=== PATIENT | female | born 1950 | race Caucasian/White ===

== ENCOUNTER 2022-07-30 08:32 | Inpatient (IN) ==
[2022-07-30] MEDS ORDERED: ALBUT/IPRATROP 3MG/0.5MG NEB 3 ML VIAL INH STA (08:56)
--- NOTE | 2022-07-30 09:00 | Emergency Department Note ---
Impression & Plan Acute CHF, Shortness of breath, Elevated LFTs, Elevated brain natriuretic peptide (BNP) level, Cardiomegaly ED Provider Note NAME: VIDHI DENSON AGE: 72 SEX: F : 1950 ARRIVES VIA: Walk-In INFORMANT: Patient, ED PROVIDER(S): Georgi Lr MD CHIEF COMPLAINT: Shortness of breath MEDICAL DECISION MAKING: Patient presents due to concern for shortness of breath. IV was established blood work was obtained along with an EKG. Troponin x-ray also performed. Patient was ordered a DuoNeb treatment. Patient did have some mild improvement with her treatment. The patient's blood work shows a normal white count H&H and platelet count. Chest x-ray with pulmonary vascular congestion. The patient does have transaminitis and associated elevated BNP at 1214. The patient does have an elevated TSH and free T4. Urinalysis does show the possibility of infection but the patient is not complained of any symptoms. Patient's viral panel is negative. Given the patient's BNP lack of known prior history of shortness of breath ROBERT and PND I did speak the on-call hospitalist service for chelsey Calixto PA-C and the patient was admitted by Dr. Peñaloza Prior /Outside records reviewed: None Differential diagnosis: Reactive airway disease, pneumonia, pneumothorax, COPD, CHF, infections, cardiac ischemia, pulmonary embolism, musculoskeletal, gastrointestinal, as well as other pathologies. Diagnostics, as interpreted by me: ECG: Sinus, rate of 100, wide QRS, left bundle branch block pattern, left axis deviation, no obvious Sgarbossa criteria. Cardiac monitoring: An order was placed for continuous cardiac monitoring. The monitor shows a rate of 95 with sinus rhythm. Patient was placed on pulse oximetry Medical decision rules: None Imaging studies: See below HPI: Patient presents due to concern for worsening shortness of breath and associated cough that is nonproductive. Patient does have remote history of smoking approximately 40 years ago. Patient denies any chest pains but states that she can just be at rest and all of a sudden feels very short of breath winded and feels as though she sweats through her shirt. Patient does complain of orthopnea. Patient does have associated ROBERT. The patient has not noticed any significant leg swelling or calf pain. No prior history of DVT or PE. Patient states that she does have a prior history of a bundle branch block. Patient has had cough but it is nonproductive. The patient does not take anything for symptoms at home. Patient is accompanied by her mother at bedside. Patient denies any nausea vomiting or diarrhea. Patient's secondary issue sta gualberto that she is unable to sleep very well. Patient states that she does wake up in the middle the night feeling short of breath and does have occasional cough. Patient is 10 that she had a COVID illness at the beginning of June and is vaccinated for COVID-19 but is never quite felt the same since the COVID illness. PAST MEDICAL HISTORY: See Below PAST SURGICAL HISTORY: See Below SOCIAL HISTORY: See Below HOME MEDICATIONS: See Below ALLERGIES: See Below VITALS: See Below PHYSICAL EXAMINATION: GENERAL: Wearing a mask. Anxious in appearance, wearing glasses EYE EXAM: Normal conjunctiva. PERRL, no anisocoria and EOM's grossly intact w/o pain. NECK: Supple, no nuchal rigidity, no adenopathy, non-tender. No signs of meningismus. FROM of the neck with good chin to chest and neck extension. No stridor. LUNGS: Clear to auscultation. Normal chest wall mechanics. HEART: NSR, no MRG. ABDOMEN: Abdomen soft, non-tender, normo-active bowel sounds, no masses, no rebound or guarding. BACK: No CVA TTP. SKIN: No rashes and no bruising. UPPER EXTREMITIES: Upper extremities are grossly normal. LOWER EXTREMITIES: Grossly normal, no edema. Negative Homans' sign bilaterally. NEURO EXAM: A&O x3, cranial nerves II-XII grossly intact, normal speech, moves all 4 extremities. Past Med/Surg History Medical History Anxiety GERD (gastroesophageal reflux disease) HLD (hyperlipidemia) HTN (hypertension) with goal to be determined Hypothyroidism Surgical History H/O: hysterectomy S/P cervical spinal fusion Status post right knee replacement Social History Smoking Status: Former smoker Tobacco Type: Cigarettes Smoking End Date: >10 years ago; Hx Alcohol Use: Yes Alcohol type: wine Alcohol type Comment: 1 glass 4-5x/week with dinner Feels Safe at Home: Yes Allergies Allergies Allergy/AdvReac Type Severity Reaction Status Date / Time dexamethasone Allergy Hives Verified 07/30/22 13:30 [From Maxitrol (neomycin sulf)] neomycin Allergy Hives Verified 07/30/22 13:30 [From Maxitrol (neomycin sulf)] Opioids - Morphine Analogues Allergy Hives Verified 07/30/22 13:32 polymyxin B Allergy Hives Verified 07/30/22 13:30 [From Maxitrol (neomycin sulf)] Home Meds Home Medications Medication Instructions Recorded Confirmed amitriptyline 25 mg tablet 25 mg PO DIRECTED 07/30/22 07/30/22 cyclobenzaprine 10 mg tablet 10 mg PO DAILY PRN Muscle Spasm 07/30/22 07/30/22 duloxetine 60 mg capsule,delayed 60 mg PO DAILY 07/30/22 07/30/22 release levothyroxine 50 mcg tablet 50 mcg PO DAILY 07/30/22 07/30/22 oxybutynin chloride 10 mg 10 mg PO DAILY 07/30/22 07/30/22 tablet,extended release 24 hr pantoprazole 40 mg tablet,delayed 40 mg PO DAILY 07/30/22 07/30/22 release sertraline 100 mg tablet 100 mg PO DAILY 07/30/22 07/30/22 Results & Data (ED) Vital Signs Vital Signs - 24 hr 07/30/22 08:43 07/30/22 08:56 07/30/22 08:56 Temperature Source Oral Pulse Rate 102 H Respiratory Rate 24 Blood Pressure 116/67 Blood Pressure Mean 83 Pulse Oximetry 97 Oxygen Delivery Method Room Air Room Air Sepsis Recent Fever Within 48 Hours No Sepsis New/Unexplained Change in Mental Status N/A Sepsis Action Taken by Nursing No Action Required 07/30/22 09:03 07/30/22 10:03 Temperature Source Pulse Rate 101 H Respiratory Rate Blood Pressure Blood Pressure Mean Pulse Oximetry Oxygen Delivery Method Room Air Sepsis Recent Fever Within 48 Hours Sepsis New/Unexplained Change in Mental Status Sepsis Action Taken by [facility] Medications Current Medication List: was personally reviewed by me Laboratory Data Attestation: I reviewed the patient's lab results. 07/30/22 10:10 07/30/22 10:10 Lab Results 07/30/22 07/30/22 07/30/22 Range/Units 09:30 10:10 10:10 WBC 10.63 (4.8-10.8) K/ul RBC 4.26 (4.20-5.40) M/uL Hgb 13.2 (12.0-16.0) g/dl Hct 40.0 (37.0-47.0) % MCV 93.9 (80.0-100.0) fL MCH 31.0 (25.0-34.0) pg MCHC 33.0 (32.0-36.0) g/dL RDW Std Deviation 45.7 (36.4-46.3) fL RDW Coeff of Delfino 13.4 (11.5-14.5) % Plt Count 280 (130-400) K/uL MPV 10.5 (9.4-12.4) fL Immature Gran % (Auto) 0.4 % Neut % (Auto) 67.7 % Lymph % (Auto) 21.4 % [place] % (Auto) 8.2 % Eos % (Auto) 1.3 % Baso % (Auto) 1.0 % Neut # (Auto) 7.19 H (1.40-6.50) K/uL Lymph # (Auto) 2.28 (1.2-3.4) K/uL [place] # (Auto) 0.87 H (0.11-0.59) K/uL Eos # (Auto) 0.14 (0-0.50) K/uL Baso # (Auto) 0.11 (0-0.2) K/uL Immature Gran # (Auto) 0.04 (0.01-0.20) K/uL PT 11.4 (9.0-12.0) Seconds INR 1.1 (0.9-1.1) APTT 25.5 (21.0-31.0) Seconds PTT Ratio 0.9 D-Dimer (0-500) ug/L FEU Sodium (136-145) mmol/L Potassium (3.5-5.1) mmol/L Chloride (98-107) mmol/L Carbon Dioxide (21-32) mmol/L Anion Gap (3-11) BUN (6-23) mg/dl Creatinine (0.6-1.2) mg/dl Est Cr Clr Drug Dosing ml/min Est GFR ( Amer) ml/min Est GFR (Non-Af Amer) ml/min BUN/Creatinine Ratio (10-20) Glucose (70-99(Fasting)) mg/dl Calcium (8.6-10.3) mg/dl Magnesium (1.7-2.4) mg/dl Total Bilirubin (0.2-1.0) mg/dl AST (13-39) U/L ALT (7-52) U/L Alkaline Phosphatase (34-104) U/L Troponin I High Sens (0-14) pg/ml B-Natriuretic Peptide (0-100) pg/ml Total Protein (6.0-8.3) gm/dl Albumin (3.4-5.0) gm/dl Globulin (2.5-4.0) gm/dl Albumin/Globulin Ratio (0.9-2) TSH (0.300-4.500) uIu/ml Free T4 (0.61-1.60) ng/dl Urine Color Urine Appearance (Clear) Urine pH (4.5-7.5) Ur Specific [place] (1.000-1.030) Urine Protein (Negative) Urine Glucose (UA) (Negative) Urine Ketones (Negative) Urine Blood (Negative) Urine Nitrite (Negative) Urine Bilirubin (Negative) Urine Urobilinogen (Negative) Ur Leukocyte Esterase (Negative) Urine WBC (Auto) (0-5) /hpf Urine RBC (Auto) (0-4) /hpf U Hyaline Cast (Auto) (0-5) /lpf U Epithel Cells (Auto) (0-5) /lpf Urine Bacteria (Auto) (Negative) Ur Random Creatinine mg/dl U Random Total Protein (0-11.9) mg/dl Protein/Creatinin Ratio (0-0.2) Adenovirus (PCR) Not Detected (NotDetected) B. pertussis DNA (PCR) Not Detected (NotDetected) B.parapertussis DNA PCR Not Detected (NotDetected) C. pneumoniae DNA (PCR) Not Detected (NotDetected) Coronavirus OC43 (PCR) Not Detected (NotDetected) Coronavirus HKU1 (PCR) Not Detected (NotDetected) Coronavirus 229E (PCR) Not Detected (NotDetected) SARS-CoV-2 (PCR) Not Detected (NotDetected) Coronavirus NL63 (PCR) Not Detected (NotDetected) Human Metapneumovir PCR Not Detected (NotDetected) Influenza Type A (PCR) Not Detected (NotDetected) Influenza Type B (PCR) Not Detected (NotDetected) M. pneumoniae (PCR) Not Detected (NotDetected) Parainfluenza 1 (PCR) Not Detected (NotDetected) Parainfluenza 2 (PCR) Not Detected (NotDetected) Parainfluenza 3 (PCR) Not Detected (NotDetected) Parainfluenza 4 (PCR) Not Detected (NotDetected) RSV (PCR) Not Detected (NotDetected) Entero/Rhino (PCR) Not Detected (NotDetected) 07/30/22 07/30/22 07/30/22 Range/Units 10:10 10:10 10:10 WBC (4.8-10.8) K/ul RBC (4.20-5.40) M/uL Hgb (12.0-16.0) g/dl Hct (37.0-47.0) % MCV (80.0-100.0) fL MCH (25.0-34.0) pg MCHC (32.0-36.0) g/dL RDW Std Deviation (36.4-46.3) fL RDW Coeff of Delfino (11.5-14.5) % Plt Count (130-400) K/uL MPV (9.4-12.4) fL Immature Gran % (Auto) % Neut % (Auto) % Lymph % (Auto) % [place] % (Auto) % Eos % (Auto) % Baso % (Auto) % Neut # (Auto) (1.40-6.50) K/uL Lymph # (Auto) (1.2-3.4) K/uL [place] # (Auto) (0.11-0.59) K/uL Eos # (Auto) (0-0.50) K/uL Baso # (Auto) (0-0.2) K/uL Immature Gran # (Auto) (0.01-0.20) K/uL PT (9.0-12.0) Seconds INR (0.9-1.1) APTT (21.0-31.0) Seconds PTT Ratio D-Dimer 1070 H* (0-500) ug/L FEU Sodium 140 (136-145) mmol/L Potassium 3.8 (3.5-5.1) mmol/L Chloride 106 (98-107) mmol/L Carbon Dioxide 26 (21-32) mmol/L Anion Gap 8 (3-11) BUN 15 (6-23) mg/dl Creatinine 0.73 (0.6-1.2) mg/dl Est Cr Clr Drug Dosing 74.6 ml/min Est GFR ( Amer) 96.7 ml/min Est GFR (Non-Af Amer) 83.4 ml/min BUN/Creatinine Ratio 20.5 H (10-20) Glucose 117 H (70-99(Fasting)) mg/dl Calcium 8.7 (8.6-10.3) mg/dl Magnesium 2.0 (1.7-2.4) mg/dl Total Bilirubin 0.9 (0.2-1.0) mg/dl AST 69 H (13-39) U/L ALT 108 H (7-52) U/L Alkaline Phosphatase 142 H (34-104) U/L Troponin I High Sens 31.4 H (0-14) pg/ml B-Natriuretic Peptide 1214 H (0-100) pg/ml Total Protein 7.0 (6.0-8.3) gm/dl Albumin 4.1 (3.4-5.0) gm/dl Globulin 2.9 (2.5-4.0) gm/dl Albumin/Globulin Ratio 1.4 (0.9-2) TSH (0.300-4.500) uIu/ml Free T4 (0.61-1.60) ng/dl Urine Color Urine Appearance (Clear) Urine pH (4.5-7.5) Ur Specific [place] (1.000-1.030) Urine Protein (Negative) Urine Glucose (UA) (Negative) Urine Ketones (Negative) Urine Blood (Negative) Urine Nitrite (Negative) Urine Bilirubin (Negative) Urine Urobilinogen (Negative) Ur Leukocyte Esterase (Negative) Urine WBC (Auto) (0-5) /hpf Urine RBC (Auto) (0-4) /hpf U Hyaline Cast (Auto) (0-5) /lpf U Epithel Cells (Auto) (0-5) /lpf Urine Bacteria (Auto) (Negative) Ur Random Creatinine mg/dl U Random Total Protein (0-11.9) mg/dl Protein/Creatinin Ratio (0-0.2) Adenovirus (PCR) (NotDetected) B. pertussis DNA (PCR) (NotDetected) B.parapertussis DNA PCR (NotDetected) C. pneumoniae DNA (PCR) (NotDetected) Coronavirus OC43 (PCR) (NotDetected) Coronavirus HKU1 (PCR) (NotDetected) Coronavirus 229E (PCR) (NotDetected) SARS-CoV-2 (PCR) (NotDetected) Coronavirus NL63 (PCR) (NotDetected) Human Metapneumovir PCR (NotDetected) Influenza Type A (PCR) (NotDetected) Influenza Type B (PCR) (NotDetected) M. pneumoniae (PCR) (NotDetected) Parainfluenza 1 (PCR) (NotDetected) Parainfluenza 2 (PCR) (NotDetected) Parainfluenza 3 (PCR) (NotDetected) Parainfluenza 4 (PCR) (NotDetected) RSV (PCR) (NotDetected) Entero/Rhino (PCR) (NotDetected) 07/30/22 07/30/22 07/30/22 Range/Units 10:10 10:10 12:06 WBC (4.8-10.8) K/ul RBC (4.20-5.40) M/uL Hgb (12.0-16.0) g/dl Hct (37.0-47.0) % MCV (80.0-100.0) fL MCH (25.0-34.0) pg MCHC (32.0-36.0) g/dL RDW Std Deviation (36.4-46.3) fL RDW Coeff of Delfino (11.5-14.5) % Plt Count (130-400) K/uL MPV (9.4-12.4) fL Immature Gran % (Auto) % Neut % (Auto) % Lymph % (Auto) % [place] % (Auto) % Eos % (Auto) % Baso % (Auto) % Neut # (Auto) (1.40-6.50) K/uL Lymph # (Auto) (1.2-3.4) K/uL [place] # (Auto) (0.11-0.59) K/uL Eos # (Auto) (0-0.50) K/uL Baso # (Auto) (0-0.2) K/uL Immature Gran # (Auto) (0.01-0.20) K/uL PT (9.0-12.0) Seconds INR (0.9-1.1) APTT (21.0-31.0) Seconds PTT Ratio D-Dimer (0-500) ug/L FEU Sodium (136-145) mmol/L Potassium (3.5-5.1) mmol/L Chloride (98-107) mmol/L Carbon Dioxide (21-32) mmol/L Anion Gap (3-11) BUN (6-23) mg/dl Creatinine (0.6-1.2) mg/dl Est Cr Clr Drug Dosing ml/min Est GFR ( Amer) ml/min Est GFR (Non-Af Amer) ml/min BUN/Creatinine Ratio (10-20) Glucose (70-99(Fasting)) mg/dl Calcium (8.6-10.3) mg/dl Magnesium (1.7-2.4) mg/dl Total Bilirubin (0.2-1.0) mg/dl AST (13-39) U/L ALT (7-52) U/L Alkaline Phosphatase (34-104) U/L Troponin I High Sens Cancelled (0-14) pg/ml B-Natriuretic Peptide (0-100) pg/ml Total Protein (6.0-8.3) gm/dl Albumin (3.4-5.0) gm/dl Globulin (2.5-4.0) gm/dl Albumin/Globulin Ratio (0.9-2) TSH 5.272 H (0.300-4.500) uIu/ml Free T4 1.86 H (0.61-1.60) ng/dl Urine Color Urine Appearance (Clear) Urine pH (4.5-7.5) Ur Specific [place] (1.000-1.030) Urine Protein (Negative) Urine Glucose (UA) (Negative) Urine Ketones (Negative) Urine Blood (Negative) Urine Nitrite (Negative) Urine Bilirubin (Negative) Urine Urobilinogen (Negative) Ur Leukocyte Esterase (Negative) Urine WBC (Auto) (0-5) /hpf Urine RBC (Auto) (0-4) /hpf U Hyaline Cast (Auto) (0-5) /lpf U Epithel Cells (Auto) (0-5) /lpf Urine Bacteria (Auto) (Negative) Ur Random Creatinine 53.7 mg/dl U Random Total Protein 13.6 H (0-11.9) mg/dl Protein/Creatinin Ratio 0.3 H (0-0.2) Adenovirus (PCR) (NotDetected) B. pertussis DNA (PCR) (NotDetected) B.parapertussis DNA PCR (NotDetected) C. pneumoniae DNA (PCR) (NotDetected) Coronavirus OC43 (PCR) (NotDetected) Coronavirus HKU1 (PCR) (NotDetected) Coronavirus 229E (PCR) (NotDetected) SARS-CoV-2 (PCR) (NotDetected) Coronavirus NL63 (PCR) (NotDetected) Human Metapneumovir PCR (NotDetected) Influenza Type A (PCR) (NotDetected) Influenza Type B (PCR) (NotDetected) M. pneumoniae (PCR) (NotDetected) Parainfluenza 1 (PCR) (NotDetected) Parainfluenza 2 (PCR) (NotDetected) Parainfluenza 3 (PCR) (NotDetected) Parainfluenza 4 (PCR) (NotDetected) RSV (PCR) (NotDetected) Entero/Rhino (PCR) (NotDetected) 07/30/22 Range/Units 12:06 WBC (4.8-10.8) K/ul RBC (4.20-5.40) M/uL Hgb (12.0-16.0) g/dl Hct (37.0-47.0) % MCV (80.0-100.0) fL MCH (25.0-34.0) pg MCHC (32.0-36.0) g/dL RDW Std Deviation (36.4-46.3) fL RDW Coeff of Delfino (11.5-14.5) % Plt Count (130-400) K/uL MPV (9.4-12.4) fL Immature Gran % (Auto) % Neut % (Auto) % Lymph % (Auto) % [place] % (Auto) % Eos % (Auto) % Baso % (Auto) % Neut # (Auto) (1.40-6.50) K/uL Lymph # (Auto) (1.2-3.4) K/uL [place] # (Auto) (0.11-0.59) K/uL Eos # (Auto) (0-0.50) K/uL Baso # (Auto) (0-0.2) K/uL Immature Gran # (Auto) (0.01-0.20) K/uL PT (9.0-12.0) Seconds INR (0.9-1.1) APTT (21.0-31.0) Seconds PTT Ratio D-Dimer (0-500) ug/L FEU Sodium (136-145) mmol/L Potassium (3.5-5.1) mmol/L Chloride (98-107) mmol/L Carbon Dioxide (21-32) mmol/L Anion Gap (3-11) BUN (6-23) mg/dl Creatinine (0.6-1.2) mg/dl Est Cr Clr Drug Dosing ml/min Est GFR ( Amer) ml/min Est GFR (Non-Af Amer) ml/min BUN/Creatinine Ratio (10-20) Glucose (70-99(Fasting)) mg/dl Calcium (8.6-10.3) mg/dl Magnesium (1.7-2.4) mg/dl Total Bilirubin (0.2-1.0) mg/dl AST (13-39) U/L ALT (7-52) U/L Alkaline Phosphatase (34-104) U/L Troponin I High Sens (0-14) pg/ml B-Natriuretic Peptide (0-100) pg/ml Total Protein (6.0-8.3) gm/dl Albumin (3.4-5.0) gm/dl Globulin (2.5-4.0) gm/dl Albumin/Globulin Ratio (0.9-2) TSH (0.300-4.500) uIu/ml Free T4 (0.61-1.60) ng/dl Urine Color Yellow Urine Appearance Clear (Clear) Urine pH 5.5 (4.5-7.5) Ur Specific [place] 1.012 (1.000-1.030) Urine Protein Negative (Negative) Urine Glucose (UA) Negative (Negative) Urine Ketones Negative (Negative) Urine Blood Negative (Negative) Urine Nitrite Positive A (Negative) Urine Bilirubin Negative (Negative) Urine Urobilinogen Negative (Negative) Ur Leukocyte Esterase Trace H (Negative) Urine WBC (Auto) 1-5 (0-5) /hpf Urine RBC (Auto) 0-4 (0-4) /hpf U Hyaline Cast (Auto) 1-5 (0-5) /lpf U Epithel Cells (Auto) >30 H (0-5) /lpf Urine Bacteria (Auto) 3+ H (Negative) Ur Random Creatinine mg/dl U Random Total Protein (0-11.9) mg/dl Protein/Creatinin Ratio (0-0.2) Adenovirus (PCR) (NotDetected) B. pertussis DNA (PCR) (NotDetected) B.parapertussis DNA PCR (NotDetected) C. pneumoniae DNA (PCR) (NotDetected) Coronavirus OC43 (PCR) (NotDetected) Coronavirus HKU1 (PCR) (NotDetected) Coronavirus 229E (PCR) (NotDetected) SARS-CoV-2 (PCR) (NotDetected) Coronavirus NL63 (PCR) (NotDetected) Human Metapneumovir PCR (NotDetected) Influenza Type A (PCR) (NotDetected) Influenza Type B (PCR) (NotDetected) M. pneumoniae (PCR) (NotDetected) Parainfluenza 1 (PCR) (NotDetected) Parainfluenza 2 (PCR) (NotDetected) Parainfluenza 3 (PCR) (NotDetected) Parainfluenza 4 (PCR) (NotDetected) RSV (PCR) (NotDetected) Entero/Rhino (PCR) (NotDetected) Administered Medications Discontinued Medications Albuterol (Albut/Ipratrop 3mg/0.5mg Neb 3 Ml Vial) 3 ml INH NOW STA Stop: 07/30/22 08:57 Last Admin: 07/30/22 09:48 Dose: 3 ml Documented By: TAMIKA Furosemide (Furosemide 40 Mg/4 Ml Vial) 40 mg IV ONE ONE Stop: 07/30/22 11:34 Last Admin: 07/30/22 12:38 Dose: 40 mg Documented By: [email or web address] Ioversol (Optiray 320 500ml) 120 ml IV ONCE ONE Stop: 07/30/22 14:34 Last Admin: 07/30/22 14:33 Dose: 120 ml Documented By: ERICA Imaging Data Radiologist's Impression: Chest X-Ray 07/30/22 08:56 SINGLE VIEW CHEST CLINICAL HISTORY: Dyspnea FINDINGS: An AP, portable, upright chest radiograph is obtained. No prior studies are available for comparison at the time of dictation. The heart is enlarged noting atherosclerotic calcification of the thoracic aorta. There is pulmonary vascular congestion. Scarring/atelectasis is noted at the lung bases. The lungs and pleural spaces are otherwise clear. No pneumothorax is seen. The skeletal structures are osteopenic. The bony thorax is grossly intact. Fusion hardware is noted in the lower cervical spine. IMPRESSION: Cardiomegaly with pulmonary vascular congestion. ACT 112: Negative or not required by law. Electronically signed by: Gerry Hahn M.D. 07/30/2022 9:15 AM Discharge Plan Visit Data Chief Complaint: Shortness of Breath/Dyspnea Stated Complaint: SHORTNESS OF BREATH ED Provider: Georgi Lr Discharge Problem: Acute CHF, Shortness of breath, Elevated LFTs, Elevated brain natriuretic peptide (BNP) level, Cardiomegaly Patient Disposition: Admitted As Inpatient Discharge Instructions Interventions: ED Discharge Assessment Last Done: 07/30/22 12:54
--- NOTE | 2022-07-30 09:17 | XRay Report ---
SINGLE VIEW CHEST CLINICAL HISTORY: Dyspnea FINDINGS: An AP, portable, upright chest radiograph is obtained. No prior studies are available for c omparison at the time of dictation. The heart is enlarged noting atherosclerotic calcification of the thoracic aorta. There is pulmonary vascular congestion. Scarring/atelectasis is noted at the lung ba ses. The lungs and pleural spaces are otherwise clear. No pneumothorax is seen. The skeletal structur es are osteopenic. The bony thorax is grossly intact. Fusion hardware is noted in the lower cervical spine. IMPRESSION: Cardiomegaly with pulmonary vascular congestion. ACT 112: Negative or not required by law. Electronically signed by: Gerry Hahn M.D. 07/30/2022 9:15 AM
[2022-07-30 10:54] LABS: Basophils # (auto) 0.11 K/uL (0-0.2); Eosinophils # (auto) 0.14 K/uL (0-0.50); Eosinophils % (auto) 1.3 %; Hemoglobin 13.2 g/dl (12.0-16.0); Immature Granulocytes # (auto) 0.04 K/uL (0.01-0.20); Immature Granulocytes % (auto) 0.4 %; Lymphocytes # (auto) 2.28 K/uL (1.2-3.4); Lymphocytes % (auto) 21.4 %; Mean Corpuscular Volume 93.9 fL (80.0-100.0); Mean Platelet Volume 10.5 fL (9.4-12.4); Monocytes # (auto) 0.87 K/uL (0.11-0.59); Monocytes % (auto) 8.2 %; Neutrophils # (auto) 7.19 K/uL (1.40-6.50); Neutrophils % (auto) 67.7 %; Platelet Count 280 K/uL (130-400); RDW Coefficient of Variation 13.4 % (11.5-14.5); RDW Standard Deviation 45.7 fL (36.4-46.3); Red Blood Count 4.26 M/uL (4.20-5.40); White Blood Count 10.63 K/ul (4.8-10.8)
[2022-07-30 11:16] LABS: INR 1.1 (0.9-1.1); Partial Thromboplastin Ratio 0.9; Partial Thromboplastin Time 25.5 Seconds (21.0-31.0); Prothrombin Time 11.4 Seconds (9.0-12.0)
[2022-07-30 11:18] LABS: Albumin Globulin Ratio 1.4 (0.9-2); Albumin Level 4.1 gm/dl (3.4-5.0); BUN Creatinine Ratio 20.5 (10-20); Bilirubin,Total 0.9 mg/dl (0.2-1.0); Calcium 8.7 mg/dl (8.6-10.3); Creatinine Clr Calc Pharmacy 74.6 ml/min; Est GFR (African American) 96.7 ml/min; Est GFR (Non-African American) 83.4 ml/min; Globulin 2.9 gm/dl (2.5-4.0); Potassium 3.8 mmol/L (3.5-5.1)
[2022-07-30 11:25] LABS: Adenovirus PCR Not Detected (NotDetected); Bordetella parapertussis PCR Not Detected (NotDetected); Bordetella pertussis PCR Not Detected (NotDetected); Chlamydia pneumoniae PCR Not Detected (NotDetected); Coronavirus 229E PCR Not Detected (NotDetected); Coronavirus CoV-2 (COVID19)PCR Not Detected (NotDetected); Coronavirus HKU1 PCR Not Detected (NotDetected); Coronavirus NL63 PCR Not Detected (NotDetected); Coronavirus OC43PCR Not Detected (NotDetected); Human Metapneumovirus PCR Not Detected (NotDetected); Influenza A PCR Not Detected (NotDetected); Influenza B PCR Not Detected (NotDetected); Mycoplasma pneumoniae PCR Not Detected (NotDetected); Parainfluenza Virus 1 PCR Not Detected (NotDetected); Parainfluenza Virus 2 PCR Not Detected (NotDetected); Parainfluenza Virus 3 PCR Not Detected (NotDetected); Parainfluenza Virus 4 PCR Not Detected (NotDetected); Respiratory Syncytial VirusPCR Not Detected (NotDetected); Rhinovirus/Enterovirus PCR Not Detected (NotDetected)
[2022-07-30] MEDS ORDERED: FUROSEMIDE 40 MG/4 ML VIAL IV ONE ×2 (11:33→17:00)
--- NOTE | 2022-07-30 11:51 | History & Physical Report ---
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 Check TSH/t4 given hypothyroid/issues w/ constipation/weight gain Check trop, trend if elevated --> 31.4, ?volume overload --> trend ECHO to Eval for valvular dysfunction D-dimer given travel by car/prior leg cramping -- check CTA if needed but no hypotension/hypoxia at present, do not suspect such Monitor I&O, daily weight LOW SALT DIET -- patient states she is unable to tolerate NO SALT DIET< from [place] -- discussed low salt diet and will be ordered Monitor/consider repeat dose lasix tonight if needed Monitor LFTs -- no abdominal pain, on Flexeril, also reports wine 4-5x/week check Liver US for eval but suspect volume overload/hepatic congestion (may benefit better from torsemide/bumex given abd fullness) Will plan to start metoprolol 25mg QAM, cards consult pending echo Needs set up for PCP at d/c (2) Elevated brain natriuretic peptide (BNP) level: Plan: suspect 2nd to volume overload/CHF (3) Cardiomegaly: Plan: check echo, cards consult if needed check trop monitor on tele no CP reported but did state pain w/ inspiration ddimer as above, CTA if needed will check a1c/lipid for risk strat outpatient, needing new pcp (4) Hypothyroidism: Plan: on levothyroxine 50mcg check TSH/Ft4 continue home dose for now (5) GERD (gastroesophageal reflux disease): Plan: continue ppi (6) Anxiety: Plan: continue cymbalta/sertaline trazodone available to sleep tonight (7) Elevated LFTs: Plan: ?hepatic congestion from volume overload/diastolic CHF, ?etoh use, ?flexeril use. INR 1.1 Holding flexeril for now Check Liver US for completeness Monitor LFTs in AM (8) Acute HFrEF (heart failure with reduced ejection fraction): (9) Cardiomyopathy: History of Present Illness Chief Complaint: shortness of breath Primary Care Provider: NO PCP 72yo female presented with PMHx significant for anxiety/depression, GERD, previous HTN/HLD on BP meds/statin but reported weight loss and discontinued these --> presented with shortness of breath, orthopnea, nonproductive cough. Recently moving from [facility], traveled by car to [place] from [place]. Did not develop symptoms until around 2 days ago and reports she has not been sleeping very well and has a sensation of drowning with laying flat and hasn't slept well in the past two days, needing something for sleep as amytryptyline not helping h er. BNP elevated 1214, CXR w/ cardiomegaly and pulmonary congestion. No hypoxia Given Duoneb x 1, 40mg IV lasix in ER. She reports feeling a little better since she got here but still slightly SOB w/ nonproductive cough and ROBERT. She states she is unsure of prior name of BP medication but that she lost about 100lb since she was on them 10 years ago and has been off since. She does not weigh herself daily but does note that she feels like her abdomen is nava and pants have been tighter fitting. She notes if admitted please do not give NO SALT diet as she can't take the blandness in the area as [place] [facility] [place] No having abdominal pain but does endorse fullness. No LE edema/calf tenderness and on palpation she notes she usually doesn't like that sensation but is having zero pain. Hx hypothyroidism and takes at night when she wakes up on an empty stomach. Does have issues with constipation on occassion if she doesn't drink tea/coffee. Had been attmpeting to get new PCP in the area- discussed can assist at d/c. LFTs w/ elevation in AST 69, ALT 108, ALP 142 (on flexeril prn -- took dose yesterday, hx spinal stenosis/fusion). Does report drinks glass of wine w/ mom in evening with supper about 4-5x/week. WBC 10.6k w/ L shift. No fever. Hgb 13.2. Mag 2.0. EKG w/ SR w/ PVC, possible LAR, left axis deviation. LBBB (known LBBB). No recent fevers at home. Biofire negative. 97% on RA Discussed admission and ECHO (tech at bedside), lasix and monitoring labs. She is ok with full code and family understands if long-term she does not want to be a vegetable. 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 Allergies Allergy/AdvReac Type Severity Reaction Status Date / Time dexamethasone Allergy Hives Verified 07/30/22 13:30 [From Maxitrol (neomycin sulf)] neomycin Allergy Hives Verified 07/30/22 13:30 [From Maxitrol (neomycin sulf)] Opioids - Morphine Analogues Allergy Hives Verified 07/30/22 13:32 polymyxin B Allergy Hives Verified 07/30/22 13:30 [From Maxitrol (neomycin sulf)] Home Medications Medication Instructions Recorded Confirmed Type amitriptyline 25 mg tablet 25 mg PO DIRECTED 07/30/22 07/30/22 History cyclobenzaprine 10 mg tablet 10 mg PO DAILY PRN Muscle Spasm 07/30/22 07/30/22 History duloxetine 60 mg capsule,delayed 60 mg PO DAILY 07/30/22 07/30/22 History release levothyroxine 50 mcg tablet 50 mcg PO DAILY 07/30/22 07/30/22 History oxybutynin chloride 10 mg 10 mg PO DAILY 07/30/22 07/30/22 History tablet,extended release 24 hr pantoprazole 40 mg tablet,delayed 40 mg PO DAILY 07/30/22 07/30/22 History release sertraline 100 mg tablet 100 mg PO DAILY 07/30/22 07/30/22 History Past Med/Surg History Medical History Anxiety GERD (gastroesophageal reflux disease) HLD (hyperlipidemia) HTN (hypertension) with goal to be determined Hypothyroidism Surgical History H/O: hysterectomy S/P cervical spinal fusion Status post right knee replacement Social History Smoking Status: Former smoker Tobacco Type: Cigarettes Smoking End Date: >10 years ago; Hx Alcohol Use: Yes Alcohol type: wine Alcohol type Comment: 1 glass 4-5x/week with dinner Hx Substance Use: No Preferred Language: Pakistani Communication Ability: Effective Battery Charger Required: No Beliefs That Will Affect Care: None Current Living Situation: Family Feels Safe at Home: Yes Safety Concerns: Feels Safe At This Time Review of Systems Review of Systems: All systems reviewed & are unremarkable except as noted in HPI & below Physical Exam Physical Exam: General: WD/WN obese female, anxious appearing, NAD, mother at bedside HEENT: head normocephalic, atraumatic, mmm, trachea midline, +JVD Resp: diminished in bases, no wheezing/crackles, +cough, on room air 97% CV: RRR, S1/S2, +?4, no significant LE edema, no calf tenderness, cap refill wnl GI: +BS, obese, distended, nontender : no valera -- urine in bathroom yellow in color in hat MSK/Neuro: no focal deficits, no slurred speech/facial droop Psych: AOx3, anxious appearing about staying overnight but cooperative with exam Results & Data Results & Data Vital Signs (Past 12 Hours) Vital Signs Pulse Resp BP Pulse Ox O2 Del Method 07/30/22 10:03 101 H 07/30/22 09:03 Room Air 07/30/22 08:56 Room Air 07/30/22 08:43 102 H 24 116/67 97 Room Air Laboratory Results 07/30/22 07/30/22 07/30/22 Range/Units 10:10 10:10 10:10 WBC (4.8-10.8) K/ul RBC (4.20-5.40) M/uL Hgb (12.0-16.0) g/dl Hct (37.0-47.0) % MCV (80.0-100.0) fL MCH (25.0-34.0) pg MCHC (32.0-36.0) g/dL RDW Std Deviation (36.4-46.3) fL RDW Coeff of Delfino (11.5-14.5) % Plt Count (130-400) K/uL MPV (9.4-12.4) fL Immature Gran % (Auto) % Neut % (Auto) % Lymph % (Auto) % Dimmit % (Auto) % Eos % (Auto) % Baso % (Auto) % Neut # (Auto) (1.40-6.50) K/uL Lymph # (Auto) (1.2-3.4) K/uL Dimmit # (Auto) (0.11-0.59) K/uL Eos # (Auto) (0-0.50) K/uL Baso # (Auto) (0-0.2) K/uL Immature Gran # (Auto) (0.01-0.20) K/uL PT 11.4 (9.0-12.0) Seconds INR 1.1 (0.9-1.1) APTT 25.5 (21.0-31.0) Seconds PTT Ratio 0.9 Sodium 140 (136-145) mmol/L Potassium 3.8 (3.5-5.1) mmol/L Chloride 106 (98-107) mmol/L Carbon Dioxide 26 (21-32) mmol/L Anion Gap 8 (3-11) BUN 15 (6-23) mg/dl Creatinine 0.73 (0.6-1.2) mg/dl Est Cr Clr Drug Dosing 74.6 ml/min Est GFR ( Amer) 96.7 ml/min Est GFR (Non-Af Amer) 83.4 ml/min BUN/Creatinine Ratio 20.5 H (10-20) Glucose 117 H (70-99(Fasting)) mg/dl Calcium 8.7 (8.6-10.3) mg/dl Magnesium 2.0 (1.7-2.4) mg/dl Total Bilirubin 0.9 (0.2-1.0) mg/dl AST 69 H (13-39) U/L ALT 108 H (7-52) U/L Alkaline Phosphatase 142 H (34-104) U/L B-Natriuretic Peptide 1214 H (0-100) pg/ml Total Protein 7.0 (6.0-8.3) gm/dl Albumin 4.1 (3.4-5.0) gm/dl Globulin 2.9 (2.5-4.0) gm/dl Albumin/Globulin Ratio 1.4 (0.9-2) Adenovirus (PCR) (NotDetected) B. pertussis DNA (PCR) (NotDetected) B.parapertussis DNA PCR (NotDetected) C. pneumoniae DNA (PCR) (NotDetected) Coronavirus OC43 (PCR) (NotDetected) Coronavirus HKU1 (PCR) (NotDetected) Coronavirus 229E (PCR) (NotDetected) SARS-CoV-2 (PCR) (NotDetected) Coronavirus NL63 (PCR) (NotDetected) Human Metapneumovir PCR (NotDetected) Influenza Type A (PCR) (NotDetected) Influenza Type B (PCR) (NotDetected) M. pneumoniae (PCR) (NotDetected) Parainfluenza 1 (PCR) (NotDetected) Parainfluenza 2 (PCR) (NotDetected) Parainfluenza 3 (PCR) (NotDetected) Parainfluenza 4 (PCR) (NotDetected) RSV (PCR) (NotDetected) Entero/Rhino (PCR) (NotDetected) 07/30/22 07/30/22 Range/Units 10:10 09:30 WBC 10.63 (4.8-10.8) K/ul RBC 4.26 (4.20-5.40) M/uL Hgb 13.2 (12.0-16.0) g/dl Hct 40.0 (37.0-47.0) % MCV 93.9 (80.0-100.0) fL MCH 31.0 (25.0-34.0) pg MCHC 33.0 (32.0-36.0) g/dL RDW Std Deviation 45.7 (36.4-46.3) fL RDW Coeff of Delfino 13.4 (11.5-14.5) % Plt Count 280 (130-400) K/uL MPV 10.5 (9.4-12.4) fL Immature Gran % (Auto) 0.4 % Neut % (Auto) 67.7 % Lymph % (Auto) 21.4 % Dimmit % (Auto) 8.2 % Eos % (Auto) 1.3 % Baso % (Auto) 1.0 % Neut # (Auto) 7.19 H (1.40-6.50) K/uL Lymph # (Auto) 2.28 (1.2-3.4) K/uL Dimmit # (Auto) 0.87 H (0.11-0.59) K/uL Eos # (Auto) 0.14 (0-0.50) K/uL Baso # (Auto) 0.11 (0-0.2) K/uL Immature Gran # (Auto) 0.04 (0.01-0.20) K/uL PT (9.0-12.0) Seconds INR (0.9-1.1) APTT (21.0-31.0) Seconds PTT Ratio Sodium (136-145) mmol/L Potassium (3.5-5.1) mmol/L Chloride (98-107) mmol/L Carbon Dioxide (21-32) mmol/L Anion Gap (3-11) BUN (6-23) mg/dl Creatinine (0.6-1.2) mg/dl Est Cr Clr Drug Dosing ml/min Est GFR ( Amer) ml/min Est GFR (Non-Af Amer) ml/min BUN/Creatinine Ratio (10-20) Glucose (70-99(Fasting)) mg/dl Calcium (8.6-10.3) mg/dl Magnesium (1.7-2.4) mg/dl Total Bilirubin (0.2-1.0) mg/dl AST (13-39) U/L ALT (7-52) U/L Alkaline Phosphatase (34-104) U/L B-Natriuretic Peptide (0-100) pg/ml Total Protein (6.0-8.3) gm/dl Albumin (3.4-5.0) gm/dl Globulin (2.5-4.0) gm/dl Albumin/Globulin Ratio (0.9-2) Adenovirus (PCR) Not Detected (NotDetected) B. pertussis DNA (PCR) Not Detected (NotDetected) B.parapertussis DNA PCR Not Detected (NotDetected) C. pneumoniae DNA (PCR) Not Detected (NotDetected) Coronavirus OC43 (PCR) Not Detected (NotDetected) Coronavirus HKU1 (PCR) Not Detected (NotDetected) Coronavirus 229E (PCR) Not Detected (NotDetected) SARS-CoV-2 (PCR) Not Detected (NotDetected) Coronavirus NL63 (PCR) Not Detected (NotDetected) Human Metapneumovir PCR Not Detected (NotDetected) Influenza Type A (PCR) Not Detected (NotDetected) Influenza Type B (PCR) Not Detected (NotDetected) M. pneumoniae (PCR) Not Detected (NotDetected) Parainfluenza 1 (PCR) Not Detected (NotDetected) Parainfluenza 2 (PCR) Not Detected (NotDetected) Parainfluenza 3 (PCR) Not Detected (NotDetected) Parainfluenza 4 (PCR) Not Detected (NotDetected) RSV (PCR) Not Detected (NotDetected) Entero/Rhino (PCR) Not Detected (NotDetected) Diagnostic Findings Chest X-Ray 07/30/22 08:56 SINGLE VIEW CHEST CLINICAL HISTORY: Dyspnea FINDINGS: An AP, portable, upright chest radiograph is obtained. No prior studies are available for comparison at the time of dictation. The heart is enlarged noting atherosclerotic calcification of the thoracic aorta. There is pulmonary vascular congestion. Scarring/atelectasis is noted at the lung bases. The lungs and pleural spaces are otherwise clear. No pneumothorax is seen. The skeletal structures are osteopenic. The bony thorax is grossly intact. Fusion hardware is noted in the lower cervical spine. IMPRESSION: Cardiomegaly with pulmonary vascular congestion. ACT 112: Negative or not required by law. Electronically signed by: Gerry Hahn M.D. 07/30/2022 9:15 AM Supervising Physician Co-Signing Physician Notes I personally saw and examined the patient. I verified all katz points and agree with Abigail Owen PA-C with the following exceptions and/or additions: 72 year old female presents to the ER with shortness of breath and significant orthopnea getting progressively worse over months but much worse today. She reports a significant history of cardiomyopathy in her family but not due to he art attacks. O/E Very anxious appearing, Aler &Ox3, HS RRR, no murmurs, Chest rhonchi b/l, bibasal fine crackles, no wheezing, Abdo SNT, trace b/l LE pitting A/P Acute HFrEF - Significant diuresis with Lasix 40mg IV given in ER, will continue with 20mg IV BID. Low Na diet, strict I&Os, daily weights. Urine protein/Cr ratio normal therefore not concerned regarding renal involvement. Cardiomyopathy - cardiology to consider cardiac cath for cause. Start metoprolol succinate 25,g PO in AM. Consider Entresto as blood pressure allows. Elevated LFTs - suspect hepatic congestion, US liver unremarkable. Continue to trend. PG Care Time/CCT Total # of Minutes Spent Total Time Spent with Patient: Total time spent is greater than 50% in coordination of care (as documented) at patient's floor/unit and/or counseling patient: Coding Level of Care Code 03558 INT INP/OBS CARE 3/75MIN Diagnoses Shortness of breath R06.02 Elevated brain natriuretic peptide (BNP) level R79.89 Cardiomegaly I51.7 Hypothyroidism E03.9 GERD (gastroesophageal reflux disease) K21.9 Anxiety F41.9 Elevated LFTs R79.89 Acute HFrEF (heart failure with reduced ejection fraction) I50.21 Cardiomyopathy I42.9
[2022-07-30 12:23] LABS: Troponin I High Sensitivity 31.4 pg/ml (0-14)
[2022-07-30 12:30] LABS: Thyroid Stimulating Hormone 5.272 uIu/ml (0.300-4.500)
[2022-07-30 12:38] LABS: D Dimer 1070 ug/L FEU (0-500)
[2022-07-30] MEDS ORDERED: ONDANSETRON INJ 2 MG/ML 2 ML VIAL IV PRN (12:59)
[2022-07-30 13:00] LABS: Appearance Urine Clear (Clear); Bacteria Urine Automated 3+ (Negative); Bilirubin Urine Negative (Negative); Blood Urine Negative (Negative); Color Urine Yellow; Epithelial Cell Urine Auto >30 /lpf (0-5); Glucose Urine UA Negative (Negative); Ketones Urine Negative (Negative); Leukocyte Esterase Urine Trace (Negative); Nitrite Urine Positive (Negative); Protein Urine Negative (Negative); RBC Urine Automated 0-4 /hpf (0-4); Specific Gravity Urine 1.012 (1.000-1.030); Urobilinogen Urine Negative (Negative); pH Urine 5.5 (4.5-7.5)
--- NOTE | 2022-07-30 13:04 | XCELERA ---
[id number]
[2022-07-30 13:06] LABS: T4 Free Thyroxine 1.86 ng/dl (0.61-1.60)
[2022-07-30] MEDS ORDERED: Patient's ALLERGY Info needs ENTERED SCH (13:15)
[2022-07-30 13:19] LABS: Total Protein Urine Random 13.6 mg/dl (0-11.9)
[2022-07-30 13:25] LABS: Creatinine Urine Random 53.7 mg/dl; Protein Creatinine Ratio Urine 0.3 (0-0.2)
[2022-07-30] MEDS ORDERED: OPTIRAY 320 500ml IV ONE (14:33)
--- NOTE | 2022-07-30 14:53 | CT Scan Report ---
CT ANGIOGRAM OF THE CHEST CLINICAL HISTORY: Dyspnea on exertion. Cough. COMPARISON STUDY: Chest x-ray dated 07/30/2022. TECHNIQUE: Following the IV administration of 120 cc of Optiray 320, CT angiogram of the chest was pe rformed from the upper abdomen to the thoracic inlet utilizing the pulmonary embolus protocol. Images are reviewed in the axial, sagittal, and coronal planes. 3-D MIPS images are created and assessed. I V contrast was administered without complication. A dose lowering technique was utilized adhering to the principles of ALARA. CT DOSE: 566.96 mGycm FINDINGS: Thyroid: Imaged portions of the thyroid gland are normal in size and attenuation. Thoracic aorta: There is atherosclerotic calcification of the thoracic aorta, which is normal in pily reena and demonstrates standard 3-vessel arch anatomy. The thoracic aorta is not well opacified. Pulmonary vasculature: The pulmonary trunk is normal in caliber. There are no filling defects identif ied in main, lobar, or segmental pulmonary branches to suggest pulmonary embolus. Heart: The heart is enlarged noting a small pericardial effusion. There are coronary artery calcifica tions. Lungs and pleural spaces: Evaluation of the lung parenchyma is degraded by motion artifact. Intralobu lar septal thickening indicates congestive failure. There are trace pleural effusions with dependent atelectasis. Minimal secretions are noted in the trachea. A 4 mm left lower lobe pulmonary nodule is seen on image #116. Mediastinum: There is no mediastinal lymphadenopathy. Leah: Clear. Axillae: There is no axillary lymphadenopathy. Upper abdomen: There is a small hiatal hernia. Postsurgical change is noted in the stomach. Cholecyst ectomy clips are seen in the right upper quadrant. The liver appears steatotic. Skeletal structures: The skeletal structures are osteopenic. No lytic or blastic bony lesions are see n. Fusion hardware is noted in the lower cervical spine. IMPRESSION: 1. There is no evidence of pulmonary embolus in the main, lobar, or segmental pulmonary arteries. 2. Cardiomegaly with evidence of congestive failure. 3. Trace pleural effusions. 4. There is a 4 mm left lower lobe pulmonary nodule. This is pathologically indeterminate and can be followed as per the Fleischner criteria if clinically warranted. See below. 5. Additional findings as above. Please refer to below summary of Fleischner criteria recommendations for follow-up of incidental CT n odules Bj Rowan, Guidelines for management of small pulmonary nodules detected on CT scans: A ganesh juares from the Fleischner Society, Radiology 237: [phone].) SOLID NODULES Solitary nodule size: <6 mm * low risk patients: no follow-up needed * high risk patients: optional CT at 12 months Solitary nodule size: 6-8 mm * low risk patients: follow-up at 6-12 months, then consider further follow-up at 18-24 months * high risk patients: initial follow-up CT at 6-12 months and then at 18-24 months if no change Solitary nodule size: >8 mm * either low or high risk patients - consider follow-up CT at 3 months, and/or CT-PET, and/or biopsy Multiple nodules size: <6 mm * low risk patients: no routine follow-up * high risk patients: optional CT at 12 months Multiple nodules size: 6-8 mm * low risk patients: follow-up at 3-6 months, then consider further follow-up at 18-24 months * high risk patients: follow-up at 3-6 months, then at 18-24 months if no change Multiple nodules size: >8 mm * low risk patients: follow-up at 3-6 months, then consider further follow-up at 18-24 months * high risk patients: follow-up at 3-6 months, then at 18-24 months if no change Note: newly detected indeterminate nodule in persons 35 years of age or older. * low risk patients: minimal or absent history of smoking and/or other known risk factors * high risk patients: history of smoking or of other known risk factors (e.g. first degree relative with lung cancer, or exposure to asbestos, radon, uranium) * if a nodule up to 8 mm is partly solid or is ground glass further follow-up is required after 24 m onths to exclude possible slow growing adenocarcinoma (VIET) SUBSOLID NODULES Solitary pure ground-glass nodule * nodule size <6 mm - no CT follow-up required * nodule size >=6 mm - follow-up CT at 6-12 months, then every 2 years until 5 years Solitary part-solid nodule * nodule size <6 mm - no CT follow-up required * nodule size >=6 mm - follow-up CT at 3-6 months. If unchanged, and solid component remains <6 mm, then annual follow-up for 5 years Multiple subsolid nodules * nodule size <6 mm - follow-up CT at 3-6 months, consider further follow-up at 2 and 4 years if sta ble * nodule size >=6 mm - follow-up CT at 3-6 months, subsequent management based on the most suspiciou s nodule(s) ACT 112: Negative or not required by law. Electronically signed by: Gerry Hahn M.D. 07/30/2022 2:51 PM
--- NOTE | 2022-07-30 15:11 | Electrocardiogram Report ---
Test Reason : Blood Pressure : / mmHG Vent. Rate : 100 BPM Atrial Rate : 100 BPM P-R Int : 160 ms QRS Dur : 176 ms QT Int : 422 ms P-R-T Axes : 044 -40 138 degrees QTc Int : 544 ms Sinus rhythm with occasional Premature ventricular complexes Possible Left atrial enlargement Left axis deviation Left bundle branch block Abnormal ECG No previous ECGs available Confirmed by Spencer Mcpherson ([id number]) on 07/30/2022 3:11:10 PM Referred By: REFERRED SELF Confirmed By:Sepncer Mcpherson
--- NOTE | 2022-07-30 15:17 | Ultrasound Report ---
ABDOMINAL ULTRASOUND, RIGHT UPPER QUADRANT HISTORY: Acutely elevated LFTs elevated LFTs. COMPARISON: CTA chest of same day FINDINGS: Pancreas: The pancreas demonstrates a normal echotexture. Liver: The liver measures up to 18 cm in length and demonstrates increased echogenicity. No hepatic m ass or marginal nodularity. No ascites. Gallbladder: Cholecystectomy. CBD: 0.6 cm. Right kidney: No hydronephrosis. IMPRESSION: 1. Status post cholecystectomy without acute abnormality. 2. Mild hepatomegaly with hepatic steatosis. 3. No biliary ductal dilation. ACT 112: Negative or not required by law. Electronically signed by: Bryon Hutchins M.D. 07/30/2022 3:16 PM
--- NOTE | 2022-07-30 16:11 | Cardiology Consultation ---
Date of Consultation July 30, 2022 Assessment & Plan (1) Acute on chronic systolic (congestive) heart failure: -echocardiogram notes severe left ventricular dysfunction. -would use intravenous Lasix b.i.d.. -agree with metoprolol tartrate for titration. -will discharge on metoprolol succinate. -consider low-dose lisinopril tomorrow. -will likely need a cardiac catheterization. -we will enroll her in the CHF clinic. (2) LBBB (left bundle branch block): -will need an ischemic workup once compensated. -favor a cardiac catheterization. History of Present Illness Attending Physician: Richard Peñaloza MD History of Present Illness Mrs. Plaza is a 72 year old female admitted earlier today in decompensated congestive heart failure. This consultation was ordered to assist in her cardiac management. The patient was in her usual state of health until last when she began to note significant shortness of breath with minimal exertion. She also noticed an increase in her abdominal girth and experienced significant orthopnea and PND every evening. She presented to the emergency room for further care today. She was found to be in congestive heart failure, therefore, hospitalization was recommended. The patient has never known of a cardiac event. She did have a COVID infection back in early June. She has never known of a cardiac event. She has never had a cardiac catheterization. She has had several chemical stress tests in the distant past. She has never experienced exertional angina pectoris. She further denies syncope, presyncope, palpitations, lower extremity edema, and claudication. Currently, patient is resting comfortably in bed but does note some dyspnea when speaking. Past medical and surgical history 1. Hypertension 2. Hypercholesterolemia 3. Left bundle branch block 4. Hypothyroidism 5. GERD 6. Spinal stenosis 7. Hysterectomy 8. C-spine fusion 9. Gastric bypass-2013 10. Right TKR Social history , lives with her mother, son, and [id number]. 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 Relocated here last summer. Quit tobacco use in 1997 Four or 5 glasses of wine per week Family history Mother is 91 with a cardiomyopathy Father in 60s from sudden cardiac Review of systems A 10 review systems was undertaken and negative except that described above. Allergies Allergy/AdvReac Type Severity Reaction Status Date / Time dexamethasone Allergy Hives Verified 07/30/22 13:30 [From Maxitrol (neomycin sulf)] neomycin Allergy Hives Verified 07/30/22 13:30 [From Maxitrol (neomycin sulf)] Opioids - Morphine Analogues Allergy Hives Verified 07/30/22 13:32 polymyxin B Allergy Hives Verified 07/30/22 13:30 [From Maxitrol (neomycin sulf)] Home Medications Medication Instructions Recorded Confirmed Type amitriptyline 25 mg tablet 25 mg PO DIRECTED 07/30/22 07/30/22 History cyclobenzaprine 10 mg tablet 10 mg PO DAILY PRN Muscle Spasm 07/30/22 07/30/22 History duloxetine 60 mg capsule,delayed 60 mg PO DAILY 07/30/22 07/30/22 History release levothyroxine 50 mcg tablet 50 mcg PO DAILY 07/30/22 07/30/22 History oxybutynin chloride 10 mg 10 mg PO DAILY 07/30/22 07/30/22 History tablet,extended release 24 hr pantoprazole 40 mg tablet,delayed 40 mg PO DAILY 07/30/22 07/30/22 History release sertraline 100 mg tablet 100 mg PO DAILY 07/30/22 07/30/22 History Patient History Medical History (Updated 07/30/22 @ 16:17 by Spencer Mcpherson MD) Anxiety GERD (gastroesophageal reflux disease) HLD (hyperlipidemia) HTN (hypertension) with goal to be determined Hypothyroidism Surgical History H/O: hysterectomy S/P cervical spinal fusion Status post right knee replacement Social History (Updated 07/30/22 @ 12:22 by Abigail Owen PA-C) Smoking Status: Former smoker Tobacco Type: Cigarettes Smoking End Date: >10 years ago; Hx Alcohol Use: Yes Alcohol type: wine Alcohol type Comment: 1 glass 4-5x/week with dinner Feels Safe at Home: Yes Physical Exam Physical Exam: In general this is a mildly obese white female no acute distress. HEENT exam is negative. Neck is supple with full carotid upstrokes. No carotid bruits. Jugular venous pressure is difficult to assess. Cardiovascular exam reveals a regular rhythm with distant heart sounds. No obvious murmurs. Lungs note bibasilar rales. Abdomen is obese without bruits. Extremities reveal intact radial artery pulses bilaterally. There is no peripheral edema. Results & Data Vital Signs (Past 12 Hours) Vital Signs Pulse Resp BP Pulse Ox O2 Del Method 07/30/22 10:03 101 H 07/30/22 09:03 Room Air 07/30/22 08:56 Room Air 07/30/22 08:43 102 H 24 116/67 97 Room Air PG Care Time/CCT Total # of Minutes Spent Total Time Spent with Patient: Total time spent is greater than 50% in coordination of care (as documented) at patient's floor/unit and/or counseling patient: Coding Level of Care Code 23758 INT INP/OBS CARE 3/75MIN Diagnoses Acute on chronic systolic (congestive) heart failure I50.23 LBBB (left bundle branch block) I44.7
--- NOTE | 2022-07-30 16:26 | Communication Note ---
Date of Service: July 30, 2022 Discussed w/ Dr Mcpherson and will order additional 40mg IV lasix for this evening, continue 40mg IV BID Agrees w/ metoprolol and titrate as able -- plans to dc on metoprolol succinate Consideration for lisinopril to start tomorrow, eventually will need to cath but need to get her more stable/able to lay flat Ordered dose Lasix IV 40mg x 1 now, changing schedule to BID to start in AM Enrolling in CHF clinic as well Ischemic workup for LBBB once compensated
--- NOTE | 2022-07-30 18:06 | Communication Note ---
Date of Service: July 30, 2022 Patient seen in room 221, breathing better. She did discuss w/ Dr Mcpherson plan and eventual catheterization. Discussed any urinary symptoms, as UA no WBC but was + for nitrates/leuk est/bacteria -- she denied any frequency/urgency/burning, however does have hx of frequent bacteria and stated her urologist in [place] said not to treat unless she was dying. Urine cx pending -- monitor for any symptoms, no abx at this time.
[2022-07-30] MEDS ORDERED: IBUPROFEN 600 MG TAB PO PRN (22:12)
[2022-07-30] MEDS: ENOXAPARIN INJ 40 MG/0.4 ML SYR SQ SCH (22:17)
[2022-07-30] MEDS: traZODone HCL 50 MG TAB PO PRN (22:47)
[2022-07-30] MEDS: ACETAMINOPHEN 325 MG TAB PO PRN (22:47)
[2022-07-31] MEDS: DULoxetine HCL 60 MG CAP PO SCH (03:24)
[2022-07-31] MEDS ORDERED: LEVOTHYROXINE SODIUM 50 MCG TABLET PO SCH ×2 (06:30→15:13)
[2022-07-31 07:30] LABS: Hematocrit (blood only) 41.1 % (37.0-47.0); Mean Corpuscular Hemoglobin 31.4 pg (25.0-34.0); Mean Corpuscular Hgb Conc 34.1 g/dL (32.0-36.0); Mean Corpuscular Volume 92.2 fL (80.0-100.0); Mean Platelet Volume 10.5 fL (9.4-12.4); Platelet Count 290 K/uL (130-400); RDW Coefficient of Variation 13.2 % (11.5-14.5); RDW Standard Deviation 44.3 fL (36.4-46.3); Red Blood Count 4.46 M/uL (4.20-5.40); White Blood Count 7.96 K/ul (4.8-10.8)
[2022-07-31 07:36] LABS: Estimated Average Glucose 120 mg/dl; Hemoglobin A1C 5.8 % (4.5-5.6)
[2022-07-31 07:45] LABS: INR 1.1 (0.9-1.1); Prothrombin Time 11.8 Seconds (9.0-12.0)
[2022-07-31 07:58] LABS: Albumin Level 3.9 gm/dl (3.4-5.0); Bilirubin,Total 1.1 mg/dl (0.2-1.0); Creatinine Clr Calc Pharmacy 73.5 ml/min; Magnesium 1.9 mg/dl (1.7-2.4); Potassium 3.5 mmol/L (3.5-5.1); Total Protein 6.8 gm/dl (6.0-8.3)
[2022-07-31 08:08] LABS: BUN Creatinine Ratio 17.6 (10-20); Bilirubin Direct 0.3 mg/dl (0-0.2); Calcium 8.8 mg/dl (8.6-10.3); Chol HDL Ratio 2.5 (0-5); Est GFR (African American) 95.1 ml/min; Est GFR (Non-African American) 82.1 ml/min
[2022-07-31 08:13] LABS: Troponin I High Sensitivity 32.3 pg/ml (0-14)
[2022-07-31] MEDS ORDERED: FUROSEMIDE 40 MG/4 ML VIAL IV SCH ×2 (09:00)
[2022-07-31] MEDS ORDERED: METOPROLOL TARTRATE 25 MG TAB PO SCH (09:00)
[2022-07-31] MEDS: METOPROLOL SUCC 25MG EXT REL TAB PO SCH (09:41)
[2022-07-31] MEDS: OXYBUTYNIN CHLORIDE XL 5 MG TABCR PO SCH (09:41)
[2022-07-31] MEDS: SERTRALINE HCL 100 MG TABLET PO SCH (09:41)
[2022-07-31] MEDS: PANTOprazole 40 MG TAB PO SCH (09:41)
[2022-07-31] MEDS: FUROSEMIDE INJ 20 MG/2 ML VIAL IV SCH ×2 (09:41→16:44)
--- NOTE | 2022-07-31 11:33 | Cardiology Progress Note ---
Date of Service July 31, 2022 Assessment & Plan (1) Acute HFrEF (heart failure with reduced ejection fraction): (2) Cardiomyopathy: (3) LBBB (left bundle branch block): (4) Elevated LFTs: Plan HFrEF: New onset. Currently NYHA Class II-III symptoms. She appears near euvolemic on exam today. She is tolerating room air. She still notes some mild dyspnea with exertion this morning. No edema. Orthopnea resolved. Continue Lasix 20 mg IV today with a goal of negative 1-2L per day. Can likely transition to PO regimen tomorrow. Consider Lasix 20 mg daily on discharge. Will need close outpatient lab follow up. Initiated on Metoprolol succinate. Would consider Entresto prior to discharge. Can anticipate adding Spironolactone and SGLT2i as outpatient. Patient's mother has history of CHF so she is familiar with the disease process. Continue daily standing weights. I&Os. Low sodium diet. We discussed the nature of heart failure and the goals of the program. She is agreeable to enrollment. Cardiomyopathy: New onset. EF 15-20% Patient with new LBBB- ischemic workup has been recommended. She is agreeable to cardiac catheterization. She is aware that CT surgery is not available at this facility. If nonischemic would pursue secondary workup. Patient drinks 3-4 drinks per day so alcohol induced cardiomyopathy may be considered. Also recently had COVID in June so viral cardiomyopathy should be considered as well. She also has multiple family members with cardiomyopathy. Would continue to optimize her medical regimen. Continue Metoprolol succinate. Would recommend adding Entresto. Consider Spironolactone and SGLT2i as well- this can be done as outpatient. Continue to aggressively titrate over the next 1-2 months. Consider ICD if EF <35% after 90 days of optimal therapy. Disposition: Will continue to follow during hospitalization. Follow up with the heart failure program within 7 days. Admission and Anticipated Discharge Date Admission Date: July 30, 2022 Subjective Patient resting comfortably in bed this morning. She reports feeling significantly better today. She did not sleep well last night but she thinks this was due to not having her routine meds. She was laying flat without orthopnea most of the night. She had a good response to IV diuretics- negative 2.5 L since yesterday. Standing weight today 187 lb. Kidney function and electrolytes stable this am. LFTs downtrending. Telemetry reviewed: sinus in the 90s. She has no edema. She denies chest pain, cough, palpitations. Physical Exam Physical Exam: Constitutional: Alert, oriented, in no acute distress HEENT: Head is atraumatic and normocephalic. EOMs intact. Sclera anicteric. Face is symmetric. No perioral cyanosis. Mucous membranes moist. Neck: Supple, no JVD Pulmonary: Normal respiratory effort, clear to auscultation bilaterally Cardiac: Regular rate and rhythm. Normal S1 and S2, no gallops, no rubs, no murmurs Extremities: 2+ radial pulses bilaterally. 2+ posterior tibialis pulses bilaterally. No pitting edema. No cyanosis or clubbing. Abdomen: Normal bowel sounds, soft, non-tender, no abdominal mass palpated Skin: Normal skin color, turgor, and pigmentation, no rash, no skin lesions Neurological: Patient is awake, alert, and oriented. Pleasant and cooperative. Answers questions appropriately. Speech is clear. Normal movement in all 4 extremities. Gait pattern is unremarkable. Results & Data Vital Signs (Past 12 Hours) Vital Signs Temp Pulse Resp BP Pulse Ox O2 Del Method 07/31/22 08:28 98.2 F 95 H 18 120/77 97 Room Air 07/31/22 02:38 97.9 F 85 20 131/80 93 Room Air PG Care Time/CCT Total # of Minutes Spent Total Time Spent with Patient: Total time spent is greater than 50% in coordination of care (as documented) at patient's floor/unit and/or counseling patient: Coding Level of Care Code 95699 SUB INP/OBS CARE 3/50MIN Diagnoses Acute HFrEF (heart failure with reduced ejection fraction) I50.21 Cardiomyopathy I42.9 LBBB (left bundle branch block) I44.7 Elevated LFTs R79.89 Heart Failure Data/Metrics Heart Failure Type: HFrEf (EF < 40%) Ejection Fraction: 15-20% Evidenced Based Beta Sabi Therapy Beta Sabi Therapy: Yes Beta Sabi Name: Metoprolol Succinate Beta Sabi Target Therapy: Not at Target Therapy MADELYN/ARB/ARNI Therapy MADELYN/ARB/ARNI Therapy: Yes MADELYN/ARB/ARNI Name: Mekhi
--- NOTE | 2022-07-31 15:12 | Hospitalist Progress Note ---
Date of Service July 31, 2022 Assessment & Plan (1) Acute HFrEF (heart failure with reduced ejection fraction): Plan: Presented with abdominal fullness/pants fitting tighter, orthopnea w/ inability to lay flat/sleep x past 2 days BNP elevation, CXR w/ cardiomegaly w/ congestion ECHO here with EF 15-20%, global left hypokinesis Did have COVID 6 weeks ago-possibly post-viral CM? Has +FH in mother and daughter of nonischemic CM With risk factors for CAD of previous DMII (resolved with weight loss), prior smoker, family history TSH mildly low at 5.1 Improving clinically with diuresis -continue lasix 20mg IV bid -follow CMP, Mag, replace lytes as needed -plan for cath tomorrow, NPO after midnight -if cath negative, needs further workup for other causes of nonischemic CM -Monitor I&O, daily weight -low sodium diet, fluid restrict -increase LT4 as below -started Toprol XL 25mg po daily -consult CHF clinic -hopeful to add on Entresto prior to discharge-need to luna check -avoid NSAIDs given possibility of CAD--> dcd ibuprofen started overnight but covering resident (2) Cardiomyopathy: Plan: as above (3) Elevated LFTs: Plan: Likely from hepatic congestion from CHF LFTs improving today with diuresis No abd pain. Liver US with fatty liver which is also likely contributing is s/p cholecystectomy follow LFTs in AM (4) Hypothyroidism: Plan: on levothyroxine 50mcg TSH high at 5.1 -increase LT4 to 75 mcg and repeat TFTs in 6 weeks (5) GERD (gastroesophageal reflux disease): Plan: continue ppi (6) Anxiety: Plan: continue cymbalta/sertaline trazodone available to sleep prn Has akathisia on exam. Started 2 months ago and is likely related to anxiety Not likely RLS but will check iron levels, ferritin recommend f/u with PCP and/or Psych after discharge (7) Urge incontinence of urine: Plan: continue Oxybutynin UA here is contaminated with epis and Ur cx with GNR but is asymptomatic bacteriuria, no need to treat Plan DVT proph-Lovenox SQ Dispo-continued stay on PCU Discussed care with Cardiology Admission and Anticipated Discharge Date Admission Date: July 30, 2022 Subjective Feeling less orthopnea, less SOB. C/o episodes of sweating after eating with abdominal distension going on for 9 months-had an episode today. Does have a h/o gastric bypass. No changes in bowel habits, no vomiting. No chest pains. Has been feeling very retless and can't stop moving for the last 2 months since getting ready to move from [place] back to [place]. Does admit to anxiety and irritability, startles easily. Tele with NSR, ST, IVCD, rates 80-90s Physical Exam Constitutional: WD/WN, vitals as above Neck: trachea midline, no thyromegaly Respiratory: normal respiratory effort, lungs clear to auscultation Cardiovascular: RRR, no murmur, no edema Chest (Breasts): Chest: normal inspection of chest Gastrointestinal (Abdomen): normal bowel sounds, soft, nontender, no hepatosplenomegaly Musculoskeletal: Extremities: extremities normal to inspection; no cyanosis and no clubbing Skin: no rashes, warm and dry Neurologic: moves all extremities and awake; no focal motor deficits Motor /Sensory: no tremor Psychiatric: A+Ox3, euthymic affect Motor Behavior: + akathisia Lymphatic: no lymphedema Results & Data Results & Data Vital Signs (Past 12 Hours) Vital Signs Temp Pulse Pulse Resp BP Pulse Ox O2 Del Method 07/31/22 13:44 83 22 108/72 95 Room Air 07/31/22 11:54 36.8 C 92 H 18 114/72 96 Room Air 07/31/22 09:00 82 07/31/22 09:00 Room Air 07/31/22 08:28 36.8 C 95 H 18 120/77 97 Room Air Laboratory Results CBC,CMP, HgbA1C reviewed PG Care Time/CCT Total # of Minutes Spent Total Time Spent with Patient: Total time spent is greater than 50% in coordination of care (as documented) at patient's floor/unit and/or counseling patient: Coding Level of Care Code 95501 SUB INP/OBS CARE 3/50MIN Diagnoses Acute HFrEF (heart failure with reduced ejection fraction) I50.21 Cardiomyopathy I42.9 Elevated LFTs R79.89 Hypothyroidism E03.9 GERD (gastroesophageal reflux disease) K21.9 Anxiety F41.9 Urge incontinence of urine N39.41
[2022-07-31] MEDS: ENOXAPARIN INJ 40 MG/0.4 ML SYR SQ SCH (21:00)
[2022-07-31] MEDS: traZODone HCL 50 MG TAB PO PRN (21:00)
[2022-07-31] MEDS: ACETAMINOPHEN 325 MG TAB PO PRN (21:00)
[2022-08-01] MEDS ORDERED: MIDAZOLAM HCL 1 MG/ML 2ML VIAL ONE ×2 (07:37→08:33)
[2022-08-01] MEDS ORDERED: niCARdipine HCL INJ 2.5 MG/ML 10 ML AMP ONE (07:37)
[2022-08-01] MEDS ORDERED: fentaNYL citrate PF 100 MCG/2 ML VIAL ONE (07:37)
[2022-08-01] MEDS ORDERED: HEPARIN (PORCINE) 1000 UNIT/ML 10 ML (CATH LAB USE ONLY) ONE (07:37)
[2022-08-01] MEDS ORDERED: NITROGLYCERIN/D5W 100MCG/ML 20ML SYR ONE (07:38)
[2022-08-01 07:54] LABS: Est GFR (African American) 92.1 ml/min; Est GFR (Non-African American) 79.5 ml/min; Potassium 3.7 mmol/L (3.5-5.1)
[2022-08-01 08:14] LABS: Albumin Globulin Ratio 1.3 (0.9-2); Globulin 3.1 gm/dl (2.5-4.0); Total Protein 7.1 gm/dl (6.0-8.3)
--- NOTE | 2022-08-01 08:17 | Pre Anesthesia Assessment ---
Date of Service August 01, 2022 Pre Sedation Assessment Vital Signs Temp Pulse Pulse Resp BP Pulse Ox O2 Del Method 08/01/22 08:05 86 127/78 94 Room Air 08/01/22 07:12 98.4 F 85 19 101/60 90 Room Air 08/01/22 02:28 97.9 F 82 18 108/68 94 Room Air 07/31/22 23:00 82 07/31/22 22:39 98.2 F 83 20 115/73 91 Room Air 07/31/22 19:15 98.1 F 72 18 127/61 93 Room Air 07/31/22 15:30 98.1 F 82 18 106/77 96 Room Air 07/31/22 13:44 83 22 108/72 95 Room Air 07/31/22 11:54 98.2 F 92 H 18 114/72 96 Room Air 07/31/22 09:00 82 07/31/22 09:00 Room Air 07/31/22 08:28 98.2 F 95 H 18 120/77 97 Room Air Cardiovascular RRR, no murmur, no edema Respiratory normal respiratory effort, lungs clear to auscultation Pre-Sedation Airway Assessment Smoking Status: Former smoker Hx Sleep Apnea: No Hx Difficult Intubation: No Short, Thick Neck: No Thyromental Distance: > or= 3.5 Finger Breadths Oral Cavity: + WNL Mallampati Class: II ASA: ASA3 NPO Status Date of Last Intake of Fluids: 07/31/22 Time of Last Intake of Fluids: 22:00 Procedure Planning Contraindications for Sedation: none Current Medications Reviewed: Yes Notes The planned sedation has been discussed with the patient. Informed Consent was obtained. I have identified the patient, determined the appropriateness of sedation and have assessed the patient immediately prior to the procedure. All medicine(s) and interventions are by my order.
[2022-08-01] MEDS ORDERED: FUROSEMIDE 40 MG/4 ML VIAL IV ONE (08:43)
--- NOTE | 2022-08-01 09:05 | Post Anesthesia Assessment ---
Date of Service August 01, 2022 Post Sedation Assessment Vital Signs Temp Pulse Pulse Resp BP Pulse Ox O2 Del Method 08/01/22 09:02 84 124/78 Room Air 08/01/22 08:05 86 127/78 94 Room Air 08/01/22 07:12 98.4 F 85 19 101/60 90 Room Air 08/01/22 02:28 97.9 F 82 18 108/68 94 Room Air 07/31/22 23:00 82 07/31/22 22:39 98.2 F 83 20 115/73 91 Room Air 07/31/22 19:15 98.1 F 72 18 127/61 93 Room Air 07/31/22 15:30 98.1 F 82 18 106/77 96 Room Air 07/31/22 13:44 83 22 108/72 95 Room Air 07/31/22 11:54 98.2 F 92 H 18 114/72 96 Room Air O2 Flow Rate 08/01/22 09:02 3 08/01/22 08:05 08/01/22 07:12 08/01/22 02:28 07/31/22 23:00 07/31/22 22:39 07/31/22 19:15 07/31/22 15:30 07/31/22 13:44 07/31/22 11:54 Recovery Score Activity: Moves 4 extremities Respiration: Deep Breath/Cough Circulation: +/-20% PreAnes Value Consciousness: Fully Awake Oxygen Saturation: > 92% On Room Air Post Anesthesia Score: 10 Discharge Sedation Level of Care: Fast Track Phase II Post Sedation Plan On clinical assessment, the patient appears to have tolerated the sedation without complications. Patient is recovering as anticipated. Patient will continue to be monitored by nursing and may be discharged when sedation discharge criteria are met per below protocol. Upon Completions of procedure up to 15 minutes continue every 5 minute vital signs and the P.A.R. score; then discharge to a Phase I or Fast Track to Phase II per the following guidelines: * Discharge Patient to appropriate Phase II area if PAR is 8 or greater or return to pre- procedure baseline. The post - procedure orders will be as directed. * If PAR score is less than 8 or not return to pre-procedure baseline then patient will follow Phase I monitoring till PAR is reached for Phase II. The Phase I may be done in procedure room or may call to secure a Phase I area. * If naloxone or flumazenil are used for reversal, hold in Phase I for continued monitoring from when last reversal dose was given for a minimum of 60 minutes or longer pending the nurse and/or physician discretion of patient condition before discharge to Phase II. Please call the Sedation Physician to re-evaluate and complete post-note for discharge to Phase II area. Do NOT discharge from procedure sedation or Phase 1 until post- sedation evaluation note is complete by procedure /sedation MD Sedation Discharge Instructions to be given to the patient at discharge to home.
--- NOTE | 2022-08-01 09:16 | Cardiac Catheterization ---
[facility] Data: Terra[employer] Layer Helper Cardiac Status Clinical evaluation leading to the procedure CAD Presenation: Sx unlikely to be ischemic Heart Failure: NYHA Class: CCS IV Diagnostic Physicians Name: Nnamdi Hill MD Closure Device Recommendations: Medical Therapy and/or Counseling Cardiac Cath Procedure Full Procedure Date August 01, 2022 Pre-Procedure Diagnosis Pre-Procedure Diagnosis: Cardiomyopathy AUC Score AUC Score: 7 Post-Procedure Diagnosis Post-Procedure Diagnosis: Mild CAD Procedure(s) Performed Procedure(s) Performed: Coronary Angiography and Left Heart Cath Html Developer Nnamdi Hill MD Certified Nursing Attendant(s) Aruna Estimated Blood Loss Estimated Blood Loss: 5 Medication(s) Medication(s): Fentanyl, Heparin, Lidocaine 1%, Nicardipine, Nitroglycerin and Versed Medication(s): Furosemide Summary of Findings Indication: Cardiomyopathy, left bundle branch block, acute decompensated heart failure Access: 6 Fr right radial artery Catheters: Gardner Findings: LM -Short, normal caliber, no significant disease LAD -medium caliber vessel, proximal luminal regularities, 30 to 40% focal mid segment stenosis just after takeoff of D3. Remainder of vessel without significant disease and wraps around apex. Gives off 3 small to medium caliber diagonals without disease. Circumflex -large caliber, 20% mid segment disease. Large OM 2 without significant disease. RCA -dominant, medium caliber, 30% proximal, 30% mid segment disease. RPDA with 40% focal proximal stenosis LVEDP -34 Arterial Closure: TR band Summary: 1. Mild to moderate nonobstructive coronary artery disease -30-40% focal mid LAD stenosis 30% proximal, mid RCA. 40% focal proximal RPDA 2. Elevated intracardiac filling pressure (LVEDP 34) Recommendations: Continue diuresisgiven additional IV Lasix 40 mg in Terrazzo Layer Helper GDMT for nonischemic cardiomyopathy Continued ASCVD risk factor modification Hemodynamics Rest Ao:: 118/75/93 Final Ao: 126/78/100 LV: 126/34 Recommendations Recommendations: Medical Therapy and/or Counseling Specimens Specimens: None Radiation Exposure (mGy) 756 Contrast (mls) 50 Anesthesia Moderate [id number] Procedural Complication(s) None Disposition Terrazzo Layer Helper Holding/Recovery I attest to the content of the Intraoperative Record and any orders documented therein. Any exceptions are noted below. [employer] Card Cath Procedure Codes Cardiac Catheterization Procedure 1: Cardiovascular Cath Procedures: 53903 Coronaries and LHC (+/-LV) Moderate Sedation Procedure 1: Sedation/Anesthesia: 98037 Mod Sedation by the same physician;Init15 Min Child Age 5 & Up PG Care Time/CCT Total # of Minutes Spent Total Time Spent with Patient: Total time spent is greater than 50% in coordination of care (as documented) at patient's floor/unit and/or counseling patient:
[2022-08-01] MEDS: DULoxetine HCL 60 MG CAP PO SCH (09:43)
[2022-08-01] MEDS: OXYBUTYNIN CHLORIDE XL 5 MG TABCR PO SCH (09:44)
[2022-08-01] MEDS: METOPROLOL SUCC 25MG EXT REL TAB PO SCH (09:44)
[2022-08-01] MEDS: PANTOprazole 40 MG TAB PO SCH (09:44)
[2022-08-01] MEDS: SERTRALINE HCL 100 MG TABLET PO SCH (09:45)
[2022-08-01] MEDS: FUROSEMIDE INJ 20 MG/2 ML VIAL IV SCH (09:45)
[2022-08-01] MEDS ORDERED: VALSARTAN/SACUBITRIL 26/24MG TAB PO SCH (11:20)
--- NOTE | 2022-08-01 12:39 | Cardiology Progress Note ---
Date of Service August 01, 2022 Assessment & Plan (1) Acute HFrEF (heart failure with reduced ejection fraction): Plan: -has improved dramatically with diuresis. -continue metoprolol succinate. -agree with the addition of Entresto 26/24 mg b.i.d. -add spironolactone and SGLT2 inhibitor as an outpatient. -will need daily Lasix on discharge. -discussed importance of a low-salt diet. -discussed the use of daily weights and sliding-scale diuretics. -stable for hospital discharge with follow-up in CHF clinic within 1 week. (2) Cardiomyopathy: Plan: -nonischemic as cardiac catheterization today noted minimal disease. 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 -recheck LV function after medications optimized. (3) LBBB (left bundle branch block): Plan: -has been a chronic finding according to her report. (4) Elevated LFTs: Plan: -likely secondary to passive congestion from her acute systolic CHF. Admission and Anticipated Discharge Date Admission Date: July 30, 2022 Subjective The patient is resting comfortably in bed without complaints of chest pain or dyspnea. Results of her cardiac catheterization were discussed in detail. Her mother is at the bedside. Physical Exam Physical Exam: In general this is a mildly obese white female no acute distress. HEENT exam is negative. Neck is supple with full carotid upstrokes. No carotid bruits. Jugular venous pressure is difficult to assess. Cardiovascular exam reveals a regular rhythm with distant heart sounds. No obvious murmurs. Lungs are clear without rales, rhonchi, or wheezes. Abdomen is obese without bruits. Extremities reveal intact radial artery pulses bilaterally. There is no peripheral edema. Results & Data Vital Signs (Past 12 Hours) Vital Signs Temp Pulse Resp BP Pulse Ox O2 Del Method O2 Flow Rate 08/01/22 11:21 36.7 C 83 18 111/76 94 Room Air 08/01/22 11:13 Room Air 08/01/22 09:42 89 16 127/83 94 Room Air 08/01/22 09:15 83 20 138/86 97 Room Air 08/01/22 09:02 84 124/78 Room Air 3 08/01/22 08:05 86 127/78 94 Room Air 08/01/22 07:12 36.9 C 85 19 101/60 90 Room Air 03/29/23 02:28 36.6 C 82 18 108/68 94 Room Air Diagnostic Findings Cardiac catheterization noted a normal LM, 30-40% mLAD, 20% mLCx, sequential 30% stenoses in the proximal mid RCA, and 40% pRPDA. PG Care Time/CCT Total # of Minutes Spent Total Time Spent with Patient: Total time spent is greater than 50% in coordination of care (as documented) at patient's floor/unit and/or counseling patient: Coding Level of Care Code 40278 SUB INP/OBS CARE 3/50MIN Diagnoses Acute HFrEF (heart failure with reduced ejection fraction) I50.21 Cardiomyopathy I42.9 LBBB (left bundle branch block) I44.7 Elevated LFTs R79.89
--- NOTE | 2022-08-01 13:48 | Electrocardiogram Report ---
Test Reason : Blood Pressure : / mmHG Vent. Rate : 085 BPM Atrial Rate : 085 BPM P-R Int : 164 ms QRS Dur : 176 ms QT Int : 460 ms P-R-T Axes : 049 -38 130 degrees QTc Int : 547 ms Poor data quality, interpretation may be adversely affected Normal sinus rhythm Left axis deviation Left bundle branch block Abnormal ECG When compared with ECG of 30-JUL-2022 08:53, Premature ventricular complexes are no longer Present Confirmed by Spencer Mcpherson ([id number]) on 08/01/2022 1:48:00 PM Referred By: REFERRED SELF Confirmed By:Spencer Mcpherson
--- NOTE | 2022-08-01 13:51 | Discharge Summary ---
Date of Service August 01, 2022 Admission HPI Per Admitting Provider 72yo female presented with PMHx significant for anxiety/depression, GERD, previous HTN/HLD on BP meds/statin but reported weight loss and discontinued these --> presented with shortness of breath, orthopnea, nonproductive cough. Recently moving from [facility], traveled by car to [place] from [place]. Did not develop symptoms until around 2 days ago and reports she has not been sleeping very well and has a sensation of drowning with laying flat and hasn't slept well in the past two days, needing something for sleep as amytryptyline not helping her. BNP elevated 1214, CXR w/ cardiomegaly and pulmonary congestion. No hypoxia Given Duoneb x 1, 40mg IV lasix in ER. She reports feeling a little better since she got here but still slightly SOB w/ nonproductive cough and ROBERT. She states she is unsure of prior name of BP medication but that she lost about 100lb since she was on them 10 years ago and has been off since. She does not weigh herself daily but does note that she feels like her abdomen is nava and pants have been tighter fitting. She notes if admitted please do not give NO SALT diet as she can't take the blandness in the area as she "came from [facility] No having abdominal pain but does endorse fullness. No LE edema/calf tenderness and on palpation she notes she usually doesn't like that sensation but is having zero pain. Hx hypothyroidism and takes at night when she wakes up on an empty stomach. Does have issues with constipation on occassion if she doesn't drink tea/coffee. Had been attmpeting to get new PCP in the area- discussed can assist at d/c. LFTs w/ elevation in AST 69, ALT 108, ALP 142 (on flexeril prn -- took dose yesterday, hx spinal stenosis/fusion). Does report drinks glass of wine w/ mom in evening with supper about 4-5x/week. WBC 10.6k w/ L shift. No fever. Hgb 13.2. Mag 2.0. EKG w/ SR w/ PVC, possible LAR, left axis deviation. LBBB (known LBBB). No recent fevers at home. Biofire negative. 97% on RA Discussed admission and ECHO (tech at bedside), lasix and monitoring labs. 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 Principal Diagnosis Nonischemic cardiomyopathy Acute HFrEF Discharge Exam Constitutional WD/WN, vitals as above Neck trachea midline, no thyromegaly Respiratory normal respiratory effort; no cough Auscultation: + crackles (bibasilar); no rhonchi and no wheezes Cardiovascular RRR, no murmur, no edema Chest (Breasts) Chest: normal inspection of chest Gastrointestinal (Abdomen) normal bowel sounds, soft, nontender, no hepatosplenomegaly Musculoskeletal Extremities: extremities normal to inspection; no cyanosis and no clubbing Skin no rashes, warm and dry Neurologic moves all extremities and awake; no focal motor deficits Motor/Sensory: no tremor Psychiatric A+Ox3, euthymic affect Motor Behavior: + akathisia Lymphatic no lymphedema Discharge Data Allergies Allergy/AdvReac Type Severity Reaction Status Date / Time dexamethasone Allergy Hives Verified 07/30/22 13:30 [From Maxitrol (neomycin sulf)] neomycin Allergy Hives Verified 07/30/22 13:30 [From Maxitrol (neomycin sulf)] Opioids - Morphine Analogues Allergy Hives Verified 07/30/22 13:32 polymyxin B Allergy Hives Verified 07/30/22 13:30 [From Maxitrol (neomycin sulf)] Consultations 07/30/22 11:34 ED Decision to Admit Stat 07/30/22 12:59 Consult Cardiology Routine 07/31/22 15:28 [facility] CHF Program Referral Routine Procedures Performed Operation Date: 08/01/22 08:00 Actual Procedures p Cineradiography w/Routine Exam - Yobani Hill MD p Cath, Left with Cors and Vent - Yobani Hill MD Ordered Studies 07/30/22 12:59 CT angio chest PE protocol Stat 07/30/22 12:59 US liver Routine 08/01/22 06:56 CL Cath Imgs for PACS use only Routine ECHO Hospital Course (1) Acute HFrEF (heart failure with reduced ejection fraction): Presented with abdominal fullness/pants fitting tighter, orthopnea w/ inability to lay flat/sleep x past 2 days BNP elevation, CXR w/ cardiomegaly w/ congestion ECHO here with EF 15-20%, global left hypokinesis Did have COVID 6 weeks ago-possibly post-viral CM? Has +FH in mother and daughter of nonischemic CM With risk factors for CAD of previous DMII (resolved with weight loss), prior smoker, family history TSH mildly low at 5.1 Improving clinically with diuresis Cardiac cath with nonobstructive CAD and elevated LVEDP gave more IV lasix and dc to home on lasix 40mg po once daily -add spironolactone and SGLT2 inhibitor as an outpatient. -needs further workup for other causes of nonischemic CM which can be pursued as outpt with CHF clinic -Monitor I&O, daily weight at home -low sodium diet, fluid restrict -increase LT4 as below -started Toprol XL 25mg po daily -consult CHF clinic-has f/u in 1 week -added on low dose Entresto prior to discharge -reassess with ECHO in 3 months -as d/w Cardiology-no need for LifeVest at discharge. No arrhythmias here (2) Cardiomyopathy: as above (3) Elevated LFTs: Likely from hepatic congestion from CHF LFTs now much improved with diuresis No abd pain. Liver US with fatty liver which is also likely contributing is s/p cholecystectomy follow LFTs as na outpt needs weight loss for fatty liver (4) Hypothyroidism: on levothyroxine 50mcg TSH high at 5.1 -increase LT4 to 75 mcg and repeat TFTs in 6 weeks (5) GERD (gastroesophageal reflux disease): continue ppi (6) Anxiety: continue cymbalta/sertaline continue Elavil for sleep Has akathisia on exam. Started 2 months ago and is likely related to anxiety or RLS from iron deficiency start Fe supplementation recommend f/u with PCP and/or Psych after discharge (7) Urge incontinence of urine: continue Oxybutynin UA here is contaminated with epis and Ur cx with E. coli but is asymptomatic bacteriuria, no need to treat (8) Iron deficiency: trial of liquid Fe as tabs made her constipated but may need IV iron as outpt given h/o gastric bypass Plan DVT proph-Lovenox SQ Dispo-dc to home Discussed care with Cardiology Total Time Total Time Spent Total Time Spent (In Minutes): 45 min Total Time Includes: Examination of the Patient, Discharge Planning, Medication Reconciliation and Communication With Other Providers (Cardiology) Discharge Plan Discharge Items Patient Disposition: Home - Self-Care Reason For Visit: CHF Discharge Diagnosis: Nonischemic cardiomyopathy, CHF Condition on Discharge: Good Activity: As commented below Bathing: No limitations Exercise/Sports: Gradually increase as tolerated Driving/Machine Use: Resume 3 days after discharge Non-emergency contact: Primary Care Provider and Road Supervisor Of Engines Call non-emergency contact if: you have any medication questions and your symptoms worsen Follow-up/Referrals: Leilani Hay CRNP [Nurse Practitioner] - 08/06/22 1:00 pm (Hospital follow up appointment *Please arrive 15 minute prior to appointment time*) Kamila Flores PA-C [Physician Manager Export] - 08/07/22 2:00 pm (Congestive Heart Failure Program Appointment Information Early follow up is essential to managing your heart failure. An appointment has been scheduled for you with the [facility] Heart Failure Program within 7 days of discharge. Anticipate this visit to be 30-60 minutes long. Please expect a bicycle technician phone call from one of our nurses approximately 48 hours from discharge. They will also be placing an order for lab work to be completed 1-2 days prior to your heart failure follow up appointment. Please be sure to have this done so we can go over the results when you come in. Office Location The cardiology office building is located in front of the hospital at [address] [facility]. Bring the following with you to your follow-up doctor appointments: Please bring your daily weight log any discharge paperwork all of your medication bottles with you to this visit. ) Valeria Shaw MD [Physician] - 08/31/22 1:15 pm (Establish visit *Please arrive 15 minutes prior to appointment time*) PCP,NO [Primary Care Provider] - Diet: Heart Healthy and Low Sodium (2gm) Fluids: 1800ml (7 cups) Addtl Attending Provider Instructions: You were admitted with congestive heart failure and fluid overload. You will be started on a water pill and other medications to improve the function of your heart. You will need to follow up with your new PCP and with Cardiology as scheduled for you. Your thyroid medication dose was increased to 75 mcg daily as your thyroid function was too low. You were incidentally noted to have a small pulmonary nodule in your lung that will need a repeat CT scan of the chest in 12 months. You also were found to have fairly significant iron deficiency on your blood work. This may be contributing to your restless legs.You can try liquid iron drops over the counter but if this causes you too much constipation like iron tablets did before, please talk to your PCP about getting regular IV iron infusions. ACTIVITY RECOMMENDATIONS: Excess manipulation of the wrist should be avoided for the next 24-48 hours. * No lifting over 2 pounds (approximately a 1/2 gallon of milk) with the utilized arm for 24 hours. * No strenuous activity such as bowling or tennis for 3 days. * Keep the site of the procedure covered with a bandage for 24 hours. *You may shower the day after the procedure. Do not take a tub bath or submerge the puncture site in water for the next 3 days. *Do not operate any motorized equipment for 3 days. SPECIAL CARE INSTRUCTIONS: The site may be slightly bruised and sore following your procedure. Should any of the following occur, contact the Dr. who performed your procedure. 1. Redness/inflammation, swelling, chills, or fever, or colored drainage at procedure site within 3-7 days after your procedure. 2. Coldness, discoloration, ongoing numbness, severe pain, or swelling. Expect mild tingling of hand and tenderness at the puncture site for up to three days. If this persists beyond three days, or other symptoms develop, notify the Dr. who performed your procedure. BLEEDING: If the procedure site on your wrist begins to bleed, do not panic 1. Place 1 or 2 fingers firmly just slightly above the insertion site to stop the bleeding. You may be able to feel your pulse as you hold pressure. 2. Lift your finger after 5 minutes to see if the bleeding has stopped. 3. Once the bleeding has stopped, gently wipe the wrist area clean with a bandage. * If the bleeding from your wrist does not stop after 10 minutes, or if there is a large amount of bleeding or spurting, call 911 (do not drive yourself to the hospital). SKIN IRRITATION: * You may experience some redness and/or swelling in the area where radiation was administered. If any skin irritation occurs, please contact your family ph ysician. FOLLOW UP VISIT: Keep any scheduled doctor appointments. Addtl Development And Housing Director Provider Instructions: Call your Primary Care doctor if any of the following symptoms or problems start or get worse: * Shortness of breath or difficulty breathing * Wake up at night short of breath * Chest pain * Cough * Swelling of your hands, feet, or legs * More fatigued or tired with your normal activity * Palpitations - sudden fast heart beats WEIGHT * Weigh yourself every morning after using the bathroom. * Use the same scale. * Wear the same amount of clothing. * Write your weight down on a chart. * Call your Primary Care doctor if you gain more than 2-3 pounds in 1-2 days. MEDICATIONS * Use this discharge instruction sheet for medication instructions. * Take your medications at the time your doctor ordered. * Do not skip a dose of your medicines. * If you miss a dose of medicine, take it as soon as possible, but DO NOT DOUBLE A DOSE. * Read your medicine information when you get home. * Know all of the side effects of your medicine. If in doubt, ask your pharmacist * Call your Primary Care doctor's office if you have any side effects. * Be sure all of your doctors know what medicine and herbs you take (including cold, flu, and herbal medicine). Take the following with you to your follow-up doctor appointments: * Weight Chart * Medication List * List of questions Do not drink excessive alcohol, beer or wine. Pending Studies at Discharge: No Stand-Alone Forms: My [facility], Smoking Cessation Medications and DC Order Prescriptions: New metoprolol succinate 25 mg Tablet Extended Release 24 Hr 25 mg PO QAM Qty: 30 0RF Entresto 24-26 mg Tablet 1 tab PO BID Qty: 60 0RF levothyroxine 75 mcg capsule 75 mcg PO DAILY Qty: 30 0RF furosemide [Lasix] 40 mg tablet 40 mg PO QAM Qty: 30 0RF Continued cyclobenzaprine 10 mg tablet 10 mg PO DAILY PRN (Reason: Muscle Spasm) oxybutynin chloride 10 mg tablet extended release 24hr 10 mg PO DAILY sertraline 100 mg tablet 100 mg PO DAILY pantoprazole 40 mg tablet,delayed release (DR/EC) 40 mg PO DAILY duloxetine 60 mg capsule,delayed release(DR/EC) 60 mg PO DAILY Changed amitriptyline 25 mg tablet 100 mg PO DIRECTED Qty: 120 0RF Discontinued levothyroxine 50 mcg tablet 50 mcg PO DAILY Discharge Orders: Discharge Order- CHF (Routine); Ordered 03/29/23 Ordered By: Candelaria Lynn Admission Data Admit Date/Time: 07/30/22 12:20 Attending Provider: Candelaria Lynn Admit Provider: Richard Peñaloza Primary Care Provider: PCP,NO Other Providers: Ricahrd Peñaloza ; Spencer Mcpherson ; Kamila Flores Coding Level of Care Code 62163 INP/OBS DISCH >30 MIN Diagnoses Acute HFrEF (heart failure with reduced ejection fraction) I50.21 Cardiomyopathy I42.9 Elevated LFTs R79.89 Hypothyroidism E03.9 GERD (gastroesophageal reflux disease) K21.9 Anxiety F41.9 Urge incontinence of urine N39.41 Iron deficiency E61.1
== END 2022-08-01 15:47 | disposition home or self-care (01) | DRG 287 ==
LOC: ED 08:32 → SUATTDRO 12:20 → EDINP 12:20 → 2S 12:54

== ENCOUNTER 2022-09-14 07:09 | Inpatient (IN) ==
[2022-09-14] MEDS ORDERED: SODIUM CHLORIDE 0.9% 250 ML IV PRN ×2 (07:40→08:23)
[2022-09-14] MEDS ORDERED: SODIUM CHLORIDE 0.9% 1000ML 2,000 ML IV SCH (07:45)
[2022-09-14 07:48] LABS: Basophils # (auto) 0.08 K/uL (0-0.2); Basophils % (auto) 0.7 %; Eosinophils # (auto) 0.11 K/uL (0-0.50); Eosinophils % (auto) 0.9 %; Hematocrit (blood only) 21.7 % (37.0-47.0); Hemoglobin 7.3 g/dl (12.0-16.0); Immature Granulocytes # (auto) 0.06 K/uL (0.01-0.20); Immature Granulocytes % (auto) 0.5 %; Lymphocytes # (auto) 2.46 K/uL (1.2-3.4); Lymphocytes % (auto) 20.7 %; Mean Corpuscular Hemoglobin 30.7 pg (25.0-34.0); Mean Corpuscular Hgb Conc 33.6 g/dL (32.0-36.0); Mean Corpuscular Volume 91.2 fL (80.0-100.0); Mean Platelet Volume 10.3 fL (9.4-12.4); Monocytes # (auto) 0.49 K/uL (0.11-0.59); Monocytes % (auto) 4.1 %; Neutrophils # (auto) 8.71 K/uL (1.40-6.50); Neutrophils % (auto) 73.1 %; Platelet Count 335 K/uL (130-400); RDW Standard Deviation 42.5 fL (36.4-46.3); Red Blood Count 2.38 M/uL (4.20-5.40); White Blood Count 11.91 K/ul (4.8-10.8)
[2022-09-14] MEDS ORDERED: PANTOPRAZOLE BOLUS/DRIP 1 EACH IV STA (08:05)
[2022-09-14] MEDS ORDERED: PANTOprazole 80 MG in DEXTROSE 5% 100 ML IV ONE (08:05)
[2022-09-14 08:07] LABS: Albumin Globulin Ratio 1.5 (0.9-2); Albumin Level 2.8 gm/dl (3.4-5.0); BUN Creatinine Ratio 52.1 (10-20); Bilirubin,Total 0.3 mg/dl (0.2-1.0); Calcium 7.4 mg/dl (8.6-10.3); Est GFR (Non-African American) 86.3 ml/min; Globulin 1.9 gm/dl (2.5-4.0); Potassium 4.5 mmol/L (3.5-5.1); Total Protein 4.7 gm/dl (6.0-8.3)
--- NOTE | 2022-09-14 08:12 | Emergency Department Note ---
Impression & Plan Acute upper gastrointestinal bleeding ED Provider Note INFORMANT: Patient ED PROVIDER(S): Nehemiah Palomo DO CHIEF COMPLAINT: Lightheadedness, low blood pressure, black stools PLAN: Disposition: Admission Outpatient prescription management: none Discussion with: I spoke with the hospitalist, who will see the patient for admission/observation and further evaluation and consultation. I also spoke with Dr. Talamantes from GI about the patient. They will see the patient as well MEDICAL DECISION MAKING: This is a 72-year-old female who presents to the ED with a chief complaint of recent weakness as well as having some lightheadedness and syncopal episodes. The patient also reports a little nausea and vomiting that started on Saturday. She states that she has noticed black stools with some blood in it for the past couple of days. The patient does have a history of factor. Ulcer disease. She also has an ejection fraction of baseline of 15%. The patient looks pale on my exam. She has black and slightly red guaiac positive stools. No abdominal tenderness. No respiratory distress. Lungs are clear. Heart is regular rate and rhythm. Initial blood pressure was 72/47. She was treated with IV fluids. This did improve her blood pressure some. The patient's hemoglobin is 7.3, previously 14, 2 months ago. BUN is 37 consistent with an upper GI bleed. Glucose is 240. Chemistry panel otherwise unremarkable. Type and cross for 3 units, 3 unit ordered for transfusion for rapid transfusion. 1 unit was O high blood this was administered for hypotension IV Protonix bolus and drip given. Chest x-ray: No acute disease. The patient will be seen by the hospitalist for further evaluation and care. The patient was initially hemodynamically unstable but after blood administration, the patient's blood pressure seems of stabilized. Triage Nursing notes reviewed. Vital Signs: reviewed Prior /Outside records reviewed: none Differential diagnosis: Upper GI bleed, lower GI bleed, anemia, electrolyte abnormality, dehydration, other Diagnostics, as interpreted by me: 12 lead ECG: Normal sinus rhythm rate of 98 with chronic left bundle branch block. No ST elevation. No PVCs. Normal QTc. Cardiac Monitoring ordered: Sinus rhythm in the 90s Medical decision rules: [none] Imaging studies: Chest x-ray: No pneumonia Procedures: Blood administration Critical care: I have personally spent 30 minutes of critical care time in the direct management of this patient. This includes bedside care, interpretation of diagnostic studies, and testing, discussion with consultants, patient, and family members, and other required patient management activities. This 30 minutes is in excess of all separately billable procedures. HPI: See MDM above. PAST MEDICAL HISTORY: See Below PAST SURGICAL HISTORY: See Below SOCIAL HISTORY: See Below HOME MEDICATIONS:See Below ALLERGIES: See Below VITALS: See Below PHYSICAL EXAMINATION: See MDM for positive findings otherwise unremarkable. CONSTITUTIONAL/VITAL SIGNS: Reviewed GENERAL:done as appropriate INTEGUMENTARY: done as appropriate HEAD: done as appropriate EYES: done as appropriate RESPIRATORY: done as appropriate CARDIOVASCULAR:done as appropriate GI/ABDOMEN:done as appropriate EXTREMITIES: done as appropriate NEUROLOGICAL: done as appropriate PSYCHIATRIC:done as appropriate MUSCULOSKELETAL:done as appropriate TRIAGE NURSING DOCUMENTATION REVIEWED. Past Med/Surg History Medical History Acute HFrEF (heart failure with reduced ejection fraction) Anxiety Cardiomyopathy GERD (gastroesophageal reflux disease) History of peptic ulcer disease HLD (hyperlipidemia) HTN (hypertension) with goal to be determined Hypothyroidism LBBB (left bundle branch block) Pulmonary nodule Urge incontinence of urine Surgical History H/O: hysterectomy History of Dianna-en-Y gastric bypass S/P cervical spinal fusion Status post right knee replacement Family History Other Diabetes Denies family history of Ovarian cancer Breast cancer Colorectal cancer Social History Smoking Status: Never smoker Tobacco Type: Cigarettes Second Hand Exposure: Yes; Do You Dip or Chew Tobacco: No; Hx Alcohol Use: Yes Alcohol type: wine Alcohol type Comment: 1 glass 4-5x/week with dinner Hx Substance Use: No Preferred Language: French Communication Ability: Effective Hearing Ability: Normal Bit Welder Required: No Beliefs That Will Affect Care: None Current Living Situation: Family current occupational status: retired Feels Safe at Home: Yes caffeine: Yes Physical Activity Frequency: Daily Assistive Devices: None Allergies Allergies Allergy/AdvReac Type Severity Reaction Status Date / Time dexamethasone Allergy Hives Verified 09/11/22 09:56 [From Maxitrol (neomycin sulf)] neomycin Allergy Hives Verified 09/11/22 09:56 [From Maxitrol (neomycin sulf)] Opioids - Morphine Analogues Allergy Hives Verified 09/11/22 09:56 polymyxin B Allergy Hives Verified 09/11/22 09:56 [From Maxitrol (neomycin sulf)] Home Meds Home Medications Medication Instructions Recorded Confirmed cyclobenzaprine 10 mg tablet 10 mg PO DAILY PRN Muscle Spasm 07/30/22 09/14/22 melatonin 10 mg tablet 0 mg PO HS PRN Sleep 08/31/22 09/14/22 Previous Rx's Medication Instructions Recorded ferrous sulfate 325 mg (65 mg 325 mg PO .COMPLEX #30 tabs 08/27/22 iron) tablet amitriptyline 25 mg tablet 100 mg PO DAILY 90 days #360 tabs 08/31/22 duloxetine 60 mg capsule,delayed 60 mg PO DAILY 90 days #90 caps 08/31/22 release empagliflozin 10 mg tablet 10 mg PO DAILY 90 days #90 tabs 08/31/22 (Jardiance) furosemide 40 mg tablet (Lasix) 40 mg PO QAM 90 days #90 tabs 08/31/22 metoprolol succinate 25 mg 25 mg PO QAM 90 days #90 tabs 08/31/22 tablet,extended release 24 hr oxybutynin chloride 10 mg 10 mg PO DAILY 90 days #90 tabs 08/31/22 tablet,extended release 24 hr pantoprazole 40 mg tablet,delayed 40 mg PO DAILY 90 days #90 tabs 08/31/22 release sacubitril 24 mg-valsartan 26 mg 1 tab PO BID 90 days #180 tabs 08/31/22 tablet (Entresto) sertraline 100 mg tablet 100 mg PO DAILY 90 days #90 tabs 08/31/22 spironolactone 25 mg tablet 25 mg PO DAILY 90 days #90 tabs 08/31/22 doxycycline monohydrate 100 mg 100 mg PO BID #20 tabs 09/07/22 tablet levothyroxine 75 mcg capsule 75 mcg PO DAILY 90 days #90 caps 09/13/22 Results & Data (ED) Vital Signs Vital Signs - 24 hr 09/14/22 07:17 09/14/22 07:24 09/14/22 07:46 Temperature 37.0 C Temperature Source Oral Pulse Rate 92 H 100 H 90 Pulse Rate from SpO2 Sensor Pulse Rhythm Regular Respiratory Rate 20 20 Respiratory Effort / Characteristics Non-Labored Respiratory Depth Normal Blood Pressure 72/47 L Blood Pressure Mean 55 Pulse Oximetry 97 93 Oxygen Delivery Method Room Air Room Air Sepsis Recent Fever Within 48 Hours No Sepsis New/Unexplained Change in Mental Status Yes Sepsis Action Taken by Nursing No Action Required 09/14/22 08:58 09/14/22 09:05 09/14/22 09:15 Temperature 36.6 C 36.6 C 36.9 C Temperature Source Oral Oral Oral Pulse Rate 83 85 81 Pulse Rate from SpO2 Sensor Pulse Rhythm Respiratory Rate 20 18 20 Respiratory Effort / Characteristics Respiratory Depth Blood Pressure 94/60 L 93/54 L 91/56 L Blood Pressure Mean 71 67 67 Pulse Oximetry 94 94 94 Oxygen Delivery Method Sepsis Recent Fever Within 48 Hours Sepsis New/Unexplained Change in Mental Status Sepsis Action Taken by Nursing 09/14/22 07:13 09/14/22 07:13 09/14/22 07:15 Temperature Temperature Source Pulse Rate 101 H 99 H Pulse Rate from SpO2 Sensor 101 H Pulse Rhythm Respiratory Rate 17 22 Respiratory Effort / Characteristics Respiratory Depth Blood Pressure 72/47 L Blood Pressure Mean 55 Pulse Oximetry 100 Oxygen Delivery Method Sepsis Recent Fever Within 48 Hours Sepsis New/Unexplained Change in Mental Status Sepsis Action Taken by Nursing 09/14/22 07:30 09/14/22 07:32 09/14/22 07:32 Temperature Temperature Source Pulse Rate 88 88 Pulse Rate from SpO2 Sensor 88 88 Pulse Rhythm Respiratory Rate 17 15 Respiratory Effort / Characteristics Respiratory Depth Blood Pressure 93/51 L Blood Pressure Mean 65 Pulse Oximetry 97 95 Oxygen Delivery Method Sepsis Recent Fever Within 48 Hours Sepsis New/Unexplained Change in Mental Status Sepsis Action Taken by Nursing 09/14/22 07:39 09/14/22 07:39 09/14/22 07:45 Temperature Temperature Source Pulse Rate 91 H Pulse Rate from SpO2 Sensor 94 H Pulse Rhythm Respiratory Rate 15 Respiratory Effort / Characteristics Respiratory Depth Blood Pressure 82/40 L 96/62 L Blood Pressure Mean 54 73 Pulse Oximetry 98 Oxygen Delivery Method Sepsis Recent Fever Within 48 Hours Sepsis New/Unexplained Change in Mental Status Sepsis Action Taken by Nursing 09/14/22 07:45 09/14/22 08:00 09/14/22 08:00 Temperature Temperature Source Pulse Rate 84 81 Pulse Rate from SpO2 Sensor 84 82 Pulse Rhythm Respiratory Rate 15 13 Respiratory Effort / Characteristics Respiratory Depth Blood Pressure 104/46 L Blood Pressure Mean 65 Pulse Oximetry 98 95 Oxygen Delivery Method Sepsis Recent Fever Within 48 Hours Sepsis New/Unexplained Change in Mental Status Sepsis Action Taken by Nursing 09/14/22 08:15 09/14/22 08:18 09/14/22 08:18 Temperature Temperature Source Pulse Rate 83 88 Pulse Rate from SpO2 Sensor 91 H Pulse Rhythm Respiratory Rate 17 23 Respiratory Effort / Characteristics Respiratory Depth Blood Pressure 59/45 L Blood Pressure Mean 49 Pulse Oximetry 100 Oxygen Delivery Method Sepsis Recent Fever Within 48 Hours Sepsis New/Unexplained Change in Mental Status Sepsis Action Taken by Nursing 09/14/22 08:21 09/14/22 08:21 09/14/22 08:22 Temperature Temperature Source Pulse Rate 87 Pulse Rate from SpO2 Sensor Pulse Rhythm Respiratory Rate 23 Respiratory Effort / Characteristics Respiratory Depth Blood Pressure 89/35 L Blood Pressure Mean 33 53 Pulse Oximetry Oxygen Delivery Method Sepsis Recent Fever Within 48 Hours Sepsis New/Unexplained Change in Mental Status Sepsis Action Taken by Nursing 09/14/22 08:22 09/14/22 08:30 09/14/22 08:31 Temperature Temperature Source Pulse Rate 83 82 Pulse Rate from SpO2 Sensor Pulse Rhythm Respiratory Rate 14 19 Respiratory Effort / Characteristics Respiratory Depth Blood Pressure 79/61 L Blood Pressure Mean 67 Pulse Oximetry Oxygen Delivery Method Sepsis Recent Fever Within 48 Hours Sepsis New/Unexplained Change in Mental Status Sepsis Action Taken by Nursing 09/14/22 08:31 09/14/22 08:45 09/14/22 08:45 Temperature Temperature Source Pulse Rate 82 85 Pulse Rate from SpO2 Sensor Pulse Rhythm Respiratory Rate 15 16 Respiratory Effort / Characteristics Respiratory Depth Blood Pressure 94/60 L Blood Pressure Mean 71 Pulse Oximetry Oxygen Delivery Method Sepsis Recent Fever Within 48 Hours Sepsis New/Unexplained Change in Mental Status Sepsis Action Taken by Nursing 09/14/22 09:00 09/14/22 09:01 09/14/22 09:01 Temperature Temperature Source Pulse Rate 84 85 Pulse Rate from SpO2 Sensor Pulse Rhythm Respiratory Rate 22 17 Respiratory Effort / Characteristics Respiratory Depth Blood Pressure 93/54 L Blood Pressure Mean 67 Pulse Oximetry Oxygen Delivery Method Sepsis Recent Fever Within 48 Hours Sepsis New/Unexplained Change in Mental Status Sepsis Action Taken by Nursing 09/14/22 09:15 09/14/22 09:15 09/14/22 09:30 Temperature Temperature Source Pulse Rate 82 84 Pulse Rate from SpO2 Sensor 83 83 Pulse Rhythm Respiratory Rate 19 18 Respiratory Effort / Characteristics Respiratory Depth Blood Pressure 91/56 L Blood Pressure Mean 67 Pulse Oximetry 91 89 L Oxygen Delivery Method Sepsis Recent Fever Within 48 Hours Sepsis New/Unexplained Change in Mental Status Sepsis Action Taken by Nursing 09/14/22 09:32 09/14/22 09:32 09/14/22 10:00 Temperature 36.8 C Temperature Source Oral Pulse Rate 84 86 Pulse Rate from SpO2 Sensor 85 Pulse Rhythm Respiratory Rate 19 21 Respiratory Effort / Characteristics Respiratory Depth Blood Pressure 96/48 L 98/40 L Blood Pressure Mean 64 59 Pulse Oximetry 91 93 Oxygen Delivery Method Sepsis Recent Fever Within 48 Hours Sepsis New/Unexplained Change in Mental Status Sepsis Action Taken by Nursing 09/14/22 10:01 Temperature Temperature Source Pulse Rate Pulse Rate from SpO2 Sensor Pulse Rhythm Respiratory Rate Respiratory Effort / Characteristics Respiratory Depth Blood Pressure Blood Pressure Mean Pulse Oximetry Oxygen Delivery Method Room Air Sepsis Recent Fever Within 48 Hours Sepsis New/Unexplained Change in Mental Status Sepsis Action Taken by Nursing Laboratory Data 09/14/22 07:20 09/14/22 07:20 Lab Results 09/14/22 09/14/22 09/14/22 Range/Units 07:20 07:20 07:20 WBC 11.91 H (4.8-10.8) K/ul RBC 2.38 L (4.20-5.40) M/uL Hgb 7.3 L (12.0-16.0) g/dl Hct 21.7 L (37.0-47.0) % MCV 91.2 (80.0-100.0) fL MCH 30.7 (25.0-34.0) pg MCHC 33.6 (32.0-36.0) g/dL RDW Std Deviation 42.5 (36.4-46.3) fL RDW Coeff of Delfino 13.0 (11.5-14.5) % Plt Count 335 (130-400) K/uL MPV 10.3 (9.4-12.4) fL Immature Gran % (Auto) 0.5 % Neut % (Auto) 73.1 % Lymph % (Auto) 20.7 % [place] % (Auto) 4.1 % Eos % (Auto) 0.9 % Baso % (Auto) 0.7 % Neut # (Auto) 8.71 H (1.40-6.50) K/uL Lymph # (Auto) 2.46 (1.2-3.4) K/uL [place] # (Auto) 0.49 (0.11-0.59) K/uL Eos # (Auto) 0.11 (0-0.50) K/uL Baso # (Auto) 0.08 (0-0.2) K/uL Immature Gran # (Auto) 0.06 (0.01-0.20) K/uL PT 11.3 (9.0-12.0) Seconds INR 1.0 (0.9-1.1) APTT 20.5 L (21.0-31.0) Seconds PTT Ratio 0.7 Sodium 138 (136-145) mmol/L Potassium 4.5 (3.5-5.1) mmol/L Chloride 106 (98-107) mmol/L Carbon Dioxide 26 (21-32) mmol/L Anion Gap 6 (3-11) BUN 37 H (6-23) mg/dl Creatinine 0.71 (0.6-1.2) mg/dl Est Cr Clr Drug Dosing 75.0 ml/min Est GFR ( Amer) 100.0 ml/min Est GFR (Non-Af Amer) 86.3 ml/min BUN/Creatinine Ratio 52.1 H (10-20) Glucose 240 H (70-99(Fasting)) mg/dl Calcium 7.4 L (8.6-10.3) mg/dl Total Bilirubin 0.3 (0.2-1.0) mg/dl AST 12 L (13-39) U/L ALT 9 (7-52) U/L Alkaline Phosphatase 59 (34-104) U/L Troponin I High Sens 9.1 (0-14) pg/ml Total Protein 4.7 L (6.0-8.3) gm/dl Albumin 2.8 L (3.4-5.0) gm/dl Globulin 1.9 L (2.5-4.0) gm/dl Albumin/Globulin Ratio 1.5 (0.9-2) POC Stool Occult Blood (Negative) SARS-CoV-2, RNA, NAAT (NEGATIVE) Blood Type Blood Type Recheck Antibody Screen Crossmatch 09/14/22 09/14/22 09/14/22 Range/Units 07:38 07:46 07:46 WBC (4.8-10.8) K/ul RBC (4.20-5.40) M/uL Hgb (12.0-16.0) g/dl Hct (37.0-47.0) % MCV (80.0-100.0) fL MCH (25.0-34.0) pg MCHC (32.0-36.0) g/dL RDW Std Deviation (36.4-46.3) fL RDW Coeff of Delfino (11.5-14.5) % Plt Count (130-400) K/uL MPV (9.4-12.4) fL Immature Gran % (Auto) % Neut % (Auto) % Lymph % (Auto) % Cors[place] % (Auto) % Eos % (Auto) % Baso % (Auto) % Neut # (Auto) (1.40-6.50) K/uL Lymph # (Auto) (1.2-3.4) K/uL Corson # (Auto) (0.11-0.59) K/uL Eos # (Auto) (0-0.50) K/uL Baso # (Auto) (0-0.2) K/uL Immature Gran # (Auto) (0.01-0.20) K/uL PT (9.0-12.0) Seconds INR (0.9-1.1) APTT (21.0-31.0) Seconds PTT Ratio Sodium (136-145) mmol/L Potassium (3.5-5.1) mmol/L Chloride (98-107) mmol/L Carbon Dioxide (21-32) mmol/L Anion Gap (3-11) BUN (6-23) mg/dl Creatinine (0.6-1.2) mg/dl Est Cr Clr Drug Dosing ml/min Est GFR ( Amer) ml/min Est GFR (Non-Af Amer) ml/min BUN/Creatinine Ratio (10-20) Glucose (70-99(Fasting)) mg/dl Calcium (8.6-10.3) mg/dl Total Bilirubin (0.2-1.0) mg/dl AST (13-39) U/L ALT (7-52) U/L Alkaline Phosphatase (34-104) U/L Troponin I High Sens (0-14) pg/ml Total Protein (6.0-8.3) gm/dl Albumin (3.4-5.0) gm/dl Globulin (2.5-4.0) gm/dl Albumin/Globulin Ratio (0.9-2) POC Stool Occult Blood Positive A (Negative) SARS-CoV-2, RNA, NAAT NEGATIVE (NEGATIVE) Blood Type O Negative Blood Type Recheck Antibody Screen NEGATIVE Crossmatch See Detail 09/14/22 Range/Units 08:38 WBC (4.8-10.8) K/ul RBC (4.20-5.40) M/uL Hgb (12.0-16.0) g/dl Hct (37.0-47.0) % MCV (80.0-100.0) fL MCH (25.0-34.0) pg MCHC (32.0-36.0) g/dL RDW Std Deviation (36.4-46.3) fL RDW Coeff of Delfino (11.5-14.5) % Plt Count (130-400) K/uL MPV (9.4-12.4) fL Immature Gran % (Auto) % Neut % (Auto) % Lymph % (Auto) % [place] % (Auto) % Eos % (Auto) % Baso % (Auto) % Neut # (Auto) (1.40-6.50) K/uL Lymph # (Auto) (1.2-3.4) K/uL [place] # (Auto) (0.11-0.59) K/uL Eos # (Auto) (0-0.50) K/uL Baso # (Auto) (0-0.2) K/uL Immature Gran # (Auto) (0.01-0.20) K/uL PT (9.0-12.0) Seconds INR (0.9-1.1) APTT (21.0-31.0) Seconds PTT Ratio Sodium (136-145) mmol/L Potassium (3.5-5.1) mmol/L Chloride (98-107) mmol/L Carbon Dioxide (21-32) mmol/L Anion Gap (3-11) BUN (6-23) mg/dl Creatinine (0.6-1.2) mg/dl Est Cr Clr Drug Dosing ml/min Est GFR ( Amer) ml/min Est GFR (Non-Af Amer) ml/min BUN/Creatinine Ratio (10-20) Glucose (70-99(Fasting)) mg/dl Calcium (8.6-10.3) mg/dl Total Bilirubin (0.2-1.0) mg/dl AST (13-39) U/L ALT (7-52) U/L Alkaline Phosphatase (34-104) U/L Troponin I High Sens (0-14) pg/ml Total Protein (6.0-8.3) gm/dl Albumin (3.4-5.0) gm/dl Globulin (2.5-4.0) gm/dl Albumin/Globulin Ratio (0.9-2) POC Stool Occult Blood (Negative) SARS-CoV-2, RNA, NAAT (NEGATIVE) Blood Type Blood Type Recheck O Negative Antibody Screen Crossmatch Administered Medications Pantoprazole Sodium 40 mg/ (Dextrose) 100 mls @ 20 mls/hr IV Q5H ELISA Stop: 10/14/22 08:29 Last Admin: 09/14/22 09:20 Dose: 8 mg/hr, 20 mls/hr Documented By: YAKELIN Discontinued Medications Sodium Chloride (Nss 1000ml) 2,000 mls @ 999 mls/hr IV .Q2H1M ELISA Stop: 09/14/22 09:45 Last Infusion: 09/14/22 08:49 Dose: 0 mls/hr Documented By: Admin: 09/14/22 07:49 Dose: 999 mls/hr Documented By: YAKELIN Pantoprazole Sodium (Protonix Bolus/Drip) 0 mls @ 1 mls/hr IV ONE STA Stop: 09/14/22 08:06 Last Infusion: 09/14/22 09:01 Dose: 0 mls/hr Documented By: Admin: 09/14/22 08:49 Dose: 1 mls/hr Documented By: YAKELIN Pantoprazole Sodium 80 mg/ (Dextrose) 120 mls @ 400 mls/hr IV NOW ONE Stop: 09/14/22 08:22 Last Infusion: 09/14/22 08:49 Dose: 0 mls/hr Documented By: Admin: 09/14/22 08:35 Dose: 400 mls/hr Documented By: OL Imaging Data Radiologist's Impression: Chest X-Ray 09/14/22 07:32 XR chest 1V portable HISTORY: 72 years-old Female weak acute weakness COMPARISON: 07/30/2022 TECHNIQUE: AP view of the chest FINDINGS: Cardiac silhouette is enlarged. Atherosclerosis of the aorta. No pneumothorax, pleural effusion, airspace consolidation or pulmonary edema. Degenerative changes of the shoulders and spine. Cervical spinal fusion hardware with surgical clips of the neck. IMPRESSION: Cardiomegaly without acute process. ACT 112: Negative or not required by law. The above report was generated using voice recognition software. It may contain grammatical, syntax or spelling errors. Electronically signed by: Bryon Hutchins M.D. 09/14/2022 8:19 AM Discharge Plan Visit Data Chief Complaint: Hypotension ED Provider: Nehemiah Palomo Discharge Problem: Acute upper gastrointestinal bleeding Patient Disposition: Admitted As Inpatient Discharge Instructions Interventions: ED Discharge Assessment Last Done: 09/14/22 10:01 Forms Stand Alone Forms: [email or web address] [email or web address] Prescriptions Prescriptions: No Action ferrous sulfate 325 mg (65 mg iron) tablet 325 mg PO .COMPLEX Qty: 30 5RF Rx Instructions: 325 mg orally Every --; Verified with [facility] pharmacy levothyroxine 75 mcg capsule 75 mcg PO DAILY 90 Days Qty: 90 3RF Rx Instructions: Both [facility] and [facility] pharmacies verified Levothyroxine 75mcg melatonin 10 mg tablet 0 mg PO HS PRN (Reason: Sleep) Rx Instructions: Neither [facility] or [facility] pharmacies had melatonin 10mg amitriptyline 25 mg tablet 100 mg PO DAILY 90 Days Qty: 360 2RF Rx Instructions: Per [facility] pharmacist instructions are 3 to 4 tabs as needed at bedtime. duloxetine 60 mg capsule,delayed release(DR/EC) 60 mg PO DAILY 90 Days Qty: 90 3RF Rx Instructions: Verified with [facility] mail order pharmacy. Jardiance 10 mg tablet 10 mg PO DAILY 90 Days Qty: 90 2RF Rx Instructions: verified with [facility] mail order pharmacy furosemide [Lasix] 40 mg tablet 40 mg PO QAM 90 Days Qty: 90 3RF Hold Instructions: Hypotension Rx Instructions: [facility] and [facility] pharmacies both verified Lasix. metoprolol succinate 25 mg tablet extended release 24 hr 25 mg PO QAM 90 Days Qty: 90 3RF Hold Instructions: hypotension Rx Instructions: Both [facility] and [facility] pharmacies verified Metoprolol 25mg oxybutynin chloride 10 mg tablet extended release 24hr 10 mg PO DAILY 90 Days Qty: 90 3RF Rx Instructions: [facility] verified oxybutynin 10mg pantoprazole 40 mg tablet,delayed release (DR/EC) 40 mg PO DAILY 90 Days Qty: 90 3RF Rx Instructions: [facility] verified protonix Entresto 24-26 mg tablet 1 tab PO BID 90 Days Qty: 180 3RF Hold Instructions: Hypotension Rx Instructions: [facility] and [facility] both verified Entresto sertraline 100 mg tablet 100 mg PO DAILY 90 Days Qty: 90 3RF Rx Instructions: [facility] mail order verified Zoloft spironolactone 25 mg tablet 25 mg PO DAILY 90 Days Qty: 90 3RF Hold Instructions: hypotension Rx Instructions: [facility] and [facility] pharmacies both verified medication. doxycycline monohydrate 100 mg tablet 100 mg PO BID Qty: 20 0RF Rx Instructions: filled 09/07/22 at [facility] pharmacy. #20 for 10 day supply. cyclobenzaprine 10 mg tablet 10 mg PO DAILY PRN (Reason: Muscle Spasm) Rx Instructions: Verified medication with mail order pharmacy [facility]. Referrals Referrals: Valeria Shaw MD [Primary Care Provider] -
[2022-09-14 08:14] LABS: Troponin I High Sensitivity 9.1 pg/ml (0-14)
[2022-09-14 08:15] LABS: Partial Thromboplastin Ratio 0.7; Partial Thromboplastin Time 20.5 Seconds (21.0-31.0); Prothrombin Time 11.3 Seconds (9.0-12.0)
--- NOTE | 2022-09-14 08:20 | XRay Report ---
XR chest 1V portable HISTORY: 72 years-old Female weak acute weakness COMPARISON: 07/30/2022 TECHNIQUE: AP view of the chest FINDINGS: Cardiac silhouette is enlarged. Atherosclerosis of the aorta. No pneumothorax, pleural effusion, airs pace consolidation or pulmonary edema. Degenerative changes of the shoulders and spine. Cervical spin al fusion hardware with surgical clips of the neck. IMPRESSION: Cardiomegaly without acute process. ACT 112: Negative or not required by law. The above report was generated using voice recognition software. It may contain grammatical, syntax o r spelling errors. Electronically signed by: Bryon Hutchins M.D. 09/14/2022 8:19 AM
[2022-09-14] MEDS ORDERED: PANTOprazole 40 MG in DEXTROSE 5% 100 ML IV SCH (08:30)
--- NOTE | 2022-09-14 09:55 | Gastrointestinal Consultation ---
Date of Consultation September 14, 2022 Assessment & Plan (1) Acute blood loss anemia: -Continue transfusion of PRBCs -IV Protonix gtt -Keep NPO for EGD this afternoon -Trend H/H -Further recommendations and follow-up pending results of testing History of Present Illness Reason for Consultation: Anemia History of Present Illness Patient is a 72 yo female with PMH of cardiomyopathy, chronic systolic HF with EF of 15%, GERD, hypothyroidism, anxiety, & PUD. She notes that she presented to the ED as she was having progressive lightheadedness and syncopal episodes. The patient reports that she noted some blood-tinged emesis recently as well as melena that began on 09/13/22. She notes that she has a history of Peptic Ulcer Disease. Last EGD 2 years ago in [place]. She notes a gastric ulcer at that time. She denies abdominal pain. She takes Protonix 40 mg daily at home. She reports rare NSAID use. Stool heme + in ED. H/H 7.3/ 21.7. Hemoglobin 2 months ago was 14. She is currently receiving PRBCs at the time of my visit. She does not smoke. She notes no pertinent GI family history. She has an extensive cardiac history with an EF of 15-20%. She follows with cardiology and the heart failure clinic. BP currently 96/48. Allergies Allergy/AdvReac Type Severity Reaction Status Date / Time dexamethasone Allergy Hives Verified 09/11/22 09:56 [From Maxitrol (neomycin sulf)] neomycin Allergy Hives Verified 09/11/22 09:56 [From Maxitrol (neomycin sulf)] Opioids - Morphine Analogues Allergy Hives Verified 09/11/22 09:56 polymyxin B Allergy Hives Verified 09/11/22 09:56 [From Maxitrol (neomycin sulf)] Home Medications Medication Instructions Recorded Confirmed Type cyclobenzaprine 10 mg tablet 10 mg PO DAILY PRN Muscle Spasm 07/30/22 09/14/22 History ferrous sulfate 325 mg (65 mg 325 mg PO .COMPLEX #30 tabs 08/27/22 09/14/22 Rx iron) tablet amitriptyline 25 mg tablet 100 mg PO DAILY 90 days #360 tabs 08/31/22 09/14/22 Rx duloxetine 60 mg capsule,delayed 60 mg PO DAILY 90 days #90 caps 04/28/23 05/12/23 Rx release empagliflozin 10 mg tablet 10 mg PO DAILY 90 days #90 tabs 08/31/22 09/14/22 Rx (Jardiance) furosemide 40 mg tablet (Lasix) 40 mg PO QAM 90 days #90 tabs 08/31/22 09/14/22 Rx melatonin 10 mg tablet 0 mg PO HS PRN Sleep 08/31/22 09/14/22 History metoprolol succinate 25 mg 25 mg PO QAM 90 days #90 tabs 08/31/22 09/14/22 Rx tablet,extended release 24 hr oxybutynin chloride 10 mg 10 mg PO DAILY 90 days #90 tabs 08/31/22 09/14/22 Rx tablet,extended release 24 hr pantoprazole 40 mg tablet,delayed 40 mg PO DAILY 90 days #90 tabs 08/31/22 0 09/14/22 Rx release sacubitril 24 mg-valsartan 26 mg 1 tab PO BID 90 days #180 tabs 08/31/22 09/14/22 Rx tablet (Entresto) sertraline 100 mg tablet 100 mg PO DAILY 90 days #90 tabs 08/31/22 09/14/22 Rx spironolactone 25 mg tablet 25 mg PO DAILY 90 days #90 tabs 08/31/22 09/14/22 Rx doxycycline monohydrate 100 mg 100 mg PO BID #20 tabs 09/07/22 09/14/22 Rx tablet levothyroxine 75 mcg capsule 75 mcg PO DAILY 90 days #90 caps 09/13/22 09/14/22 Rx Patient History Medical History Acute HFrEF (heart failure with reduced ejection fraction) Anxiety Cardiomyopathy GERD (gastroesophageal reflux disease) History of peptic ulcer disease HLD (hyperlipidemia) HTN (hypertension) with goal to be determined Hypothyroidism LBBB (left bundle branch block) Pulmonary nodule Urge incontinence of urine Surgical History H/O: hysterectomy History of Dianna-en-Y gastric bypass S/P cervical spinal fusion Status post right knee replacement Family History Other Diabetes Denies family history of Ovarian cancer Breast cancer Colorectal cancer Social History Smoking Status: Never smoker Tobacco Type: Cigarettes Second Hand Exposure: Yes; Do You Dip or Chew Tobacco: No; Hx Alcohol Use: Yes Alcohol type: wine Alcohol type Comment: 1 glass 4-5x/week with dinner Hx Substance Use: No Preferred Language: Chinese Communication Ability: Effective Hearing Ability: Normal Core Cleaner Required: No Beliefs That Will Affect Care: None Current Living Situation: Family current occupational status: retired Feels Safe at Home: Yes caffeine: Yes Physical Activity Frequency: Daily Assistive Devices: None Review of Systems Constitutional: no fever and no chills Respiratory: + dyspnea on exertion; no cough Cardiovascular: no chest pain Gastrointestinal: + hematemesis and + melena; no abdominal pain Musculoskeletal: no problem reported Psychiatric: no problem reported Hematologic / Lymphatic: no unexplained weight loss Physical Exam Constitutional: well developed Respiratory: normal respiratory effort Cardiovascular: Rate/Rhythm: regular rate Gastrointestinal (Abdomen): normal bowel sounds, soft, nontender, no h epatosplenomegaly Musculoskeletal: Head/Neck/Chest: normocephalic Psychiatric: Orientation: alert and oriented x 3 Results & Data Vital Signs (Past 12 Hours) Vital Signs Temp Pulse Resp BP Pulse Ox O2 Del Method 09/14/22 09:32 84 19 91 09/14/22 09:32 96/48 L 09/14/22 09:30 84 18 89 L 09/14/22 09:15 82 19 91 09/14/22 09:15 91/56 L 09/14/22 09:01 85 17 09/14/22 09:01 93/54 L 09/14/22 09:00 84 22 09/14/22 08:45 85 16 09/14/22 08:45 94/60 L 09/14/22 08:31 82 15 09/14/22 08:31 79/61 L 09/14/22 08:30 82 19 09/14/22 08:22 83 14 09/14/22 08:22 89/35 L 09/14/22 08:21 87 23 09/14/22 08:18 59/45 L 09/14/22 08:18 88 23 09/14/22 08:15 83 17 100 09/14/22 08:00 81 13 95 09/14/22 08:00 104/46 L 09/14/22 07:45 84 15 98 09/14/22 07:45 96/62 L 09/14/22 07:39 91 H 15 98 09/14/22 07:39 82/40 L 09/14/22 07:32 93/51 L 09/14/22 07:32 88 15 95 09/14/22 07:30 88 17 97 09/14/22 07:15 99 H 22 100 09/14/22 07:13 101 H 17 09/14/22 07:13 72/47 L 09/14/22 09:15 36.9 C 81 20 91/56 L 94 09/14/22 09:05 36.6 C 85 18 93/54 L 94 09/14/22 08:58 36.6 C 83 20 94/60 L 94 09/14/22 07:46 90 20 93 Room Air 09/14/22 07:24 100 H 09/14/22 07:17 37.0 C 92 H 20 72/47 L 97 Room Air PG Care Time/CCT Total # of Minutes Spent Total Time Spent with Patient: Total time spent is greater than 50% in coordination of care (as documented) at patient's floor/unit and/or counseling patient: Coding Level of Care Code 10768 INT INP/OBS CARE 3/75MIN Diagnoses Acute blood loss anemia D62
--- NOTE | 2022-09-14 10:03 | History & Physical Report ---
Date of Service September 14, 2022 Assessment & Plan (1) Acute upper gastrointestinal bleeding: Plan: Acute/unstable - high risk to patient - Admit to ICU, case d/w Dr. Jeffers (internship) - NPO status - Consult GI stat, case d/w Dr. Talamantes - pt will require EGD for diagnostic/therapeutic purposes, appreciate assistance - IV Protonix 80mg x1 given, dc drip and change to 40mg IV BID - Serial H&Hs - Transfuse 2 units of PRBCs as ordered by ED - Close HD monitoring, trendelenburg - Place external catheter as pt will need to remain on BR for now (2) Acute blood loss anemia: Plan: Acute/unstable - high risk - As above, NPO, GI consult w/ plan for EGD - Transfuse - Serial H&Hs - Takes FeSO4 chronically MWF which has been resumed (3) History of peptic ulcer disease: Plan: Chronic but suspect acute as primary cause of UGIB and ABLA - IV PPI as outlined above - EGD (4) Cardiomyopathy: Plan: Chronic/nonischemic - stable - LVEF in July 2022 15-20% - Currently asymptomatic, appears hypovolemic as opposed to hypervolemic given significant blood loss - Compensated from a HF standpoint - Continue to hold diuretics, BB, and Entresto - Will resume Jardiance - Monitor closely for s/sx of volume overload (5) Hypothyroidism: Plan: Chronic/stable - Continue Synthroid 75 mcg daily - Last TSH checked in August 2022 and was WNL at 1.8 (6) Depression: Plan: Chronic/stable - Continue Sertraline and Cymbalta Plan SCDs will be utilized for DVT ppx, defer chemoprophylaxis in setting of acute GI bleed. AM labs have been ordered. Appreciate collaborative assistance in managing this patient. Plan has been d/w Dr. Jean who has also seen and evaluated this patient, further order will be implemented as warranted. History of Present Illness Chief Complaint: low blood pressure Primary Care Provider: Valeria Shaw MD Shyann Plaza is a 72 yo F with a pmhx of nonischemic cardiomyopathy, hypothyroidism, h/o gastric ulcer/GERD, HTN, anxiety/depression who presented to the ER today accompanied by her mother c/o low blood pressure, generalized feelings of unwellness x 2 days. Patient reports that she awoke in the middle of the night Saturday into with vomiting. She reports seeing some "red" in her emesis. On , she felt very fatigued, with some dizziness/lightheadedness and shortness of breath. She states this morning, she was so lightheaded/fatigued that she couldn't even ambulate the short distance to the bathroom. She subsequently presented to the ER for evaluation. Patient has just moved back to [place] from [place] in June. Since that time, she was hospitalized in July due to a/c HF and was found to have a significantly low EF of 15-20%. She underwent a cardiology evaluation and catheterization, was found to have nonischemic cardiomyopathy for which medical management was advised. She was medically optimized with medications with plans to have a f/u echo to reassess LV in a few months. She has been following with Kamila Flores PA-C since her hospitalization and noted that at her last visit on 09/11 she was hold to her Lasix, Metoprolol, Spironolactone, and Entresto. So she has not taken any of these medications. She is unsure if she has a h/o h. pylori from her gastric ulcer found 2 years ago via EGD. She also endorses black stools that just started yesterday also with some BRB streaking. She admits to lower abdominal pain (below her umbilicus) that seems to get better after eating instead of worse. She denies fever, chills, headache, cough, congestion, LE edema, orthopnea, chest pain, or ill contacts. Upon arrival to ER she had an initial BP of 90/60 which dropped to 72/47. Her cbc revealed an acute anemia with a hgb of 7.3 which is a drastic drop from her hgb in July 31. She was typed and crossmatched for 2 units of PRBCs and appears that the ER also ordered 2L of NSS wide open which has not yet been hung. She received an IV bolus of Protonix 80mg and ordered a drip and has been referred to the hospitalist service for admission. Allergies Allergy/AdvReac Type Severity Reaction Status Date / Time dexamethasone Allergy Hives Verified 09/11/22 09:56 [From Maxitrol (neomycin sulf)] neomycin Allergy Hives Verified 09/11/22 09:56 [From Maxitrol (neomycin sulf)] Opioids - Morphine Analogues Allergy Hives Verified 09/11/22 09:56 polymyxin B Allergy Hives Verified 09/11/22 09:56 [From Maxitrol (neomycin sulf)] Home Medications Medication Instructions Recorded Confirmed Type cyclobenzaprine 10 mg tablet 10 mg PO DAILY PRN Muscle Spasm 07/30/22 09/14/22 History ferrous sulfate 325 mg (65 mg 325 mg PO .COMPLEX #30 tabs 08/27/22 09/14/22 Rx iron) tablet amitriptyline 25 mg tablet 100 mg PO DAILY 90 days #360 tabs 08/31/22 09/14/22 Rx duloxetine 60 mg capsule,delayed 60 mg PO DAILY 90 days #90 caps 08/31/22 09/14/22 Rx release empagliflozin 10 mg tablet 10 mg PO DAILY 90 days #90 tabs 08/31/22 09/14/22 Rx (Jardiance) furosemide 40 mg tablet (Lasix) 40 mg PO QAM 90 days #90 tabs 08/31/22 09/14/22 Rx melatonin 10 mg tablet 0 mg PO HS PRN Sleep 08/31/22 09/14/22 History metoprolol succinate 25 mg 25 mg PO QAM 90 days #90 tabs 08/31/22 09/14/22 Rx tablet,extended release 24 hr oxybutynin chloride 10 mg 10 mg PO DAILY 90 days #90 tabs 08/31/22 09/14/22 Rx tablet,extended release 24 hr pantoprazole 40 mg tablet,delayed 40 mg PO DAILY 90 days #90 tabs 08/31/22 09/14/22 Rx release sacubitril 24 mg-valsartan 26 mg 1 tab PO BID 90 days #180 tabs 08/31/22 09/14/22 Rx tablet (Entresto) sertraline 100 mg tablet 100 mg PO DAILY 90 days #90 tabs 08/31/22 09/14/22 Rx spironolactone 25 mg tablet 25 mg PO DAILY 90 days #90 tabs 08/31/22 09/14/22 Rx doxycycline monohydrate 100 mg 100 mg PO BID #20 tabs 09/07/22 09/14/22 Rx tablet levothyroxine 75 mcg capsule 75 mcg PO DAILY 90 days #90 caps 09/13/22 09/14/22 Rx Past Med/Surg History Medical History Acute HFrEF (heart failure with reduced ejection fraction) Anxiety Cardiomyopathy GERD (gastroesophageal reflux disease) History of peptic ulcer disease HLD (hyperlipidemia) HTN (hypertension) with goal to be determined Hypothyroidism LBBB (left bundle branch block) Pulmonary nodule Urge incontinence of urine Surgical History H/O: hysterectomy History of Dianna-en-Y gastric bypass S/P cervical spinal fusion Status post right knee replacement Family History Other Diabetes Denies family history of Ovarian cancer Breast cancer Colorectal cancer Social History Smoking Status: Never smoker Tobacco Type: Cigarettes Second Hand Exposure: Yes; Do You Dip or Chew Tobacco: No; Hx Alcohol Use: Yes Alcohol type: wine Alcohol type Comment: 1 glass 4-5x/week with dinner Hx Substance Use: No Preferred Language: Togolese Communication Ability: Effective Hearing Ability: Normal Civil Engineer In Training Required: No Beliefs That Will Affect Care: None Current Living Situation: Family current occupational status: retired Other Information That Helps Us Care for You: No Feels Safe at Home: Yes Safety Concerns: Feels Safe At This Time caffeine: Yes Physical Activity Frequency: Daily Assistive Devices: Glasses Physical Exam Physical Exam: GENERAL: 72 yo well-developed, well-nourished F. AAOx4. NAD. LUNGS: Clear to auscultation bilaterally. No W/R/R. CARDIOVASCULAR: Regular rate and rhythm w/o appreciable m/g/r ABDOMEN: Soft, non-tender and non-distended. No palpable masses. BS normoactive x 4 quad. EXTREMITIES: No edema. Non-tender. Peripheral pulses +2/4. SKIN: Generalized pallor and pale palpebral conjunctiva. Results & Data Results & Data Vital Signs (Past 12 Hours) Vital Signs Temp Pulse Resp BP Pulse Ox O2 Del Method 09/14/22 09:15 36.9 C 81 20 91/56 L 94 09/14/22 09:05 36.6 C 85 18 93/54 L 94 09/14/22 08:58 36.6 C 83 20 94/60 L 94 09/14/22 07:46 90 20 93 Room Air 09/14/22 07:24 100 H 09/14/22 07:17 37.0 C 92 H 20 72/47 L 97 Room Air Laboratory Results 09/14/22 07:20 09/14/22 07:20 Diagnostic Findings Chest X-Ray 09/14/22 07:32 XR chest 1V portable HISTORY: 72 years-old Female weak acute weakness COMPARISON: 07/30/2022 TECHNIQUE: AP view of the chest FINDINGS: Cardiac silhouette is enlarged. Atherosclerosis of the aorta. No pneumothorax, pleural effusion, airspace consolidation or pulmonary edema. Degenerative changes of the shoulders and spine. Cervical spinal fusion hardware with surgical clips of the neck. IMPRESSION: Cardiomegaly without acute process. ACT 112: Negative or not required by law. The above report was generated using voice recognition software. It may contain grammatical, syntax or spelling errors. Electronically signed by: Bryon Hutchins M.D. 09/14/2022 8:19 AM Code Status & VTE Plan Code Status full upon d/w with patient Supervising Physician Co-Signing Physician Notes Patient was seen and examined independently I discussed the case with Margaret Hodgson PAC I reviewed pertinent past medical social family history and also the plan of care and agree with the plan of care. Patient presented with a few days of unsettled GI complaints having increased stressors as returning to the area to take care of her ill mother does not have excessive caffeine or nonsteroidal use Examination other than her being pale and mildly tachycardic is unremarkable even her abdominal exam without discomfort She states she has a history of an ulcer with what sounds like a gastric outlet obstruction in the distant past Patient will be admitted to intensive care unit due to the rapid decrease in her hemoglobin and also lower blood pressures Transfusion of packed red blood cells with following hemoglobin GI and intensive care consults Intravenous PPI Any exceptions will be noted below PG Care Time/CCT Total # of Minutes Spent Total Time Spent with Patient: Total time spent is greater than 50% in coordination of care (as documented) at patient's floor/unit and/or counseling patient: Coding Level of Care Code 60956 INT INP/OBS CARE 3/75MIN Diagnoses Acute upper gastrointestinal bleeding K92.2 Acute blood loss anemia D62 History of peptic ulcer disease Z87.11 Cardiomyopathy I42.9 Hypothyroidism E03.9 Depression F32.A
--- NOTE | 2022-09-14 11:00 | Critical Care Consultation ---
Date of Consultation September 14, 2022 Assessment & Plan (1) Acute blood loss anemia: (2) Acute upper gastrointestinal bleeding: (3) History of Dianna-en-Y gastric bypass: (4) History of peptic ulcer disease: (5) LBBB (left bundle branch block): (6) Cardiomyopathy: (7) Elevated LFTs: (8) Hypothyroidism: (9) GERD (gastroesophageal reflux disease): Plan Reason Critically Ill: 72-year-old female here with history significant for congestive heart failure with reduced ejection fraction, hypothyroidism, gastric ulcer status postrepair 2 years ago, and hypertension who presented with lightheadedness, low blood pressure, and black stool admitted for hypotension due to upper GI bleed and acute blood loss anemia. Neuro - [facility] ICU: Negative Depression Alert and oriented x3. No altered mental status. Depression stable, continue sertraline and Cymbalta. Cardiac - Congestive heart failure with reduced ejection fraction Echo done on July 2022 showed EF of 15-20%. Follows with heart failure clinic. Recently told to hold Lasix, metoprolol, spironolactone, and Entresto due to hypotension tension. We will continue to hold at this time. Does not appear hypervolemic on physical exam. We will continue with fluids due to patient not being in a acute exacerbation of her congestive heart failure. We will monitor closely for signs and symptoms of volume overload. Patient had a left bundle branch block on EKG, seen on previous admissions. Respiratory - Not requiring any oxygenation supplementation. Maintaining O2 sats above 92% on room air. GI - Acute blood loss anemia secondary to acute upper GI bleed Currently unstable, transfused 2 units of PRBCs. Hemoglobin of 7.3 on admission, 8.0 after 2 bags. We will start third bag at this time. On Protonix 40 mg IV twice daily. History of peptic ulcer disease and history of gastric ulcer that was surgically repaired 2 years ago. GI consulted in the emergency room, n.p.o. with plans for EGD this afternoon. Serial H&H's. RENAL/LYTES - No significant electrolyte derangement. Replace lytes as needed. - No concerns at this time. No Yousif in place at this time. May consider to monitor I's and O's. External catheter order placed, patient wants to avoid without external cath. ENDO - Hypothyroidism Continue Synthroid 75 mcg daily. Follow ICU hyperglycemic protocols. On Jardiance for heart failure. HEME - Unstable at this time due to upper GI bleed. Transfusing a total of 3 units of PRBCs, serial H&H. We will have EGD this afternoon. ID - No concerns for infection at this point. LINES/IV ACCESS - PIVs intact. DVT PROPHYLAXIS - No DVT prophylaxis due to upper GI bleed. SCDs placed Thank you for allowing us to be part of this patient's care. Please refer to Dr. Jeffers's documentation for any further recommendations. Supervising Physician Co-Signing Physician Notes Dr. Enrique Was the resident-physician during care of patient. I separately evaluated patient for katz portions of the history and the exam. I was present during the critical portion of medical decision making, and I discussed the case with the resident. I generally agree with the findings and plan except for any additions/exceptions noted. 72-year-old female with past medical history of systolic CHF, EF 15-20% presented to the hospital with generalized lethargy weakness and low blood pressure Patient also had history of gastric ulcer in the past Patient systolic blood pressure was on the lower side. Hemoglobin was found to be 7.3 with baseline of 13. She has been having dark-colored stools as of yesterday. Patient got 2 units of PRBC. Patient was getting secondary to when I saw her in the ICU. At the time of examinations patient's map was 65-69. She stated that she is feeling much better. She had received 2.5 L of fluid in the ED Denied any nausea vomiting No abdominal pain No chest pain, no shortness of breath, no dizziness No dysuria, no diarrhea Constitutional: No acute distress HEENT: EOMI, PERRLA Respiratory system: Good air entry bilaterally, no wheezes, no rhonchi, no crackles CVS: S1-S2 positive, no murmurs or gallops, distant heart sounds Abdomen: Soft, nontender, nondistended, positive bowel sounds x4, obese Extremities: +2 pulses bilaterally radialis/ dorsalis pedis, no cyanosis, no edema Neuro: Awake alert oriented x3 Psych: Normal mood and affect G/U: No Yousif --Prophylaxis VTE: IPC GI: Protonix Lines: Peripheral Diet: N.p.o. Plan: Give 2 units of PRBC, repeat H&H. If hemoglobin is still low then will give third unit Patient is planned to have EGD done later today. No indication for vasopressors right now. If need be we will give the patient more fluid as the chest x-ray is clean and on physical exam lungs are clear. Blood pressure medications I have personally spent 52 minutes of critical care time in the direct management of this patient. This is a life/limb threatening event. This includes time spent evaluating patient, direct bedside care, chart review, placing orders, interpretation of diagnostic studies, discussion with consultants, patient, and/or family members regarding treatment decisions, as well as other required patient management activities. This time is exclusive of all separately billable procedures, and teaching time and separate from and in addition to any other critical care service time. History of Present Illness Reason for Consultation: Hypotension, upper GI bleed with acute blood loss anemia Requesting Physician: Astrid Hodgson PA-C Attending Physician: Ajit Jean MD History of Present Illness Shyann Plaza is a 72 yo F with a pmhx of congestive heart failure with reduced ejection fraction, nonischemic cardiomyopathy, hypothyroidism, h/o gastric ulcer/GERD, HTN, anxiety/depression who presented to the ER today accompanied by her mother c/o low blood pressure, generalized feelings of unwellness x 2 days. Patient reports that she awoke in the middle of the night Saturday into with vomiting. She reports seeing some "red" in her emesis. On , she felt very fatigued, with some dizziness/lightheadedness and shortness of breath. She states this morning, she was so lightheaded/fatigued that she couldn't even ambulate the short distance to the bathroom. She subsequently presented to the ER for evaluation. New to the area, recent hospitalization in July due to acute exacerbation of patient's heart failure. Echo done on 07/2022 showing a EF of 15-20%. Cardiac catheterization done in 07/2022 without any stent placement. Last cardiac visit on 09/11/2022 and was told to hold her Lasix, metoprolol, spironolactone, and Entresto due to hypotension. She has not taken these meds since the visit. States that she has a history of gastric ulcer found 2 years ago. Endorses black stools that started yesterday with red blood. Hemoglobin upon admission was 7.3, received 1 unit of PRBCs and is currently on second bag at time of admission to ICU. Patient remains hypotensive upon arrival to the ICU. She denies any fevers, chills, headache, cough, chest pain, lower extremity edema, or orthopnea. Was given 2 L in the ED of [facility]. Received IV bolus of Protonix in the ED and drip started. GI consulted and plan for EGD this afternoon. Allergies Allergy/AdvReac Type Severity Reaction Status Date / Time dexamethasone Allergy Hives Verified 09/11/22 09:56 [From Maxitrol (neomycin sulf)] neomycin Allergy Hives Verified 09/11/22 09:56 [From Maxitrol (neomycin sulf)] Opioids - Morphine Analogues Allergy Hives Verified 09/11/22 09:56 polymyxin B Allergy Hives Verified 09/11/22 09:56 [From Maxitrol (neomycin sulf)] Home Medications Medication Instructions Recorded Confirmed Type cyclobenzaprine 10 mg tablet 10 mg PO DAILY PRN Muscle Spasm 07/30/22 09/14/22 History ferrous sulfate 325 mg (65 mg 325 mg PO .COMPLEX #30 tabs 08/27/22 09/14/22 Rx iron) tablet amitriptyline 25 mg tablet 100 mg PO DAILY 90 days #360 tabs 08/31/22 09/14/22 Rx duloxetine 60 mg capsule,delayed 60 mg PO DAILY 90 days #90 caps 08/31/22 09/14/22 Rx release empagliflozin 10 mg tablet 10 mg PO DAILY 90 days #90 tabs 08/31/22 09/14/22 Rx (Jardiance) furosemide 40 mg tablet (Lasix) 40 mg PO QAM 90 days #90 tabs 08/31/22 09/14/22 Rx melatonin 10 mg tablet 0 mg PO HS PRN Sleep 08/31/22 09/14/22 History metoprolol succinate 25 mg 25 mg PO QAM 90 days #90 tabs 08/31/22 09/14/22 Rx tablet,extended release 24 hr oxybutynin chloride 10 mg 10 mg PO DAILY 90 days #90 tabs 08/31/22 09/14/22 Rx tablet,extended release 24 hr pantoprazole 40 mg tablet,delayed 40 mg PO DAILY 90 days #90 tabs 08/31/22 09/14/22 Rx release sacubitril 24 mg-valsartan 26 mg 1 tab PO BID 90 days #180 tabs 08/31/22 09/14/22 Rx tablet (Entresto) sertraline 100 mg tablet 100 mg PO DAILY 90 days #90 tabs 08/31/22 09/14/22 Rx spironolactone 25 mg tablet 25 mg PO DAILY 90 days #90 tabs 08/31/22 09/14/22 Rx doxycycline monohydrate 100 mg 100 mg PO BID #20 tabs 09/07/22 09/14/22 Rx tablet levothyroxine 75 mcg capsule 75 mcg PO DAILY 90 days #90 caps 09/13/22 09/14/22 Rx Patient History Medical History Acute HFrEF (heart failure with reduced ejection fraction) Anxiety Cardiomyopathy GERD (gastroesophageal reflux disease) History of peptic ulcer disease HLD (hyperlipidemia) HTN (hypertension) with goal to be determined Hypothyroidism LBBB (left bundle branch block) Pulmonary nodule Urge incontinence of urine Surgical History H/O: hysterectomy History of Dianna-en-Y gastric bypass S/P cervical spinal fusion Status post right knee replacement Family History Other Diabetes Denies family history of Ovarian cancer Breast cancer Colorectal cancer Social History Smoking Status: Never smoker Tobacco Type: Cigarettes Second Hand Exposure: Yes; Do You Dip or Chew Tobacco: No; Hx Alcohol Use: Yes Alcohol type: wine Alcohol type Comment: 1 glass 4-5x/week with dinner Hx Substance Use: No Preferred Language: Cambodian Communication Ability: Effective Hearing Ability: Normal [employer] Specialist Required: No Beliefs That Will Affect Care: None Current Living Situation: Family current occupational status: retired Feels Safe at Home: Yes caffeine: Yes Physical Activity Frequency: Daily Assistive Devices: Glasses Review of Systems Review of Systems: All systems reviewed & are unremarkable except as noted in Subjective Physical Exam Physical Exam: GENERAL: 72 yo well-developed, well-nourished F. AAOx4. NAD. LUNGS: Clear to auscultation bilaterally. No W/R/R. CARDIOVASCULAR: Regular rate and rhythm w/o appreciable m/g/r ABDOMEN: Soft, non-tender and non-distended. No palpable masses. BS normoactive x 4 quad. EXTREMITIES: No edema. Non-tender. Peripheral pulses +2/4. SKIN: Generalized pallor and pale palpebral conjunctiva. Results & Data Results & Data Vital Signs (Past 12 Hours) Vital Signs Temp Pulse Resp BP Pulse Ox O2 Del Method 09/14/22 10:01 Room Air 09/14/22 10:00 36.8 C 86 21 98/40 L 93 09/14/22 09:32 84 19 91 09/14/22 09:32 96/48 L 09/14/22 09:30 84 18 89 L 09/14/22 09:15 82 19 91 09/14/22 09:15 91/56 L 09/14/22 09:01 85 17 09/14/22 09:01 93/54 L 09/14/22 09:00 84 22 09/14/22 08:45 85 16 09/14/22 08:45 94/60 L 09/14/22 08:31 82 15 09/14/22 08:31 79/61 L 09/14/22 08:30 82 19 09/14/22 08:22 83 14 09/14/22 08:22 89/35 L 09/14/22 08:21 87 23 09/14/22 08:18 59/45 L 09/14/22 08:18 88 23 09/14/22 08:15 83 17 100 09/14/22 08:00 81 13 95 09/14/22 08:00 104/46 L 09/14/22 07:45 84 15 98 09/14/22 07:45 96/62 L 09/14/22 07:39 91 H 15 98 09/14/22 07:39 82/40 L 09/14/22 07:32 93/51 L 09/14/22 07:32 88 15 95 09/14/22 07:30 88 17 97 09/14/22 07:15 99 H 22 100 09/14/22 07:13 101 H 17 09/14/22 07:13 72/47 L 09/14/22 09:15 36.9 C 81 20 91/56 L 94 05/12/23 09:05 36.6 C 85 18 93/54 L 94 09/14/22 08:58 36.6 C 83 20 94/60 L 94 09/14/22 07:46 90 20 93 Room Air 09/14/22 07:24 100 H 09/14/22 07:17 37.0 C 92 H 20 72/47 L 97 Room Air Laboratory Results 09/14/22 11:46 09/14/22 07:20 Resident Activity Tracking Resident Involvement: Resident Care Provided Care Provided: Adult Hospital Medicine
[2022-09-14] MEDS ORDERED: ACETAMINOPHEN 1,000 MG/100 ML VIAL IV PRN (11:06)
[2022-09-14] MEDS: FERROUS SULFATE 325 MG TAB PO SCH (11:38)
[2022-09-14 11:41] LABS: iSTAT Blood Urea Nitrogen 26 mg/dl (7-18); iSTAT Carbon Dioxide 19 mmol/L (24-31); iSTAT Chloride 108 mmol/L (101-112); iSTAT Creatinine 0.5 mg/dl (0.6-1.3); iSTAT Glucose 176 mg/dl (70-99); iSTAT Hematocrit < 15 % (37-47); iSTAT Ionized Calcium 0.98 mmol/l (1.12-1.32); iSTAT Potassium 3.5 mmol/L (3.3-5.0); iSTAT Sodium 143 mmol/L (135-144)
[2022-09-14 12:21] LABS: Hematocrit (blood only) 23.7 % (37.0-47.0)
--- NOTE | 2022-09-14 14:34 | Billing Data ---
Date of Service September 14, 2022 Coding Level of Care Code 86883 CRITICAL CARE 1ST 30-74M Time Spent (min) 52
--- NOTE | 2022-09-14 14:47 | Anesthesiology Consultation ---
Date of Service September 14, 2022 Assessment & Plan Chart Review Chart Review: Acceptable Risk for Surgery and Patient NOT seen in Pre Admission Testing Consults Requested none ASA ASA4 Proposed Anesthesia Anesthesia Type: MAC Risk / Benefits Reviewed With: PT / POA / Parent / Guardian, Accepts Plan and Informed Consent Obtained History Surgery Operation Date: 09/14/22 16:30 Proposed Procedures p Esophagogastroduodenoscopy Dr. Talamantes - Brigido Talamantes MD Height/Weight Height: 5 ft 2 in Weight: 85.1 kg Allergies Allergy/AdvReac Type Severity Reaction Status Date / Time dexamethasone Allergy Hives Verified 09/11/22 09:56 [From Maxitrol (neomycin sulf)] neomycin Allergy Hives Verified 09/11/22 09:56 [From Maxitrol (neomycin sulf)] Opioids - Morphine Analogues Allergy Hives Verified 09/11/22 09:56 polymyxin B Allergy Hives Verified 09/11/22 09:56 [From Maxitrol (neomycin sulf)] Medications Home Medications Medication Instructions Recorded Confirmed Last Taken cyclobenzaprine 10 mg tablet 10 mg PO DAILY PRN Muscle Spasm 07/30/22 09/14/22 Unknown ferrous sulfate 325 mg (65 mg 325 mg PO .COMPLEX #30 tabs 08/27/22 09/14/22 Unknown iron) tablet amitriptyline 25 mg tablet 100 mg PO DAILY 90 days #360 tabs 08/31/22 09/14/22 Unknown duloxetine 60 mg capsule,delayed 60 mg PO DAILY 90 days #90 caps 08/31/22 09/14/22 Unknown release empagliflozin 10 mg tablet 10 mg PO DAILY 90 days #90 tabs 08/31/22 09/14/22 Unknown (Jardiance) furosemide 40 mg tablet (Lasix) 40 mg PO QAM 90 days #90 tabs 08/31/22 09/14/22 Unknown melatonin 10 mg tablet 0 mg PO HS PRN Sleep 08/31/22 09/14/22 Unknown metoprolol succinate 25 mg 25 mg PO QAM 90 days #90 tabs 08/31/22 09/14/22 Unk nown tablet,extended release 24 hr oxybutynin chloride 10 mg 10 mg PO DAILY 90 days #90 tabs 08/31/22 09/14/22 Unknown tablet,extended release 24 hr pantoprazole 40 mg tablet,delayed 40 mg PO DAILY 90 days #90 tabs 08/31/22 09/14/22 Unknown release sacubitril 24 mg-valsartan 26 mg 1 tab PO BID 90 days #180 tabs 08/31/22 09/14/22 Unknown tablet (Entresto) sertraline 100 mg tablet 100 mg PO DAILY 90 days #90 tabs 08/31/22 09/14/22 Unknown spironolactone 25 mg tablet 25 mg PO DAILY 90 days #90 tabs 08/31/22 09/14/22 Unknown doxycycline monohydrate 100 mg 100 mg PO BID #20 tabs 09/07/22 09/14/22 Unknown tablet levothyroxine 75 mcg capsule 75 mcg PO DAILY 90 days #90 caps 09/13/22 09/14/22 Unknown Active Medications Generic Name Dose Route Start Last Admin Trade Name Freq PRN Reason Stop Dose Admin Ferrous Sulfate 325 mg 09/14/22 12:00 09/14/22 11:38 Ferrous Sulfate 325 Mg Tab PO 10/14/22 11:59 Not Given MoWeFr@[id number] [facility] Past Medical History Medical History Acute HFrEF (heart failure with reduced ejection fraction) Anxiety Cardiomyopathy GERD (gastroesophageal reflux disease) History of peptic ulcer disease HLD (hyperlipidemia) HTN (hypertension) with goal to be determined Hypothyroidism LBBB (left bundle branch block) Pulmonary nodule Urge incontinence of urine Exercise / Class Metabolic Activity II 4-5 Yardwork/Stairs/Walk up hill Past Family History Family History Other Diabetes Denies family history of Ovarian cancer Breast cancer Colorectal cancer Past Surgical History Surgical History H/O: hysterectomy History of Dianna-en-Y gastric bypass S/P cervical spinal fusion Status post right knee replacement Past Anesthesia History No Hx of Anesthesia Complications and No Family Hx of Anesthesia Complications History of PONV No Hx of PONV and No Hx of Motion Sickness Social History Smoking Status: Never smoker Do You Dip or Chew Tobacco: No Hx Alcohol Use: Yes Alcohol type: wine alcohol intake frequency: a few times a week Hx Substance Use: No Physical Exam Vital Signs Last Vital Signs Temp 36.5 C 09/14/22 14:06 Pulse 92 H 09/14/22 14:16 Resp 19 09/14/22 14:16 BP 102/50 L 09/14/22 14:16 Pulse Ox 93 09/14/22 14:16 O2 Del Method Room Air 09/14/22 11:18 Constitutional + obese ENMT Mouth: no dentition abnormality Thyromental Distance: > or= 3.5 Finger Breadths Mallampati Class: II Neck normal visual inspection Respiratory normal respiratory effort Auscultation: lungs clear to auscultation bilaterally Cardiovascular Rate/Rhythm: regular rate and regular rhythm Psychiatric Orientation: alert Testing Laboratory Results 09/14/22 11:46 09/14/22 07:20 PT 11.3 Seconds (9.0-12.0) 09/14/22 07:20 INR 1.0 (0.9-1.1) 09/14/22 07:20 APTT 20.5 Seconds (21.0-31.0) L 09/14/22 07:20 Blood Type O Negative 09/14/22 07:46 Antibody Screen NEGATIVE 09/14/22 07:46 09/14/22 07:46 POC Glucose (other) 176 H
[2022-09-14] MEDS ORDERED: ETOMIDATE 2 MG/ML 20 ML VIAL IV ONE (15:11)
[2022-09-14] MEDS ORDERED: PROPOFOL IV EMULSION 10 MG/ML 20 ML VIAL IV ONE (15:27)
[2022-09-14] MEDS ORDERED: PHENYLEPHRINE 100MCG/ML 5ML SYR ONE (15:27)
[2022-09-14] MEDS ORDERED: LIDOCAINE 2% 2 ML VIAL/AMP(20MG/ML) INFIL ONE (15:27)
--- NOTE | 2022-09-14 15:29 | GI REPORT ---
Patient Name: Shyann Plaza Procedure Date: 09/14/2022 3:07 PM Date of : 1950 Admit Type: Inpatient Age: 72 Gender: Female Attending MD: Brigido Talamantes MD, Procedure: Upper GI endoscopy Providers: Brigido Talamantes MD Referring MD: Referred Self Indications: Suspected upper gastrointestinal bleeding Medicines: Monitored Anesthesia Care Complications: No immediate complications. Estimated blood loss: None. Estimated Blood Loss: Estimated blood loss: none. Procedure: Pre-Anesthesia Assessment: - Prior Anticoagulants: The patient has taken no anticoagulant or antiplatelet agents. - ASA Grade Assessment: IV - A patient with severe systemic disease that is a constant threat to life. After obtaining informed consent, the endoscope was passed under direct vision. Throughout the procedure, the patient's blood pressure, pulse, and oxygen saturations were monitored continuously. The Endoscope was introduced through the mouth, and advanced to the afferent and efferent jejunal loops. The upper GI endoscopy was accomplished without difficulty. The patient tolerated the procedure well. Findings: The examined esophagus was normal. evidence of prior gastric bypass is noted. One cratered gastric ulcer with adherent clot was found at the anastomosis. Area was successfully injected with 4 mL of a 0.1 mg/mL solution of epinephrine for hemostasis. Coagulation for hemostasis using bipolar probe was successful. Biopsies were taken with a cold forceps for histology. Estimated blood loss: none. The examined jejunum was normal except for a small superficial nonbleeding ulcer. Impression: - Normal esophagus. - Gastric ulcer with adherent clot. Injected. Treated with bipolar cautery. Biopsied. - Normal examined jejunum. Recommendation: - [facility] care. - Clear liquid diet today. - Await pathology results. -complete 72 hours of protonix drip, then swithc to protonix 40 mg BID thereafter for a minimum of 3 months -trend H/H, transfuse prn Brigido Talamantes MD 09/14/2022 3:29:17 PM This report has been signed electronically. Note Initiated On: 09/14/2022 3:07 PM Number of Addenda: 0 I attest to the content of the Intraoperative Record and orders documented therein, exceptions below {[id number]}
--- NOTE | 2022-09-14 15:48 | Anesthesiology Progress Note ---
Date of Service September 14, 2022 Anesthesia Post Procedure Vital Signs Vital Signs: Temp Pulse Pulse Resp BP BP Pulse Ox 09/14/22 15:30 104 H 16 96/43 L 98 09/14/22 14:43 36.6 C 90 18 100/50 L 99 09/14/22 14:16 102/50 L 09/14/22 14:16 92 H 19 93 09/14/22 14:00 89 19 100 09/14/22 14:00 108/57 L 09/14/22 13:45 96/59 L 09/14/22 13:45 89 21 99 09/14/22 14:12 89 20 99 09/14/22 14:06 36.5 C 89 19 108/57 L 99 09/14/22 13:36 36.5 C 88 22 101/63 99 09/14/22 13:30 88 17 100 09/14/22 13:30 101/63 09/14/22 13:27 93/51 L 09/14/22 13:27 88 21 98 09/14/22 13:00 93 H 19 96 09/14/22 13:00 114/55 L 09/14/22 13:21 36.5 C 89 22 93/51 L 99 09/14/22 13:00 36.8 C 92 H 16 114/55 L 96 09/14/22 12:30 90 17 97 09/14/22 12:04 89 15 99 09/14/22 12:04 98/55 L 09/14/22 12:00 90 15 98 09/14/22 11:31 84/47 L 09/14/22 11:31 92 H 16 98 09/14/22 11:30 92 H 21 98 09/14/22 11:00 90 20 97 09/14/22 11:00 111/52 L 09/14/22 11:18 09/14/22 11:11 36.7 C 89 18 105/55 L 97 09/14/22 11:00 36.7 C 89 14 111/52 L 97 09/14/22 10:30 36.5 C 90 19 98/63 L 97 09/14/22 10:15 36.6 C 78 12 102/43 L 96 09/14/22 10:01 09/14/22 10:00 36.8 C 86 21 98/40 L 93 09/14/22 09:32 84 19 91 09/14/22 09:32 96/48 L 09/14/22 09:30 84 18 89 L 09/14/22 09:15 82 19 91 09/14/22 09:15 91/56 L 09/14/22 09:01 85 17 09/14/22 09:01 93/54 L 09/14/22 09:00 84 22 09/14/22 08:45 85 16 09/14/22 08:45 94/60 L 09/14/22 08:31 82 15 09/14/22 08:31 79/61 L 09/14/22 08:30 82 19 09/14/22 08:22 83 14 09/14/22 08:22 89/35 L 09/14/22 08:21 87 23 09/14/22 08:18 59/45 L 09/14/22 08:18 88 23 09/14/22 08:15 83 17 100 09/14/22 08:00 81 13 95 09/14/22 08:00 104/46 L 09/14/22 07:45 84 15 98 09/14/22 07:45 96/62 L 09/14/22 07:39 91 H 15 98 09/14/22 07:39 82/40 L 09/14/22 07:32 93/51 L 09/14/22 07:32 88 15 95 09/14/22 07:30 88 17 97 09/14/22 07:15 99 H 22 100 09/14/22 07:13 101 H 17 09/14/22 07:13 72/47 L 09/14/22 09:15 36.9 C 81 20 91/56 L 94 09/14/22 09:05 36.6 C 85 18 93/54 L 94 09/14/22 08:58 36.6 C 83 20 94/60 L 94 09/14/22 07:46 90 20 93 09/14/22 07:24 100 H 09/14/22 07:17 37.0 C 92 H 20 72/47 L 97 O2 Del Method 09/14/22 15:30 Room Air 09/14/22 14:43 Room Air 09/14/22 14:16 09/14/22 14:16 09/14/22 14:00 09/14/22 14:00 09/14/22 13:45 09/14/22 13:45 09/14/22 14:12 09/14/22 14:06 09/14/22 13:36 09/14/22 13:30 09/14/22 13:30 09/14/22 13:27 09/14/22 13:27 09/14/22 13:00 09/14/22 13:00 09/14/22 13:21 09/14/22 13:00 09/14/22 12:30 09/14/22 12:04 09/14/22 12:04 09/14/22 12:00 09/14/22 11:31 09/14/22 11:31 09/14/22 11:30 09/14/22 11:00 09/14/22 11:00 09/14/22 11:18 Room Air 09/14/22 11:11 09/14/22 11:00 09/14/22 10:30 09/14/22 10:15 09/14/22 10:01 Room Air 09/14/22 10:00 09/14/22 09:32 09/14/22 09:32 09/14/22 09:30 09/14/22 09:15 09/14/22 09:15 09/14/22 09:01 09/14/22 09:01 09/14/22 09:00 09/14/22 08:45 09/14/22 08:45 09/14/22 08:31 09/14/22 08:31 09/14/22 08:30 09/14/22 08:22 09/14/22 08:22 09/14/22 08:21 09/14/22 08:18 09/14/22 08:18 09/14/22 08:15 09/14/22 08:00 09/14/22 08:00 09/14/22 07:45 09/14/22 07:45 09/14/22 07:39 09/14/22 07:39 09/14/22 07:32 09/14/22 07:32 09/14/22 07:30 09/14/22 07:15 09/14/22 07:13 09/14/22 07:13 09/14/22 09:15 09/14/22 09:05 09/14/22 08:58 09/14/22 07:46 Room Air 09/14/22 07:24 09/14/22 07:17 Room Air Pain Intensity Abdomen: Pain Intensity: 4 Transfer of Care Handoff Completed per policy Notes Mental Status: alert / awake / arousable and participated in evaluation Patient Amnestic to Procedure: Yes Nausea / Vomiting: adequately controlled Pain: adequately controlled Airway Patency, RR, SpO2: stable & adequate BP & HR: stable & adequate Hydration State: stable & adequate Anesthetic Complications: no major complications apparent and Pt Satisfied with anesthetic care
[2022-09-14] MEDS ORDERED: NOREPINEPHRINE/D5W 4 MG/250 ML IV ONE (16:32)
--- NOTE | 2022-09-14 17:26 | XRay Report ---
XR chest 1V portable CLINICAL HISTORY: Pain. Widened mediastinum vs air COMPARISON STUDY: Chest CT July 30, 2022. Chest radiograph performed earlier today. FINDINGS: Postoperative findings within the spine are incidentally noted. There is no pneumothorax or pleural effusion. Patient is mildly rotated. Cardiomegaly is unchanged. There is no radiographic sheryl dence for pneumomediastinum. There is no evidence for pulmonary edema. There is no consolidation. IMPRESSION: Cardiomegaly. No acute cardiopulmonary findings. ACT 112: Negative or not required by law. Electronically signed by: Meliton Dubon M.D. 09/14/2022 5:24 PM
[2022-09-14 18:31] LABS: Hemoglobin 8.2 g/dl (12.0-16.0)
[2022-09-14 18:55] LABS: Albumin Globulin Ratio 1.5 (0.9-2); Albumin Level 2.5 gm/dl (3.4-5.0); BUN Creatinine Ratio 50.9 (10-20); Bilirubin,Total 0.4 mg/dl (0.2-1.0); Calcium 6.9 mg/dl (8.6-10.3); Creatinine Clr Calc Pharmacy 99.9 ml/min; Est GFR (African American) 111.5 ml/min; Est GFR (Non-African American) 96.2 ml/min; Globulin 1.7 gm/dl (2.5-4.0); Potassium 3.6 mmol/L (3.5-5.1); Total Protein 4.2 gm/dl (6.0-8.3)
[2022-09-14 18:57] LABS: Troponin I High Sensitivity 21.1 pg/ml (0-14)
[2022-09-14] MEDS: ICU ELECTROLYTE REPLACEMENT PROTOCOL SCH (20:02)
[2022-09-14] MEDS: AMITRIPTYLINE HCL 25 MG TAB PO SCH (20:33)
[2022-09-14] MEDS: HYDROmorphone INJ 0.5 MG/0.5 ML SYR IV PRN (20:39)
[2022-09-14] MEDS: PANTOprazole 40 MG in DEXTROSE 5% 100 ML IV SCH (20:39)
[2022-09-14] MEDS ORDERED: PANTOprazole 40 MG in SYRINGE 0 ML IV SCH (21:00)
[2022-09-14] MEDS ORDERED: STAT IV STA (21:35)
[2022-09-14] MEDS ORDERED: CALCIUM GLUCONATE 10% 2,000 MG in DEXTROSE 5% 50 ML IV ONE (21:35)
[2022-09-15] MEDS: PANTOprazole 40 MG in DEXTROSE 5% 100 ML IV SCH ×5 (01:43→22:34)
[2022-09-15 05:00] LABS: Basophils # (auto) 0.06 K/uL (0-0.2); Basophils % (auto) 0.9 %; Eosinophils # (auto) 0.26 K/uL (0-0.50); Eosinophils % (auto) 3.8 %; Hematocrit (blood only) 22.4 % (37.0-47.0); Hemoglobin 7.7 g/dl (12.0-16.0); Immature Granulocytes # (auto) 0.05 K/uL (0.01-0.20); Immature Granulocytes % (auto) 0.7 %; Lymphocytes # (auto) 2.01 K/uL (1.2-3.4); Lymphocytes % (auto) 29.7 %; Mean Corpuscular Hemoglobin 30.3 pg (25.0-34.0); Mean Corpuscular Hgb Conc 34.4 g/dL (32.0-36.0); Mean Corpuscular Volume 88.2 fL (80.0-100.0); Mean Platelet Volume 9.9 fL (9.4-12.4); Monocytes # (auto) 0.35 K/uL (0.11-0.59); Monocytes % (auto) 5.2 %; Neutrophils # (auto) 4.03 K/uL (1.40-6.50); Neutrophils % (auto) 59.7 %; Platelet Count 208 K/uL (130-400); RDW Coefficient of Variation 16.4 % (11.5-14.5); RDW Standard Deviation 52.5 fL (36.4-46.3); Red Blood Count 2.54 M/uL (4.20-5.40); White Blood Count 6.76 K/ul (4.8-10.8)
[2022-09-15 05:20] LABS: Albumin Globulin Ratio 1.4 (0.9-2); Albumin Level 2.5 gm/dl (3.4-5.0); BUN Creatinine Ratio 41.8 (10-20); Bilirubin,Total 0.4 mg/dl (0.2-1.0); Calcium 7.4 mg/dl (8.6-10.3); Creatinine Clr Calc Pharmacy 96.3 ml/min; Est GFR (African American) 110.1 ml/min; Globulin 1.8 gm/dl (2.5-4.0); Magnesium 1.7 mg/dl (1.7-2.4); Potassium 3.8 mmol/L (3.5-5.1); Total Protein 4.3 gm/dl (6.0-8.3)
[2022-09-15 05:23] LABS: RBC Morphology Unremarkable
[2022-09-15] MEDS: ICU ELECTROLYTE REPLACEMENT PROTOCOL SCH (05:41)
[2022-09-15] MEDS: MAGNESIUM SULFATE / D5W 1 GM/100 ML BAG IV SCH ×4 (06:12→10:58)
[2022-09-15] MEDS: POTASSIUM CHLORIDE CRTAB 20 MEQ TABCR PO SCH ×2 (06:12→09:11)
[2022-09-15] MEDS: LEVOTHYROXINE SODIUM 75 MCG TABLET PO SCH (06:13)
--- NOTE | 2022-09-15 06:36 | Electrocardiogram Report ---
Test Reason : Blood Pressure : / mmHG Vent. Rate : 098 BPM Atrial Rate : 098 BPM P-R Int : 130 ms QRS Dur : 190 ms QT Int : 462 ms P-R-T Axes : 020 -41 135 degrees QTc Int : 589 ms Normal sinus rhythm Left axis deviation Left bundle branch block Abnormal ECG When compared with ECG of 01-AUG-2022 07:24, No significant change was found Confirmed by Jagdish Prado ([id number]) on 09/15/2022 6:35:48 AM Referred By: REFERRED SELF Confirmed By:Jagdish Prado
--- NOTE | 2022-09-15 07:43 | Gastroenterology Progress Note ---
Date of Service September 15, 2022 Assessment & Plan (1) Anastomotic ulcer: Plan ulcer causing gi bleeding s/p egd with dual tx; on protonix drip recs: complete 72 hours of ppi drip then transition to protonix 40 mg BID thereafter advance diet as tolerated this afternoon supportive care, IVFs would benefit from repeat EGD in 3 months Admission and Anticipated Discharge Date Admission Date: September 14, 2022 Subjective no events overnight, hgb 7.7 from 8.2 last night. VSS mostly. She notes some general diffuse abdominal pains yesterday. s/p egd with dual tx of anastomotic ulcer. on ppi drip now. tolerated clears yesterday. Review of Systems Constitutional: no fever and no chills Respiratory: no cough, no dyspnea and no dyspnea on exertion Cardiovascular: no chest pain and no dyspnea Gastrointestinal: as per Subjective / HPI Psychiatric: no depression and no anxiety Physical Exam Constitutional: WD/WN, vitals as above Respiratory: normal respiratory effort, lungs clear to auscultation Cardiovascular: RRR, no murmur, no edema Gastrointestinal (Abdomen): normal bowel sounds, soft, nontender, no hepatosplenomegaly Musculoskeletal: no lower extremity edema Psychiatric: A+Ox3, euthymic affect Results & Data Results & Data Vital Signs (Past 12 Hours) Vital Signs Pulse Resp BP Pulse Ox O2 Del Method 09/15/22 01:30 88 27 H 91 09/15/22 01:15 88 14 94 09/15/22 01:15 104/65 09/15/22 01:00 88 21 90 09/15/22 00:30 86 12 96 09/15/22 00:00 90 12 96 09/14/22 23:30 90 14 93 09/14/22 23:00 89 16 94 09/14/22 22:30 90 13 95 09/14/22 22:00 93 H 24 94 09/14/22 21:35 85/47 L 09/14/22 21:35 93 H 15 94 09/14/22 21:33 55/33 L 09/14/22 21:33 94 H 21 95 09/14/22 21:31 94 H 21 86 L 09/14/22 21:31 48/39 L 09/14/22 21:30 95 H 30 H 96 09/14/22 21:01 98 H 29 H 96 09/14/22 21:01 83/47 L 09/14/22 21:00 99 H 17 95 09/14/22 20:31 123/60 09/14/22 20:31 96 H 17 96 09/14/22 20:30 97 H 23 96 09/14/22 20:00 95 H 17 09/14/22 20:00 105/65 09/14/22 20:00 Room Air PG Care Time/CCT Total # of Minutes Spent Total Time Spent with Patient: Total time spent is greater than 50% in coordination of care (as documented) at patient's floor/unit and/or counseling patient: Coding Level of Care Code 70065 SUB INP/OBS CARE 2/35MIN Diagnoses Anastomotic ulcer K28.9
--- NOTE | 2022-09-15 08:21 | Critical Care Progress Note ---
Date of Service September 15, 2022 Assessment & Plan (1) Acute blood loss anemia: (2) Acute upper gastrointestinal bleeding: (3) History of Dianna-en-Y gastric bypass: (4) History of peptic ulcer disease: (5) LBBB (left bundle branch block): (6) Cardiomyopathy: (7) Elevated LFTs: (8) Hypothyroidism: (9) GERD (gastroesophageal reflux disease): Plan Reason Critically Ill: 72-year-old female here with history significant for congestive heart failure with reduced ejection fraction, hypothyroidism, gastric ulcer status postrepair 2 years ago, and hypertension who presented with lightheadedness, low blood pressure, and black stool admitted for hypotension due to upper GI bleed and acute blood loss anemia. Neuro - [facility] ICU: Negative Depression Alert and oriented x3. No altered mental status. Depression stable, continue sertraline and Cymbalta. Cardiac - Congestive heart failure with reduced ejection fraction Echo done on July 2022 showed EF of 15-20%. Follows with heart failure clinic. Hold Lasix, metoprolol, spironolactone, and Entresto due to hypotension Patient had a left bundle branch block on EKG, seen on previous admissions. Respiratory - Not requiring any oxygenation supplementation. GI - Acute blood loss anemia secondary to acute upper GI bleed Continue with Protonix drip for total of 72 hours followed by Protonix 40 mg twice daily History of peptic ulcer disease and history of gastric ulcer that was surgically repaired 2 years ago. -S/p EGD 09/14/2022 gastric ulcer with evident clot was treated with epinephrine and bipolar probe. Serial H&H's. RENAL/LYTES - No significant electrolyte derangement. Replace lytes as needed. - No concerns at this time. No Yousif in place at this time. May consider to monitor I's and O's. External catheter order placed, patient wants to avoid without external cath. ENDO - Hypothyroidism Continue Synthroid 75 mcg daily. Follow ICU hyperglycemic protocols. On Jardiance for heart failure. HEME - --Acute blood loss anemia Status post 3 units of PRBCs, serial H&H. ID - No concerns for infection at this point. --Prophylaxis VTE: IPC GI: Protonix Lines: Peripheral Diet: Clear liquid, advance as tolerated Plan: In/out: +2.3 L, urine output 1103 Repeat H&H at 12 PM. If it is less than 7.5 then would recommend to transfuse 1 unit PRBC Patient is complaining of pain in the right knee. No swelling, no ecchymosis appreciated. We will order x-ray of the knee Magnesium and potassium replaced Patient hemodynamically stable to be downgrade to medical floor Resume blood pressure medications gradually as tolerated Case discussed with Dr. Jean Please note the above document was generated using voice recognition software. It may contain grammatical, syntax or spelling errors.Any formal questions or concerns about the content, text or information contained within the body of this dictation should be directly addressed to the provider for clarification. Admission and Anticipated Discharge Date Admission Date: September 14, 2022 Subjective Patient seen and examined at bedside. No acute distress, no adverse events overnight. Denies any chest pain, no shortness of breath Does complain of some supra pubic tenderness. Denies any dysuria No nausea or vomiting Has been afebrile Review of Systems Review of Systems: All systems reviewed & are unremarkable except as noted in Subjective Physical Exam Physical Exam: Constitutional: No acute distress HEENT: EOMI, PERRLA Respiratory system: Good air entry bilaterally, no wheezes, no rhonchi, no crackles CVS: S1-S2 positive, no murmurs or gallops, distant heart sounds Abdomen: Soft, mild epigastric tenderness, nondistended, positive bowel sounds x4, obese, minimal suprapubic tenderness, no rebound Extremities: +2 pulses bilaterally radialis/ dorsalis pedis, no cyanosis, no edema Neuro: Awake alert oriented x3 Psych: Normal mood and affect G/U: No Yousif Musculoskeletal: Right knee nontender to palpation, no swelling, no redness Skin: no rashes, warm and dry Lymphatic: no cervical or axillary lymphadenopathy Results & Data Results & Data Vital Signs (Past 12 Hours) Vital Signs Pulse Resp BP Pulse Ox 09/15/22 01:30 88 27 H 91 09/15/22 01:15 88 14 94 09/15/22 01:15 104/65 09/15/22 01:00 88 21 90 09/15/22 00:30 86 12 96 09/15/22 00:00 90 12 96 09/14/22 23:30 90 14 93 09/14/22 23:00 89 16 94 09/14/22 22:30 90 13 95 09/14/22 22:00 93 H 24 94 09/14/22 21:35 85/47 L 09/14/22 21:35 93 H 15 94 09/14/22 21:33 55/33 L 09/14/22 21:33 94 H 21 95 09/14/22 21:31 94 H 21 86 L 09/14/22 21:31 48/39 L 09/14/22 21:30 95 H 30 H 96 09/14/22 21:01 98 H 29 H 96 09/14/22 21:01 83/47 L 09/14/22 21:00 99 H 17 95 09/14/22 20:31 123/60 09/14/22 20:31 96 H 17 96 09/14/22 20:30 97 H 23 96 Laboratory Results 09/15/22 04:14 09/15/22 04:14 Coding Level of Care Code 40136 SUB INP/OBS CARE 3/50MIN Diagnoses Acute blood loss anemia D62 Acute upper gastrointestinal bleeding K92.2 History of Dianna-en-Y gastric bypass Z98.84 History of peptic ulcer disease Z87.11 LBBB (left bundle branch block) I44.7 Cardiomyopathy I42.9 Elevated LFTs R79.89 Hypothyroidism E03.9 GERD (gastroesophageal reflux disease) K21.9
[2022-09-15] MEDS: SERTRALINE HCL 100 MG TABLET PO SCH (09:00)
[2022-09-15] MEDS ORDERED: AMITRIPTYLINE HCL 100 MG TAB PO SCH (09:00)
[2022-09-15] MEDS: FERROUS SULFATE 325 MG TAB PO SCH (09:00)
[2022-09-15] MEDS: DULoxetine HCL 60 MG CAP PO SCH (09:00)
[2022-09-15] MEDS: EMPAGLIFLOZIN 10 MG TAB PO SCH (09:00)
--- NOTE | 2022-09-15 09:34 | XRay Report ---
XR knee RT 1 or 2V routine CLINICAL HISTORY: Knee pain s/p fall TECHNIQUE: 2 views of the right knee were obtained. Comparison: None available at the time of this dictation. FINDINGS: Patient is status post total knee arthroplasty with expected postsurgical changes including soft tiss ue swelling and subcutaneous emphysema. No periarticular lucency or hardware fracture is seen. IMPRESSION: Expected postoperative appearance status post placement of total knee arthroplasty. ACT 112: Negative or not required by law. Electronically signed by: Danny Lyons M.D. 09/15/2022 9:33 AM
[2022-09-15 09:40] LABS: Appearance Urine Clear (Clear); Bilirubin Urine Negative (Negative); Blood Urine Negative (Negative); Color Urine Yellow; Glucose Urine UA Negative (Negative); Ketones Urine Negative (Negative); Leukocyte Esterase Urine Negative (Negative); Nitrite Urine Negative (Negative); Protein Urine Negative (Negative); Specific Gravity Urine 1.014 (1.000-1.030); Urobilinogen Urine Negative (Negative); pH Urine 5.5 (4.5-7.5)
[2022-09-15 12:35] LABS: Hematocrit (blood only) 25.5 % (37.0-47.0); Hemoglobin 8.6 g/dl (12.0-16.0)
--- NOTE | 2022-09-15 13:32 | Hospitalist Progress Note ---
Date of Service September 15, 2022 Assessment & Plan (1) Acute upper gastrointestinal bleeding: Plan: Acutenow stable. Patient underwent endoscopy on 09/14 which showed an anastomotic ulcer which was treated, injected and bipolar probe used Recommendation for 72 hours of intravenous Protonix will transition to 40 twice daily after that for a minimum of 3 months (2) Acute blood loss anemia: Plan: Acute seemingly stable at this point time -Transfused 3 units packed red blood cells Continue iron supplementation as prehospital (3) History of peptic ulcer disease: Plan: Chronic but suspect acute as primary cause of UGIB and ABLA -Patient remains at risk due to her previous Dianna-en-Y gastric surgery but she sounds like she has had anastomotic ulcers in the past (4) Cardiomyopathy: Plan: Chronic/nonischemic - stable - LVEF in July 2022 15-20% -Despite blood product infusion patient remains asymptomatic blood pressures are slowly improving will need to continue to hold diuretics and Entresto will restart beta-honorio at low-dose and add medications back as able - Will resume Jardiance (5) Hypothyroidism: Plan: Chronic/stable - Continue Synthroid 75 mcg daily - Last TSH checked in August 2022 and was WNL at 1.8 (6) Depression: Plan: Chronic/stable - Continue Sertraline and Cymbalta Plan SCDs will be utilized for DVT Disposition planning patient will need to have 72 hours of intravenous Protonix and then if she is assured and stable blood counts and physical functioning she may be able to be discharged at that point time will likely be sometime on September 17 Admission and Anticipated Discharge Date Admission Date: September 14, 2022 Subjective pt feels much improved after transfusion no stool since admission, starting on clear liquids Physical Exam Physical Exam: Patient is awake and alert she is in no distress Cardiac exam is regular lungs are clear abdomen NABS soft nontender Results & Data Results & Data Vital Signs (Past 12 Hours) Vital Signs Temp Pulse Resp BP Pulse Ox O2 Del Method 09/15/22 11:39 98.8 F 09/15/22 11:00 87 18 129/49 L 98 Room Air 09/15/22 11:04 Room Air 09/15/22 10:00 85 19 95 09/15/22 09:19 82 24 98 09/15/22 09:19 105/46 L 09/15/22 09:06 89 17 100 09/15/22 09:04 94 H 23 97 09/15/22 08:01 82 15 96 Room Air 09/15/22 08:01 121/62 09/15/22 08:00 83 16 97 09/15/22 07:02 126/48 L 09/15/22 07:02 86 24 95 09/15/22 07:00 84 12 94 09/15/22 01:30 88 27 H 91 Laboratory Results Reviewed CBC Reviewed PRP Discussed case with intensive care unit staff and physician downgrade decision to med telemetry PG Care Time/CCT Total # of Minutes Spent Total Time Spent with Patient: Total time spent is greater than 50% in coordination of care (as documented) at patient's floor/unit and/or counseling patient: Coding Level of Care Code 87523 SUB INP/OBS CARE 3/50MIN Diagnoses Acute upper gastrointestinal bleeding K92.2 Acute blood loss anemia D62 History of peptic ulcer disease Z87.11 Cardiomyopathy I42.9 Hypothyroidism E03.9 Depression F32.A
[2022-09-15] MEDS: HYDROmorphone INJ 0.5 MG/0.5 ML SYR IV PRN ×3 (17:17→22:59)
[2022-09-15] MEDS: ONDANSETRON INJ 2 MG/ML 2 ML VIAL IV PRN (17:19)
[2022-09-15] MEDS ORDERED: HYDROmorphone INJ 0.5 MG/0.5 ML SYR IV STA (18:26)
[2022-09-15] MEDS ORDERED: LORazepam 2 MG/1 ML VIAL IV PRN (18:27)
--- NOTE | 2022-09-15 18:29 | Communication Note ---
Date of Service: September 15, 2022 Diet advance in ICU patient had emesis in the afternoon of bright red blood 200 mL and then dark red blood 300 miles. She has some abdominal pain associated with it. Hemoglobin checked at 7:00 500 cc of saline 88-hour given her cardiomyopathy we will check CT scan abdomen pelvis to look for free air since she recently had endoscopic procedures done and has a Dianna-en-Y
[2022-09-15] MEDS ORDERED: SODIUM CHLORIDE 0.9% 500 ML IV SCH (18:30)
[2022-09-15] MEDS: METOPROLOL TARTRATE 25 MG TAB PO SCH (20:27)
[2022-09-15] MEDS: AMITRIPTYLINE HCL 25 MG TAB PO SCH (20:27)
[2022-09-15] MEDS: PROMETHAZINE HCL 12.5 MG in SODIUM CHLORIDE 0.9% 50 ML IV PRN (21:00)
--- NOTE | 2022-09-15 21:15 | CT Scan Report ---
CT abd pelvis wo con CLINICAL HISTORY: look for free air TECHNIQUE: Helical axial images of the abdomen and pelvis were obtained. Automated dose lowering tech niques and/or adjustment according to patient size were utilized for this exam. This exam was perfor med without intravenous contrast. CT DOSE: 1008.13 mGy.cm COMPARISON: Comparison is made to CT chest 07/30/2022 FINDINGS: Lower chest: Incidental note is made of hypodense blood in the heart, compatible with anemia. Liver: Unremarkable. No focal lesions are seen. Gallbladder and biliary tree: Patient is status post cholecystectomy. No intra- or extrahepatic bilia ry ductal dilation. Pancreas: Fatty replacement of the pancreas is seen. Spleen: Unremarkable. Adrenals: Unremarkable. Kidneys and ureters: Unremarkable. Bladder: Unremarkable. Reproductive organs: Unremarkable. Bowel: Patient is status post Dianna-en-Y gastric bypass. There is a complex fluid collection about the gastric body with a focus of air, there is some irregularity with complex material entering the vivian eula lumen. The proximal duodenum also demonstrates hyperdense fluid collection surrounding the bowel. The distal bowel and excluded portion of the stomach is unremarkable. The appendix is normal. Lymph nodes Retroperitoneal: Unremarkable. Pelvic: Unremarkable. Mesenteric: Unremarkable. Peritoneum: Minimal fat stranding is seen about the proximal duodenum. No pneumoperitoneum is seen. Vessels: Atherosclerotic calcifications are seen. Abdominal wall: Unremarkable. Bones: Degenerative changes in the visualized spine. IMPRESSION: 1. Interval development of gastric wall thickening and pneumatosis as well as thickening of the duod enum. Given history of recent instrumentation followed by hematemesis, this is favored to represent i ntramural hematoma with rupture into the gastric lumen. Ischemic etiology is considered unlikely. No pneumoperitoneum is seen. 2. Incidental note is made of anemia in this patient with recent large volume hematemesis. A call was placed with the patient's provider Dr. Browne at the time of dictation. ACT 112: Negative or not required by law. Electronically signed by: Danny Loyns M.D. 09/15/2022 9:13 PM
[2022-09-15 21:51] LABS: Hematocrit (blood only) 24.1 % (37.0-47.0); Hemoglobin 8.1 g/dl (12.0-16.0)
[2022-09-15] MEDS: ACETAMINOPHEN 1,000 MG/100 ML VIAL IV SCH (22:35)
[2022-09-15] MEDS ORDERED: HYDROmorphone INJ 1 MG/ML SYRINGE IV STA (23:06)
[2022-09-15] MEDS ORDERED: ALUMINUM/MAGNESIUM SUSP 18 ML, LIDOCAINE VISCOUS 2% SOLN 6 ML, BARCODE IDENTIFIER 1 EACH PO ONE (23:19)
[2022-09-15] MEDS ORDERED: FAMOTIDINE 20 MG in SYRINGE 3 ML IV ONE (23:45)
[2022-09-16 01:38] LABS: Hematocrit (blood only) 22.1 % (37.0-47.0); Hemoglobin 7.4 g/dl (12.0-16.0); Mean Corpuscular Hemoglobin 30.1 pg (25.0-34.0); Mean Corpuscular Hgb Conc 33.5 g/dL (32.0-36.0); Mean Corpuscular Volume 89.8 fL (80.0-100.0); Mean Platelet Volume 10.1 fL (9.4-12.4); Platelet Count 311 K/uL (130-400); RDW Coefficient of Variation 16.4 % (11.5-14.5); RDW Standard Deviation 53.6 fL (36.4-46.3); Red Blood Count 2.46 M/uL (4.20-5.40); White Blood Count 12.95 K/ul (4.8-10.8)
[2022-09-16 01:39] LABS: Hematocrit (blood only) 22.2 % (37.0-47.0); Hemoglobin 7.3 g/dl (12.0-16.0)
[2022-09-16 01:55] LABS: BUN Creatinine Ratio 24.7 (10-20); Calcium 7.7 mg/dl (8.6-10.3); Creatinine Clr Calc Pharmacy 72.6 ml/min; Est GFR (African American) 96.7 ml/min; Est GFR (Non-African American) 83.4 ml/min; Phosphorus 4.3 mg/dl (2.5-4.9); Potassium 4.5 mmol/L (3.5-5.1)
[2022-09-16] MEDS: PANTOprazole 40 MG in DEXTROSE 5% 100 ML IV SCH ×4 (03:03→19:31)
[2022-09-16] MEDS ORDERED: SODIUM CHLORIDE 0.9% 250 ML IV PRN ×2 (04:33→07:22)
[2022-09-16] MEDS ORDERED: SODIUM CHLORIDE 0.9% 1000ML 500 ML IV ONE (04:34)
[2022-09-16] MEDS ORDERED: NALOXONE HCL 0.4 MG/1 ML VIAL/CARP IV STA (04:38)
--- NOTE | 2022-09-16 04:51 | Communication Note ---
Date of Service: September 16, 2022 4:22 received notification that patient had spO2 57% on RA pale having difficulty staying alert mumbling words. While in room patient was placed on an oxymask 15L trying to use a bedpan, required repeat instructions to not try and sit up, oriented to location but not time, was more excitable and gregarious compared to earlier this evening. Pulse ox was 70's around that time, BP systolic 100's HR 90's. Noted warm extremities good distal pulses. [employer] Purple called. Ordered stat CXR cbc cmp lactate trop abg, ordered 2U blood for concern continued bleed, ordered narcan given Dilaudid usage q2h 0.5mg-1mg. Upgraded patient to PCU status. Ordered NSS bolus 500cc. Repeat CXR noted new opacities of LLL. Patient pulse ox increased to 90's on nasal cannula around 6L prior to receiving narcan. Dr. Weiner aware.
[2022-09-16] MEDS ORDERED: VANCOMYCIN CONSULT ACTIVE PRN (04:59)
[2022-09-16 05:02] LABS: Hematocrit (blood only) 21.1 % (37.0-47.0); Mean Corpuscular Hgb Conc 33.2 g/dL (32.0-36.0); Mean Corpuscular Volume 90.6 fL (80.0-100.0); Mean Platelet Volume 10.1 fL (9.4-12.4); Platelet Count 316 K/uL (130-400); RDW Coefficient of Variation 16.5 % (11.5-14.5); RDW Standard Deviation 54.4 fL (36.4-46.3); Red Blood Count 2.33 M/uL (4.20-5.40); White Blood Count 6.13 K/ul (4.8-10.8)
[2022-09-16] MEDS ORDERED: PIPERACILLIN/TAZOBACTAM 4.5 GM (over 30 mins) IV ONE (05:15)
[2022-09-16 05:21] LABS: Albumin Globulin Ratio 1.5 (0.9-2); Albumin Level 2.6 gm/dl (3.4-5.0); BUN Creatinine Ratio 25.7 (10-20); Bilirubin,Total 0.3 mg/dl (0.2-1.0); Calcium 7.5 mg/dl (8.6-10.3); Creatinine Clr Calc Pharmacy 75.7 ml/min; Est GFR (African American) 101.7 ml/min; Est GFR (Non-African American) 87.8 ml/min; Globulin 1.7 gm/dl (2.5-4.0); Potassium 4.2 mmol/L (3.5-5.1); Total Protein 4.3 gm/dl (6.0-8.3)
[2022-09-16 05:29] LABS: iSTAT Allen Test Pass; iSTAT Art Bld Gas pCO2 Correct 32 mmHg (35-46); iSTAT Arterial Blood Gas HCO3 20 meg/L (19-24); iSTAT Arterial Blood Gas pCO2 32 mmHg (35-46); iSTAT Arterial Blood Gas pO2 60 mmHg (80-95); iSTAT Arterial Blood Gas pO2 C 60; iSTAT Carbon Dioxide 21 mmol/L (24-31); iSTAT Hematocrit 18 % (37-47); iSTAT Hemoglobin 6.1 g/dl (12.0-16.0); iSTAT Site R Radial; iSTAT Sodium 137 mmol/L (135-144)
[2022-09-16] MEDS ORDERED: VANCOMYCIN HCL 2,000 MG in SODIUM CHLORIDE 0.9% 500 ML IV ONE (05:30)
[2022-09-16 05:35] LABS: Troponin I High Sensitivity 81.4 pg/ml (0-14)
[2022-09-16] MEDS: LEVOTHYROXINE SODIUM 75 MCG TABLET PO SCH (06:36)
[2022-09-16] MEDS: ACETAMINOPHEN 1,000 MG/100 ML VIAL IV SCH ×3 (06:45→21:30)
--- NOTE | 2022-09-16 07:20 | Hospitalist Progress Note ---
Date of Service September 16, 2022 Assessment & Plan (1) Acute upper gastrointestinal bleeding: Plan: Acutenow unstable. Patient underwent endoscopy on 09/14 which showed an anastomotic ulcer which was treated, injected and bipolar probe ct abd pelvis Interval development of gastric wall thickening and pneumatosis as well as thickening of the duodenum. Given history of recent instrumentation followed by hematemesis, this is favored to represent intramural hematoma with rupture into the gastric lumen. Ischemic etiology is considered unlikely. No pneumoperitoneum is seen. will also have I U FFP and calcium gluconate on 09/16/22 Recommendation for 72 hours of intravenous Protonix will transition to 40 twice daily after that for a minimum of 3 months (2) Acute blood loss anemia: Plan: Acute seemingly stable at this point time -Transfused 5 units packed red blood cells Continue iron supplementation as prehospital (3) Gram-negative pneumonia: Plan: Patient with changes of pulmonary infiltrates in the left lung seen on chest x- ray started on Zosyn and vancomycin. MRSA nasal swab was negative subsequently vancomycin discontinued we will continue Zosyn planning on at least a 7-day course at this time certainly concerns for aspiration given her procedures and vomiting (4) History of peptic ulcer disease: Plan: Chronic but suspect acute as primary cause of UGIB and ABLA -Patient remains at risk due to her previous Dianna-en-Y gastric surgery but she sounds like she has had anastomotic ulcers in the past (5) Cardiomyopathy: Plan: Chronic/nonischemic - stable - LVEF in July 2022 15-20% -Despite blood product infusion patient remains asymptomatic blood pressures are slowly improving will need to continue to hold diuretics and Entresto will restart beta-honorio at low-dose and add medications back as able - Will resume Jardiance (6) Hypothyroidism: Plan: Chronic/stable - Continue Synthroid 75 mcg daily - Last TSH checked in August 2022 and was WNL at 1.8 (7) Depression: Plan: Chronic/stable - Continue Sertraline and Cymbalta Plan SCDs will be utilized for DVT Disposition planning patient will need to have 72 hours of intravenous Protonix and then if she is assured and stable blood counts and physical functioning she may be able to be discharged at that point time will likely be sometime on September 17 Admission and Anticipated Discharge Date Admission Date: September 14, 2022 Subjective Pt had hematemesis x2 on 09/15, did have CT to eval for free air given lower abdominal pain which was negative, did become hypotensive this am and was moved to PCU, hgb 7 gms, ordered additional 2 u prbc. continues npo on protonix gtt over last 24 hours vomiting and coughing CXR shows concerns for left sided pneumonia that certainly can be gram negative or aspiration pneumonia Physical Exam Physical Exam: Patient appears weak and still with minor abdominal pain Coarse rhonchorous breath sounds at the bases with cough that is nonproductive Cardiac exam is distant without murmurs Abdomen is not acute bowel sounds are present uncomfortable feelings in the lower quadrants Results & Data Results & Data Vital Signs (Past 12 Hours) Vital Signs Temp Pulse Pulse Pulse Resp BP BP 09/16/22 06:51 95 H 09/16/22 05:30 09/16/22 06:21 97.7 F 96 H 17 116/59 L 09/16/22 06:06 97.7 F 95 H 22 105/62 09/16/22 06:21 97.7 F 97 H 18 100/65 09/16/22 05:49 98.4 F 97 H 20 86/44 L 09/16/22 05:00 98.8 F 97 H 24 110/74 09/16/22 00:00 108 H 09/15/22 22:00 98.1 F 108 H 18 114/58 L Pulse Ox O2 Del Method O2 Flow Rate 09/16/22 06:51 09/16/22 05:30 High Flow Nasal Cannula 15 09/16/22 06:21 94 15 09/16/22 06:06 93 15 09/16/22 06:21 95 15 09/16/22 05:49 86 L 15 09/16/22 05:00 89 L High Flow Nasal Cannula 12 09/16/22 00:00 09/15/22 22:00 95 Room Air Laboratory Results reviewed cbc reviewed prp Discussed case with on-call endoscopist/program services assistant PG Care Time/CCT Total # of Minutes Spent Total Time Spent with Patient: Total time spent is greater than 50% in coordination of care (as documented) at patient's floor/unit and/or counseling patient: Coding Level of Care Code 16033 SUB INP/OBS CARE 3/50MIN Diagnoses Acute upper gastrointestinal bleeding K92.2 Acute blood loss anemia D62 Gram-negative pneumonia J15.6 History of peptic ulcer disease Z87.11 Cardiomyopathy I42.9 Hypothyroidism E03.9 Depression F32.A
[2022-09-16] MEDS ORDERED: STAT IV STA (07:22)
[2022-09-16] MEDS ORDERED: CALCIUM GLUCONATE 10% 1,000 MG in DEXTROSE 5% 50 ML IV ONE (07:45)
[2022-09-16] MEDS: SERTRALINE HCL 100 MG TABLET PO SCH (08:20)
[2022-09-16] MEDS: EMPAGLIFLOZIN 10 MG TAB PO SCH (08:20)
[2022-09-16] MEDS: METOPROLOL TARTRATE 25 MG TAB PO SCH ×2 (08:20→21:31)
[2022-09-16] MEDS: DULoxetine HCL 60 MG CAP PO SCH (08:20)
[2022-09-16] MEDS: ONDANSETRON INJ 2 MG/ML 2 ML VIAL IV PRN (08:59)
[2022-09-16] MEDS: HYDROmorphone INJ 0.5 MG/0.5 ML SYR IV PRN (08:59)
[2022-09-16] MEDS: PROMETHAZINE HCL 12.5 MG in SODIUM CHLORIDE 0.9% 50 ML IV PRN (11:08)
[2022-09-16] MEDS: PIPERACILLIN/TAZOBACTAM 4.5 GM in DEXTROSE 5% 100 ML IV SCH ×2 (11:33→21:30)
--- NOTE | 2022-09-16 13:22 | XRay Report ---
XR chest 1V portable CLINICAL HISTORY: sob TECHNIQUE: Single frontal radiograph of the chest was obtained. Comparison: Comparison is made to chest radiograph 09/14/2022 FINDINGS: ACDF is seen. Cardiomegaly is noted. Airspace opacities are seen in the left middle lower lung. A lef t effusion cannot be excluded. IMPRESSION: Airspace opacities in the left lung compatible with aspiration and/or pneumonia. ACT 112: Negative or not required by law. Electronically signed by: Danny Lyons M.D. 09/16/2022 1:20 PM
[2022-09-16] MEDS ORDERED: VANCOMYCIN HCL 1,000 MG in SODIUM CHLORIDE 0.9% 250 ML IV SCH (14:00)
--- NOTE | 2022-09-16 15:01 | Communication Note ---
Date of Service: September 16, 2022 patient with multiple episodes of vomiting since yesterday, initially bloody now today brown. hgb noted to be 7 today, BP 104/65. currently receiving 2 units PRBC. No hematochezia noted, she reports some black tarry stool this morning. Remains on protonix drip. CT with ruptured hematoma into intestinal lumen. also being treated now for pneumonia. recs: --continue PRBCs, supportive care, protonix drip --keep NPO --tentatively plan for EGD tomorrow morning 7 am if stable to re-evaluate --abx as per primary team Brigido Talamantes MD Gastroenterology
--- NOTE | 2022-09-16 19:57 | Electrocardiogram Report ---
Test Reason : Blood Pressure : / mmHG Vent. Rate : 094 BPM Atrial Rate : 094 BPM P-R Int : 164 ms QRS Dur : 192 ms QT Int : 470 ms P-R-T Axes : 045 -42 129 degrees QTc Int : 587 ms Normal sinus rhythm Left axis deviation Left bundle branch block Abnormal ECG When compared with ECG of 14-SEP-2022 07:15, (unconfirmed) No significant change was found Confirmed by Elevr Franco ([id number]) on 09/16/2022 7:56:59 PM Referred By: REFERRED SELF Confirmed By:Elver Franco
[2022-09-16] MEDS: AMITRIPTYLINE HCL 25 MG TAB PO SCH (21:31)
[2022-09-16] MEDS ORDERED: Nursing to Pharmacy Communication SCH (22:30)
[2022-09-16] MEDS ORDERED: guaiFENesin 600 MG TABCR PO ONE ×2 (22:45→23:15)
[2022-09-17] MEDS: PANTOprazole 40 MG in DEXTROSE 5% 100 ML IV SCH ×5 (00:29→18:33)
[2022-09-17] MEDS: HYDROmorphone INJ 0.5 MG/0.5 ML SYR IV PRN ×6 (03:26→23:39)
[2022-09-17] MEDS: PIPERACILLIN/TAZOBACTAM 4.5 GM in DEXTROSE 5% 100 ML IV SCH ×3 (04:27→19:41)
[2022-09-17] MEDS: ACETAMINOPHEN 1,000 MG/100 ML VIAL IV SCH ×3 (05:57→21:53)
[2022-09-17] MEDS: LEVOTHYROXINE SODIUM 75 MCG TABLET PO SCH (05:58)
--- NOTE | 2022-09-17 07:14 | Anesthesiology Consultation ---
Date of Service September 17, 2022 Assessment & Plan (1) Encounter for pre-operative examination: Chart Review Chart Review: Acceptable Risk for Surgery History Surgery Operation Date: 09/14/22 16:30 Proposed Procedures p Esophagogastroduodenoscopy Dr. Talamantes - Brigido Talamantes MD Operation Date: 09/17/22 12:20 Proposed Procedures p Esophagogastroduodenoscopy - Brigido Talamantes MD Height/Weight Height: 5 ft 2 in Weight: 87.6 kg Allergies Allergy/AdvReac Type Severity Reaction Status Date / Time dexamethasone Allergy Hives Verified 09/11/22 09:56 [From Maxitrol (neomycin sulf)] neomycin Allergy Hives Verified 09/11/22 09:56 [From Maxitrol (neomycin sulf)] Opioids - Morphine Analogues Allergy Hives Verified 09/11/22 09:56 polymyxin B Allergy Hives Verified 09/11/22 09:56 [From Maxitrol (neomycin sulf)] Medications Home Medications Medication Instructions Recorded Confirmed Last Taken cyclobenzaprine 10 mg tablet 10 mg PO DAILY PRN Muscle Spasm 07/30/22 09/14/22 Unknown ferrous sulfate 325 mg (65 mg 325 mg PO .COMPLEX #30 tabs 08/27/22 09/14/22 Unknown iron) tablet amitriptyline 25 mg tablet 100 mg PO DAILY 90 days #360 tabs 08/31/22 09/14/22 Unknown duloxetine 60 mg capsule,delayed 60 mg PO DAILY 90 days #90 caps 08/31/22 09/14/22 Unknown release empagliflozin 10 mg tablet 10 mg PO DAILY 90 days #90 tabs 08/31/22 09/14/22 Unknown (Jardiance) furosemide 40 mg tablet (Lasix) 40 mg PO QAM 90 days #90 tabs 08/31/22 09/14/22 Unknown melatonin 10 mg tablet 0 mg PO HS PRN Sleep 08/31/22 09/14/22 Unknown metoprolol succinate 25 mg 25 mg PO QAM 90 days #90 tabs 08/31/22 09/14/22 Unknown tablet,extended release 24 hr oxybutynin chloride 10 mg 10 mg PO DAILY 90 days #90 tabs 08/31/22 09/14/22 Unknown tablet,extended release 24 hr pantoprazole 40 mg tablet,delayed 40 mg PO DAILY 90 days #90 tabs 08/31/22 09/14/22 Unknown release sacubitril 24 mg-valsartan 26 mg 1 tab PO BID 90 days #180 tabs 08/31/22 09/14/22 Unknown tablet (Entresto) sertraline 100 mg tablet 100 mg PO DAILY 90 days #90 tabs 08/31/22 09/14/22 Unknown spironolactone 25 mg tablet 25 mg PO DAILY 90 days #90 tabs 08/31/22 09/14/22 Unknown doxycycline monohydrate 100 mg 100 mg PO BID #20 tabs 09/07/22 09/14/22 Unknown tablet levothyroxine 75 mcg capsule 75 mcg PO DAILY 90 days #90 caps 09/13/22 09/14/22 Unknown Active Medications Generic Name Dose Route Start Last Admin Trade Name Freq PRN Reason Stop Dose Admin Amitriptyline HCl 25 mg 09/14/22 21:00 09/16/22 21:31 Amitriptyline Hcl 25 Mg Tab PO 10/14/22 20:59 25 mg HS ELISA Administration Duloxetine HCl 60 mg 09/15/22 09:00 09/16/22 08:20 Duloxetine Hcl 60 Mg Cap PO 10/15/22 08:59 Not Given DAILY ELISA Empagliflozin 10 mg 09/15/22 09:00 09/16/22 08:20 Empagliflozin 10 Mg Tab PO 10/15/22 08:59 Not Given DAILY ELISA Ferrous Sulfate 325 mg 09/14/22 12:00 09/15/22 09:00 Ferrous Sulfate 325 Mg Tab PO 10/14/22 11:59 325 mg [id number] ELISA Administration Hydromorphone HCl 1 mg 09/15/22 23:20 09/17/22 06:01 Hydromorphone Inj 0.5 Mg/0.5 Ml Syr IV 09/28/22 16:59 1 mg Q2H PRN Administration Pain Pantoprazole Sodium 40 mg/ 100 mls @ 20 mls/hr 09/14/22 20:30 09/17/22 04:28 Dextrose IV 10/14/22 20:29 8 mg/hr Q5H ELISA 20 mls/hr Administration 8 MG/HR Promethazine HCl 12.5 mg/ 50.5 mls @ 202 mls/hr 09/15/22 18:26 09/16/22 11:43 Sodium Chloride IV 10/15/22 18:25 Infused Q6H PRN Infusion Nausea And Vomiting Acetaminophen 1,000 mg in 100 mls @ 400 mls/hr 09/15/22 22:00 09/17/22 06:15 Ofirmev IV 09/18/22 21:59 Infused Q8H ELISA Infusion Piperacillin Sod/Tazobactam 120 mls @ 30 mls/hr 09/16/22 12:00 09/17/22 04:27 Sod 4.5 gm/ Dextrose IV 09/18/22 11:59 30 mls/hr Q8H ELISA Administration Protocol Levothyroxine Sodium 75 mcg 09/15/22 06:30 09/17/22 05:58 Levothyroxine Sodium 75 Mcg Tablet PO 10/15/22 06:29 75 mcg DAILYBB ELISA Administration Lorazepam 0.5 mg 09/15/22 18:27 09/15/22 20:21 Lorazepam 2 Mg/1 Ml Vial IV 10/15/22 18:26 0.5 mg Q6H PRN Administration Anxiety/Agitation/nausea Metoprolol Tartrate 12.5 mg 09/15/22 21:00 09/16/22 21:31 Metoprolol Tartrate 25 Mg Tab PO 10/15/22 20:59 12.5 mg BID ELISA Administration Ondansetron HCl 4 mg 09/14/22 11:06 09/16/22 08:59 Ondansetron Inj 2 Mg/Ml 2 Ml Vial IV 10/14/22 11:05 4 mg Q6H PRN Administration nausea/vomiting Sertraline HCl 100 mg 09/15/22 09:00 09/16/22 08:20 Sertraline Hcl 100 Mg Tablet PO 10/15/22 08:59 Not Given DAILY ELISA NPO Date Last Intake of Fluids: 09/13/22 Time Last Intake of Fluids: 22:00 Date Last Intake of Solids: 09/13/22 Time Last Intake of Solids: 12:00 Past Medical History Medical History Acute HFrEF (heart failure with reduced ejection fraction) Anxiety Cardiomyopathy GERD (gastroesophageal reflux disease) History of peptic ulcer disease HLD (hyperlipidemia) HTN (hypertension) with goal to be determined Hypothyroidism LBBB (left bundle branch block) Pulmonary nodule Urge incontinence of urine Past Family History Family History Other Diabetes Denies family history of Ovarian cancer Breast cancer Colorectal cancer Past Surgical History Surgical History H/O: hysterectomy History of Dianna-en-Y gastric bypass S/P cervical spinal fusion Status post right knee replacement Social History Smoking Status: Never smoker Do You Dip or Chew Tobacco: No Hx Alcohol Use: Yes Alcohol type: wine alcohol intake frequency: a few times a week Hx Substance Use: No Physical Exam Vital Signs Last Vital Signs Temp 36.7 C 09/17/22 06:04 Pulse 90 09/17/22 06:04 Resp 18 09/17/22 06:04 BP 115/83 09/17/22 06:04 Pulse Ox 98 09/17/22 06:04 O2 Del Method Nasal Cannula 09/17/22 06:04 O2 Flow Rate 6 09/17/22 06:04 Testing Laboratory Results 09/16/22 16:24 09/16/22 04:43 PT 11.3 Seconds (9.0-12.0) 09/14/22 07:20 INR 1.0 (0.9-1.1) 09/14/22 07:20 APTT 20.5 Seconds (21.0-31.0) L 09/14/22 07:20 Urine Color Yellow 09/15/22 09:20 Urine Appearance Clear (Clear) 09/15/22 09:20 Urine pH 5.5 (4.5-7.5) 09/15/22 09:20 Ur Specific [place] 1.014 (1.000-1.030) 09/15/22 09:20 Urine Protein Negative (Negative) 09/15/22 09:20 Urine Glucose (UA) Negative (Negative) 09/15/22 09:20 Urine Ketones Negative (Negative) 09/15/22 09:20 Urine Nitrite Negative (Negative) 09/15/22 09:20 Ur Leukocyte Esterase Negative (Negative) 09/15/22 09:20 Blood Type O Negative 09/14/22 07:46 Antibody Screen NEGATIVE 09/14/22 07:46 Electrocardiogram Date: 09/14/22 Findings: + NSR @ (94) and + LBBB Echocardiogram Date: 07/30/22 EF: 15-20% Valvular Disease: + MR (moderate) moderate TR Cardiac Catheterization Date: 08/01/22 moderate nonobstructive multivessel CAD
--- NOTE | 2022-09-17 07:20 | Hospitalist Progress Note ---
Date of Service September 17, 2022 Assessment & Plan (1) Acute upper gastrointestinal bleeding: Plan: Acutenow unstable. Patient underwent endoscopy on 09/14 which showed an anastomotic ulcer which was treated, injected and bipolar probe ct abd pelvis Interval development of gastric wall thickening and pneumatosis as well as thickening of the duodenum. Given history of recent instrumentation followed by hematemesis, this is favored to represent intramural hematoma with rupture into the gastric lumen. Ischemic etiology is considered unlikely. No pneumoperitoneum is seen. s/p I U FFP and calcium gluconate on 09/16/22 Recommendation for 72 hours of intravenous Protonix will transition to 40 twice daily after that for a minimum of [address] Talamantes with re endoscope 09/17/22 nonbleeding gastric ulcer with adherent clot Hemospray applied normal jejunum, transition to po protonix after 72 hrs of gtt (2) Acute blood loss anemia: Plan: Acute seemingly stable at this point time -Transfused 5 units packed red blood cells Continue iron supplementation as prehospital (3) Gram-negative pneumonia: Plan: Patient with changes of pulmonary infiltrates in the left lung seen on chest x- ray started on Zosyn and vancomycin. MRSA nasal swab was negative subsequently vancomycin discontinued we will continue Zosyn planning on at least a 7-day course at this time certainly concerns for aspiration given her procedures and vomiting significant oxygen supplementation (4) History of peptic ulcer disease: Plan: Chronic but acute as primary cause of UGIB and ABLA -Patient remains at risk due to her previous Dianna-en-Y gastric surgery but she sounds like she has had anastomotic ulcers in the past (5) Cardiomyopathy: Plan: Chronic/nonischemic - stable - LVEF in July 2022 15-20% -Despite blood product infusion patient remains asymptomatic blood pressures are slowly improving will need to continue to hold diuretics and Entresto will restart beta-honorio at low-dose and add medications back as able - Will resume Jardiance (6) Hypothyroidism: Plan: Chronic/stable - Continue Synthroid 75 mcg daily - Last TSH checked in August 2022 and was WNL at 1.8 (7) Depression: Plan: Chronic/stable - Continue Sertraline and Cymbalta Plan SCDs will be utilized for DVT Disposition planning patient will need to have 72 hours of intravenous Protonix and then if she is assured and stable blood counts and physical functioning she may be able to be discharged at that point time will likely be sometime on September 17 Admission and Anticipated Discharge Date Admission Date: September 14, 2022 Subjective pt no longer vomiting, taken to endoscopy this am and no active bleeding seen, used hemospray on scar and ulcer site pt has upper abdominal pain, tolerating ice chips Physical Exam Physical Exam: Patient awake alert appropriate Cardiac exam is regular Abdomen shows NABS soft she is tender in the upper quadrants no rebound or guarding Extremities are without edema Results & Data Results & Data Vital Signs (Past 12 Hours) Vital Signs Temp Pulse Pulse Pulse Resp BP Pulse Ox 09/17/22 06:04 98.1 F 90 18 115/83 98 09/17/22 03:23 98.2 F 90 20 124/53 L 98 09/17/22 00:49 91 H 09/16/22 23:13 98.1 F 87 18 115/62 100 09/16/22 20:12 09/16/22 19:32 98.2 F 94 H 19 124/62 96 O2 Del Method O2 Flow Rate 09/17/22 06:04 Nasal Cannula 6 09/17/22 03:23 Nasal Cannula 6 09/17/22 00:49 09/16/22 23:13 Nasal Cannula 09/16/22 20:12 Nasal Cannula 6 09/16/22 19:32 Nasal Cannula 6 Laboratory Results Reviewed CBC Reviewed PRP PG Care Time/CCT Total # of Minutes Spent Total Time Spent with Patient: Total time spent is greater than 50% in coordination of care (as documented) at patient's floor/unit and/or counseling patient: Coding Level of Care Code 04071 SUB INP/OBS CARE 2/35MIN Diagnoses Acute upper gastrointestinal bleeding K92.2 Acute blood loss anemia D62 Gram-negative pneumonia J15.6 History of peptic ulcer disease Z87.11 Cardiomyopathy I42.9 Hypothyroidism E03.9 Depression F32.A
[2022-09-17] MEDS ORDERED: SODIUM CHLORIDE 0.9% 250 ML IV PRN (07:34)
--- NOTE | 2022-09-17 07:47 | History & Physical Bridge Note ---
Date of Service September 17, 2022 History & Physical Bridge Note I have examined the patient, reviewed the History & Physical and in the interval since the performance of the History & Physical I have noted the following changes of clinical significance: no changes noted Proceed with EGD. risks/benefits and procedure discussed with patient, who agrees to proceed
[2022-09-17] MEDS ORDERED: ONDANSETRON INJ 2 MG/ML 2 ML VIAL IV PRN (08:00)
[2022-09-17] MEDS ORDERED: ATROPINE SULFATE 0.1 MG/ML 10ML SYR IV PRN (08:00)
[2022-09-17] MEDS ORDERED: ePHEDrine sulfate 50 MG/ML AMP IV PRN (08:00)
[2022-09-17] MEDS ORDERED: PROPOFOL IV EMULSION 10 MG/ML 20 ML VIAL IV ONE (08:03)
[2022-09-17] MEDS ORDERED: LIDOCAINE 2% 2 ML VIAL/AMP(20MG/ML) INFIL ONE (08:03)
[2022-09-17] MEDS ORDERED: KETAMINE 50 MG/5 ML SYRINGE ONE (08:03)
[2022-09-17] MEDS ORDERED: fentaNYL citrate PF 100 MCG/2 ML VIAL ONE (08:03)
[2022-09-17 08:08] LABS: Hematocrit (blood only) 26.5 % (37.0-47.0); Hemoglobin 8.8 g/dl (12.0-16.0); Mean Corpuscular Hemoglobin 30.6 pg (25.0-34.0); Mean Corpuscular Hgb Conc 33.2 g/dL (32.0-36.0); Mean Platelet Volume 10.4 fL (9.4-12.4); Platelet Count 205 K/uL (130-400); RDW Coefficient of Variation 15.9 % (11.5-14.5); RDW Standard Deviation 51.7 fL (36.4-46.3); Red Blood Count 2.88 M/uL (4.20-5.40); White Blood Count 11.79 K/ul (4.8-10.8)
[2022-09-17 08:26] LABS: Calcium 8.2 mg/dl (8.6-10.3); Potassium 3.7 mmol/L (3.5-5.1)
--- NOTE | 2022-09-17 08:30 | GI REPORT ---
Patient Name: Shyann Plaza Procedure Date: 09/17/2022 7:51 AM Date of : 1950 Admit Type: Inpatient Age: 72 Gender: Female Attending MD: Brigido Talamantes MD, Procedure: Upper GI endoscopy Providers: Brigido Talamantes MD Referring MD: Referred Self Indications: Active gastrointestinal bleeding Medicines: Monitored Anesthesia Care Complications: No immediate complications. Estimated blood loss: None. Estimated Blood Loss: Estimated blood loss: none. Procedure: Pre-Anesthesia Assessment: - Prior Anticoagulants: The patient has taken no anticoagulant or antiplatelet agents. - ASA Grade Assessment: IV - A patient with severe systemic disease that is a constant threat to life. After obtaining informed consent, the endoscope was passed under direct vision. Throughout the procedure, the patient's blood pressure, pulse, and oxygen saturations were monitored continuously. The Endoscope was introduced through the mouth, and advanced to the jejunum. The upper GI endoscopy was accomplished without difficulty. The patient tolerated the procedure well. Findings: The examined esophagus was normal. One non-bleeding cratered gastric ulcer with adherent clot was found at the anastomosis. For hemostasis, hemostatic spray was deployed. A few sprays were applied. There was no bleeding at the end of the procedure. The examined jejunum was normal. Impression: - Normal esophagus. - Non-bleeding gastric ulcer with adherent clot. Hemostatic spray applied. - Normal examined jejunum. - No specimens collected. Recommendation: - [facility]. - NPO today. can advance to clear liquids tomorrow if stable -protonix 40 mg BID after 72 hours of drip is completed -supportive care -if re-bleeds consider tertiary care transfer for IR Brigido Talamantes MD 09/17/2022 8:29:35 AM This report has been signed electronically. Note Initiated On: 09/17/2022 7:51 AM Number of Addenda: 0 I attest to the content of the Intraoperative Record and orders documented therein, exceptions below {[id number]}
--- NOTE | 2022-09-17 08:31 | Procedure Note ---
Procedure Note Date of Service September 17, 2022 Note GI post op procedure note egd findings: large ulcer again seen at anastomosis with adherent clot no active bleeding. hemospray applied. recs: protonix 40 mg BID after drip is completed NPO today, can advance to clears tomorrow mornign if stable supportive care if rebleeds consider transfer for IR to tertiary center Brigido Talamantes MD Gastroenterology Coding
[2022-09-17 08:33] LABS: BUN Creatinine Ratio 23.1 (10-20); Creatinine Clr Calc Pharmacy 82.8 ml/min; Est GFR (African American) 104.3 ml/min; Phosphorus 2.6 mg/dl (2.5-4.9)
--- NOTE | 2022-09-17 09:01 | Anesthesiology Progress Note ---
Date of Service September 17, 2022 Anesthesia Post Procedure Vital Signs Vital Signs: Temp Pulse Pulse Pulse Resp BP BP 09/17/22 08:45 82 20 101/63 09/17/22 08:35 84 10 L 112/77 09/17/22 08:28 36.4 C L 82 18 116/59 L 09/17/22 07:37 36.4 C L 79 16 103/79 09/17/22 07:28 91 H 09/17/22 06:04 36.7 C 90 18 115/83 09/17/22 03:23 36.8 C 90 20 124/53 L 09/17/22 00:49 91 H 09/16/22 23:13 36.7 C 87 18 115/62 09/16/22 20:12 09/16/22 19:32 36.8 C 94 H 19 124/62 09/16/22 16:31 90 20 120/51 L 09/16/22 14:36 37 C 90 20 104/65 09/16/22 14:03 37.1 C 96 H 20 105/60 09/16/22 13:03 36.9 C 95 H 14 90/48 L 09/16/22 12:03 37 C 98 H 16 09/16/22 11:33 37 C 09/16/22 11:31 37 C 94 H 20 140/69 09/16/22 11:01 36.8 C 97 H 22 139/69 09/16/22 10:52 36.8 C 99 H 09/16/22 10:35 36.8 C 105 H 24 154/90 H 09/16/22 09:35 37.5 C 103 H 20 145/85 H 09/16/22 09:05 36.8 C 101 H 18 116/87 Pulse Ox O2 Del Method O2 Flow Rate 09/17/22 08:45 98 Oxymask 3 09/17/22 08:35 97 Oxymask 4 09/17/22 08:28 98 Oxymask 5 09/17/22 07:37 100 Room Air 09/17/22 07:28 09/17/22 06:04 98 Nasal Cannula 6 09/17/22 03:23 98 Nasal Cannula 6 09/17/22 00:49 09/16/22 23:13 100 Nasal Cannula 09/16/22 20:12 Nasal Cannula 6 09/16/22 19:32 96 Nasal Cannula 6 09/16/22 16:31 99 High Flow Nasal Cannula 6 09/16/22 14:36 96 6 09/16/22 14:03 98 6 09/16/22 13:03 96 6 09/16/22 12:03 96 6 09/16/22 11:33 09/16/22 11:31 100 8 09/16/22 11:01 96 8 09/16/22 10:52 98 09/16/22 10:35 98 8 09/16/22 09:35 100 11 09/16/22 09:05 98 11 Pain Intensity Abdomen: Pain Intensity: 4 Transfer of Care Handoff Completed per policy Notes Mental Status: alert / awake / arousable Patient Amnestic to Procedure: Yes Nausea / Vomiting: adequately controlled Pain: adequately controlled Airway Patency, RR, SpO2: stable & adequate BP & HR: stable & adequate Hydration State: stable & adequate Anesthetic Complications: no major complications apparent
[2022-09-17] MEDS: EMPAGLIFLOZIN 10 MG TAB PO SCH (10:57)
[2022-09-17] MEDS: FERROUS SULFATE 325 MG TAB PO SCH (10:57)
[2022-09-17] MEDS: DULoxetine HCL 60 MG CAP PO SCH (10:57)
[2022-09-17] MEDS: guaiFENesin 600 MG TABCR PO SCH ×2 (10:58→19:12)
[2022-09-17] MEDS: METOPROLOL TARTRATE 25 MG TAB PO SCH ×2 (10:58→19:12)
[2022-09-17] MEDS: SERTRALINE HCL 100 MG TABLET PO SCH (10:59)
[2022-09-17] MEDS ORDERED: BENZOCAINE 20% (ORAJEL) 11.9 GM TUBE MT PRN (13:08)
--- NOTE | 2022-09-17 17:10 | Electrocardiogram Report ---
Test Reason : Blood Pressure : / mmHG Vent. Rate : 081 BPM Atrial Rate : 081 BPM P-R Int : 176 ms QRS Dur : 192 ms QT Int : 490 ms P-R-T Axes : 047 -38 140 degrees QTc Int : 569 ms Normal sinus rhythm Left axis deviation Left bundle branch block Abnormal ECG When compared with ECG of 14-SEP-2022 17:42, No significant change was found Confirmed by Nnamdi Kennedy ([id number]) on 09/17/2022 5:10:29 PM Referred By: REFERRED SELF Confirmed By:Ramo Kennedy
[2022-09-17] MEDS: AMITRIPTYLINE HCL 25 MG TAB PO SCH (19:12)
[2022-09-17] MEDS: PANTOprazole 40 MG TAB PO SCH (19:13)
[2022-09-18] MEDS: HYDROmorphone INJ 0.5 MG/0.5 ML SYR IV PRN ×4 (02:18→23:53)
[2022-09-18] MEDS: PIPERACILLIN/TAZOBACTAM 4.5 GM in DEXTROSE 5% 100 ML IV SCH (04:15)
[2022-09-18] MEDS: ACETAMINOPHEN 1,000 MG/100 ML VIAL IV SCH ×2 (05:02→13:01)
[2022-09-18] MEDS: LEVOTHYROXINE SODIUM 75 MCG TABLET PO SCH (05:03)
[2022-09-18 07:48] LABS: Hematocrit (blood only) 23.5 % (37.0-47.0); Hemoglobin 7.8 g/dl (12.0-16.0); Mean Corpuscular Hemoglobin 30.7 pg (25.0-34.0); Mean Corpuscular Hgb Conc 33.2 g/dL (32.0-36.0); Mean Corpuscular Volume 92.5 fL (80.0-100.0); Mean Platelet Volume 9.9 fL (9.4-12.4); Nucleated RBC # (auto) 0.02 K/uL (0-0.12); Nucleated RBC % (auto) 0.1 %; Platelet Count 266 K/uL (130-400); RDW Coefficient of Variation 16.3 % (11.5-14.5); RDW Standard Deviation 52.3 fL (36.4-46.3); Red Blood Count 2.54 M/uL (4.20-5.40); White Blood Count 14.15 K/ul (4.8-10.8)
[2022-09-18 08:06] LABS: BUN Creatinine Ratio 19.2 (10-20); Creatinine Clr Calc Pharmacy 105.7 ml/min; Est GFR (African American) 112.2 ml/min; Est GFR (Non-African American) 96.8 ml/min; Phosphorus 2.6 mg/dl (2.5-4.9); Potassium 3.4 mmol/L (3.5-5.1)
[2022-09-18] MEDS: DULoxetine HCL 60 MG CAP PO SCH (09:26)
[2022-09-18] MEDS: PANTOprazole 40 MG TAB PO SCH ×2 (09:27→19:45)
[2022-09-18] MEDS: guaiFENesin 600 MG TABCR PO SCH ×2 (09:27→19:45)
[2022-09-18] MEDS: SERTRALINE HCL 100 MG TABLET PO SCH (09:27)
[2022-09-18] MEDS: EMPAGLIFLOZIN 10 MG TAB PO SCH (09:27)
[2022-09-18] MEDS: METOPROLOL TARTRATE 25 MG TAB PO SCH ×2 (09:28→19:45)
[2022-09-18] MEDS ORDERED: ACETAMINOPHEN 500 MG TAB PO PRN (13:03)
[2022-09-18] MEDS: AMITRIPTYLINE HCL 25 MG TAB PO SCH (19:46)
[2022-09-19] MEDS: DEXTROMETHORPHAN POLYMR COMPLX 30 MG/5 ML UDP PO PRN ×2 (03:47→15:34)
[2022-09-19] MEDS: HYDROmorphone INJ 0.5 MG/0.5 ML SYR IV PRN ×4 (03:51→20:15)
[2022-09-19] MEDS: LEVOTHYROXINE SODIUM 75 MCG TABLET PO SCH (05:59)
[2022-09-19 06:56] LABS: Hematocrit (blood only) 24.1 % (37.0-47.0); Hemoglobin 8.1 g/dl (12.0-16.0); Mean Corpuscular Hemoglobin 30.7 pg (25.0-34.0); Mean Corpuscular Hgb Conc 33.6 g/dL (32.0-36.0); Mean Corpuscular Volume 91.3 fL (80.0-100.0); Mean Platelet Volume 9.7 fL (9.4-12.4); Nucleated RBC # (auto) 0.03 K/uL (0-0.12); Nucleated RBC % (auto) 0.2 %; Platelet Count 280 K/uL (130-400); RDW Coefficient of Variation 16.8 % (11.5-14.5); RDW Standard Deviation 53.2 fL (36.4-46.3); Red Blood Count 2.64 M/uL (4.20-5.40); White Blood Count 12.13 K/ul (4.8-10.8)
[2022-09-19 07:12] LABS: BUN Creatinine Ratio 12.2 (10-20); Calcium 8.3 mg/dl (8.6-10.3); Creatinine Clr Calc Pharmacy 133.6 ml/min; Est GFR (African American) 121.3 ml/min; Est GFR (Non-African American) 104.7 ml/min; Phosphorus 2.2 mg/dl (2.5-4.9); Potassium 3.3 mmol/L (3.5-5.1)
[2022-09-19] MEDS: guaiFENesin 600 MG TABCR PO SCH ×2 (08:48→20:17)
[2022-09-19] MEDS: PANTOprazole 40 MG TAB PO SCH ×2 (08:49→20:17)
[2022-09-19] MEDS: FERROUS SULFATE 325 MG TAB PO SCH (08:49)
[2022-09-19] MEDS: EMPAGLIFLOZIN 10 MG TAB PO SCH (08:50)
[2022-09-19] MEDS: SERTRALINE HCL 100 MG TABLET PO SCH (08:50)
[2022-09-19] MEDS: METOPROLOL TARTRATE 25 MG TAB PO SCH ×2 (08:50→20:16)
[2022-09-19] MEDS: DULoxetine HCL 60 MG CAP PO SCH (08:50)
[2022-09-19] MEDS: POTASSIUM CHLORIDE / WTR 10 MEQ/100 ML PLCT IV SCH ×3 (09:36→13:11)
--- NOTE | 2022-09-19 09:42 | Discharge Summary ---
Date of Service September 18, 2022 Admission HPI Per Admitting Provider Shyann Plaza is a 72 yo F with a pmhx of nonischemic cardiomyopathy, hypothyroidism, h/o gastric ulcer/GERD, HTN, anxiety/depression who presented to the ER today accompanied by her mother c/o low blood pressure, generalized feelings of unwellness x 2 days. Patient reports that she awoke in the middle of the night Saturday into with vomiting. She reports seeing some "red" in her emesis. On , she felt very fatigued, with some dizziness/lightheadedness and shortness of breath. She states this morning, she was so lightheaded/fatigued that she couldn't even ambulate the short distance to the bathroom. She subsequently presented to the ER for evaluation. Patient has just moved back to [place] from [place] in June. Since that time, she was hospitalized in July due to a/c HF and was found to have a significantly low EF of 15-20%. She underwent a cardiology evaluation and catheterization, was found to have nonischemic cardiomyopathy for which medical management was advised. She was medically optimized with medications with plans to have a f/u echo to reassess LV in a few months. She has been following with Kamila Flores PA-C since her hospitalization and noted that at her last visit on 09/11 she was hold to her Lasix, Metoprolol, Spironolactone, and Entresto. So she has not taken any of these medications. She is unsure if she has a h/o h. pylori from her gastric ulcer found 2 years ago via EGD. She also endorses black stools that just started yesterday also with some BRB streaking. She admits to lower abdominal pain (below her umbilicus) that seems to get better after eating instead of worse. She denies fever, chills, headache, cough, congestion, LE edema, orthopnea, chest pain, or ill contacts. Upon arrival to ER she had an initial BP of 90/60 which dropped to 72/47. Her cbc revealed an acute anemia with a hgb of 7.3 which is a drastic drop from her hgb in July 31. She was typed and crossmatched for 2 units of PRBCs and appears that the ER also ordered 2L of NSS wide open which has not yet been hung. She received an IV bolus of Protonix 80mg and ordered a drip and has been referred to the hospitalist service for admission. Discharge Data Allergies Allergy/AdvReac Type Severity Reaction Status Date / Time dexamethasone Allergy Hives Verified 09/11/22 09:56 [From Maxitrol (neomycin sulf)] neomycin Allergy Hives Verified 09/11/22 09:56 [From Maxitrol (neomycin sulf)] Opioids - Morphine Analogues Allergy Hives Verified 09/11/22 09:56 polymyxin B Allergy Hives Verified 09/11/22 09:56 [From Maxitrol (neomycin sulf)] Consultations 09/14/22 08:58 Consult Gastroenterology Stat 09/14/22 09:24 Consult General Internal Medicine Doctor Stat 09/14/22 09:27 ED Decision to Admit Stat Procedures Performed Operation Date: 09/17/22 12:20 Actual Procedures p Esophagogastroduodenoscopy with hemostatsis - Brigido Talamantes MD Ordered Studies 09/15/22 18:29 CT Abd and Pelvis [CT abd pelvis wo con] Routine Discharge Plan Discharge Items Reason For Visit: ACUTE GI BLEED, HYPOTENSION, ABLA Follow-up/Referrals: Kamila Flores PA-C [Physician [employer]] - 09/25/22 11:00 am Valeria Shaw MD [Primary Care Provider] - Medications and DC Order Prescriptions: No Action ferrous sulfate 325 mg (65 mg iron) tablet 325 mg PO .COMPLEX Qty: 30 5RF Rx Instructions: 325 mg orally Every M-W-; Verified with [facility] pharmacy levothyroxine 75 mcg capsule 75 mcg PO DAILY 90 Days Qty: 90 3RF Rx Instructions: [facility] Levothyroxine 75mcg melatonin 10 mg tablet 0 mg PO HS PRN (Reason: Sleep) Rx Instructions: [facility] melatonin 10mg amitriptyline 25 mg tablet 100 mg PO DAILY 90 Days Qty: 360 2RF Rx Instructions: [facility] are 3 to 4 tabs as needed at bedtime. duloxetine 60 mg capsule,delayed release(DR/EC) 60 mg PO DAILY 90 Days Qty: 90 3RF Rx Instructions: Verified with [facility] mail order pharmacy. Jardiance 10 mg tablet 10 mg PO DAILY 90 Days Qty: 90 2RF Rx Instructions: verified with [facility] furosemide [Lasix] 40 mg tablet 40 mg PO QAM 90 Days Qty: 90 3RF Hold Instructions: Hypotension Rx Instructions: [facility] pharmacies both verified Lasix. metoprolol succinate 25 mg tablet extended release 24 hr 25 mg PO QAM 90 Days Qty: 90 3RF Hold Instructions: hypotension Rx Instructions: Both [facility] and [facility] pharmacies verified Metoprolol 25mg oxybutynin chloride 10 mg tablet extended release 24hr 10 mg PO DAILY 90 Days Qty: 90 3RF Rx Instructions: [facility] verified oxybutynin 10mg pantoprazole 40 mg tablet,delayed release (DR/EC) 40 mg PO DAILY 90 Days Qty: 90 3RF Rx Instructions: [facility] verified protonix Entresto 24-26 mg tablet 1 tab PO BID 90 Days Qty: 180 3RF Hold Instructions: Hypotension Rx Instructions: [facility] both verified Entresto sertraline 100 mg tablet 100 mg PO DAILY 90 Days Qty: 90 3RF Rx Instructions: [facility] mail order verified Zoloft spironolactone 25 mg tablet 25 mg PO DAILY 90 Days Qty: 90 3RF Hold Instructions: hypotension Rx Instructions: [facility] and [facility] pharmacies both verified medication. doxycycline monohydrate 100 mg tablet 100 mg PO BID Qty: 20 0RF Rx Instructions: filled 09/07/22 at [facility] pharmacy. #20 for 10 day supply. cyclobenzaprine 10 mg tablet 10 mg PO DAILY PRN (Reason: Muscle Spasm) Rx Instructions: Verified medication with mail order pharmacy [facility]. Admission Data Admit Date/Time: 09/14/22 09:31 Attending Provider: Ajit Jean Admit Provider: Ajit Jean Primary Care Provider: Valeria Shaw Other Providers: Brigido Talamantes ; Chen Jeffers ; Ajit Jean Other Interventions: Discharge Summary Assessment (RN) Last Done: 09/14/22 16:04 Coding Diagnoses
--- NOTE | 2022-09-19 09:43 | Hospitalist Progress Note ---
Date of Service September 18, 2022 Assessment & Plan (1) Acute upper gastrointestinal bleeding: Plan: Acutenow unstable. Patient underwent endoscopy on 09/14 which showed an anastomotic ulcer which was treated, injected and bipolar probe ct abd pelvis Interval development of gastric wall thickening and pneumatosis as well as thickening of the duodenum. Given history of recent instrumentation followed by hematemesis, this is favored to represent intramural hematoma with rupture into the gastric lumen. Ischemic etiology is considered unlikely. No pneumoperitoneum is seen. s/p I U FFP and calcium gluconate on 09/16/22 Recommendation for 72 hours of intravenous Protonix will transition to 40 twice daily after that for a minimum of [address] Talamantes with re endoscope 09/17/22 nonbleeding gastric ulcer with adherent clot Hemospray applied normal jejunum, transition to po protonix after 72 hrs of gtt (2) Acute blood loss anemia: Plan: Acute seemingly stable at this point time -Transfused 5 units packed red blood cells Continue iron supplementation as prehospital (3) Gram-negative pneumonia: Plan: Patient with changes of pulmonary infiltrates in the left lung seen on chest x- ray started on Zosyn and vancomycin. MRSA nasal swab was negative subsequently vancomycin discontinued we will continue Zosyn planning on at least a 7-day course at this time certainly concerns for aspiration given her procedures and vomiting significant oxygen supplementation (4) History of peptic ulcer disease: Plan: Chronic but acute as primary cause of UGIB and ABLA -Patient remains at risk due to her previous Dianna-en-Y gastric surgery but she sounds like she has had anastomotic ulcers in the past (5) Cardiomyopathy: Plan: Chronic/nonischemic - stable - LVEF in July 2022 15-20% -Despite blood product infusion patient remains asymptomatic blood pressures are slowly improving will need to continue to hold diuretics and Entresto will restart beta-honorio at low-dose and add medications back as able - Will resume Jardiance (6) Hypothyroidism: Plan: Chronic/stable - Continue Synthroid 75 mcg daily - Last TSH checked in August 2022 and was WNL at 1.8 (7) Depression: Plan: Chronic/stable - Continue Sertraline and Cymbalta Plan SCDs will be utilized for DVT Disposition planning patient will need to have 72 hours of intravenous Protonix and then if she is assured and stable blood counts and physical functioning she may be able to be discharged at that point time will likely be sometime on September 17 Admission and Anticipated Discharge Date Admission Date: September 14, 2022 Subjective pt no longer vomiting, taken to endoscopy this am and no active bleeding seen, used hemospray on scar and ulcer site pt has upper abdominal pain, tolerating ice chips Physical Exam Physical Exam: Patient awake alert appropriate Cardiac exam is regular Abdomen shows NABS soft she is tender in the upper quadrants no rebound or guarding Extremities are without edema Results & Data Results & Data Vital Signs (Past 12 Hours) Vital Signs Temp Pulse Pulse Resp BP BP Pulse Ox 09/19/22 07:19 98.2 F 99 H 21 100/62 92 09/19/22 03:19 98.1 F 97 H 20 138/60 95 09/18/22 23:00 92 H 09/18/22 23:40 98.8 F 91 H 18 99/45 L 95 O2 Del Method O2 Flow Rate 09/19/22 07:19 Nasal Cannula 2 09/19/22 03:19 Nasal Cannula 2.0 09/18/22 23:00 09/18/22 23:40 Nasal Cannula 2.0 PG Care Time/CCT Total # of Minutes Spent Total Time Spent with Patient: Total time spent is greater than 50% in coordination of care (as documented) at patient's floor/unit and/or counseling patient: Coding Level of Care Code 38581 SUB INP/OBS CARE 2/35MIN Diagnoses Acute upper gastrointestinal bleeding K92.2 Acute blood loss anemia D62 Gram-negative pneumonia J15.6 History of peptic ulcer disease Z87.11 Cardiomyopathy I42.9 Hypothyroidism E03.9 Depression F32.A
--- NOTE | 2022-09-19 10:13 | XRay Report ---
TWO VIEW CHEST CLINICAL HISTORY: Follow-up pneumonia. FINDINGS: PA and lateral chest radiographs are compared to study dated 09/16/2022. Correlation is made with chest CT dated 07/30/2022. The heart is enlarged noting atherosclerotic calcification of the tho racic aorta. The pulmonary vasculature is noncongested. Chronic interstitial thickening is similar to previous. Airspace consolidation in the left mid to lower lung is similar to the 09/16/2022 examinati on. The right lung appears clear. No large pleural effusion or pneumothorax is seen. The skeletal str uctures are osteopenic. The bony thorax appears intact. Fusion hardware is noted in the lower cervica l spine. Surgical clips and suture material are seen in the upper abdomen. No intraperitoneal free ai r is identified below the diaphragm. IMPRESSION: 1. Cardiomegaly without radiographic evidence of congestive failure. 2. Airspace consolidation in the left mid to lower lung is similar to previous and typical for pneumo fidel/aspiration pneumonitis. Radiographic follow-up to resolution is recommended ACT 112: Negative or not required by law. Electronically signed by: Gerry Hahn M.D. 09/19/2022 10:12 AM
--- NOTE | 2022-09-19 16:50 | Hospitalist Progress Note ---
Date of Service September 19, 2022 Assessment & Plan (1) Acute upper gastrointestinal bleeding: Plan: Acutenow stable. Patient underwent endoscopy on 09/14 which showed an anastomotic ulcer which was treated, injected and bipolar probe ct abd pelvis Interval development of gastric wall thickening and pneumatosis as well as thickening of the duodenum. Given history of recent instrumentation followed by hematemesis, this is favored to represent intramural hematoma with rupture into the gastric lumen. Ischemic etiology is considered unlikely. No pneumoperitoneum is seen. s/p I U FFP and calcium gluconate on 09/16/22 Dr Talamantes with re endoscope 09/17/22 nonbleeding gastric ulcer with adherent clot Hemospray applied normal jejunum, transition to po protonix after 72 hrs of gtt (2) Acute blood loss anemia: Plan: Acute seemingly stable at this point time -Transfused 5 units packed red blood cells Continue iron supplementation as prehospital (3) Gram-negative pneumonia: Plan: Patient with changes of pulmonary infiltrates in the left lung seen on chest x- ray started on Zosyn and vancomycin. MRSA nasal swab was negative subsequently vancomycin discontinued we will continue Zosyn planning on at least a 7-day course at this time certainly concerns for aspiration given her procedures and vomiting significant oxygen supplementation (4) History of peptic ulcer disease: Plan: Chronic but acute as primary cause of UGIB and ABLA -Patient remains at risk due to her previous Dianna-en-Y gastric surgery but she sounds like she has had anastomotic ulcers in the past (5) Cardiomyopathy: Plan: Chronic/nonischemic - stable - LVEF in July 2022 15-20% -Despite blood product infusion patient remains asymptomatic blood pressures are slowly improving will need to continue to hold diuretics and Entresto will restart beta-honorio at low-dose and add medications back as able - Will resume Jardiance (6) Hypothyroidism: Plan: Chronic/stable - Continue Synthroid 75 mcg daily - Last TSH checked in August 2022 and was WNL at 1.8 (7) Depression: Plan: Chronic/stable - Continue Sertraline and Cymbalta Plan SCDs will be utilized for DVT Admission and Anticipated Discharge Date Admission Date: September 14, 2022 Subjective Patient feels somewhat better still having coughing paroxysms still requiring some oxygen supplementation Abdomen is tender hemoglobins been stable Physical Exam Physical Exam: Awake alert and appropriate cough with conversation nonproductive Card exam is regular Actually sound fairly clear today there are some rhonchi at the base which clear with coughing Abdomen is NABS tenderness upper quadrants no rebound no guarding Results & Data Results & Data Vital Signs (Past 12 Hours) Vital Signs Temp Pulse Pulse Pulse Resp BP BP 09/19/22 15:28 97.7 F 96 H 23 123/73 09/19/22 15:12 90 09/19/22 11:08 98.2 F 85 17 118/68 09/19/22 09:00 09/19/22 08:00 100 H 09/19/22 07:19 98.2 F 99 H 21 100/62 Pulse Ox O2 Del Method O2 Flow Rate 09/19/22 15:28 95 Nasal Cannula 3 09/19/22 15:12 09/19/22 11:08 95 Nasal Cannula 3 09/19/22 09:00 Nasal Cannula 3 09/19/22 08:00 09/19/22 07:19 92 Nasal Cannula 2 Laboratory Results Reviewed CBC and PRP as well as phosphorus PG Care Time/CCT Total # of Minutes Spent Total Time Spent with Patient: Total time spent is greater than 50% in coordination of care (as documented) at patient's floor/unit and/or counseling patient: Coding Level of Care Code 03587 SUB INP/OBS CARE 3/50MIN Diagnoses Acute upper gastrointestinal bleeding K92.2 Acute blood loss anemia D62 Gram-negative pneumonia J15.6 History of peptic ulcer disease Z87.11 Cardiomyopathy I42.9 Hypothyroidism E03.9 Depression F32.A
[2022-09-19] MEDS ORDERED: PIPERACILLIN/TAZOBACTAM 4.5 GM (over 30 mins) IV ONE (17:15)
[2022-09-19] MEDS: AMITRIPTYLINE HCL 25 MG TAB PO SCH (20:16)
[2022-09-20] MEDS: PIPERACILLIN/TAZOBACTAM 4.5 GM in DEXTROSE 5% 100 ML IV SCH ×2 (02:42→09:50)
[2022-09-20] MEDS: HYDROmorphone INJ 0.5 MG/0.5 ML SYR IV PRN ×4 (04:54→20:17)
[2022-09-20] MEDS: LEVOTHYROXINE SODIUM 75 MCG TABLET PO SCH (05:40)
[2022-09-20 06:53] LABS: BUN Creatinine Ratio 8.2 (10-20); Calcium 8.4 mg/dl (8.6-10.3); Creatinine Clr Calc Pharmacy 113.7 ml/min; Est GFR (African American) 114.4 ml/min; Est GFR (Non-African American) 98.7 ml/min; Phosphorus 2.5 mg/dl (2.5-4.9); Potassium 3.5 mmol/L (3.5-5.1)
--- NOTE | 2022-09-20 07:42 | Hospitalist Progress Note ---
Date of Service September 20, 2022 Assessment & Plan (1) Acute upper gastrointestinal bleeding: Plan: Acutenow stable. Patient underwent endoscopy on 09/14 which showed an anastomotic ulcer which was treated, injected and bipolar probe Pt had re bleed the day after initial endoscopy, total of 5 units of PRBc given, [address] Talamantes with re endoscope 09/17/22 nonbleeding gastric ulcer with adherent clot Hemospray applied normal jejunum, completed 72 hours of protonix gtt now on po along the course with vomiting and procedures developed aspiration pneumonia/gram negative pneumonia on the left transition to Augmentin therapy (2) Acute blood loss anemia: Plan: Acute seemingly stable at this point time -Transfused 5 units packed red blood cells Continue po iron supplementation as prehospital (3) Gram-negative pneumonia: Plan: Patient with changes of pulmonary infiltrates in the left lung seen on chest x- ray started on Zosyn and vancomycin. MRSA nasal swab was negative subsequently vancomycin discontinued Transition Zosyn to Augmentin planning on at least a 7-day course at this time certainly concerns for aspiration given her procedures and vomiting last dose is going to be 09/22/2022 pneumonia did cause hypoxia (4) History of peptic ulcer disease: Plan: Chronic but acute as primary cause of UGIB and ABLA -Patient remains at risk due to her previous Dianna-en-Y gastric surgery but she sounds like she has had anastomotic ulcers in the past (5) Cardiomyopathy: Plan: Chronic/nonischemic - stable - LVEF in July 2022 15-20% -Despite blood product infusion patient remains asymptomatic blood pressures are slowly improving Since cough may be a touch of her heart failure we will resume diuretics and Entresto on 09/20/2022 not yet returning to spironolactone at this moment - Will resume Jardiance (6) Hypothyroidism: Plan: Chronic/stable - Continue Synthroid 75 mcg daily - Last TSH checked in August 2022 and was WNL at 1.8 (7) Depression: Plan: Chronic/stable - Continue Sertraline and Cymbalta Plan SCDs will be utilized for DVT Admission and Anticipated Discharge Date Admission Date: September 14, 2022 Subjective Patient's biggest complaints continue to revolve around her coughing symptoms to the point of almost vomiting or retching. She however has been able to be titrated off oxygen and oxygen intermittently. She has not had any recurrence of her bleeding her hemoglobin has been stable She however has been in the hospital for 1 week now which will likely create some deconditioning and may impact her disposition Physical Exam Physical Exam: Patient awake alert appropriate Left lung still has some rhonchi that clear she does have some coughing paroxysms while in the room her abdomen is naphthalene still operator at a proportion to his exam otherwise is soft with no guarding but upper quadrants are still significantly tender Results & Data Results & Data Vital Signs (Past 12 Hours) Vital Signs Temp Pulse Pulse Pulse Resp BP Pulse Ox 09/20/22 07:32 97.9 F 89 19 112/59 L 96 09/20/22 03:00 98.4 F 96 H 21 130/63 90 09/20/22 00:00 90 09/19/22 23:00 99.0 F 85 21 113/70 96 09/19/22 20:00 O2 Del Method O2 Flow Rate 09/20/22 07:32 Nasal Cannula 2 09/20/22 03:00 Room Air 09/20/22 00:00 09/19/22 23:00 Nasal Cannula 3 09/19/22 20:00 Nasal Cannula 3 Laboratory Results Reviewed PRP Reviewed phosphorus PG Care Time/CCT Total # of Minutes Spent Total Time Spent with Patient: Total time spent is greater than 50% in coordination of care (as documented) at patient's floor/unit and/or counseling patient: Coding Level of Care Code 34890 SUB INP/OBS CARE 2/35MIN Diagnoses Acute upper gastrointestinal bleeding K92.2 Acute blood loss anemia D62 Gram-negative pneumonia J15.6 History of peptic ulcer disease Z87.11 Cardiomyopathy I42.9 Hypothyroidism E03.9 Depression F32.A
[2022-09-20] MEDS: DULoxetine HCL 60 MG CAP PO SCH (09:24)
[2022-09-20] MEDS: SERTRALINE HCL 100 MG TABLET PO SCH (09:24)
[2022-09-20] MEDS: METOPROLOL TARTRATE 25 MG TAB PO SCH ×2 (09:25→20:17)
[2022-09-20] MEDS: guaiFENesin 600 MG TABCR PO SCH ×2 (09:25→20:15)
[2022-09-20] MEDS: PANTOprazole 40 MG TAB PO SCH ×2 (09:26→20:17)
[2022-09-20] MEDS: EMPAGLIFLOZIN 10 MG TAB PO SCH (09:26)
[2022-09-20] MEDS: AMOXICILLIN/CLAVULANATE 875 MG TAB PO SCH (17:16)
[2022-09-20] MEDS ORDERED: SODIUM CHLORIDE 0.9% 1000ML 1,000 ML IV SCH (17:45)
[2022-09-20] MEDS: AMITRIPTYLINE HCL 25 MG TAB PO SCH (20:15)
[2022-09-20] MEDS ORDERED: VALSARTAN/SACUBITRIL 26/24MG TAB PO SCH (21:00)
[2022-09-20 22:09] LABS: Hematocrit (blood only) 19.1 % (37.0-47.0); Hemoglobin 6.2 g/dl (12.0-16.0); Mean Corpuscular Hemoglobin 30.2 pg (25.0-34.0); Mean Corpuscular Hgb Conc 32.5 g/dL (32.0-36.0); Mean Corpuscular Volume 93.2 fL (80.0-100.0); Nucleated RBC # (auto) 0.05 K/uL (0-0.12); Nucleated RBC % (auto) 0.5 %; Platelet Count 384 K/uL (130-400); RDW Coefficient of Variation 16.5 % (11.5-14.5); RDW Standard Deviation 53.2 fL (36.4-46.3); Red Blood Count 2.05 M/uL (4.20-5.40); White Blood Count 10.42 K/ul (4.8-10.8)
[2022-09-20] MEDS ORDERED: SODIUM CHLORIDE 0.9% 250 ML IV PRN (22:38)
[2022-09-21] MEDS: HYDROmorphone INJ 0.5 MG/0.5 ML SYR IV PRN ×3 (00:35→20:54)
--- NOTE | 2022-09-21 04:13 | Communication Note ---
Date of Service: September 21, 2022 Noted patient's hbg 6.2 Ordered 2U blood to be transfused. Recheck H&H pending.
[2022-09-21] MEDS: LEVOTHYROXINE SODIUM 75 MCG TABLET PO SCH (06:21)
[2022-09-21] MEDS: AMOXICILLIN/CLAVULANATE 875 MG TAB PO SCH ×2 (07:59→17:07)
[2022-09-21] MEDS: DULoxetine HCL 60 MG CAP PO SCH (07:59)
[2022-09-21] MEDS: METOPROLOL TARTRATE 25 MG TAB PO SCH ×2 (08:00→20:52)
[2022-09-21] MEDS: SERTRALINE HCL 100 MG TABLET PO SCH (08:00)
[2022-09-21] MEDS: EMPAGLIFLOZIN 10 MG TAB PO SCH (08:00)
[2022-09-21] MEDS: FERROUS SULFATE 325 MG TAB PO SCH (08:01)
[2022-09-21] MEDS: PANTOprazole 40 MG TAB PO SCH ×2 (08:01→20:53)
[2022-09-21] MEDS: guaiFENesin 600 MG TABCR PO SCH ×2 (08:02→20:51)
[2022-09-21] MEDS ORDERED: FUROSEMIDE 40 MG TAB PO SCH (09:00)
[2022-09-21 09:31] LABS: Hemoglobin 8.3 g/dl (12.0-16.0); Mean Corpuscular Hemoglobin 30.3 pg (25.0-34.0); Mean Corpuscular Hgb Conc 33.2 g/dL (32.0-36.0); Mean Corpuscular Volume 91.2 fL (80.0-100.0); Mean Platelet Volume 9.7 fL (9.4-12.4); Nucleated RBC # (auto) 0.04 K/uL (0-0.12); Nucleated RBC % (auto) 0.4 %; Platelet Count 364 K/uL (130-400); RDW Coefficient of Variation 15.9 % (11.5-14.5); RDW Standard Deviation 50.7 fL (36.4-46.3); Red Blood Count 2.74 M/uL (4.20-5.40); White Blood Count 10.39 K/ul (4.8-10.8)
[2022-09-21 17:31] LABS: Hematocrit (blood only) 27.7 % (37.0-47.0); Hemoglobin 9.1 g/dl (12.0-16.0)
[2022-09-21 19:03] LABS: Hematocrit (blood only) 24.9 % (37.0-47.0); Hemoglobin 8.3 g/dl (12.0-16.0)
[2022-09-21] MEDS: AMITRIPTYLINE HCL 25 MG TAB PO SCH (20:51)
--- NOTE | 2022-09-21 22:47 | Hospitalist Progress Note ---
Date of Service September 21, 2022 Assessment & Plan (1) Acute upper gastrointestinal bleeding: Plan: Acutenow stable. Patient underwent endoscopy on 09/14 which showed an anastomotic ulcer which was treated, injected and bipolar probe Pt had re bleed the day after initial endoscopy, total of 5 units of PRBc given, [address] Talamantes with re endoscope 09/17/22 nonbleeding gastric ulcer with adherent clot Hemospray applied normal jejunum, completed 72 hours of protonix gtt now on po along the course with vomiting and procedures developed aspiration pneumonia/gram negative pneumonia on the left transition to Augmentin therapy Patient required transfusion again on 09/21 in AM. Hemoglobin was stable at in the afternoon and in the evening. Patient is hesitant to be transferred. Will closely monitor hemoglobin overnight. If patient continues to bleed will need to transfer to [facility]. (2) Acute blood loss anemia: Plan: Acute seemingly stable at this point time -Transfused 7 units packed red blood cells Continue po iron supplementation as prehospital (3) Gram-negative pneumonia: Plan: Patient with changes of pulmonary infiltrates in the left lung seen on chest x- ray started on Zosyn and vancomycin. MRSA nasal swab was negative subsequently vancomycin discontinued Transition Zosyn to Augmentin planning on at least a 7-day course at this time certainly concerns for aspiration given her procedures and vomiting last dose is going to be 09/22/2022 pneumonia did cause hypoxia (4) History of peptic ulcer disease: Plan: Chronic but acute as primary cause of UGIB and ABLA -Patient remains at risk due to her previous Dianna-en-Y gastric surgery but she sounds like she has had anastomotic ulcers in the past (5) Cardiomyopathy: Plan: Chronic/nonischemic - stable - LVEF in July 2022 15-20% -Despite blood product infusion patient remains asymptomatic blood pressures are slowly improving Since cough may be a touch of her heart failure we will resume diuretics and Entresto on 09/20/2022 not yet returning to spironolactone at this moment - Will resume Jardiance (6) Hypothyroidism: Plan: Chronic/stable - Continue Synthroid 75 mcg daily - Last TSH checked in August 2022 and was WNL at 1.8 (7) Depression: Plan: Chronic/stable - Continue Sertraline and Cymbalta Plan SCDs will be utilized for DVT Admission and Anticipated Discharge Date Admission Date: September 14, 2022 Subjective 72 yo female reports having dark stools. Explained to patient that she will likely need to be transferred to tertiary center. Patient though is not agreeable to transfer at this time. Review of Systems 2 Review of Systems: All systems reviewed & are unremarkable except as noted in HPI & below Physical Exam Physical Exam: Patient awake alert appropriate Left lung with mild rhonchi, Patient coughing, no guarding. Abdomen is soft/ Results & Data Results & Data Vital Signs (Past 12 Hours) Vital Signs Temp Pulse Pulse Pulse Resp BP BP 09/21/22 22:33 36.7 C 82 18 101/64 09/21/22 19:44 36.8 C 94 H 22 100/52 L 09/21/22 15:54 37.0 C 88 19 102/65 09/21/22 15:24 91 H 09/21/22 12:00 37.0 C 89 19 95/53 L Pulse Ox O2 Del Method O2 Flow Rate 09/21/22 22:33 97 Nasal Cannula 2 09/21/22 19:44 98 Nasal Cannula 2 09/21/22 15:54 100 Nasal Cannula 1 09/21/22 15:24 09/21/22 12:00 99 Room Air PG Care Time/CCT Total # of Minutes Spent Total Time Spent with Patient: Total time spent is greater than 50% in coordination of care (as documented) at patient's floor/unit and/or counseling patient: Coding Level of Care Code 83946 SUB INP/OBS CARE 3/50MIN Diagnoses Acute upper gastrointestinal bleeding K92.2 Acute blood loss anemia D62 Gram-negative pneumonia J15.6 History of peptic ulcer disease Z87.11 Cardiomyopathy I42.9 Hypothyroidism E03.9 Depression F32.A
[2022-09-22] MEDS: HYDROmorphone INJ 0.5 MG/0.5 ML SYR IV PRN (01:38)
[2022-09-22 02:24] LABS: Hematocrit (blood only) 19.8 % (37.0-47.0); Hemoglobin 6.4 g/dl (12.0-16.0)
[2022-09-22] MEDS ORDERED: SODIUM CHLORIDE 0.9% 250 ML IV PRN ×2 (02:42→18:14)
[2022-09-22] MEDS: LEVOTHYROXINE SODIUM 75 MCG TABLET PO SCH (06:16)
[2022-09-22] MEDS: PANTOprazole 40 MG TAB PO SCH (08:21)
[2022-09-22] MEDS: AMOXICILLIN/CLAVULANATE 875 MG TAB PO SCH (08:21)
[2022-09-22] MEDS: guaiFENesin 600 MG TABCR PO SCH (08:21)
[2022-09-22] MEDS: DULoxetine HCL 60 MG CAP PO SCH (08:22)
[2022-09-22] MEDS: METOPROLOL TARTRATE 25 MG TAB PO SCH (08:22)
[2022-09-22] MEDS: SERTRALINE HCL 100 MG TABLET PO SCH (08:22)
[2022-09-22] MEDS: EMPAGLIFLOZIN 10 MG TAB PO SCH (08:22)
[2022-09-22] MEDS ORDERED: ERYTHROMYCIN 250 MG in SODIUM CHLORIDE 0.9% 250 ML IV STA (12:06)
[2022-09-22 13:56] LABS: Hematocrit (blood only) 29.1 % (37.0-47.0); Hemoglobin 9.3 g/dl (12.0-16.0); Mean Corpuscular Hemoglobin 28.6 pg (25.0-34.0); Mean Corpuscular Volume 89.5 fL (80.0-100.0); Mean Platelet Volume 10.6 fL (9.4-12.4); Nucleated RBC # (auto) 0.03 K/uL (0-0.12); Nucleated RBC % (auto) 0.4 %; Platelet Count 247 K/uL (130-400); RDW Coefficient of Variation 17.2 % (11.5-14.5); Red Blood Count 3.25 M/uL (4.20-5.40); White Blood Count 8.43 K/ul (4.8-10.8)
[2022-09-22 14:04] LABS: Calcium 7.6 mg/dl (8.6-10.3); Potassium 4.4 mmol/L (3.5-5.1)
[2022-09-22 14:08] LABS: BUN Creatinine Ratio 19.1 (10-20); Creatinine Clr Calc Pharmacy 120.4 ml/min; Est GFR (Non-African American) 100.1 ml/min
--- NOTE | 2022-09-22 15:19 | History & Physical Report ---
Date of Service September 22, 2022 Assessment & Plan Admission and Anticipated Discharge Date Admission Date: September 14, 2022 History of Present Illness Primary Care Provider: Valeria Shaw MD Pt with h/o RYGB presented last week with UGIB, EGD on 09/14 which showed large anastamotic ulcer with adherent clot that removed, bipolar cautery applied to ulcer base. Pt again had bleeding on 09/17, with repeat EGD showing large anastamotic ulcer with adherent clot without visible oozing, hemospray was applied. Pt again had bleeding on 09/20, Dr. Talamantes recommended transfer, but this was not initiated. Pt again had bleeding this with two episodes of moderate volume hematochezia, intermittent drop of systolic to the 100's, fallin hgb to 6.4 that corrected to 9 with 2 u PRBC. I spoke to transfer center at [facility] and Dr. Sifuentes earlier this afternoon -- patient was accepted for transfer, but no beds were immediately available; also, it was thought that weather may interfere with flight transportation. Pt had an additional episode of hematochezia around 3 pm, maintaining BP in the mid 100's when I examined her at 330. CV: RRR Resp: CTA Abd: Soft A/P I spoke to her at great length about risks and benefits of repeating her EGD to temporize her bleeding while she is awaiting transfer to center with IR capability. She wishes to proceed with EGD. Allergies Allergy/AdvReac Type Severity Reaction Status Date / Time dexamethasone Allergy Hives Verified 09/11/22 09:56 [From Maxitrol (neomycin sulf)] neomycin Allergy Hives Verified 09/11/22 09:56 [From Maxitrol (neomycin sulf)] Opioids - Morphine Analogues Allergy Hives Verified 09/11/22 09:56 polymyxin B Allergy Hives Verified 09/11/22 09:56 [From Maxitrol (neomycin sulf)] Home Medications Medication Instructions Recorded Confirmed Type cyclobenzaprine 10 mg tablet 10 mg PO DAILY PRN Muscle Spasm 07/30/22 09/14/22 History ferrous sulfate 325 mg (65 mg 325 mg PO .COMPLEX #30 tabs 08/27/22 09/14/22 Rx iron) tablet amitriptyline 25 mg tablet 100 mg PO DAILY 90 days #360 tabs 08/31/22 09/14/22 Rx duloxetine 60 mg capsule,delayed 60 mg PO DAILY 90 days #90 caps 08/31/22 09/14/22 Rx release empagliflozin 10 mg tablet 10 mg PO DAILY 90 days #90 tabs 08/31/22 09/14/22 Rx (Jardiance) furosemide 40 mg tablet (Lasix) 40 mg PO QAM 90 days #90 tabs 08/31/22 09/14/22 Rx melatonin 10 mg tablet 0 mg PO HS PRN Sleep 08/31/22 09/14/22 History metoprolol succinate 25 mg 25 mg PO QAM 90 days #90 tabs 08/31/22 09/14/22 Rx tablet,extended release 24 hr oxybutynin chloride 10 mg 10 mg PO DAILY 90 days #90 tabs 08/31/22 09/14/22 Rx tablet,extended release 24 hr pantoprazole 40 mg tablet,delayed 40 mg PO DAILY 90 days #90 tabs 08/31/22 09/14/22 Rx release sacubitril 24 mg-valsartan 26 mg 1 tab PO BID 90 days #180 tabs 08/31/22 09/14/22 Rx tablet (Entresto) sertraline 100 mg tablet 100 mg PO DAILY 90 days #90 tabs 08/31/22 09/14/22 Rx spironolactone 25 mg tablet 25 mg PO DAILY 90 days #90 tabs 08/31/22 09/14/22 Rx doxycycline monohydrate 100 mg 100 mg PO BID #20 tabs 09/07/22 09/14/22 Rx tablet levothyroxine 75 mcg capsule 75 mcg PO DAILY 90 days #90 caps 09/13/22 09/14/22 Rx Past Med/Surg History Medical History Acute HFrEF (heart failure with reduced ejection fraction) Anxiety Cardiomyopathy GERD (gastroesophageal reflux disease) History of peptic ulcer disease HLD (hyperlipidemia) HTN (hypertension) with goal to be determined Hypothyroidism LBBB (left bundle branch block) Pulmonary nodule Urge incontinence of urine Surgical History H/O: hysterectomy History of Dianna-en-Y gastric bypass S/P cervical spinal fusion Status post right knee replacement Family History Other Diabetes Denies family history of Ovarian cancer Breast cancer Colorectal cancer Social History Smoking Status: Never smoker Tobacco Type: Cigarettes Second Hand Exposure: Yes; Do You Dip or Chew Tobacco: No; Hx Alcohol Use: Yes Alcohol type: wine Alcohol type Comment: 1 glass 4-5x/week with dinner Hx Substance Use: No Preferred Language: Japanese Communication Ability: Effective Hearing Ability: Normal Manager Quality Systems Required: No Beliefs That Will Affect Care: None Current Living Situation: Family current occupational status: retired Other Information That Helps Us Care for You: No Feels Safe at Home: Yes Safety Concerns: Feels Safe At This Time caffeine: Yes Physical Activity Frequency: Daily Assistive Devices: None Results & Data Results & Data Vital Signs (Past 12 Hours) Vital Signs Temp Pulse Pulse Resp BP BP Pulse Ox 09/22/22 08:00 09/22/22 08:00 86 09/22/22 12:17 87 20 104/59 L 94 09/22/22 11:12 36.8 C 75 19 126/55 L 99 09/22/22 11:04 36.8 C 85 19 123/80 99 09/22/22 10:35 36.9 C 75 14 126/55 L 100 09/22/22 09:35 36.8 C 79 20 116/63 100 09/22/22 09:05 36.9 C 76 21 104/70 100 09/22/22 08:50 36.9 C 74 18 108/75 100 09/22/22 08:33 36.9 C 91 H 18 104/65 95 09/22/22 07:45 37.3 C 93 H 16 102/55 L 95 09/22/22 06:02 36.5 C 84 18 101/45 L 99 09/22/22 05:08 36.5 C 90 16 97/58 L 97 09/22/22 04:08 36.7 C 83 18 100/59 L 95 09/22/22 03:38 36.6 C 83 18 101/48 L 94 09/22/22 03:23 36.4 C L 83 18 102/58 L 97 O2 Del Method O2 Flow Rate 09/22/22 08:00 Nasal Cannula 1 09/22/22 08:00 09/22/22 12:17 Room Air 09/22/22 11:12 1 09/22/22 11:04 Room Air 09/22/22 10:35 1 09/22/22 09:35 1 09/22/22 09:05 1 09/22/22 08:50 1 09/22/22 08:33 2 09/22/22 07:45 Nasal Cannula 1 09/22/22 06:02 2 09/22/22 05:08 2 09/22/22 04:08 2 09/22/22 03:38 2 09/22/22 03:23 2
[2022-09-22] MEDS ORDERED: SUCCINYLCHOLINE CHLORIDE 20 MG/ML 10 ML VIAL IV ONE (16:00)
[2022-09-22] MEDS ORDERED: LIDOCAINE 2% 2 ML VIAL/AMP(20MG/ML) INFIL ONE (16:00)
[2022-09-22] MEDS ORDERED: PROPOFOL IV EMULSION 10 MG/ML 20 ML VIAL IV ONE (16:00)
[2022-09-22] MEDS ORDERED: fentaNYL citrate PF 100 MCG/2 ML VIAL ONE (16:01)
[2022-09-22] MEDS ORDERED: ePHEDrine sulfate 50 MG/ML SYR ONE (16:05)
[2022-09-22] MEDS: PANTOprazole 40 MG in DEXTROSE 5% 100 ML IV SCH ×2 (16:39→21:40)
[2022-09-22 17:09] LABS: Hematocrit (blood only) 25.4 % (37.0-47.0); Hemoglobin 8.2 g/dl (12.0-16.0)
[2022-09-22] MEDS ORDERED: ePHEDrine sulfate 50 MG/ML AMP IV PRN (17:35)
[2022-09-22] MEDS ORDERED: fentaNYL citrate PF 100 MCG/2 ML VIAL IV PRN ×3 (17:35→20:13)
[2022-09-22] MEDS ORDERED: ONDANSETRON INJ 2 MG/ML 2 ML VIAL IV PRN (17:35)
[2022-09-22] MEDS ORDERED: ATROPINE SULFATE 0.1 MG/ML 10ML SYR IV PRN (17:35)
--- NOTE | 2022-09-22 17:35 | Anesthesiology Consultation ---
Date of Service September 22, 2022 Assessment & Plan Consults Requested none ASA [id number] Proposed Anesthesia Anesthesia Type: General Risk / Benefits Reviewed With: PT / POA / Parent / Guardian, Accepts Plan and Informed Consent Obtained History Surgery Operation Date: 09/14/22 16:30 Proposed Procedures p Esophagogastroduodenoscopy Dr. Talamantes - Brigido Talamantes MD Operation Date: 09/17/22 12:20 Proposed Procedures p Esophagogastroduodenoscopy - Brigido Talamantes MD Operation Date: 09/22/22 16:30 Proposed Procedures p EGD with Botox Dr Philippe - Rios Philippe MD Height/Weight Height: 5 ft 2 in Weight: 96 kg Allergies Allergy/AdvReac Type Severity Reaction Status Date / Time dexamethasone Allergy Hives Verified 09/11/22 09:56 [From Maxitrol (neomycin sulf)] neomycin Allergy Hives Verified 09/11/22 09:56 [From Maxitrol (neomycin sulf)] Opioids - Morphine Analogues Allergy Hives Verified 09/11/22 09:56 polymyxin B Allergy Hives Verified 09/11/22 09:56 [From Maxitrol (neomycin sulf)] Medications Home Medications Medication Instructions Recorded Confirmed Last Taken cyclobenzaprine 10 mg tablet 10 mg PO DAILY PRN Muscle Spasm 07/30/22 09/14/22 Unknown ferrous sulfate 325 mg (65 mg 325 mg PO .COMPLEX #30 tabs 08/27/22 09/14/22 Unknown iron) tablet amitriptyline 25 mg tablet 100 mg PO DAILY 90 days #360 tabs 08/31/22 09/14/22 Unknown duloxetine 60 mg capsule,delayed 60 mg PO DAILY 90 days #90 caps 08/31/22 09/14/22 Unknown release empagliflozin 10 mg tablet 10 mg PO DAILY 90 days #90 tabs 08/31/22 09/14/22 Unknown (Jardiance) furosemide 40 mg tablet (Lasix) 40 mg PO QAM 90 days #90 tabs 08/31/22 09/14/22 Unknown melatonin 10 mg tablet 0 mg PO HS PRN Sleep 08/31/22 09/14/22 Unknown metoprolol succinate 25 mg 25 mg PO QAM 90 days #90 tabs 08/31/22 09/14/22 Unknown tablet,extended release 24 hr oxybutynin chloride 10 mg 10 mg PO DAILY 90 days #90 tabs 08/31/22 09/14/22 Unknown tablet,extended release 24 hr pantoprazole 40 mg tablet,delayed 40 mg PO DAILY 90 days #90 tabs 08/31/22 09/14/22 Unknown release sacubitril 24 mg-valsartan 26 mg 1 tab PO BID 90 days #180 tabs 08/31/22 09/14/22 Unknown tablet (Entresto) sertraline 100 mg tablet 100 mg PO DAILY 90 days #90 tabs 08/31/22 09/14/22 Unknown spironolactone 25 mg tablet 25 mg PO DAILY 90 days #90 tabs 08/31/22 09/14/22 Unknown doxycycline monohydrate 100 mg 100 mg PO BID #20 tabs 09/07/22 09/14/22 Unknown tablet levothyroxine 75 mcg capsule 75 mcg PO DAILY 90 days #90 caps 09/13/22 09/14/22 Unknown Active Medications Generic Name Dose Route Start Last Admin Trade Name Freq PRN Reason Stop Dose Admin Amitriptyline HCl 25 mg 09/14/22 21:00 09/21/22 20:51 Amitriptyline Hcl 25 Mg Tab PO 10/14/22 20:59 25 mg HS ELISA Administration Duloxetine HCl 60 mg 09/15/22 09:00 09/22/22 08:22 Duloxetine Hcl 60 Mg Cap PO 10/15/22 08:59 60 mg DAILY ELISA Administration Empagliflozin 10 mg 09/15/22 09:00 09/22/22 08:22 Empagliflozin 10 Mg Tab PO 10/15/22 08:59 10 mg DAILY ELISA Administration Ferrous Sulfate 325 mg 09/14/22 12:00 09/21/22 08:01 Ferrous Sulfate 325 Mg Tab PO 10/14/22 11:59 325 mg [id number] ELISA Administration Guaifenesin 1,200 mg 09/17/22 09:00 09/22/22 08:21 Guaifenesin 600 Mg Tabcr PO 10/17/22 08:59 1,200 mg Q12 ELISA Administration Guaifenesin/Codeine Phosphate 10 ml 09/20/22 14:23 09/22/22 08:28 Guaifenesin/Codeine 200mg/20mg 10ml Udc PO 10/20/22 14:22 10 ml Q6H PRN Administration Cough Hydromorphone HCl 1 mg 09/15/22 23:20 09/22/22 01:38 Hydromorphone Inj 0.5 Mg/0.5 Ml Syr IV 09/28/22 16:59 1 mg Q2H PRN Administration Pain Promethazine HCl 12.5 mg/ 50.5 mls @ 202 mls/hr 09/15/22 18:26 09/16/22 11:43 Sodium Chloride IV 10/15/22 18:25 Infused Q6H PRN Infusion Nausea And Vomiting Pantoprazole Sodium 40 mg/ 100 mls @ 20 mls/hr 09/22/22 15:30 09/22/22 16:39 Dextrose IV 10/22/22 15:29 8 mg/hr Q5H ELISA 20 mls/hr Administration 8 MG/HR Levothyroxine Sodium 75 mcg 09/15/22 06:30 09/22/22 06:16 Levothyroxine Sodium 75 Mcg Tablet PO 10/15/22 06:29 75 mcg DAILYBB ELISA Administration Lorazepam 0.5 mg 09/15/22 18:27 09/15/22 20:21 Lorazepam 2 Mg/1 Ml Vial IV 10/15/22 18:26 0.5 mg Q6H PRN Administration Anxiety/Agitation/nausea Metoprolol Tartrate 12.5 mg 09/15/22 21:00 09/22/22 08:22 Metoprolol Tartrate 25 Mg Tab PO 10/15/22 20:59 12.5 mg BID ELISA Administration Ondansetron HCl 4 mg 09/14/22 11:06 09/16/22 08:59 Ondansetron Inj 2 Mg/Ml 2 Ml Vial IV 10/14/22 11:05 4 mg Q6H PRN Administration nausea/vomiting Pantoprazole Sodium 40 mg 09/17/22 21:00 09/22/22 08:21 Pantoprazole 40 Mg Tab PO 10/17/22 20:59 40 mg BID ELISA Administration Sertraline HCl 100 mg 09/15/22 09:00 09/22/22 08:22 Sertraline Hcl 100 Mg Tablet PO 10/15/22 08:59 100 mg DAILY ELISA Administration NPO Date Last Intake of Fluids: 09/22/22 Time Last Intake of Fluids: 11:00 Date Last Intake of Solids: 09/22/22 Time Last Intake of Solids: 11:00 Last Intake of Solids Comment: dr valdivia. erythromycin IV given Past Medical History Medical History Acute HFrEF (heart failure with reduced ejection fraction) Anxiety Cardiomyopathy GERD (gastroesophageal reflux disease) History of peptic ulcer disease HLD (hyperlipidemia) HTN (hypertension) with goal to be determined Hypothyroidism LBBB (left bundle branch block) Pulmonary nodule Urge incontinence of urine Exercise / Class Metabolic Activity III < 4 Walking/Shop/Light housework Past Family History Family History Other Diabetes Denies family history of Ovarian cancer Breast cancer Colorectal cancer Past Surgical History Surgical History H/O: hysterectomy History of Dianna-en-Y gastric bypass S/P cervical spinal fusion Status post right knee replacement Past Anesthesia History No Hx of Anesthesia Complications History of PONV No Hx of PONV Social History Smoking Status: Never smoker Do You Dip or Chew Tobacco: No Hx Alcohol Use: Yes Alcohol type: wine alcohol intake frequency: a few times a week Hx Substance Use: No Review of Systems ROS Unobtainable: All systems reviewed & are unremarkable except as noted in HPI & below Physical Exam Vital Signs Last Vital Signs Temp 36.8 C 09/22/22 15:20 Pulse 97 H 09/22/22 16:00 Resp 20 09/22/22 15:20 BP 125/52 L 09/22/22 15:20 Pulse Ox 92 09/22/22 15:20 O2 Del Method Room Air 09/22/22 15:20 O2 Flow Rate 1 09/22/22 11:12 ENMT Thyromental Distance: > or= 3.5 Finger Breadths Mallampati Class: II Respiratory Auscultation: lungs clear to auscultation bilaterally and + diminished lung sounds Cardiovascular Rate/Rhythm: regular rate Testing Laboratory Results 09/22/22 16:47 09/22/22 13:22 PT 11.3 Seconds (9.0-12.0) 09/14/22 07:20 INR 1.0 (0.9-1.1) 09/14/22 07:20 APTT 20.5 Seconds (21.0-31.0) L 09/14/22 07:20 Urine Color Yellow 09/15/22 09:20 Urine Appearance Clear (Clear) 09/15/22 09:20 Urine pH 5.5 (4.5-7.5) 09/15/22 09:20 Ur Specific [place] 1.014 (1.000-1.030) 09/15/22 09:20 Urine Protein Negative (Negative) 09/15/22 09:20 Urine Glucose (UA) Negative (Negative) 09/15/22 09:20 Urine Ketones Negative (Negative) 09/15/22 09:20 Urine Nitrite Negative (Negative) 09/15/22 09:20 Ur Leukocyte Esterase Negative (Negative) 09/15/22 09:20 Blood Type O Negative 09/20/22 21:19 Antibody Screen NEGATIVE 09/20/22 21:19 Electrocardiogram Date: 09/14/22 Findings: + NSR @ (94) and + LBBB Echocardiogram Date: 07/30/22 EF: 15-20% Valvular Disease: + MR (moderate) moderate TR Cardiac Catheterization Date: 08/01/22 moderate nonobstructive multivessel CAD
[2022-09-22] MEDS ORDERED: PIPERACILLIN/TAZOBACTAM 3.375 GM in DEXTROSE 5% 100 ML IV ONE (18:45)
[2022-09-22] MEDS ORDERED: PROPOFOL IV EMULSION 10 MG/ML 100 ML VIAL IV ONE (19:05)
--- NOTE | 2022-09-22 19:30 | Discharge Summary ---
Date of Service September 22, 2022 Admission HPI Per Admitting Provider Pt with h/o RYGB presented last week with UGIB, EGD on 09/14 which showed large anastamotic ulcer with adherent clot that removed, bipolar cautery applied to ulcer base. Pt again had bleeding on 09/17, with repeat EGD showing large anastamotic ulcer with adherent clot without visible oozing, hemospray was applied. Pt again had bleeding on 09/20, Dr. Talamantes recommended transfer, but this was not initiated. Pt again had bleeding this with two episodes of moderate volume hematochezia, intermittent drop of systolic to the 100's, fallin hgb to 6.4 that corrected to 9 with 2 u PRBC. I spoke to transfer center at [facility] and Dr. Sifuentes earlier this afternoon -- patient was accepted for transfer, but no beds were immediately available; also, it was thought that weather may interfere with flight transportation. Pt had an additional episode of hematochezia around 3 pm, maintaining BP in the mid 100's when I examined her at 330. CV: RRR Resp: CTA Abd: Soft A/P I spoke to her at great length about risks and benefits of repeating her EGD to temporize her bleeding while she is awaiting transfer to center with IR capability. She wishes to proceed with EGD. Discharge Data Allergies Allergy/AdvReac Type Severity Reaction Status Date / Time dexamethasone Allergy Hives Verified 09/11/22 09:56 [From Maxitrol (neomycin sulf)] neomycin Allergy Hives Verified 09/11/22 09:56 [From Maxitrol (neomycin sulf)] Opioids - Morphine Analogues Allergy Hives Verified 09/11/22 09:56 polymyxin B Allergy Hives Verified 09/11/22 09:56 [From Maxitrol (neomycin sulf)] Consultations 09/14/22 08:58 Consult Gastroenterology Stat 09/14/22 09:24 Consult Fiberglass Quality Technician Stat 09/14/22 09:27 ED Decision to Admit Stat 09/22/22 17:29 Burn CD for patient Stat Procedures Performed Operation Date: 09/22/22 16:30 Actual Procedures p Upper Gastrointestinal Endoscopy with hemostasis(Not Applicable) - Rios Philippe MD Ordered Studies 09/15/22 18:29 CT Abd and Pelvis [CT abd pelvis wo con] Routine Hospital Course (1) Acute upper gastrointestinal bleeding: Acutenow stable. Patient underwent endoscopy on 09/14 which showed an anastomotic ulcer which was treated, injected and bipolar probe Pt had re bleed the day after initial endoscopy, total of 5 units of PRBc given, [address] Talamantes with re endoscope 09/17/22 nonbleeding gastric ulcer with adherent clot Hemospray applied normal jejunum, completed 72 hours of protonix gtt now on po along the course with vomiting and procedures developed aspiration pneumonia/gram negative pneumonia on the left transition to Augmentin therapy Patient required transfusion again on 09/21 in AM. Hemoglobin was stable at in the afternoon and in the evening. Patient is hesitant to be transferred. Will closely monitor hemoglobin overnight. If patient continues to bleed will need to transfer to [facility]. (2) Acute blood loss anemia: Acute seemingly stable at this point time -Transfused 7 units packed red blood cells Continue po iron supplementation as prehospital (3) Gram-negative pneumonia: Patient with changes of pulmonary infiltrates in the left lung seen on chest x-r ay started on Zosyn and vancomycin. MRSA nasal swab was negative subsequently vancomycin discontinued Transition Zosyn to Augmentin planning on at least a 7-day course at this time certainly concerns for aspiration given her procedures and vomiting last dose is going to be 09/22/2022 pneumonia did cause hypoxia (4) History of peptic ulcer disease: Chronic but acute as primary cause of UGIB and ABLA -Patient remains at risk due to her previous Dianna-en-Y gastric surgery but she sounds like she has had anastomotic ulcers in the past (5) Cardiomyopathy: Chronic/nonischemic - stable - LVEF in July 2022 15-20% -Despite blood product infusion patient remains asymptomatic blood pressures are slowly improving Since cough may be a touch of her heart failure we will resume diuretics and Entresto on 09/20/2022 not yet returning to spironolactone at this moment - Will resume Jardiance (6) Hypothyroidism: Chronic/stable - Continue Synthroid 75 mcg daily - Last TSH checked in August 2022 and was WNL at 1.8 (7) Depression: Chronic/stable - Continue Sertraline and Cymbalta Plan SCDs will be utilized for DVT Discharge Plan Discharge Items Reason For Visit: ACUTE GI BLEED, HYPOTENSION, ABLA Discharge Diagnosis: acute gi bleed Activity: As commented below Activity Comment: transferred Non-emergency contact: Primary Care Provider Call non-emergency contact if: you have any medication questions Follow-up/Referrals: Kamila Flores PA-C [Physician Traveling Accountant] - 09/25/22 11:00 am Valeria Shaw MD [Primary Care Provider] - Diet: Nothing by Mouth Addtl Attending Provider Instructions: on zosyn started today as concern for risk of GI perforation after scope Pending Studies at Discharge: No Stand-Alone Forms: My [facility] Skilled Items Patient informed of condition?: Yes DNR: No Discharge Level of Care: Other Communicable Disease: No Discharge Prognosis: Stable Lines: None Urinary Catheter: No Medications and DC Order Prescriptions: Continued ferrous sulfate 325 mg (65 mg iron) tablet 325 mg PO .COMPLEX Qty: 30 5RF Rx Instructions: 325 mg orally Every M-W-; Verified with [facility] pharmacy levothyroxine 75 mcg capsule 75 mcg PO DAILY 90 Days Qty: 90 3RF Rx Instructions: Both [facility] and [facility] pharmacies verified Levothyroxine 75mcg melatonin 10 mg tablet 0 mg PO HS PRN (Reason: Sleep) Rx Instructions: Neither [facility] or [facility] pharmacies had melatonin 10mg amitriptyline 25 mg tablet 100 mg PO DAILY 90 Days Qty: 360 2RF Rx Instructions: Per [facility] pharmacist instructions are 3 to 4 tabs as needed at bedtime. duloxetine 60 mg capsule,delayed release(DR/EC) 60 mg PO DAILY 90 Days Qty: 90 3RF Rx Instructions: Verified with [facility] mail order pharmacy. Jardiance 10 mg tablet 10 mg PO DAILY 90 Days Qty: 90 2RF Rx Instructions: verified with [facility] mail order pharmacy furosemide [Lasix] 40 mg tablet 40 mg PO QAM 90 Days Qty: 90 3RF Hold Instructions: Hypotension Rx Instructions: [facility] and [facility] pharmacies both verified Lasix. metoprolol succinate 25 mg tablet extended release 24 hr 25 mg PO QAM 90 Days Qty: 90 3RF Hold Instructions: hypotension Rx Instructions: Both [facility] and [facility] pharmacies verified Metoprolol 25mg oxybutynin chloride 10 mg tablet extended release 24hr 10 mg PO DAILY 90 Days Qty: 90 3RF Rx Instructions: [facility] pharmacy verified oxybutynin 10mg pantoprazole 40 mg tablet,delayed release (DR/EC) 40 mg PO DAILY 90 Days Qty: 90 3RF Rx Instructions: [facility] verified protonix Entresto 24-26 mg tablet 1 tab PO BID 90 Days Qty: 180 3RF Hold Instructions: Hypotension Rx Instructions: [facility] both verified Entresto sertraline 100 mg tablet 100 mg PO DAILY 90 Days Qty: 90 3RF Rx Instructions: [facility] mail order verified Zoloft spironolactone 25 mg tablet 25 mg PO DAILY 90 Days Qty: 90 3RF Hold Instructions: hypotension Rx Instructions: [facility] and [facility] pharmacies both verified medication. cyclobenzaprine 10 mg tablet 10 mg PO DAILY PRN (Reason: Muscle Spasm) Rx Instructions: Verified medication with mail order pharmacy [facility] Discontinued doxycycline monohydrate 100 mg tablet 100 mg PO BID Qty: 20 0RF Rx Instructions: filled 09/07/22 at [facility] pharmacy. #20 for 10 day supply. Admission Data Admit Date/Time: 09/14/22 09:31 Attending Provider: Jet Ahumada Admit Provider: Ajit Jean Primary Care Provider: Valeria Shaw Other Providers: Brigido Talamantes ; Chen Jeffers ; Ajit Jean ; [facility],Home Healthcare ; [facility],Referral Center Other Interventions: Discharge Summary Assessment (RN) Last Done: 09/14/22 16:04 Coding Diagnoses Acute upper gastrointestinal bleeding K92.2 Acute blood loss anemia D62 Gram-negative pneumonia J15.6 History of peptic ulcer disease Z87.11 Cardiomyopathy I42.9 Hypothyroidism E03.9 Depression F32.A
--- NOTE | 2022-09-22 19:31 | Anesthesiology Progress Note ---
Date of Service September 22, 2022 Anesthesia Post Procedure Vital Signs Vital Signs: Temp Pulse Pulse Pulse Resp BP BP 09/22/22 19:10 113 H 21 09/22/22 16:00 97 H 09/22/22 15:20 36.8 C 88 20 09/22/22 08:00 09/22/22 08:00 86 09/22/22 12:17 87 20 104/59 L 09/22/22 11:12 36.8 C 75 19 126/55 L 09/22/22 11:04 36.8 C 85 19 123/80 09/22/22 10:35 36.9 C 75 14 126/55 L 09/22/22 09:35 36.8 C 79 20 116/63 09/22/22 09:05 36.9 C 76 21 104/70 09/22/22 08:50 36.9 C 74 18 108/75 09/22/22 08:33 36.9 C 91 H 18 104/65 09/22/22 07:45 37.3 C 93 H 16 102/55 L 09/22/22 06:02 36.5 C 84 18 101/45 L 09/22/22 05:08 36.5 C 90 16 97/58 L 09/21/22 22:00 85 09/22/22 04:08 36.7 C 83 18 100/59 L 09/22/22 03:38 36.6 C 83 18 101/48 L 09/22/22 03:23 36.4 C L 83 18 102/58 L 09/22/22 03:05 36.4 C L 84 18 108/49 L 09/21/22 20:45 09/21/22 22:33 36.7 C 82 18 09/21/22 19:44 36.8 C 94 H 22 BP Pulse Ox O2 Del Method O2 Flow Rate FiO2 09/22/22 19:10 99 40 09/22/22 16:00 09/22/22 15:20 125/52 L 92 Room Air 09/22/22 08:00 Nasal Cannula 1 09/22/22 08:00 09/22/22 12:17 94 Room Air 09/22/22 11:12 99 1 09/22/22 11:04 99 Room Air 09/22/22 10:35 100 1 09/22/22 09:35 100 1 09/22/22 09:05 100 1 09/22/22 08:50 100 1 09/22/22 08:33 95 2 09/22/22 07:45 95 Nasal Cannula 1 09/22/22 06:02 99 2 09/22/22 05:08 97 2 09/21/22 22:00 09/22/22 04:08 95 2 09/22/22 03:38 94 2 09/22/22 03:23 97 2 09/22/22 03:05 95 2 09/21/22 20:45 Nasal Cannula 2 09/21/22 22:33 101/64 97 Nasal Cannula 2 09/21/22 19:44 100/52 L 98 Nasal Cannula 2 Pain Intensity Abdomen: Pain Intensity: 5 Transfer of Care Handoff Completed per policy Notes Mental Status: see notes below Patient Amnestic to Procedure: Yes Nausea / Vomiting: adequately controlled Pain: adequately controlled Airway Patency, RR, SpO2: see Notes below BP & HR: stable & adequate Hydration State: stable & adequate Anesthetic Complications: see Notes below Notes: Pt remains intubated at surgeons request, for transfer to OSH. Remained hemodynamically stable throughout the procedure, received one unit prbc and a second one was started. transferred to ICU stable, sedated
--- NOTE | 2022-09-22 19:33 | XRay Report ---
XR chest 1V portable HISTORY: s/p intubation COMPARISON: Chest 09/19/2022. FINDINGS: The endotracheal tube terminates 5.5 cm from the gianluca. Slightly rotated study. The cardia c silhouette remains mildly enlarged. Progressive consolidation within the left mid to lower lung zon e airspace opacity. Suspect a small left pleural effusion. There are small patchy densities seen with in the right lung base. Perihilar interstitial thickening may represent superimposed congestive christopher e. Cervical spinal fusion hardware is noted. IMPRESSION: 1. The endotracheal tube terminates 5.5 cm from the gianluca. 2. Interval progression of the bilateral airspace opacities most pronounced on the left. 3. Perihilar interstitial thickening may represent superimposed congestive change. ACT 112: Negative or not required by law. Electronically signed by: Wayne Van M.D. 09/22/2022 7:32 PM
[2022-09-22] MEDS ORDERED: PIPERACILLIN/TAZOBACTAM 4.5 GM in DEXTROSE 5% 100 ML IV ONE (19:45)
--- NOTE | 2022-09-22 19:46 | Procedure Note ---
Procedure Note Date of Service September 22, 2022 Note FEMORAL CENTRAL LINE PROCEDURE NOTE: Procedure: Femoral Central Line Placement Attending: Dr. Ho Provider: SARAVANAN Spears Indication: Poor Venous Access, Multiple Lab Draws Necessary, etc. Anesthesia: None Line was placed emergently as patient was requiring multiple blood transfusions, sedation as she was intubated, and was awaiting transfer to tertiary center following the EGD for GI bleed. As there was emergent need for obtaining additional access to the patient's single small bore peripheral IV, with inability to obtain additional access, decision was made to obtain central access and consent was implied as patient is currently intubated. A time-out was completed verifying correct patient, procedure, site, positioning, and implants(s) or special equipment if applicable. Patients right groin was cleansed and draped in the typical sterile fashion using Chloraprep. The Femoral Vein and Femoral Artery were identified using ultrasound. The right femoral Vein was cannulated under direct ultrasound guidance using an introducer needle on a syringe. Good venous blood return was maintained prior to removal of syringe from introducer needle. Using Seldinger Technique, a guide wire was advanced through the introducer needle without resistance. The introducer needle was removed and ultrasound images were obtained of the guide wire within the Femoral Vein and saved to the patients medical record. A small incision was made in penetrating fashion at the guide wire insertion site utilizing an 11 blade scalpel. The dilator was advanced to the vessel without resistance. The dilator was exchanged for the triple lumen catheter which was advanced into the vessel without resistance. The guide wire was removed intact from the catheter without issue. Claves were placed on each catheter tip with confirmation of good blood flow from each lumen. Each port was easily flushed with sterile saline. The catheter was placed at the hub and sutured in place. BioPatch was applied to the catheter and a sterile Tegaderm dressing was applied over the catheter with careful attention to sterility. Patient tolerated procedure well. No immediate complications were met. Coding CPT Codes Tubes, Drains, and Vasc Access - Tubes, Drains, and Vasc Access: [id number] Place catheter in vein superior or inferior vena cava ([id number]) [facility] [place] Codes (Charges) Tubes, Drains, and Vasc Access Procedure 1: Tubes, Drains, and Vasc Access: [id number] Place catheter in vein superior or inferior vena cava
[2022-09-22] MEDS ORDERED: STAT IV Infusion **Titration per Protocol STA ×2 (19:49→20:57)
[2022-09-22] MEDS ORDERED: fentaNYL BOLUS from BAG IV PRN ×2 (19:59→20:57)
[2022-09-22] MEDS: propofoL 1,000 MG/100 ML VIAL IV SCH ×2 (20:09→22:11)
[2022-09-22] MEDS: PROPOFOL BOLUS FROM BAG IV PRN ×3 (20:30→21:00)
--- NOTE | 2022-09-22 20:37 | GI REPORT ---
Patient Name: Shyann Plaza Procedure Date: 09/22/2022 5:28 PM Date of : 1950 Admit Type: Inpatient Age: 72 Gender: Female Attending MD: Rios Philippe MD, Procedure: Upper GI endoscopy Providers: Rios Philippe MD Referring MD: Jet Ahumada M.d. Indications: Hematochezia Medicines: See the Anesthesia note for documentation of the administered medications Complications: No immediate complications. Estimated Blood Loss: Estimated blood loss: none. Procedure: Pre-Anesthesia Assessment: - ASA Grade Assessment: III - A patient with severe systemic disease. After obtaining informed consent, the endoscope was passed under direct vision. Throughout the procedure, the patient's blood pressure, pulse, and oxygen saturations were monitored continuously. The Endoscope was introduced through the mouth, and advanced to the proximal jejunum. The upper GI endoscopy was performed with difficulty. The patient tolerated the procedure well. Findings: The examined esophagus was normal. There was a moderate amount of fresh red blood in the stomach. There was a large cratered rajat-circumferential ulcer at the jejunal side of the gastro-enteric anastamosis. There was a large visible vessel at the ulcer base, estimated to be 5 mm. The vessel began spurting blood without any manipulation. Approximately 200 cc's of blood was suctioned from the stomach over 5 minutes. Hemospray was considered, but was not thought to be feasible due to the large amount of blood in the lumen. I injected 6 cc's of 1:100,000 epinephrine over three injections into the ulcer base with cessation of spurting; however, the vessel was persistently oozing after epi injection. There were also multiple areas of oozing at the ulcer base at the injection sites. I cauterized the bleeding vessel using the closed Coag Graspers at soft coag settings, initially in a triangle around the vessel and then applying the Coag Graspers to the vessel. There was persistent oozing that require moderate pressure and application of soft coag for 5-6 seconds for achievement of hemostasis. I then applied soft coag cautery using the closed Coag Graspers to the oozing sites, with hemostasis. There was mild oozing at the edge of the ulcer that resolved with hemospray; the catheter clogged after 2 pulses. I waited 7 minutes and there was no resumption of bleeding. Upon examination of the ulcer base, there appeared to be a target sign at one of the injection sites. I attempted an endoloop and clip closure to close the ulcer base, but I could not get adequate purchase on the gastric side of the ulcer, and was concerned that the clips would cause additional trauma to the ulcer base. A clip was placed on the gastric side of the ulcer in case IR intervention was needed. Recommendation: - Discharge patient to ICU. Given concern for micro perforation, an NGT was placed to LIS and Zosyn was begun. Pt will remain on PPI gtt. D/w [facility] / Dr. Aguilar of GI service. Pt will be emergently transferred for care. Family is updated. Rios Philippe M.D. Rios Philippe MD 09/22/2022 8:36:55 PM This report has been signed electronically. Note Initiated On: 09/22/2022 5:28 PM Number of Addenda: 0 I attest to the content of the Intraoperative Record and orders documented therein, exceptions below {[id number]}
[2022-09-22] MEDS ORDERED: PANTOprazole 40 MG in SYRINGE 0 ML IV SCH (21:00)
[2022-09-22] MEDS ORDERED: fentaNYL citrate 2,500 MCG/250 ML BAG IV SCH (21:00)
--- NOTE | 2022-09-22 21:06 | Critical Care Progress Note ---
Date of Service September 22, 2022 Assessment & Plan (1) Acute upper gastrointestinal bleeding: Plan: Reason Critically Ill: 72-year-old female Presents to the ICU with anastomotic ulcer and upper GI bleed with acute blood loss anemia, now mechanically ventilated post EGD and plan to transfer to tertiary center for which she has been accepted to a bed at [facility] but is awaiting transfer. Neuro - Depressionholding home meds for now as patient is sedated. Continue propofol and fentanyl drips for goal RASS is -1 Cardiac - Congestive heart failure with reduced EFTTE July 2022 with a EF of 15 to 20%. Patient does follow in the heart failure clinic - Antihypertensives, Lasix on hold due to hypotension - EKG with known left bundle branch block. Continue to monitor on telemetry - Currently hemodynamically stable with no need for vasopressors at this time. Respiratory - Acute hypoxic respiratory failurecurrently mechanically ventilated post EGD. Patient has received multiple units of blood today and likely volume overloaded given EF 15%. We will give additional Lasix x1 dose. ABG without acid-base disorder and she is currently maintaining oxygen saturation on 40% FiO2. Continuous end-tidal CO2 and pulse ox monitoring and wean vent as tolerated. GI - Acute GI bleedpatient underwent third EGD on this admission with previous interventions as described and HPI. There is concern for microperforation and she Is awaiting transfer to tertiary center at [facility], pending transfer team which has been delayed. We will continue with Protonix drip and transfuse as indicated. GI following and appreciate recommendations. NG tube was placed and to low intermittent suction. Patient remains n.p.o. RENAL/LYTES - Creatinine within normal limits, no significant electrolyte abnormalities. Monitor routine BMPs and replete electrolytes as indicated. Hold on fluid resuscitation due to hypoxia/heart failure - Foleystrict I's and O's ENDO - HypothyroidismWill convert Synthroid to IV ICU hyperglycemic protocol HEME - Acute blood loss anemiapatient has received 2 units RBCs this afternoon for hemoglobin of 6.4 earlier today. Continue to trend H&H and will repeat coags. Will transfuse as indicated ID - Empiric Zosyn LINES/IV ACCESS - Peripheral IV x1, CVL right femoral DVT PROPHYLAXIS - SCDs, hold anticoagulation for GI bleed I have personally spent 55 minutes of critical care time in the direct management of this patient. This is a life/limb threatening event. This includes time spent evaluating patient, direct bedside care, chart review, placing orders, interpretation of diagnostic studies, discussion with consultants, pat ient, and family members, as well as other required patient management activities. This time is exclusive of all separately billable procedures, and teaching time and separate from and in addition to any other critical care service time. Thank you for allowing us to participate in the care of this patient. Please refer to my attending physician's documentation for any further recommendations. (2) Acute blood loss anemia: (3) Cardiomyopathy: (4) Anastomotic ulcer: (5) Hypothyroidism: (6) Respiratory failure with hypoxia: (7) Depression: Admission and Anticipated Discharge Date Admission Date: September 14, 2022 Subjective Patient was initially seen by the critical care team on 09/14. Patient is a 72-year-old female with past medical history significant for congestive heart failure with reduced EF, hypothyroidism, gastric ulcer (s/p repair 2 years ago), HTN who initially presented with lightheadedness and low blood pressure with melena due to upper GI bleed. Since then patient has underwent EGD on 09/14 which showed large anastomotic ulcer with adherent clot that was removed, and bipolar cautery applied to the ulcer base. Patient had bleeding again on 09/17 in which she had Hemospray applied. Unfortunately, patient has continued to have bleeding on 09/20 and underwent additional EGD today. Following EGD there was concern for microperforation and NG tube was placed and patient was started on Zosyn. She was left intubated and admitted to the ICU, and has been accepted to [facility] by Dr. Sifuentes of GI service. Patient now undergoing treatment in the ICU here at [facility] due to delay and transfer and ICU team was reconsulted to manage the patient. At this time the patient is intubated, sedated, but hemodynamically stable without need for vasopressors. She did only have a 22- gauge ultrasound-guided peripheral IV on arrival to the ICU and a right femoral central line was emergently inserted. Patient is receiving additional unit of RBCs and repeat labs are currently pending. Plan to continue with management in ICU pending transfer to tertiary center. Review of Systems Review of Systems: Unobtainable due to cognitive status and Unobtainable due to endotracheal tube Physical Exam Constitutional: + obese and + mechanically ventilated Eyes: PERRL, conjunctivae normal, anicteric sclerae ENMT: external ear and nose normal, oropharynx normal Neck: trachea midline, no thyromegaly Respiratory: Lungs with crackles auscultated bilaterally in all lung coyle. Diminished lung sounds in the left lower base. Symmetrical chest wall movement. Mechanically ventilated with ET tube at 22 cm at the teeth. Cardiovascular: Heart Sounds: + murmur Vessels: no JVD Extremities: normal capillary refill; no edema Gastrointestinal (Abdomen): normal bowel sounds, soft, nontender, no hepatosplenomegaly Skin: no rashes, warm and dry Neurologic: Sedated, PERRLA Psychiatric: Unable to assess Genitourinary: Indwelling Yousif catheter, yellow clear urine in line Results & Data Results & Data Vital Signs (Past 12 Hours) Vital Signs Temp Pulse Pulse Pulse Resp BP BP 09/22/22 19:10 113 H 21 09/22/22 16:00 97 H 09/22/22 15:20 36.8 C 88 20 09/22/22 12:17 87 20 104/59 L 09/22/22 11:12 36.8 C 75 19 126/55 L 09/22/22 11:04 36.8 C 85 19 123/80 09/22/22 10:35 36.9 C 75 14 126/55 L 09/22/22 09:35 36.8 C 79 20 116/63 09/22/22 09:05 36.9 C 76 21 104/70 09/22/22 08:50 36.9 C 74 18 108/75 09/22/22 08:33 36.9 C 91 H 18 104/65 BP Pulse Ox O2 Del Method O2 Flow Rate FiO2 09/22/22 19:10 99 40 09/22/22 16:00 09/22/22 15:20 125/52 L 92 Room Air 09/22/22 12:17 94 Room Air 09/22/22 11:12 99 1 09/22/22 11:04 99 Room Air 09/22/22 10:35 100 1 09/22/22 09:35 100 1 09/22/22 09:05 100 1 09/22/22 08:50 100 1 09/22/22 08:33 95 2 Coding Diagnoses Acute upper gastrointestinal bleeding K92.2 Acute blood loss anemia D62 Cardiomyopathy I42.9 Anastomotic ulcer K28.9 Hypothyroidism E03.9 Respiratory failure with hypoxia J96.91 Depression F32.A
[2022-09-22 21:24] LABS: iSTAT Allen Test Pass; iSTAT Art Bld Gas pCO2 Correct 41 mmHg (35-46); iSTAT Art Bld Gas pH Corrected 7.416 (7.35-7.45); iSTAT Arterial Blood Gas HCO3 26 meg/L (19-24); iSTAT Arterial Blood Gas pCO2 41 mmHg (35-46); iSTAT Arterial Blood Gas pH 7.42 (7.35-7.45); iSTAT Arterial Blood Gas pO2 96 mmHg (80-95); iSTAT Arterial Blood Gas pO2 C 97; iSTAT Carbon Dioxide 27 mmol/L (24-31); iSTAT FiO2 40 %; iSTAT Hematocrit 29 % (37-47); iSTAT Hemoglobin 9.9 g/dl (12.0-16.0); iSTAT Potassium 3.8 mmol/L (3.3-5.0); iSTAT Site L Radial; iSTAT Sodium 138 mmol/L (135-144)
[2022-09-22] MEDS ORDERED: STAT IV STA (21:32)
[2022-09-22] MEDS ORDERED: OCTREOTIDE ACETATE 50 MCG in SYRINGE 9.5 ML IV ONE (21:44)
[2022-09-22] MEDS ORDERED: OCTREOTIDE ACETATE 500 MCG in DEXTROSE 5% 100 ML IV SCH (21:45)
[2022-09-23] MEDS ORDERED: PIPERACILLIN/TAZOBACTAM 4.5 GM in DEXTROSE 5% 100 ML IV SCH
--- NOTE | 2022-09-23 07:45 | XRay Report ---
XR chest 1V portable CLINICAL HISTORY: check NGT placement TECHNIQUE: Single frontal radiograph of the chest was obtained. Comparison: Comparison is made to chest radiograph 09/22/2022 FINDINGS: Anterior cervical fixation hardware is seen. Endotracheal tube is in satisfactory position, enteric t ube tip in side-port lie below the diaphragm. Cardiomegaly is noted. Administration of left greater t hearn right lower lung airspace opacities. No evidence of pleural effusion or pneumothorax. IMPRESSION: Satisfactory position of enteric tube. Stable bilateral airspace opacities. ACT 112: Negative or not required by law. Electronically signed by: Danny Lyons M.D. 09/23/2022 7:44 AM
== END 2022-09-22 23:20 | disposition short-term general hospital (02) | DRG 377 ==
LOC: ED 07:09 → SUATTDRO 09:31 → 1E 09:31 → 2N 09-15 16:12 → 2E 09-16 04:50 → 1E 09-22 19:04

== ENCOUNTER 2024-06-03 10:05 | Observation (INO) ==
[2024-06-03 10:45] LABS: Basophils # (auto) 0.09 K/uL (0.00-0.20); Basophils % (auto) 1.5 %; Eosinophils # (auto) 0.17 K/uL (0.00-0.50); Eosinophils % (auto) 2.9 %; Hematocrit (blood only) 42.4 % (37.0-47.0); Hemoglobin 14.6 g/dl (12.0-16.0); Immature Granulocytes # (auto) 0.02 K/uL (0.01-0.20); Immature Granulocytes % (auto) 0.3 %; Lymphocytes # (auto) 2.22 K/uL (1.20-3.40); Lymphocytes % (auto) 37.4 %; Mean Corpuscular Hemoglobin 31.7 pg (25.0-34.0); Mean Corpuscular Hgb Conc 34.4 g/dL (32.0-36.0); Mean Platelet Volume 9.7 fL (9.4-12.4); Monocytes # (auto) 0.42 K/uL (0.11-0.59); Monocytes % (auto) 7.1 %; Neutrophils # (auto) 3.01 K/uL (1.40-6.50); Neutrophils % (auto) 50.8 %; Platelet Count 250 K/uL (130-400); RDW Coefficient of Variation 11.9 % (11.5-14.5); RDW Standard Deviation 40.6 fL (36.4-46.3); Red Blood Count 4.61 M/uL (4.20-5.40); White Blood Count 5.93 K/ul (4.8-10.8)
--- NOTE | 2024-06-03 10:46 | Emergency Department Note ---
Impression & Plan Chest pain, Acute dyspnea ED Provider Note HISTORY OF PRESENT ILLNESS: Patient is a 73-year-old female presenting with chest pain and shortness of breath. Patient reports that she was awoken from a sleep last night at 11:30 PM with left-sided chest pain. States the pain felt like "someone had a cinderblock crushing my chest." States that the pain was so bad she could not move. [place] short of breath. She states that the pain radiated up into her left neck and into her left shoulder. She states that she laid in bed unable to move secondary to the 12 out of 10 chest pain and she thinks "I must of gone away because I think I fell asleep." The next thing she knew, she woke up this morning and was having persistent left-sided chest pain, but she states is not as intense as before. She denies any history of DVT or PE. She denies any history of cardiac stents. She has a pacemaker in place and states that "I had a cardiac arrest secondary to QT prolongation from Zosyn." She reports she took 20 mg of Lasix earlier this morning for her shortness of breath. She called her director hematology office and was referred to the emergency department for further evaluation. She states she has had a 7 pound weight gain in the last week. Denies any fevers or chills. Denies any recent sick contact exposures. ROS: as above PHYSICAL EXAM: Constitutional: Patient appears in no acute distress. HENT: Head: Normocephalic and atraumatic. Eyes: EOMI, PERRL Mouth/Throat: Mucous membranes moist. Neck: Trachea midline. Neck supple. Cardiovascular: RRR, No murmurs, rubs or gallops. Intact distal pulses. Pulmonary/Chest: No respiratory distress. Breath sounds clear and equal bilaterally. No wheezes or rales. Abdominal: Abdomen soft, no tenderness, rebound or guarding. Musculoskeletal: No edema, tenderness or deformity noted. Skin: Warm and dry. No rash, erythema, pallor or cyanosis Psychiatric: Appropriate mood and affect for situation. Neurological: Alert and keenly responsive. CN II-XII grossly intact, moving all extremities equally and fully. MDM: - Vitals signs stable. - History obtained via patient. History as above. - Chronic conditions affecting care: ICD; LBBB; cardiomyopathy; CAD; hypothyroidism; HTN; HLD - Differential diagnoses include, but are not limited to: Acute coronary syndrome; pulmonary embolism; dissection; tension pneumothorax; esophageal rupture; pneumonia - Order placed for continuous cardiac monitoring. At this time, monitor showed rate of 63 bpm with paced rhythm, per my interpretation. - External medical records reviewed. Heart failure clinic note dated 05/11/2024 was reviewed. Patient follows in their clinic for her new onset heart failure in July 2022. - EKG interpreted by myself showed paced rhythm. Rate 62 bpm. QT 484. No acute ischemic changes. - Laboratory workup interpreted by myself showed normal WBC; normal PT/INR; stable electrolytes other than slight hypocalcemia (Ca 8.5); elevated troponin (14.4); elevated BNP (161); normal lipase - CXR negative for pneumonia, per my interpretation - Viral respiratory panel negative - Patient initially given 50 mcg IV fentanyl for pain control. On reassessment, patient reports pain is less intense, but is still present. - Patient's pacemaker was interpreted. I did receive a call from [employer] at 10:58 AM. She reported that the patient has no documented arrhythmias on the pacer. However, the patient has "heavy looking CHF symptoms." Noted to have increased fluid levels over the last few weeks. She also notes that incidentally the patient's LV lead does not seem to be capturing well and they need need to come in to adjust this. - Discussed results with [facility] director hematology on-call, Dr. Mcpherson, at 12:45. He reports that patient has minimal coronary artery disease on a cath in July 2022. He states that it would be up to my discretion in the patient's symptoms on if she needs admitted. - Discussed results with the patient. She is still actively having chest pain, though not as intense as it was earlier. Discussed discharge versus admission. Given that she still having chest pain, will escalate care to admission for further testing and monitoring. - Discussion was had with manager case management about patient's case and need for admission - Hospitalist consulted for admission - Patient admitted to [facility] hospitalist service for further evaluation and management. ASSESSMENT AND PLAN: Diagnosis: Chest pain; acute dyspnea Plan: admit Past Med/Surg History Problem List (Updated 06/03/24 @ 14:11 by Tiffanie Villanueva MD) Acute dyspnea (Acute) Chest pain (Acute) Dysuria Heart failure with improved ejection fraction (HFimpEF) Medical marijuana use Sacral neurostimulator in situ Fracture of left distal radius (Acute ~03/10/24) Acute nondisplaced transverse fracture within the distal metaphysis of the left radius. S/P trigger finger release Trigger finger of all digits of right hand Trigger thumb, right thumb Prolonged QT interval Nonischemic cardiomyopathy Chronic systolic (congestive) heart failure Osteopenia after menopause CAD (coronary artery disease) 1. Mild to moderate nonobstructive coronary artery disease -30-40% focal mid LAD stenosis 30% proximal, mid RCA. 40% focal proximal RPDA History of sudden cardiac arrest September 2022 -> was inpatient at [facility] for a GI Bleed and then was transferred via life flight to [facility]. Torsades morphology prior to vfib. EP following. Avoid QT prolonging medications. Has ICD per [facility] ICD (implantable cardioverter-defibrillator) in place (Acute) placed 10/16/22 in [facility] d/t cardiac arrest in September 2022. (medtronic device) Following with [facility] and [facility] Pacemaker placed at [facility] on 10/16/22 d/t cardiac arrest (medtronic device) Anastomotic ulcer Hepatic steatosis Depression Overactive bladder History of Dianna-en-Y gastric bypass (~08/04/13) History of peptic ulcer disease Pulmonary nodule Urge incontinence of urine Cardiomyopathy LBBB (left bundle branch block) HLD (hyperlipidemia) HTN (hypertension) with goal to be determined Anxiety GERD (gastroesophageal reflux disease) Hypothyroidism Medical History Presence of combination internal cardiac defibrillator (ICD) and pacemaker (10/16/22) Anxiety History of shingles (12/2022) Trigger finger of all digits of right hand Pulmonary nodule Osteopenia after menopause LBBB (left bundle branch block) HLD (hyperlipidemia) HTN (hypertension) Hx-sudden cardiac arrest (09/2022) Hx of peptic ulcer Hepatic steatosis GERD (gastroesophageal reflux disease) Depression Chronic systolic (congestive) heart failure CAD (coronary artery disease) History of pneumonia Wound of right leg (01/19/24) History of seizure Nonischemic cardiomyopathy History of COVID-19 (08/2022) Pulmonary hypertension History of blood transfusion History of coma History of GI bleed Gram-negative pneumonia Surgical History S/P cardiac pacemaker procedure (10/16/22) History of Dianna-en-Y gastric bypass (2013) Hx of bilateral cataract extraction (09/2023) History of bladder surgery History of surgery (01/2023) History of cardiac cath (07/2022) History of esophagogastroduodenoscopy (EGD) History of colonoscopy History of cholecystectomy S/P bladder repair S/P cervical spinal fusion H/O: hysterectomy Status post right knee replacement Family History Father Lung cancer Hypertension Other Diabetes No family history of adverse response to anesthesia Denies family history of Ovarian cancer Breast cancer Colorectal cancer Social History Smoking Status: Never smoker Tobacco Type: Cigarettes Age Quit Using Tobacco: 37; packs per day: 0.5; Second Hand Exposure: No; Do You Dip or Chew Tobacco: No; Hx Alcohol Use: Yes Alcohol type: wine Alcohol type Comment: 1 glass 4-5x/week with dinner Hx Substance Use: No Preferred Language: Samoan Communication Ability: Effective Hearing Ability: Normal Lithography Contact Worker Required: No Beliefs That Will Affect Care: None marital status: / Current Living Situation: Family current occupational status: retired current occupation: retired Feels Safe at Home: Yes Childhood Exposure to Second-Hand Smoke: No Diet: regular caffeine: Yes Physical Activity Frequency: Daily Seatbelt Use: always Assistive Devices: Denture - Upper and Glasses Allergies Allergies Allergy/AdvReac Type Severity Reaction Status Date / Time morphine Allergy Severe Hives Verified 05/11/24 08:51 dexamethasone Allergy Intermediate Hives Verified 05/11/24 08:51 [From Maxitrol (neomycin sulf)] neomycin Allergy Intermediate Hives Verified 05/11/24 08:51 [From Maxitrol (neomycin sulf)] polymyxin B Allergy Intermediate Hives Verified 05/11/24 08:51 [From Maxitrol (neomycin sulf)] piperacillin [From Zosyn] AdvReac Severe prolonged Verified 05/11/24 08:51 QT interval tazobactam [From Zosyn] AdvReac Severe prolonged Verified 05/11/24 08:51 QT interval Home Meds Home Medications Medication Instructions Recorded Confirmed multivitamin 1 tab PO QAM 01/01/23 05/11/24 calcium 600 mg (as carbonate)-vit 1 tab PO HS 04/30/23 05/11/24 D3 20 mcg (800 unit) chewable tablet (Caltrate plus D) spironolactone 25 mg tablet 25 mg PO HS 09/04/23 05/11/24 (Aldactone) biotin 5 mg capsule 5 mg PO .COMPLEX 03/30/24 05/11/24 mecobalamin (vitamin B12) 5,000 5,000 mcg PO .COMPLEX 03/30/24 05/11/24 mcg chewable tablet Medical Marijuana See Rx Instructions .Route .COMPLEX 05/11/24 05/11/24 pantoprazole 20 mg tablet,delayed 40 mg PO QPM 05/11/24 05/11/24 release (Protonix) Previous Rx's Medication Instructions Recorded empagliflozin 10 mg tablet 10 mg PO HS #90 tabs 08/30/23 (Jardiance) sacubitril 97 mg-valsartan 103 mg 1 tab PO BID #180 tabs 02/05/24 tablet (Entresto) levothyroxine 25 mcg tablet 25 mcg PO DAILY #90 tabs 03/30/24 furosemide 40 mg tablet (Lasix) 40 mg PO DAILY PRN weight gain, 05/29/24 edema, SOB. #30 tabs Results & Data (ED) Vital Signs Vital Signs - 24 hr 06/03/24 10:09 06/03/24 10:21 06/03/24 10:24 Temperature 36.9 C Temperature Source Temporal Artery Scan Pulse Rate 72 65 64 Pulse Rate from SpO2 Sensor Pulse Rhythm Regular Respiratory Rate 18 19 Respiratory Effort / Characteristics Non-Labored Spontaneous Respiratory Depth Normal Blood Pressure 102/62 Blood Pressure Mean 75 Blood Pressure Position Sitting Pulse Oximetry 95 94 Oxygen Delivery Method Room Air Room Air Sepsis Recent Fever Within 48 Hours No Sepsis New/Unexplained Change in Mental Status No Sepsis Action Taken by Nursing No Action Required 06/03/24 12:30 Temperature Temperature Source Pulse Rate 57 L Pulse Rate from SpO2 Sensor 56 L Pulse Rhythm Respiratory Rate 16 Respiratory Effort / Characteristics Respiratory Depth Blood Pressure 97/53 L Blood Pressure Mean 67 Blood Pressure Position Pulse Oximetry 98 Oxygen Delivery Method Sepsis Recent Fever Within 48 Hours Sepsis New/Unexplained Change in Mental Status Sepsis Action Taken by Nursing Laboratory Data 06/03/24 10:19 06/03/24 10:19 Lab Results 06/03/24 06/03/24 Range/Units 10:19 10:25 WBC 5.93 (4.8-10.8) K/ul RBC 4.61 (4.20-5.40) M/uL Hgb 14.6 (12.0-16.0) g/dl Hct 42.4 (37.0-47.0) % MCV 92.0 (80.0-100.0) fL MCH 31.7 (25.0-34.0) pg MCHC 34.4 (32.0-36.0) g/dL RDW Std Deviation 40.6 (36.4-46.3) fL RDW Coeff of Delfino 11.9 (11.5-14.5) % Plt Count 250 (130-400) K/uL MPV 9.7 (9.4-12.4) fL Immature Gran % (Auto) 0.3 % Neut % (Auto) 50.8 % Lymph % (Auto) 37.4 % [place] % (Auto) 7.1 % Eos % (Auto) 2.9 % Baso % (Auto) 1.5 % Neut # (Auto) 3.01 (1.40-6.50) K/uL Lymph # (Auto) 2.22 (1.20-3.40) K/uL [place] # (Auto) 0.42 (0.11-0.59) K/uL Eos # (Auto) 0.17 (0.00-0.50) K/uL Baso # (Auto) 0.09 (0.00-0.20) K/uL Immature Gran # (Auto) 0.02 (0.01-0.20) K/uL PT 10.6 (9.0-12.0) Seconds INR 1.0 (0.9-1.1) Sodium 138 (136-145) mmol/L Potassium 3.7 (3.5-5.1) mmol/L Chloride 103 (98-107) mmol/L Carbon Dioxide 28 (21-32) mmol/L Anion Gap 7 (3-11) BUN 14 (6-23) mg/dl Creatinine 0.83 (0.6-1.2) mg/dl Est Cr Clr Drug Dosing 53.7 ml/min eGFR 75.32 BUN/Creatinine Ratio 16.9 (10-20) Glucose 112 H (70-99(Fasting)) mg/dl Calcium 8.5 L (8.6-10.3) mg/dl Total Bilirubin 0.8 (0.2-1.0) mg/dl AST 18 (13-39) U/L ALT 11 (7-52) U/L Alkaline Phosphatase 83 (34-104) U/L Troponin I High Sens 14.4 H (0-14) pg/ml B-Natriuretic Peptide 161 H (0-100) pg/ml Total Protein 6.8 (6.0-8.3) gm/dl Albumin 4.2 (3.4-5.0) gm/dl Globulin 2.6 (2.5-4.0) gm/dl Albumin/Globulin Ratio 1.6 (0.9-2) Lipase 11 (11-82) U/L Adenovirus (PCR) Not Detected (NotDetected) B. pertussis DNA (PCR) Not Detected (NotDetected) B.parapertussis DNA PCR Not Detected (NotDetected) C. pneumoniae DNA (PCR) Not Detected (NotDetected) Coronavirus OC43 (PCR) Not Detected (NotDetected) Coronavirus HKU1 (PCR) Not Detected (NotDetected) Coronavirus 229E (PCR) Not Detected (NotDetected) SARS-CoV-2 (PCR) Not Detected (NotDetected) Coronavirus NL63 (PCR) Not Detected (NotDetected) Human Metapneumovir PCR Not Detected (NotDetected) Influenza Type A (PCR) Not Detected (NotDetected) Influenza Type B (PCR) Not Detected (NotDetected) M. pneumoniae (PCR) Not Detected (NotDetected) Parainfluenza 1 (PCR) Not Detected (NotDetected) Parainfluenza 2 (PCR) Not Detected (NotDetected) Parainfluenza 3 (PCR) Not Detected (NotDetected) Parainfluenza 4 (PCR) Not Detected (NotDetected) RSV (PCR) Not Detected (NotDetected) Entero/Rhino (PCR) Not Detected (NotDetected) Administered Medications Discontinued Medications Fentanyl Citrate (Fentanyl Citrate Pf 100 Mcg/2 Ml Vial) 50 mcg IV NOW STA Stop: 06/03/24 10:42 Last Admin: 06/03/24 11:14 Dose: 50 mcg Documented By: [facility] Imaging Data Radiologist's Impression: Chest X-Ray 06/03/24 10:20 XR chest 1V portable CLINICAL HISTORY: Chest pain, nonspecific COMPARISON STUDY: Chest radiograph January 04, 2023. Chest CT August 21, 2023. FINDINGS: There are postoperative findings within the spine. There are surgical clips within the neck. Left pacer/AICD is in place. Cardiomediastinal silhouette is stable. There is no evidence for pulmonary edema. No consolidation is present. There is no pneumothorax or pleural effusion. IMPRESSION: No acute cardiopulmonary findings. No change in appearance of the chest. ACT 112: Negative or not required by law. Electronically signed by: Meliton Dubon M.D. 06/03/2024 10:44 AM Discharge Plan Visit Data Chief Complaint: Chest Pain Stated Complaint: CHEST PAIN ED Provider: Tiffanie Villanueva Discharge Problem: Chest pain, Acute dyspnea Forms Stand Alone Forms: [facility] GoingOn Prescriptions Prescriptions: No Action Jardiance 10 mg tablet 10 mg PO HS Qty: 90 3RF Entresto 97-103 mg tablet 1 tab PO BID Qty: 180 3RF furosemide [Lasix] 40 mg tablet 40 mg PO DAILY PRN (Reason: weight gain, edema, SOB.) Qty: 30 2RF Caltrate 600 plus D 600 mg-20 mcg (800 unit) tablet,chewable 1 tab PO HS mecobalamin (vitamin B12) 5,000 mcg tablet,chewable 5,000 mcg PO .COMPLEX Rx Instructions: 5,000 mcg orally 2x weekly; levothyroxine 25 mcg tablet 25 mcg PO DAILY Qty: 90 3RF Medical Marijuana See Rx Instructions .ROUTE .COMPLEX Rx Instructions: use as directed; multivitamin Tablet 1 tab PO QAM biotin 5 mg capsule 5 mg PO .COMPLEX Rx Instructions: 5 mg orally 2x weekly; spironolactone [Aldactone] 25 mg tablet 25 mg PO HS pantoprazole [Protonix] 20 mg tablet,delayed release (DR/EC) 40 mg PO QPM Referrals Referrals: Valeria Shaw MD [Primary Care Provider] -
--- NOTE | 2024-06-03 10:46 | XRay Report ---
XR chest 1V portable CLINICAL HISTORY: Chest pain, nonspecific COMPARISON STUDY: Chest radiograph January 04, 2023. Chest CT August 21, 2023. FINDINGS: There are postoperative findings within the spine. There are surgical clips within the neck . Left pacer/AICD is in place. Cardiomediastinal silhouette is stable. There is no evidence for pulmo nary edema. No consolidation is present. There is no pneumothorax or pleural effusion. IMPRESSION: No acute cardiopulmonary findings. No change in appearance of the chest. ACT 112: Negative or not required by law. Electronically signed by: Meliton Dubon M.D. 06/03/2024 10:44 AM
[2024-06-03 10:59] LABS: Albumin Globulin Ratio 1.6 (0.9-2); Albumin Level 4.2 gm/dl (3.4-5.0); BUN Creatinine Ratio 16.9 (10-20); Bilirubin,Total 0.8 mg/dl (0.2-1.0); Calcium 8.5 mg/dl (8.6-10.3); Creatinine Clr Calc Pharmacy 53.7 ml/min; Globulin 2.6 gm/dl (2.5-4.0); Potassium 3.7 mmol/L (3.5-5.1); Total Protein 6.8 gm/dl (6.0-8.3)
[2024-06-03 11:06] LABS: Troponin I High Sensitivity 14.4 pg/ml (0-14)
[2024-06-03] MEDS: fentaNYL citrate PF 100 MCG/2 ML VIAL IV STA (11:14)
[2024-06-03 11:17] LABS: Prothrombin Time 10.6 Seconds (9.0-12.0)
[2024-06-03 11:32] LABS: Adenovirus PCR Not Detected (NotDetected); Bordetella parapertussis PCR Not Detected (NotDetected); Bordetella pertussis PCR Not Detected (NotDetected); Chlamydia pneumoniae PCR Not Detected (NotDetected); Coronavirus 229E PCR Not Detected (NotDetected); Coronavirus CoV-2 (COVID19)PCR Not Detected (NotDetected); Coronavirus HKU1 PCR Not Detected (NotDetected); Coronavirus NL63 PCR Not Detected (NotDetected); Coronavirus OC43PCR Not Detected (NotDetected); Human Metapneumovirus PCR Not Detected (NotDetected); Influenza A PCR Not Detected (NotDetected); Influenza B PCR Not Detected (NotDetected); Mycoplasma pneumoniae PCR Not Detected (NotDetected); Parainfluenza Virus 1 PCR Not Detected (NotDetected); Parainfluenza Virus 2 PCR Not Detected (NotDetected); Parainfluenza Virus 3 PCR Not Detected (NotDetected); Parainfluenza Virus 4 PCR Not Detected (NotDetected); Respiratory Syncytial VirusPCR Not Detected (NotDetected); Rhinovirus/Enterovirus PCR Not Detected (NotDetected)
--- NOTE | 2024-06-03 11:57 | Electrocardiogram Report ---
Test Reason : Blood Pressure : */* mmHG Vent. Rate : 62 BPM Atrial Rate : 62 BPM P-R Int : 142 ms QRS Dur : 178 ms QT Int : 484 ms P-R-T Axes : 48 -26 151 degrees QTcB Int : 491 ms Atrial-sensed ventricular-paced rhythm Abnormal ECG When compared with ECG of 04-Jan-2023 13:26, Vent. rate has decreased by 27 bpm Confirmed by Spencer Mcpherson ([id number]) on 06/03/2024 11:57:19 AM Referred By: Confirmed By: Spencer Mcpherson
--- NOTE | 2024-06-03 14:15 | History & Physical Report ---
Date of Service June 03, 2024 Assessment & Plan (1) Chest pain: Plan: Maru is a 73-year-old female with past medical history of torsades s/p ICD placement, HFrEF with subsequent normalization on repeat echo with a nonischemic catheterization 2022, history of Ida-en-Y bypass with GERD and past history of GI bleeding who presents with severe pressure-like chest pain and is recommended for cardiac evaluation. Chest pain 11:30 PM, 12/10 which faded to a 7/10 and allowed her to sleep but persistent 57/10 through the morning. No shortness of breath or diaphoresis. Despite relatively constant pain she has a minimally elevated troponin at 14.4. She reports she does not have shortness of breath at time of assessment. She reports she was recently swimming with dolphins on vacation and walking around vigorously without any limiting shortness of breath or dyspnea, but did have some weight gain after returning which resolved with Lasix Repeat ordered at time of hospitalist consultation EKG paced Discussed with cardiology. Agree low overall suspicion for cardiac given many hours of pain and minimally elevated troponin. Suspect? GI Was reported to have CHF however she is not hypoxic, has a minimally elevated BNP, no lower extremity edema on exam and lungs are clear to auscultation. She did have some weight gain which improved resuming her home Lasix and which she feels has resolved and she is within 2 pounds of her dry weight currently Will continue oral Lasix x 1 tomorrow and reassess Does have a history of GERD and Ida-en-Y bypass. DDx includes esophageal spasm/GERD. Treated as otherwise noted History of Ida-en-Y bypass, anastomotic ulcer PPI twice daily, GI cocktail as noted No hematochezia, no melena No BUN elevation to suggest upper GI bleed History of torsades, cardiac arrest S/p ICD placement Patient has been recommended to avoid beta-blockers by [facility] cardiology. Avoid all QT prolonging medications ICD interrogation suggestive of some CHF changes otherwise no arrhythmia. Of note did discuss with cardiology, 1-lead was reported as not functioning properly however she recently had a polarity adjustment with cardiology and on review feel that this is functioning properly and both not abnormal and unlikely to be related to her symptoms. History of nonischemic cardiomyopathy with subsequent EF normalization Entresto, spironolactone, Jardiance continued. Patient has been counseled not to take or have beta-honorio ordered, see cardiology notes Has a minimally elevated BNP and has had some shortness of breath but overall is not clinically volume overloaded on assessment. She does not have JVD, lower extremity edema, or crackles/rales. DVT prophylaxis: SCDs Disposition: M/T CODE STATUS: Full code Diet: Low-salt. (2) Heart failure with improved ejection fraction (HFimpEF): (3) ICD (implantable cardioverter-defibrillator) in place: (4) Anastomotic ulcer: (5) Pacemaker: History of Present Illness Primary Care Provider: Valeria Shaw MD 73-year-old female with a history of left bundle branch block, HFrEF, CAD, ICD who had midsternal chest pain extending her left jaw and left neck last night very severe which improved after approximately an hour. Called her snuff container inspector this morning who referred her to the ER. She does have a history of NYHA class II3 heart failure with a EF 15-20% which is subsequently improved to 60-65% on reassessment. Patient is not on a beta- honorio at the recommendation of [facility]. She does have a history of torsades cardiac arrest 10/2022 at [facility]. Was recommended to avoid all QT prolonging medications and was not recommended to be on a beta-honorio as a result of this. Dry weight around 135 pounds. EKG: Atrial sensed ventricular paced. Endorses dysnpea, restarted home lasix this morning. Pacemaker interrogation: CHF changes/increased fluid level and poor lead capture. Discussed w/ DR. Mcpherson by ER. Pt has ongoing chest pain, clean caths july 2022. "Woke me up at 1130 las tnight, was short of breath and in pain, an dlike someone put a cinderblock on my chest". After about an hour pain gradually improved and she fell asleep. Was 12/10, and then faded to an 7/10. Upon awakening was still ~6-7/10 and currently is ~5/10 and tolerable. "Its there it just feels weird" NO diaphoresis 2 weeks ago was 'swimming with dolphins and walking all over [place]' with no chest pain or limiting dyspnea. Had had a little more salt on vacation, but hadnt needed lasix in over a year Is 7lbs up from her normal weight, took lasix x for a week, and went down 7. Took 20mg this morning as was again 2lbs up. Does hav ea hx of ida-en-y bypass on PPI chronically. Total of 5 GI bleeds in the past. No recent bloody or black BMs. DId have a stomachache after eating a little too much this past Saturday, normally does OK with a regular diet. "I don't do any of this low fat low choelstrol stuff." O2 99% on room air, no inspiratory pain, HR 70s at bedside. Meds: - Ambien at night if she cannot use MM gummies. - Took meds this morning including entresto, sythroid, jardiance, spironolocation. NO BETA BLOCKERS. Medical History: Reviewed Medications: Reviewed Surgical History: Reviewed Family history: Reviewed Allergies: Reviewed Social History: Reviewed Code Status: Full Allergies Allergy/AdvReac Type Severity Reaction Status Date / Time morphine Allergy Severe Hives Verified 05/11/24 08:51 dexamethasone Allergy Intermediate Hives Verified 05/11/24 08:51 [From Maxitrol (neomycin sulf)] neomycin Allergy Intermediate Hives Verified 05/11/24 08:51 [From Maxitrol (neomycin sulf)] polymyxin B Allergy Intermediate Hives Verified 05/11/24 08:51 [From Maxitrol (neomycin sulf)] piperacillin [From Zosyn] AdvReac Severe prolonged Verified 05/11/24 08:51 QT interval tazobactam [From Zosyn] AdvReac Severe prolonged Verified 05/11/24 08:51 QT interval Home Medications Medication Instructions Recorded Confirmed Type multivitamin 1 tab PO QAM 01/01/23 06/03/24 History calcium 600 mg (as carbonate)-vit 1 tab PO HS 04/30/23 06/03/24 History D3 20 mcg (800 unit) chewable tablet (Caltrate plus D) empagliflozin 10 mg tablet 10 mg PO HS #90 tabs 08/30/23 06/03/24 Rx (Jardiance) spironolactone 25 mg tablet 25 mg PO HS 09/04/23 06/03/24 History (Aldactone) sacubitril 97 mg-valsartan 103 mg 1 tab PO BID #180 tabs 02/05/24 06/03/24 Rx tablet (Entresto) biotin 5 mg capsule 5 mg PO .COMPLEX 03/30/24 06/03/24 History levothyroxine 25 mcg tablet 25 mcg PO DAILY #90 tabs 03/30/24 06/03/24 Rx mecobalamin (vitamin B12) 5,000 5,000 mcg PO .COMPLEX 03/30/24 06/03/24 History mcg chewable tablet Medical Marijuana See Rx Instructions .Route .COMPLEX 05/11/24 06/03/24 History pantoprazole 20 mg tablet,delayed 40 mg PO QPM 05/11/24 06/03/24 History release (Protonix) furosemide 40 mg tablet (Lasix) 40 mg PO DAILY PRN weight gain, 05/29/24 06/03/24 Rx edema, SOB. #30 tabs Past Med/Surg History Problem List (Updated 06/03/24 @ 14:11 by Tiffanie Villanueva MD) Acute dyspnea (Acute) Chest pain (Acute) Dysuria Heart failure with improved ejection fraction (HFimpEF) Medical marijuana use Sacral neurostimulator in situ Fracture of left distal radius (Acute ~03/10/24) Acute nondisplaced transverse fracture within the distal metaphysis of the left radius. S/P trigger finger release Trigger finger of all digits of right hand Trigger thumb, right thumb Prolonged QT interval Nonischemic cardiomyopathy Chronic systolic (congestive) heart failure Osteopenia after menopause CAD (coronary artery disease) 1. Mild to moderate nonobstructive coronary artery disease -30-40% focal mid LAD stenosis 30% proximal, mid RCA. 40% focal proximal RPDA History of sudden cardiac arrest September 2022 -> was inpatient at [facility] for a GI Bleed and then was transferred via life flight to [facility]. Torsades morphology prior to vfib. EP following. Avoid QT prolonging medications. Has ICD per [facility] ICD (implantable cardioverter-defibrillator) in place (Acute) placed 10/16/22 in [facility] d/t cardiac arrest in September 2022. (medtronic device) Following with [facility] and [facility] cardiology Pacemaker placed at [facility] on 10/16/22 d/t cardiac arrest (medtronic device) Anastomotic ulcer Hepatic steatosis Depression Overactive bladder History of Ida-en-Y gastric bypass (~08/04/13) History of peptic ulcer disease Pulmonary nodule Urge incontinence of urine Cardiomyopathy LBBB (left bundle branch block) HLD (hyperlipidemia) HTN (hypertension) with goal to be determined Anxiety GERD (gastroesophageal reflux disease) Hypothyroidism Medical History Presence of combination internal cardiac defibrillator (ICD) and pacemaker (10/16/22) Anxiety History of shingles (12/2022) Trigger finger of all digits of right hand Pulmonary nodule Osteopenia after menopause LBBB (left bundle branch block) HLD (hyperlipidemia) HTN (hypertension) Hx-sudden cardiac arrest (09/2022) Hx of peptic ulcer Hepatic steatosis GERD (gastroesophageal reflux disease) Depression Chronic systolic (congestive) heart failure CAD (coronary artery disease) History of pneumonia Wound of right leg (01/19/24) History of seizure Nonischemic cardiomyopathy History of COVID-19 (08/2022) Pulmonary hypertension History of blood transfusion History of coma History of GI bleed Gram-negative pneumonia Surgical History S/P cardiac pacemaker procedure (10/16/22) History of Ida-en-Y gastric bypass (2013) Hx of bilateral cataract extraction (09/2023) History of bladder surgery History of surgery (01/2023) History of cardiac cath (07/2022) History of esophagogastroduodenoscopy (EGD) History of colonoscopy History of cholecystectomy S/P bladder repair S/P cervical spinal fusion H/O: hysterectomy Status post right knee replacement Family History Father Lung cancer Hypertension Other Diabetes No family history of adverse response to anesthesia Denies family history of Ovarian cancer Breast cancer Colorectal cancer Social History Smoking Status: Never smoker Tobacco Type: Cigarettes Age Quit Using Tobacco: 37; packs per day: 0.5; Second Hand Exposure: No; Do You Dip or Chew Tobacco: No; Hx Alcohol Use: Yes Alcohol type: wine Alcohol type Comment: 1 glass 4-5x/week with dinner Hx Substance Use: No Preferred Language: Guatemalan Communication Ability: Effective Hearing Ability: Normal Hardboard Grinder Required: No Beliefs That Will Affect Care: None marital status: / Current Living Situation: Family current occupational status: retired current occupation: retired Feels Safe at Home: Yes Childhood Exposure to Second-Hand Smoke: No Diet: regular caffeine: Yes Physical Activity Frequency: Daily Seatbelt Use: always Assistive Devices: Denture - Upper and Glasses Physical Exam Physical Exam: General: A&Ox3. NAD. Cooperative. HEENT: Atraumatic, normocephalic. Vision/hearing inta Pulm: CTAB A&P. -wheezes, -rales, -rhonchi. Symmetrical chest rise. No increased work of breathing. No respiratory distress. Cardiac: RRR, +sm. Radial pulses intact and symmetrical. No JVD Abdominal: Nontender, nondistended, soft. BS present. No LE edema Results & Data Results & Data Vital Signs (Past 12 Hours) Vital Signs Temp Pulse Resp BP Pulse Ox O2 Del Method 06/03/24 12:30 57 L 16 97/53 L 98 06/03/24 10:24 64 06/03/24 10:21 65 19 94 Room Air 06/03/24 10:09 36.9 C 72 18 102/62 95 Room Air PG Care Time/CCT Total # of Minutes Spent Total Time Spent with Patient: Total time spent is greater than 50% in coordination of care (as documented) at patient's floor/unit and/or counseling patient: Coding Level of Care Code 85937 INT INP/OBS CARE 3/75MIN Diagnoses Chest pain R07.9 Heart failure with improved ejection fraction (HFimpEF) I50.32 ICD (implantable cardioverter-defibrillator) in place Z95.810 Anastomotic ulcer K28.9 Pacemaker Z95.0
[2024-06-03] MEDS: PANTOprazole 40 MG/10 ML SYR IV ONE (14:34)
[2024-06-03] MEDS: ALUMINUM/MAGNESIUM SUSP 30 ML UDC PO STA (14:34)
[2024-06-03] MEDS: FAMOTIDINE 20MG IV PUSH 20 MG/5 ML SYR IV STA (14:50)
[2024-06-03] MEDS ORDERED: ALUMINUM/MAGNESIUM SUSP 30 ML UDC PO PRN (15:52)
[2024-06-03 17:45] LABS: Appearance Urine Clear (Clear); Bacteria Urine Automated 4+ (None Seen); Bilirubin Urine Negative (Negative); Blood Urine Negative (Negative); Cast Urine Automated 0-2 /lpf (0-2); Color Urine Yellow; Glucose Urine UA Negative (Negative); Ketones Urine Trace (Negative); Leukocyte Esterase Urine 1+ (Negative); Nitrite Urine Positive (Negative); Protein Urine Negative (Negative); RBC Urine Automated 0-2 /hpf (0-2); Urobilinogen Urine Positive (Negative)
[2024-06-03] MEDS: PANTOprazole 40 MG TAB PO SCH (20:15)
[2024-06-03] MEDS: VALSARTAN/SACUBITRIL 103/97MG TAB PO SCH (20:15)
[2024-06-03] MEDS: SPIRONOLACTONE 25 MG TAB PO SCH (20:16)
[2024-06-03] MEDS: EMPAGLIFLOZIN 10 MG TAB PO SCH (20:16)
[2024-06-03] MEDS: ZOLPIDEM TARTRATE 5 MG TAB PO STA (21:39)
[2024-06-04] MEDS: LEVOTHYROXINE SODIUM 25 MCG TABLET PO SCH (01:17)
[2024-06-04] MEDS: ACETAMINOPHEN 325 MG TAB PO PRN (06:05)
[2024-06-04] MEDS ORDERED: LEVOTHYROXINE SODIUM 25 MCG TABLET PO SCH (06:30)
[2024-06-04 07:31] VITALS: RESP 18; TEMP 98.2
[2024-06-04 07:50] VITALS: O2SAT 93
[2024-06-04] MEDS: FUROSEMIDE 20 MG TAB PO SCH (07:58)
[2024-06-04 07:59] VITALS: BP 106/56
--- NOTE | 2024-06-04 09:49 | Electrocardiogram Report ---
Test Reason : Blood Pressure : */* mmHG Vent. Rate : 60 BPM Atrial Rate : 60 BPM P-R Int : 146 ms QRS Dur : 172 ms QT Int : 514 ms P-R-T Axes : 61 -22 124 degrees QTcB Int : 514 ms Atrial-sensed ventricular-paced rhythm Abnormal ECG When compared with ECG of 03-Jun-2024 10:16, Vent. rate has decreased by 2 bpm Confirmed by Spencer Mcpherson ([id number]) on 06/04/2024 9:48:54 AM Referred By: REFERRED SELF Confirmed By: Spencer Mcpherson
[2024-06-04] MEDS: OPTIRAY 320 125ml IV ONE (10:34)
--- NOTE | 2024-06-04 11:29 | CT Scan Report ---
CT angio chest PE protocol CT DOSE: 360.35 mGy.cm HISTORY: recent travel, chest pain; r/o PE. TECHNIQUE: Multiple CTA images of the chest were obtained after the intravenous administration of 112 ml Optiray. Coronal and sagittal MIPS were obtained from the axial data set and were submitted for review. All measurements were obtained according to NASCET criteria. A dose lowering technique was u tilized adhering to the principles of ALARA. COMPARISON STUDY: 08/21/2023 FINDINGS: Stable cardiac pacemaker. There is no pulmonary consolidation or pleural effusion. No pneum othorax. Stable 5 mm nodule lateral left lower lobe series 3 image 63. No interval significant pulmon nafisa nodule seen. There is interval mild thickening of the upper to mid esophagus. Nonenlarged adenopa thy. No pericardial effusion. There are diffuse coronary artery calcifications. No pulmonary embolism seen. No thoracic aortic aneurysm. No acute osseous findings. IMPRESSION: No pulmonary embolism seen. ACT 112: Negative or not required by law. The above report was generated using voice recognition software. It may contain grammatical, syntax o r spelling errors. Electronically signed by: Jorje Lion M.D. 06/04/2024 11:27 AM
[2024-06-04] MEDS: SUCRALFATE 1 GM/10 ML UDC PO SCH (12:49)
[2024-06-04 13:15] LABS: Hematocrit (blood only) 40.4 % (37.0-47.0); Hemoglobin 13.8 g/dl (12.0-16.0)
--- NOTE | 2024-06-04 14:33 | Discharge Summary ---
Discharge Summary Date of Service date of admission - June 03, 2024 date of discharge - June 04, 2024 Principal Dx & Hospital Course #1 = Principal Diagnosis (1) Chest pain: 73yo female with history of torsades s/p ICD placement, HFrEF with subsequent normalization, mild-moderate nonobstructive CAD on cardiac catheterization 2022, history of Ida-en-Y gastric bypass, GERD, and previous GI bleeding due to anastomotic ulcer who presented with severe pressure-like chest pain that lasted for many hours. No associated shortness of breath or diaphoresis. Work-up while here - * peak troponin 15.3 (normal <14) * normal echo * normal EKG * normal telemetry * negative CTA chest for PE, pneumonia, or other pulmonary pathology that would explain her symptoms * pacemaker/ICD interrogation without recent arrhythmia to explain her symptoms CTA Chest showed "interval mild thickening of the upper to mid esophagus." In light of the negative cardiac & pulmonary work-up - and given the esophageal findings on CT - it was felt that her symptoms were due to probable esophagitis or some other esophageal pathology. See #2 below. (2) Esophagitis: CT chest findings highly suggestive of such. Esophagitis would explain her chest symptoms. Alternatively there could be some other esophageal pathology at play as well. Recommended at discharge to INCREASE her protonix to 40mg BID and to take ca rafate 1gm TID before meals x 1 week along with bland diet. [facility] referral made for consideration of outpatient EGD. (3) Heart failure with improved ejection fraction (HFimpEF): Echo this admission with normal EF. She has prior h/o nonischemic cardiomyopathy with subsequent EF normalization. She is treated with Entresto, spironolactone, and Jardiance along with PRN l asix. Patient has been previously counseled not to take or have beta-honorio. BNP was mildly elevated but she was compensated on examination during her brief stay. (4) ICD (implantable cardioverter-defibrillator) in place: Device interrogation completed during the stay & showed normal device function with no recent arrhythmia events nor any recent shocks. (5) Anastomotic ulcer: previous history of such see above discussion re: abnormal esophagus on chest CT (6) E-coli UTI: treated for e.coli UTI earlier in May with 7 day course of macrobid despite Rx she remains symptomatic for UTI broadened her antibiotic to cefdinir 300mg BID x 7 days in light of recurrent UTI consideration towards stopping Jardiance should be discussed - defer to outpatient providers Notes For Next Care Provider [facility] referral made for consideration of EGD Please discuss consideration of stopping Jardiance in light of recurrent UTI Medication Changes From Visit INCREASE protonix to 40mg BID ADDED carafate 1gm TID before meals x 1 week [place] diet advised Admission HPI Per Admitting Provider 73-year-old female with a history of left bundle branch block, HFrEF, CAD, ICD who had midsternal chest pain extending her left jaw and left neck last night very severe which improved after approximately an hour. Called her machine accountant this morning who referred her to the ER. She does have a history of NYHA class II3 heart failure with a EF 15-20% which is subsequently improved to 60-65% on reassessment. Patient is not on a beta- honoiro at the recommendation of [facility] [place]. She does have a history of torsades cardiac arrest 10/2022 at [facility] [place]. Was recommended to avoid all QT prolonging medications and was not recommended to be on a beta-honorio as a result of this. Dry weight around 135 pounds. EKG: Atrial sensed ventricular paced. Endorses dyspnea, restarted home lasix this morning. Pacemaker interrogation: CHF changes/increased fluid level and poor lead capture. Discussed w/ DR. Mcpherson by ER. Pt has ongoing chest pain, clean caths july 2022. "Woke me up at 1130 last night, was short of breath and in pain, and like some one put a cinderblock on my chest". After about an hour pain gradually improved and she fell asleep. Was 12/10, and then faded to an 7/10. Upon awakening was still ~6-7/10 and currently is ~5/10 and tolerable. "Its there it just feels weird" NO diaphoresis 2 weeks ago was 'swimming with dolphins and walking all over [place]' with no chest pain or limiting dyspnea. Had had a little more salt on vacation, but hadnt needed lasix in over a year Is 7lbs up from her normal weight, took lasix for a week, and went down 7. Took 20mg this morning as was again 2lbs up. Does have a hx of ida-en-y bypass on PPI chronically. Total of 5 GI bleeds in the past. No recent bloody or black BMs. Did have a stomach ache after eating a little too much this past Saturday, normally does OK with a regular diet. Discharge Exam gen - NAD, looks well neck - no JVD heart - RRR, s1 s2, no murmur lungs - CTA b/l, no rales, no wheezing abd - soft NT ND BS+ chest - no reproducible chest wall pain/tenderness to palpation ext - no edema, pulses 2+ b/l Discharge Plan Discharge Items Patient Disposition: Home - Self-Care Reason For Visit: CHEST PAIN Discharge Diagnosis: 1. chest pain - no evidence of heart attack, blood clots of the lungs, pneumonia. Chest pain likely due to esophagitis. 2. likely esophagitis - as seen on CT scan of the lungs. 3. history of gastric bypass. 4. history of gastrointestinal bleeding due to ulcer. 5. e.coli urinary tract infection (UTI). Activity: Resume your previous activity Non-emergency contact: Primary Care Provider and [employer] Supervisor Call non-emergency contact if: you have any medication questions and your symptoms worsen Follow-up/Referrals: Zachary Concepcion DO [Physician] - (first available appointment. Diagnosis - esophagitis as seen on CT scan. The office will call you within the next few days. If you do not hear from them, please call their office.) Valeria Shaw MD [Primary Care Provider] - (Please call your primary care provider to schedule a hospital discharge follow-up appointment within 7-10 days ) Diet: Regular Addtl Attending Provider Instructions: Ms Plaza, You were hospitalized after having had severe chest pain. Testing for the heart returned negative. We did not find any heart attack. Your pacemaker/defibrillator was checked and we did not see any abnormal heart rhythms. Echocardiogram was normal. Telemetry heart monitoring was normal. Your CT scan of the lungs did NOT show blood clots, pneumonia, or large tumor (there is a tiny nodule in the lungs that is chronic/old and unchanged). The CT scan did show inflammation of your esophagus. This suggests you probably have esophagitis. See handout. I suspect that the esophagitis is the cause of your presenting chest pain. In addition, urine culture is growing e.coli. Thus, it appears you still have a urinary tract infection. Recommendations - 1. INCREASE pantoprazole to 40mg twice daily. 2. TAKE carafate (sucralfate) 1000mg three times daily for 7 days. Take 30 minutes before each meal. 3. BLAND diet (see handout). Avoid excessively hot or excessively cold beverages. Avoid excessive caffeine intake. Avoid spicy foods/fried foods. Do not lay down to sleep or take a nap immediately following meals (wait at least 60 minutes). 4. See [facility] - referral to be made. They likely will recommend an upper endoscopy ("EGD"). 5. Avoid alcohol. 6. Avoid all anti-inflammatory medicine (motrin, aspirin, ibuprofen, naprosyn, etc). 7. For urinary infection - start this today - cefdinir 300mg twice daily x 7 days. If your urine culture shows we need to change your antibiotic we will contact you. Follow-up - see separate section Return to [facility] if - * you have worsening chest pain * you have worsening abdominal pain * you have difficulty swallowing that is severe * you vomit black material or blood * you see dark/black/tarry material in your stool * any other concerns It was our pleasure to care for you! -Dr Walton Pending Studies at Discharge: No Stand-Alone Forms: My [facility], Smoking Cessation Medications and DC Order Prescriptions: New sucralfate [Carafate] 1 gram tablet 1 g PO AC 7 Days Qty: 21 0RF Rx Instructions: take 30 minutes before meals pantoprazole 40 mg Tablet,Delayed Release (Dr/Ec) 40 mg PO BID Qty: 60 2RF cefdinir 300 mg capsule 300 mg PO BID 7 Days Qty: 14 0RF Continued Jardiance 10 mg tablet 10 mg PO HS Qty: 90 3RF Entresto 97-103 mg tablet 1 tab PO BID Qty: 180 3RF furosemide [Lasix] 40 mg tablet 40 mg PO DAILY PRN (Reason: weight gain, edema, SOB.) Qty: 30 2RF Caltrate 600 plus D 600 mg-20 mcg (800 unit) tablet,chewable 1 tab PO HS mecobalamin (vitamin B12) 5,000 mcg tablet,chewable 5,000 mcg PO .COMPLEX Rx Instructions: 5,000 mcg orally 2x weekly; levothyroxine 25 mcg tablet 25 mcg PO DAILY Qty: 90 3RF Medical Marijuana See Rx Instructions .ROUTE .COMPLEX Rx Instructions: use as directed; multivitamin Tablet 1 tab PO QAM biotin 5 mg capsule 5 mg PO .COMPLEX Rx Instructions: 5 mg orally 2x weekly; spironolactone [Aldactone] 25 mg tablet 25 mg PO HS Discontinued pantoprazole [Protonix] 20 mg tablet,delayed release (DR/EC) 40 mg PO QPM Discharge Orders: Discharge Order (Routine); Ordered 06/04/24 Ordered By: Richard Cota/Other Patient Handouts: Esophagitis, Soft [place] Diet Dc Admission Data Admit Date/Time: 06/03/24 14:47 Attending Provider: Richard Walton Admit Provider: Good Rubio Primary Care Provider: Valeria Shaw Other Interventions: Discharge Summary Assessment (RN) Last Done: 06/04/24 15:24 Hospital Stay Data Procedures Performed Echocardiogram - EF 60-65%, normal LV wall motion, mild LVH, mild mitral regurgitation; no change from prior echo. Pacemaker/ICD interrogation - no recent arrhythmia, no shocks Diagnostic Imagining Performed Chest X-Ray 06/03/24 10:20 XR chest 1V portable CLINICAL HISTORY: Chest pain, nonspecific COMPARISON STUDY: Chest radiograph January 04, 2023. Chest CT August 21, 2023. FINDINGS: There are postoperative findings within the spine. There are surgical clips within the neck. Left pacer/AICD is in place. Cardiomediastinal silhouette is stable. There is no evidence for pulmonary edema. No consolidation is present. There is no pneumothorax or pleural effusion. IMPRESSION: No acute cardiopulmonary findings. No change in appearance of the chest. ACT 112: Negative or not required by law. Electronically signed by: Meliton Dubon M.D. 06/03/2024 10:44 AM Chest CTA 06/04/24 09:00 CT angio chest PE protocol CT DOSE: 360.35 mGy.cm HISTORY: recent travel, chest pain; r/o PE. TECHNIQUE: Multiple CTA images of the chest were obtained after the intravenous administration of 112 ml Optiray. Coronal and sagittal MIPS were obtained from the axial data set and were submitted for review. All measurements were obtained according to NASCET criteria. A dose lowering technique was utilized adhering to the principles of ALARA. COMPARISON STUDY: 08/21/2023 FINDINGS: Stable cardiac pacemaker. There is no pulmonary consolidation or pleural effusion. No pneumothorax. Stable 5 mm nodule lateral left lower lobe series 3 image 63. No interval significant pulmonary nodule seen. There is interval mild thickening of the upper to mid esophagus. Nonenlarged adenopathy. No pericardial effusion. There are diffuse coronary artery calcifications. No pulmonary embolism seen. No thoracic aortic aneurysm. No acute osseous findings. IMPRESSION: No pulmonary embolism seen. ACT 112: Negative or not required by law. The above report was generated using voice recognition software. It may contain grammatical, syntax or spelling errors. Electronically signed by: Jorje Lion M.D. 06/04/2024 11:27 AM Pending Results Patient Have Any Pending Studies at Discharge: No Discharge Instructions Given to Patient (Per Discharging Provider) Ms Plaza, You were hospitalized after having had severe chest pain. Testing for the heart returned negative. We did not find any heart attack. Your pacemaker/defibrillator was checked and we did not see any abnormal heart rhythms. Echocardiogram was normal. Telemetry heart monitoring was normal. Your CT scan of the lungs did NOT show blood clots, pneumonia, or large tumor (there is a tiny nodule in the lungs that is chronic/old and unchanged). The CT scan did show inflammation of your esophagus. This suggests you probably have esophagitis. See handout. I suspect that the esophagitis is the cause of your presenting chest pain. In addition, urine culture is growing e.coli. Thus, it appears you still have a urinary tract infection. Recommendations - 1. INCREASE pantoprazole to 40mg twice daily. 2. TAKE carafate (sucralfate) 1000mg three times daily for 7 days. Take 30 minutes before each meal. 3. BLAND diet (see handout). Avoid excessively hot or excessively cold [place] es. Avoid excessive caffeine intake. Avoid spicy foods/fried foods. Do not lay down to sleep or take a nap immediately following meals (wait at least 60 minutes). 4. See [facility] - referral to be made. They likely will recommend an upper endoscopy ("EGD"). 5. Avoid alcohol. 6. Avoid all anti-inflammatory medicine (motrin, aspirin, ibuprofen, naprosyn, etc). 7. For urinary infection - start this today - cefdinir 300mg twice daily x 7 days. If your urine culture shows we need to change your antibiotic we will contact you. Follow-up - see separate section Return to [facility] if - * you have worsening chest pain * you have worsening abdominal pain * you have difficulty swallowing that is severe * you vomit black material or blood * you see dark/black/tarry material in your stool * any other concerns It was our pleasure to care for you! -Dr Walton Total Time Total Time Spent Total Time Spent (In Minutes): 45 Coding Level of Care Code 64737 INP/OBS DISCH >30 MIN Diagnoses Chest pain R07.9 Esophagitis K20.90 Heart failure with improved ejection fraction (HFimpEF) I50.32 ICD (implantable cardioverter-defibrillator) in place Z95.810 Anastomotic ulcer K28.9 E-coli UTI N39.0; B96.20
--- NOTE | 2024-06-04 14:36 | XCELERA ---
[id number]
[2024-06-04 16:21] VITALS: PULSE 73
== END 2024-06-04 16:26 | disposition home or self-care (01) | DRG 392 ==
LOC: ED 10:05 → INTOOBSV 14:47 → 2N 14:47 → SUATTDRO 14:47 → 2N 15:29

== ENCOUNTER 2024-12-31 17:56 | Inpatient (IN) ==
[2024-12-31] MEDS: ONDANSETRON INJ 2 MG/ML 2 ML VIAL IV STA (18:19)
[2024-12-31 18:26] LABS: Hematocrit (blood only) 42.3 % (37.0-47.0); Hemoglobin 14.3 g/dl (12.0-16.0); Immature Granulocytes # (auto) 0.01 K/uL (0.01-0.20); Immature Granulocytes % (auto) 0.1 %; Mean Corpuscular Hemoglobin 31.1 pg (25.0-34.0); Mean Corpuscular Volume 92.0 fL (80.0-100.0); Platelet Count 283 K/uL (130-400); RDW Standard Deviation 40.0 fL (36.4-46.3); Red Blood Count 4.60 M/uL (4.20-5.40); White Blood Count 8.39 K/ul (4.8-10.8)
--- NOTE | 2024-12-31 18:42 | Emergency Department Note ---
Impression & Plan Abdominal pain Admission ED Provider Note HPI: History obtained from patient. The patient is a 74-year-old female with history of hypertension, anxiety, GERD, CAD, previous Dianna-en-Y gastric bypass in 2012 in [place], who presents the emergency department with a chief complaint of upper abdominal pain. Patient states that her pain developed about 3 hours prior to arrival to the ER. Patient stated that she had 1 episode of nonbloody emesis. Patient denies any diarrhea. On arrival here to the ED the patient is hemodynamically stable, she otherwise appears to be in no acute distress. ROS: - Per HPI Differential Diagnosis: Acute pancreatitis, acute gastritis, peptic ulcer disease, acute cholecystitis, small bowel obstruction, diverticulitis, acute appendicitis, amongst other potential pathologies. *Outpatient medications and allergy history reviewed. PE: General: Alert HEENT: Normocephalic, trachea midline Eyes: Extraocular eye movement is intact, no scleral erythema Pulmonary: Clear to auscultation bilaterally, no wheezing Cardio: Regular rate and rhythm GI: Abdomen is soft to palpation, moderate epigastric tenderness to palpation without guarding or rigidity : No suprapubic tenderness MSK: No evidence of trauma or malformation of the extremities, no edema Skin: No evidence of rash Neuro: Alert, no focal deficits Psychiatric: Cooperative INDEPENDENT INTERPRETATIONS: bi report developer: (As interpreted by myself): - An order was placed for continuous cardiac monitoring - Patient was noted to be in sinus rhythm with a rate of 62 EKG: (As interpreted by myself): Rate: 83 Rhythm: Sinus rhythm Intervals: QRS 154 ms, QTc 509 ms, otherwise within normal limits ST changes: No ST elevation Time: 1819 Interventions provided in ED: - IV Dilaudid, IV Zofran, IV fluid bolus, IV Protonix bolus and drip Medical Decision Making: IV was established and lab work obtained, patient was placed on cement rubber. Lab work shows no leukocytosis, hemoglobin is normal, platelet count is normal, CMP does not show any evidence of any critical findings. There is no transaminitis, bilirubin is normal, lipase is normal, urinalysis shows no obvious infection. There is no pyuria and leukocyte Estrace is negative, nitrate is positive, will send for culture, patient denies any dysuria. CT imaging of the abdomen and pelvis is suggestive of intussusception in the left lower quadrant without any surrounding edema or extraluminal gas. Otherwise no critical findings are noted. On my reassessment following the above medications the patient states that her pain is improved. General surgery was consulted, patient was assessed at the bedside by the general surgery midlevel provider for the attending general surgeon, Dr. Franc Godwin. The surgery service is in agreement for consultation and the patient will be admitted to the medicine service for further management. Patient does not have an acute abdomen on my exam, therefore I do think this would be a reasonable plan. Patient was in agreement to this plan, she was offered transfer to tertiary care where bariatric surgery is present however the patient declined and preferred admission at this facility for the time being. Patient was in agreement to this plan she was placed for admission in stable condition. Consultants/Discussions held with other healthcare providers: - General Surgery, Dr. Godwin - Hospitalist, Dr. Weiner Disposition discussion held by myself with: - Patient Diagnosis: 1. Abdominal pain, acute 2. Possible intussusception on CT imaging, acute 3. History of gastric bypass/Dianna-en-Y Disposition: Admission Valente Mora DO Emergency Medicine Past Med/Surg History Problem List (Updated 12/31/24 @ 23:41 by Valente Mora DO) Abdominal pain (Acute) Intussusception of small bowel Soft tissue mass Lipoma Palpitation Gastric erythema AICD (automatic cardioverter/defibrillator) present PUD (peptic ulcer disease) Esophagitis E-coli UTI Dysuria Medical marijuana use Sacral neurostimulator in situ Fracture of left distal radius (Acute ~03/10/24) Acute nondisplaced transverse fracture within the distal metaphysis of the left radius. S/P trigger finger release Trigger finger of all digits of right hand Trigger thumb, right thumb Prolonged QT interval Nonischemic cardiomyopathy Chronic systolic (congestive) heart failure Osteopenia after menopause CAD (coronary artery disease) 1. Mild to moderate nonobstructive coronary artery disease -30-40% focal mid LAD stenosis 30% proximal, mid RCA. 40% focal proximal RPDA History of sudden cardiac arrest September 2022 -> was inpatient at [facility] for a GI Bleed and then was transferred via life flight to [facility]. Torsades morphology prior to vfib. EP following. Avoid QT prolonging medications. Has ICD per [facility] clinic Hepatic steatosis Depression Overactive bladder History of Dianna-en-Y gastric bypass (~08/04/13) History of peptic ulcer disease Pulmonary nodule Urge incontinence of urine Cardiomyopathy LBBB (left bundle branch block) HLD (hyperlipidemia) HTN (hypertension) with goal to be determined Anxiety GERD (gastroesophageal reflux disease) Hypothyroidism Medical History Esophagitis Reason for procedure 09/03/24 Hx: UTI (urinary tract infection) EMR 06/09/24 - pt denies any issues at this time History of trigger finger Right Thumb and Right Index Finger - 02/05/24 Chest pain hx - pt denies at this time "They said it was esophagitis" Heart failure with improved ejection fraction (HFimpEF) ICD (implantable cardioverter-defibrillator) in place placed 10/16/22 in [facility] d/t cardiac arrest in September 2022. (medtronic device) Following with [facility] and [facility] Pacemaker placed at [facility] on 10/16/22 d/t cardiac arrest (medtronic device); ICD/pacemaker in place "but pacemaker is turned off currently" Anastomotic ulcer Presence of combination internal cardiac defibrillator (ICD) and pacemaker (10/16/22) placed at [facility] on 10/16/22 d/t cardiac arrest (medtronic device) Anxiety History of shingles (12/2022) left thigh erythematous rash with shingles suspicion per [facility] discharge summary-completed valacyclovir Trigger finger of all digits of right hand Pulmonary nodule Osteopenia after menopause LBBB (left bundle branch block) HLD (hyperlipidemia) hx HTN (hypertension) hx Hx-sudden cardiac arrest (09/2022) September 2022 -> was inpatient at [facility] for a GI Bleed and then was transferred via life flight to [facility]. Torsades morphology prior to vfib. EP following. Avoid QT prolonging medications. Has ICD Hx of peptic ulcer Hepatic steatosis GERD (gastroesophageal reflux disease) Depression Chronic systolic (congestive) heart failure echo 12/2023, per pt. "i'm up to 60%"-- follows with Dr. Mcpherson CAD (coronary artery disease) 1. Mild to moderate nonobstructive coronary artery disease -30-40% focal mid LAD stenosis 30% proximal, mid RCA. 40% focal proximal RPDA History of pneumonia aspiration: 09/25 sputum cx positive for Klebsiella s/p 7 days Zosyn/Augmentin and meropenem Wound of right leg (01/19/24) inside of right thigh, red, has pustules, seen in emergency clinic at [facility] on 01/19/24, started on doxycycline x 10 days, states it is feeling better History of seizure 09/25 while in a coma at [facility] after having the cardiac arrest. no problems since. no medications. believed it was related to the blood loss with her GI Bleed or the cardiac arrest. "only one ever" Nonischemic cardiomyopathy History of COVID-19 (08/2022) 08/2022--mild symptoms, no symptoms now Pulmonary hypertension History of blood transfusion multiple 09/2022 History of coma while inpatient at [facility] in September 2022. History of GI bleed bleeding ulcer in September 2022, treated inpatient [facility], egd with biopsy. Gram-negative pneumonia hx Surgical History S/P cardiac pacemaker procedure (10/16/22) placed at [facility] on 10/16/22 d/t cardiac arrest (medtronic device) History of Dianna-en-Y gastric bypass (2013) Hx of bilateral cataract extraction (09/2023) History of bladder surgery Sacral Neuromodulator Placement 02/2023 (Advised to bring remote) History of surgery (01/2023) percutaneous nerve evaluation History of cardiac cath (07/2022) [facility] 07/2022 with no stents, no CT.- follows with Dr. Mcpherson History of esophagogastroduodenoscopy (EGD) History of colonoscopy History of cholecystectomy S/P bladder repair bladder sling S/P cervical spinal fusion 2 seperate surgeries first done C3/C4 and the last fusion was C5/C6. ROM is "pretty good". slight difficulty looking upward. H/O: hysterectomy HERMINIO with BSO Status post right knee replacement TKA Family History Father Lung cancer Hypertension Other Diabetes No family history of adverse response to anesthesia Denies family history of Ovarian cancer Breast cancer Colorectal cancer Social History Smoking Status: Never smoker Tobacco Type: Cigarettes Age Started Using Tobacco: 2; Age Quit Using Tobacco: 37; packs per day: 0.5; Cigarettes Per Day: 1/2 PPD; Second Hand Exposure: No; Do You Dip or Chew Tobacco: No; Hx Alcohol Use: Yes Alcohol type: wine Alcohol type Comment: 1 glass 4-5x/week with dinner Hx Substance Use: Yes Last Used Substance: Unknown Last Used Substance Other:: every night for sleep Substance Use Type Other:: Medical Marijuana - Edibles HS PRN Preferred Language: Amharic Communication Ability: Effective Hearing Ability: Normal Composing Machine Operator/Tender Required: No Beliefs That Will Affect Care: None marital status: / Current Living Situation: Family current occupational status: retired current occupation: retired Feels Safe at Home: Yes Childhood Exposure to Second-Hand Smoke: No Diet: regular caffeine: Yes Physical Activity Frequency: Daily Seatbelt Use: always Assistive Devices: Denture - Upper and Glasses Allergies Allergies Allergy/AdvReac Type Severity Reaction Status Date / Time morphine Allergy Severe Hives Verified 12/31/24 19:42 dexamethasone Allergy Intermediate Hives Verified 12/31/24 19:42 [From Maxitrol (neomycin sulf)] neomycin Allergy Intermediate Hives Verified 12/31/24 19:42 [From Maxitrol (neomycin sulf)] polymyxin B Allergy Intermediate Hives Verified 12/31/24 19:42 [From Maxitrol (neomycin sulf)] piperacillin [From Zosyn] AdvReac Severe prolonged Verified 12/31/24 19:42 QT interval tazobactam [From Zosyn] AdvReac Severe prolonged Verified 12/31/24 19:42 QT interval ekg pads AdvReac Mild contact Uncoded 12/31/24 19:42 dermatitis Home Meds Home Medications Medication Instructions Recorded Confirmed multivitamin 1 tab PO QAM 01/01/23 12/31/24 calcium 600 mg (as carbonate)-vit 1 tab PO HS 04/30/23 12/31/24 D3 20 mcg (800 unit) chewable tablet (Caltrate plus D) biotin 5 mg capsule 5 mg PO UD 03/30/24 12/31/24 Medical Marijuana 1 gummy PO HS sleep 05/11/24 12/31/24 mecobalamin (vitamin B12) 5,000 5,000 mcg PO Q7D 08/07/24 12/31/24 mcg chewable tablet levothyroxine 25 mcg tablet 25 mcg PO DAILYBB 12/25/24 12/31/24 Previous Rx's Medication Instructions Recorded empagliflozin 10 mg tablet 10 mg PO HS #90 tabs 08/20/24 (Jardiance) spironolactone 25 mg tablet 25 mg PO HS #90 tabs 08/20/24 (Aldactone) phenazopyridine 100 mg tablet 100 mg PO TID PRN pain 6 doses #6 10/29/24 (Pyridium) tabs furosemide 20 mg tablet 20 mg PO DAILY PRN weight gain, 11/05/24 edema, SOB. #120 tabs oxycodone-acetaminophen 5 mg-325 1 tab PO Q4H PRN pain #7 tabs 12/15/24 mg tablet (Endocet) sacubitril 97 mg-valsartan 103 mg 0.5 tab PO BID #180 tabs 12/16/24 tablet (Entresto) pantoprazole 40 mg tablet,delayed 40 mg PO BID 90 days #180 tabs 12/24/24 release Results & Data (ED) Vital Signs Vital Signs - 24 hr 12/31/24 17:59 12/31/24 18:35 12/31/24 18:57 Temperature 36.9 C Temperature Source Temporal Artery Scan Pulse Rate 80 73 80 Pulse Rate [Apical] Pulse Rate from SpO2 Sensor Pulse Rhythm Regular Pulse Rhythm [Apical] Pulse Strength [Apical] Respiratory Rate 16 18 Respiratory Effort / Characteristics Non-Labored Spontaneous Respiratory Depth Normal Respiratory Pattern Regular Blood Pressure 117/68 Blood Pressure [Right Arm] Blood Pressure Mean 84 Blood Pressure Mean [Right Arm] Blood Pressure Position [Right Arm] Pulse Oximetry 94 94 Oxygen Delivery Method Room Air Room Air Sepsis Recent Fever Within 48 Hours No Sepsis New/Unexplained Change in Mental Status No Sepsis Action Taken by Nursing No Action Required 12/31/24 19:00 12/31/24 21:00 12/31/24 21:30 Temperature Temperature Source Pulse Rate 69 Pulse Rate [Apical] 67 78 Pulse Rate from SpO2 Sensor 68 Pulse Rhythm Pulse Rhythm [Apical] Regular Regular Pulse Strength [Apical] Normal Normal Respiratory Rate 18 18 22 Respiratory Effort / Characteristics Non-Labored Spontaneous Non-Labored Spontaneous Respiratory Depth Normal Normal Respiratory Pattern Regular Regular Blood Pressure 120/53 L Blood Pressure [Right Arm] 122/71 132/47 L Blood Pressure Mean 63 Blood Pressure Mean [Right Arm] 88 75 Blood Pressure Position [Right Arm] Semi-fowlers Semi-fowlers Pulse Oximetry 97 97 95 Oxygen Delivery Method Room Air Room Air Sepsis Recent Fever Within 48 Hours Sepsis New/Unexplained Change in Mental Status Sepsis Action Taken by Nursing 12/31/24 22:45 12/31/24 23:00 Temperature Temperature Source Pulse Rate 62 Pulse Rate [Apical] 60 Pulse Rate from SpO2 Sensor 63 Pulse Rhythm Pulse Rhythm [Apical] Regular Pulse Strength [Apical] Normal Respiratory Rate 17 18 Respiratory Effort / Characteristics Non-Labored Respiratory Depth Normal Respiratory Pattern Regular Blood Pressure 87/47 L Blood Pressure [Right Arm] 105/76 Blood Pressure Mean 60 Blood Pressure Mean [Right Arm] 85 Blood Pressure Position [Right Arm] Lying Pulse Oximetry 93 97 Oxygen Delivery Method Room Air Sepsis Recent Fever Within 48 Hours Sepsis New/Unexplained Change in Mental Status Sepsis Action Taken by Nursing Laboratory Data 12/31/24 18:10 12/31/24 18:10 Lab Results 12/31/24 12/31/24 Range/Units 18:10 Unknown WBC 8.39 (4.8-10.8) K/ul RBC 4.60 (4.20-5.40) M/uL Hgb 14.3 (12.0-16.0) g/dl Hct 42.3 (37.0-47.0) % MCV 92.0 (80.0-100.0) fL MCH 31.1 (25.0-34.0) pg MCHC 33.8 (32.0-36.0) g/dL RDW Std Deviation 40.0 (36.4-46.3) fL RDW Coeff of Delfino 11.9 (11.5-14.5) % Plt Count 283 (130-400) K/uL MPV 9.6 (9.4-12.4) fL Immature Gran % (Auto) 0.1 % Neut % (Auto) 67.0 % Lymph % (Auto) 24.8 % Grundy % (Auto) 5.1 % Eos % (Auto) 1.9 % Baso % (Auto) 1.1 % Neut # (Auto) 5.62 (1.40-6.50) K/uL Lymph # (Auto) 2.08 (1.20-3.40) K/uL Grundy # (Auto) 0.43 (0.11-0.59) K/uL Eos # (Auto) 0.16 (0.00-0.50) K/uL Baso # (Auto) 0.09 (0.00-0.20) K/uL Immature Gran # (Auto) 0.01 (0.01-0.20) K/uL Sodium 141 (136-145) mmol/L Potassium 4.1 (3.5-5.1) mmol/L Chloride 105 (98-107) mmol/L Carbon Dioxide 26 (21-32) mmol/L Anion Gap 10 (3-11) BUN 15 (6-23) mg/dl Creatinine 0.83 (0.6-1.2) mg/dl Est Cr Clr Drug Dosing Not Reportable eGFR 74.85 BUN/Creatinine Ratio 18.1 (10-20) Glucose 109 H (70-99(Fasting)) mg/dl Calcium 9.3 (8.6-10.3) mg/dl Total Bilirubin 0.7 (0.2-1.0) mg/dl AST 15 (13-39) U/L ALT 12 (7-52) U/L Alkaline Phosphatase 78 (34-104) U/L Total Protein 7.2 (6.0-8.3) gm/dl Albumin 4.2 (3.4-5.0) gm/dl Globulin 3.0 (2.5-4.0) gm/dl Albumin/Globulin Ratio 1.4 (0.9-2) Lipase 30 (11-82) U/L Urine Color Yellow Urine Appearance Clear (Clear) Urine pH 7.0 (4.5-7.5) Ur Specific Equality > 1.045 H (1.000-1.030) Urine Protein Negative (Negative) Urine Glucose (UA) 3+ H (Negative) Urine Ketones Trace H (Negative) Urine Blood Negative (Negative) Urine Nitrite Positive A (Negative) Urine Bilirubin Negative (Negative) Urine Urobilinogen Negative (Negative) Ur Leukocyte Esterase Negative (Negative) Urine WBC (Auto) 0-5 (0-5) /hpf Urine RBC (Auto) 0-2 (0-2) /hpf U Hyaline Cast (Auto) 0-2 (0-2) /lpf U Epithel Cells (Auto) 0-2 (0-2) /hpf Urine Bacteria (Auto) 4+ H (None Seen) Urine Comment Administered Medications Pantoprazole Sodium 40 mg/ (Dextrose) 100 mls @ 20 mls/hr IV Q5H ELISA Stop: 01/30/25 18:59 Last Admin: 12/31/24 19:24 Dose: 8 mg/hr, 20 mls/hr Documented By: STEVE Lactated Ringer's (Lr) 1,000 mls @ 80 mls/hr IV .[id number] ELISA Stop: 01/01/25 11:29 Last Admin: 12/31/24 23:29 Dose: 80 mls/hr Documented By: LAURA Discontinued Medications Diphenhydramine HCl (Diphenhydramine 50 Mg/Ml Vial) 50 mg IV NOW STA Stop: 12/31/24 22:27 Last Admin: 12/31/24 23:29 Dose: 50 mg Documented By: LAURA Hydromorphone HCl (Hydromorphone Inj 0.5 Mg/0.5 Ml Syr) 0.5 mg IV NOW STA Stop: 12/31/24 18:45 Last Admin: 12/31/24 19:01 Dose: 0.5 mg Documented By: STEVE Sodium Chloride (Nss) 1,000 mls @ 999 mls/hr IV .[id number] ONE Stop: 12/31/24 19:39 Last Infusion: 12/31/24 20:35 Dose: Infused Documented By: Admin: 12/31/24 19:03 Dose: 999 mls/hr Documented By: STEVE Pantoprazole Sodium 80 mg/ (Dextrose) 120 mls @ 480 mls/hr IV NOW ONE Stop: 12/31/24 18:55 Last Infusion: 12/31/24 19:24 Dose: Infused Documented By: Admin: 12/31/24 19:03 Dose: 480 mls/hr Documented By: STEVE Ioversol (Optiray 320 100ml) 90 ml IV ONCE ONE Stop: 12/31/24 18:51 Last Admin: 12/31/24 18:51 Dose: 90 ml Documented By: DEVAN Ondansetron HCl (Ondansetron Inj 2 Mg/Ml 2 Ml Vial) 4 mg IV NOW STA Stop: 12/31/24 18:16 Last Admin: 12/31/24 18:19 Dose: 4 mg Documented By: GUNNER Pantoprazole Sodium (Pantoprazole Bolus/Drip) 1 each IV NOW STA Stop: 12/31/24 18:42 Last Admin: 12/31/24 19:25 Dose: Not Given Documented By: IDD Imaging Data Radiologist's Impression: Abdomen/Pelvis CT 12/31/24 18:39 EXAMINATION: Abdomen and pelvis CT with CLINICAL HISTORY: Upper abdominal pain. No clinical or surgical history supplied PRIORS: 09/15/2022 TECHNIQUE: Contiguous axial images were obtained through the abdomen and pelvis with the use of intravenous contrast. Sagittal and coronal reformations are supplied. FINDINGS: Lung bases unremarkable. Postsurgical change of the stomach present, with pouch and remnant. Pouch is distended with large amount of fluid in semisolid material. A diverticulum is present, image 36, series 300 measuring 1.4 cm, image 36, series 300. The remnant is under distended with prominent rugal folds, not further characterized. Liquid present in the distal esophagus at the edge of the [id number]. Small bowel anastomosis noted in the left lower quadrant, appearing in the interval with circumferential bowel wall thickening surrounding the anastomotic suture, image 197, series 3. A small bowel to small bowel intussusception, image 183, series 4 is present. No surrounding extraluminal gas,inflammatory change or fluid. A moderate amount of formed stool present in the colon. No bowel obstruction. No free fluid or extraluminal gas urinary bladder distends normally. Kidneys are symmetric. Moderate atherosclerotic disease of the aorta is noted. Pain pump device in the supragluteal soft tissues. IMPRESSION: 1. Small bowel anastomosis in the left lower quadrant with short segment of telescoping bowel/intussusception with no surrounding edema or extraluminal gas. Surgical consultation is suggested in the setting of abdominal pain. No priors are available to compare at this anastomosis. 2. No bowel obstruction, pneumatosis or free fluid in the abdomen. ACT 112: Positive. There are findings on this examination that require communication between the performing entity and the patient following Patient Test Result Information Act ([place] ACT 112) guidelines. Electronically signed by Beatris Peralta 12-31-2024 7:30 PM Discharge Plan Visit Data Chief Complaint: Abdominal Pain Stated Complaint: ACUTE ABD PAIN ED Provider: Valente Mora Discharge Problem: Abdominal pain Patient Disposition: Admitted As Inpatient Condition: Fair Forms Stand Alone Forms: Pocits Prescriptions Prescriptions: No Action spironolactone [Aldactone] 25 mg tablet 25 mg PO HS Qty: 90 3RF Jardiance 10 mg tablet 10 mg PO HS Qty: 90 3RF Hold Instructions: UTI symptoms Entresto 97-103 mg tablet 0.5 tab PO BID Qty: 180 3RF pantoprazole 40 mg tablet,delayed release (DR/EC) 40 mg PO BID 90 Days Qty: 180 3RF Caltrate 600 plus D 600 mg-20 mcg (800 unit) tablet,chewable 1 tab PO HS Rx Instructions: ON HOLD FOR PROCEDURE ON 01/05/25 mecobalamin (vitamin B12) 5,000 mcg tablet,chewable 5,000 mcg PO Q7D Rx Instructions: 5,000 mcg orally weekly; ON HOLD FOR PROCEDURE ON 01/05/25 Medical Marijuana 1 gummy PO HS Rx Instructions: use as directed; furosemide 20 mg tablet 20 mg PO DAILY PRN (Reason: weight gain, edema, SOB.) Qty: 120 3RF Rx Instructions: May increase to 40 mg PRN phenazopyridine [Pyridium] 100 mg tablet 100 mg PO TID PRN (Reason: pain) Qty: 6 0RF oxycodone-acetaminophen [Endocet] 5-325 mg tablet 1 tab PO Q4H PRN (Reason: pain) Qty: 7 0RF Rx Instructions: initial therapy Dr. Tam [id number] multivitamin Tablet 1 tab PO QAM Rx Instructions: ON HOLD FOR PROCEDURE ON 01/05/25 biotin 5 mg capsule 5 mg PO UD Rx Instructions: 5 mg orally 2x weekly; ON HOLD FOR PROCEDURE ON 01/05/25 levothyroxine 25 mcg tablet 25 mcg PO DAILYBB Referrals Referrals: Valeria Shaw MD [Primary Care Provider] - Discharge Problem: Abdominal pain Qualifiers: Abdominal location: unspecified location Qualified Code(s): R10.9 - Unspecified abdominal pain
[2024-12-31 18:44] LABS: Alanine Aminotransferase 12 U/L (7-52); Albumin Globulin Ratio 1.4 (0.9-2); Alkaline Phosphatase 78 U/L (34-104); Anion Gap 10 (3-11); Bilirubin,Total 0.7 mg/dl (0.2-1.0); Blood Urea Nitrogen 15 mg/dl (6-23); Calcium 9.3 mg/dl (8.6-10.3); Carbon Dioxide 26 mmol/L (21-32); Chloride 105 mmol/L (98-107); Globulin 3.0 gm/dl (2.5-4.0); Glucose 109 mg/dl (70-99(Fasting)); Lipase 30 U/L (11-82); Potassium 4.1 mmol/L (3.5-5.1); Sodium 141 mmol/L (136-145); Total Protein 7.2 gm/dl (6.0-8.3)
[2024-12-31] MEDS: OPTIRAY 320 100ml IV ONE (18:51)
[2024-12-31] MEDS: HYDROmorphone INJ 0.5 MG/0.5 ML SYR IV STA (19:01)
[2024-12-31] MEDS: SODIUM CHLORIDE 0.9% 1,000 ML IV ONE (19:03)
[2024-12-31] MEDS: PANTOprazole 40 MG in DEXTROSE 5% MINI-B 100 ML IV SCH (19:24)
[2024-12-31] MEDS: PANTOPRAZOLE BOLUS/DRIP IV STA (19:25)
--- NOTE | 2024-12-31 19:30 | CT Scan Report ---
EXAMINATION: Abdomen and pelvis CT with CLINICAL HISTORY: Upper abdominal pain. No clinical or surgical history supplied PRIORS: 09/15/2022 TECHNIQUE: Contiguous axial images were obtained through the abdomen and pelvis with the use of intravenous contrast. Sagittal and coronal reformations are supplied. FINDINGS: Lung bases unremarkable. Postsurgical change of the stomach present, with pouch and remnant. Pouch is distended with large amount of fluid in semisolid material. A diverticulum is present, image 36, series 300 measuring 1.4 cm, image 36, series 300. The remnant is under distended with prominent rugal folds, not further characterized. Liquid present in the distal esophagus at the edge of the [id number]. Small bowel anastomosis noted in the left lower quadrant, appearing in the interval with circumferential bowel wall thickening surrounding the anastomotic suture, image 197, series 3. A small bowel to small bowel intussusception, image 183, series 4 is present. No surrounding extraluminal gas,inflammatory change or fluid. A moderate amount of formed stool present in the colon. No bowel obstruction. No free fluid or extraluminal gas urinary bladder distends normally. Kidneys are symmetric. Moderate atherosclerotic disease of the aorta is noted. Pain pump device in the supragluteal soft tissues. IMPRESSION: 1. Small bowel anastomosis in the left lower quadrant with short segment of telescoping bowel/intussusception with no surrounding edema or extraluminal gas. Surgical consultation is suggested in the setting of abdominal pain. No priors are available to compare at this anastomosis. 2. No bowel obstruction, pneumatosis or free fluid in the abdomen. ACT 112: Positive. There are findings on this examination that require communication between the performing entity and the patient following Patient Test Result Information Act ([place] ACT 112) guidelines. Electronically signed by Beatris Peralta 12-31-2024 7:30 PM
[2024-12-31 21:13] LABS: Appearance Urine Clear (Clear); Bacteria Urine Automated 4+ (None Seen); Cast Urine Automated 0-2 /lpf (0-2); Epithelial Cell Urine Auto 0-2 /hpf (0-2); Glucose Urine UA 3+ (Negative); RBC Urine Automated 0-2 /hpf (0-2); WBC Urine Automated 0-5 /hpf (0-5)
--- NOTE | 2024-12-31 21:28 | Surgery Consultation ---
Date of Consultation December 31, 2024 Assessment & Plan (1) Intussusception of small bowel: The patient is a 74-year-old female who presented to the emergency department with complaints of sudden abdominal pain a few hours just prior to arrival. The patient does have a past abdominal surgical history of Dianna-en-Y gastric bypass in 2013 done in [place], a total hysterectomy, and a cholecystectomy. She states that the pain started in her epigastric region and describes it as severe and constant in nature. She also had associated nausea and multiple episodes of emesis. The patient was worked up and CT imaging was concerning for small bowel anastomosis in the LLQ with short segment of telescoping bowel/intussusception and the surgical team was consulted for further evaluation at that time. Upon my evaluation the patient continued to be nauseous/belching and after IV pain medication wore off she was still experiencing epigastric abdominal pain however no signs of peritonitis. The patient's imaging and labs were reviewed with attending surgeon, Dr. Godwin. I discussed with the patient that due to her history of previous gastric bypass, that if she would require surgical intervention she would need to be transferred to a tertiary center. I recommended that because she was continuing to be nauseo us and having pain that she be transferred from the emergency room this evening however the patient was adamant that she would rather stay here and try conservative measures first. She states she would be agreeable to transfer if necessary. For now recommend the following: -Keep NPO, IV hydration, pain control and antiemetics as needed -Serial abdominal exams and repeat AM labs -Could consider repeating CT A/P with oral contrast however given current nausea will hold off for now -Medical management per primary team, surgery will closely follow Supervising Physician Co-Signing Physician Notes She feels better this morning with less abdominal pain Start clear liquids and see how she tolerates this If she does not tolerate this or has an increase in pain, would again recommend transfer to a tertiary care center with bariatric coverage as the area in question is likely her JJ anastomosis History of Present Illness History of Present Illness Patient is a 74-year-old female with a PMH significant for PUD, s/p AICD placement (pacemaker portion turned off), CHF, prolonged QT interval, osteopenia, CAD, hx of cardiac arrest in 2022, LBBB, HTN, HLD, hepatic steatosis, depression, anxiety, GERD, hypothyroidism who presented to the emergency department with complaints of sudden abdominal pain a few hours just prior to arrival. The patient does have a past abdominal surgical history of Dianna-en-Y gastric bypass in 2013 done in [place], a total hysterectomy, and a cholecystectomy. She states that the pain started in her epigastric region and describes it as severe and constant in nature. She also had associated nausea and multiple episodes of emesis. The patient was worked up and CT imaging was concerning for small bowel anastomosis in the LLQ with short segment of telescoping bowel/intussusception and the surgical team was consulted for further evaluation at that time. The patient was seen and evaluated at bedside in the emergency room this evening. During my exam the patient had stable vitals and no signs of acute abdomen, however she was actively still nauseous and belching along with continuing with epigastric pain after IV pain medication was wearing off. She otherwise denies any associate CP, SOB, fevers, or chills with the onset of her symptoms. Allergies Allergy/AdvReac Type Severity Reaction Status Date / Time morphine Allergy Severe Hives Verified 12/31/24 19:42 dexamethasone Allergy Intermediate Hives Verified 12/31/24 19:42 [From Maxitrol (neomycin sulf)] neomycin Allergy Intermediate Hives Verified 12/31/24 19:42 [From Maxitrol (neomycin sulf)] polymyxin B Allergy Intermediate Hives Verified 12/31/24 19:42 [From Maxitrol (neomycin sulf)] piperacillin [From Zosyn] AdvReac Severe prolonged Verified 12/31/24 19:42 QT interval tazobactam [From Zosyn] AdvReac Severe prolonged Verified 12/31/24 19:42 QT interval ekg pads AdvReac Mild contact Uncoded 12/31/24 19:42 dermatitis Home Medications Medication Instructions Recorded Confirmed Type multivitamin 1 tab PO QAM 01/01/23 12/31/24 History calcium 600 mg (as carbonate)-vit 1 tab PO HS 04/30/23 12/31/24 History D3 20 mcg (800 unit) chewable tablet (Caltrate plus D) biotin 5 mg capsule 5 mg PO UD 03/30/24 12/31/24 History Medical Marijuana 1 gummy PO HS sleep 05/11/24 12/31/24 History mecobalamin (vitamin B12) 5,000 5,000 mcg PO Q7D 08/07/24 12/31/24 History mcg chewable tablet empagliflozin 10 mg tablet 10 mg PO HS #90 tabs 08/20/24 12/31/24 Rx (Jardiance) spironolactone 25 mg tablet 25 mg PO HS #90 tabs 08/20/24 12/31/24 Rx (Aldactone) phenazopyridine 100 mg tablet 100 mg PO TID PRN pain 6 doses #6 10/29/24 12/31/24 Rx (Pyridium) tabs furosemide 20 mg tablet 20 mg PO DAILY PRN weight gain, 11/05/24 12/31/24 Rx edema, SOB. #120 tabs oxycodone-acetaminophen 5 mg-325 1 tab PO Q4H PRN pain #7 tabs 12/15/24 12/31/24 Rx mg tablet (Endocet) sacubitril 97 mg-valsartan 103 mg 0.5 tab PO BID #180 tabs 12/16/24 12/31/24 Rx tablet (Entresto) pantoprazole 40 mg tablet,delayed 40 mg PO BID 90 days #180 tabs 12/24/24 12/31/24 Rx release levothyroxine 25 mcg tablet 25 mcg PO DAILYBB 12/25/24 12/31/24 History Patient History Medical History Esophagitis Reason for procedure 09/03/24 Hx: UTI (urinary tract infection) EMR 06/09/24 - pt denies any issues at this time History of trigger finger Right Thumb and Right Index Finger - 02/05/24 Chest pain hx - pt denies at this time "They said it was esophagitis" Heart failure with improved ejection fraction (HFimpEF) ICD (implantable cardioverter-defibrillator) in place placed 10/16/22 in [facility] d/t cardiac arrest in September 2022. (medtronic device) Following with [facility] and [place] [facility] Pacemaker placed at [facility] on 10/16/22 d/t cardiac arrest (medtronic device); ICD/pacemaker in place "but pacemaker is turned off currently" Anastomotic ulcer Presence of combination internal cardiac defibrillator (ICD) and pacemaker (10/16/22) placed at [facility] on 10/16/22 d/t cardiac arrest (medtronic device) Anxiety History of shingles (12/2022) left thigh erythematous rash with shingles suspicion per [facility] discharge summ nafisa-completed valacyclovir Trigger finger of all digits of right hand Pulmonary nodule Osteopenia after menopause LBBB (left bundle branch block) HLD (hyperlipidemia) hx HTN (hypertension) hx Hx-sudden cardiac arrest (09/2022) September 2022 -> was inpatient at [facility] for a GI Bleed and then was transferred via life flight to [facility]. Torsades morphology prior to vfib. EP following. Avoid QT prolonging medications. Has ICD Hx of peptic ulcer Hepatic steatosis GERD (gastroesophageal reflux disease) Depression Chronic systolic (congestive) heart failure echo 12/2023, per pt. "i'm up to 60%"-- follows with Dr. Mcpherson CAD (coronary artery disease) 1. Mild to moderate nonobstructive coronary artery disease -30-40% focal mid LAD stenosis 30% proximal, mid RCA. 40% focal proximal RPDA History of pneumonia aspiration: 09/25 sputum cx positive for Klebsiella s/p 7 days Zosyn/Augmentin and meropenem Wound of right leg (01/19/24) inside of right thigh, red, has pustules, seen in emergency clinic at [facility] on 01/19/24, started on doxycycline x 10 days, states it is feeling better History of seizure 09/25 while in a coma at [facility] after having the cardiac arrest. no problems since. no medications. believed it was related to the blood loss with her GI Bleed or the cardiac arrest. "only one ever" Nonischemic cardiomyopathy History of COVID-19 (08/2022) 08/2022--mild symptoms, no symptoms now Pulmonary hypertension History of blood transfusion multiple 09/2022 History of coma while inpatient at [facility] in September 2022. History of GI bleed bleeding ulcer in September 2022, treated inpatient [facility] with biopsy. Gram-negative pneumonia hx Surgical History S/P cardiac pacemaker procedure (10/16/22) placed at [facility] on 10/16/22 d/t cardiac arrest (medtronic device) History of Dianna-en-Y gastric bypass (2013) Hx of bilateral cataract extraction (09/2023) History of bladder surgery Sacral Neuromodulator Placement 02/2023 (Advised to bring remote) History of surgery (01/2023) percutaneous nerve evaluation History of cardiac cath (07/2022) [facility] 07/2022 with no stents, no MD.- follows with Dr. Mcpherson History of esophagogastroduodenoscopy (EGD) History of colonoscopy History of cholecystectomy S/P bladder repair bladder sling S/P cervical spinal fusion 2 seperate surgeries first done C3/C4 and the last fusion was C5/C6. ROM is "pretty good". slight difficulty looking upward. H/O: hysterectomy HERMINIO with BSO Status post right knee replacement TKA Family History Father Lung cancer Hypertension Other Diabetes No family history of adverse response to anesthesia Denies family history of Ovarian cancer Breast cancer Colorectal cancer Social History Smoking Status: Former smoker Tobacco Type: Cigarettes Age Started Using Tobacco: 2; Age Quit Using Tobacco: 37; packs per day: 0.5; Cigarettes Per Day: 1/2 Pack Per Day.; Second Hand Exposure: No; Do You Dip or Chew Tobacco: No; Hx Alcohol Use: Yes Alcohol type: wine Alcohol type Comment: 1 glass 4-5x/week with dinner Hx Substance Use: Yes Last Used Substance: Unknown Last Used Substance Other:: every night for sleep Substance Use Type Other:: Medical Marijuana. Preferred Language: Scottish Communication Ability: Effective Hearing Ability: Normal Optometrist/Practice Owner Required: No Beliefs That Will Affect Care: None marital status: / Current Living Situation: Family current occupational status: retired current occupation: retired Feels Safe at Home: Yes Childhood Exposure to Second-Hand Smoke: No Diet: regular caffeine: Yes Physical Activity Frequency: Daily Seatbelt Use: always Assistive Devices: Glasses and Hospital Bed Review of Systems Constitutional: no fever, no chills and no body aches Respiratory: no cough and no chest congestion Cardiovascular: no chest pain, no palpitations and no syncope Gastrointestinal: as per Subjective / HPI, + abdominal pain, + nausea and + vomiting Genitourinary: no difficulty urinating and no hematuria Physical Exam Constitutional: WD/WN, vitals as above Respiratory: normal respiratory effort, lungs clear to auscultation Cardiovascular: Rate/Rhythm: regular rate Gastrointestinal (Abdomen): Abdomen soft, nondistended, +TTP in the epigastric/LUQ region No signs of peritonitis Skin: no rashes, warm and dry Results & Data Vital Signs (Past 12 Hours) Vital Signs Temp Pulse Pulse Resp BP BP Pulse Ox 12/31/24 21:00 78 18 132/47 L 97 12/31/24 19:00 67 18 122/71 97 12/31/24 18:57 80 18 94 12/31/24 18:35 73 12/31/24 17:59 36.9 C 80 16 117/68 94 O2 Del Method 12/31/24 21:00 Room Air 12/31/24 19:00 Room Air 12/31/24 18:57 Room Air 12/31/24 18:35 12/31/24 17:59 Room Air Diagnostic Findings EXAMINATION: Abdomen and pelvis CT with CLINICAL HISTORY: Upper abdominal pain. No clinical or surgical history supplied PRIORS: 09/15/2022 TECHNIQUE: Contiguous axial images were obtained through the abdomen and pelvis with the use of intravenous contrast. Sagittal and coronal reformations are supplied. FINDINGS: Lung bases unremarkable. Postsurgical change of the stomach present, with pouch and remnant. Pouch is distended with large amount of fluid in semisolid material. A diverticulum is present, image 36, series 300 measuring 1.4 cm, image 36, series 300. The remnant is under distended with prominent rugal folds, not further characterized. Liquid present in the distal esophagus at the edge of the [id number]. Small bowel anastomosis noted in the left lower quadrant, appearing in the interval with circumferential bowel wall thickening surrounding the anastomotic suture, image 197, series 3. A small bowel to small bowel intussusception, image 183, series 4 is present. No surrounding extraluminal gas,inflammatory change or fluid. A moderate amount of formed stool present in the colon. No bowel obstruction. No free fluid or extraluminal gas urinary bladder distends normally. Kidneys are symmetric. Moderate atherosclerotic disease of the aorta is noted. Pain pump device in the supragluteal soft tissues. IMPRESSION: 1. Small bowel anastomosis in the left lower quadrant with short segment of telescoping bowel/intussusception with no surrounding edema or extraluminal gas. Surgical consultation is suggested in the setting of abdominal pain. No priors are available to compare at this anastomosis. 2. No bowel obstruction, pneumatosis or free fluid in the abdomen. PG Care Time/CCT Total # of Minutes Spent Total Time Spent with Patient: Total time spent is greater than 50% in coordination of care (as documented) at patient's floor/unit and/or counseling patient: [place] [address] INT INP/OBS CARE 1/40MIN Patient Type New Medical Decision Making Straight Forward Diagnoses Intussusception of small bowel K56.1
--- NOTE | 2024-12-31 21:48 | History & Physical Report ---
Date of Service December 31, 2024 Assessment & Plan (1) PUD (peptic ulcer disease): (2) Prolonged QT interval: (3) History of sudden cardiac arrest: (4) Intussusception of small bowel: Plan #Severe epigastric pain/small bowel intussusception (CT) #Hx of Dianna-en-Y gastric bypass/Hx of peptic ulcers - Patient w/ 3-4 hr Hx of epigastric pain - CT-AP: Small bowel anastomosis in the left lower quadrant with short segment of telescoping bowel/intussusception with no surrounding edema or extraluminal gas. Surgical consultation is suggested in the setting of abdominal pain. No priors are available to compare at this anastomosis. - CBC, CMP grossly WNL - AM CBC, BMP ordered - Gen Surg consulted, conservative mgmt for now, may order more imaging later - NPO for now, Dilaudid, 0.5 mg, IV, q4h, PRN for pain - pantoprazole, 40 mg, IV, BID - nothing ordered, IV, for nausea d/t QTc of and Hx of sudden cardiac arrest (2022) after Zofran administration, prolonged QT, and Torsades morphology prior to VFib; could consider Maalox or Carafate once patient not longer NPO if necessary Chronic conditions #Insomnia - typically uses Marijuana gummies - will give diphenhydramine, 50 mg, IV, now #HTN - hold the Entresto, hold the spironolactone - hydralazine, 10 mg, q6hr, PRN (if SBP > 180 or DBP > 110) #Hx of CHF - no pedal edema, lung crackles on exam - hold furosemide #hypothyroidism - hold the levothyroxine for now #knee pain - Voltaren gel, 2 g, TID, EXT Code status: Full code Disposition: Med-Surg VTE Prophylaxis: SCD's (knee-high) FENGI: NPO for now (pt wants reg diet when diet resumes); LR, 80 mL/hr, 1000 mL total History of Present Illness Chief Complaint: epigastric AP of 3-4 hrs Primary Care Provider: Valeria Shaw MD Patient is a 74 yo F w/ a PMHx of prior Dianna-en-Y gastric bypass (2013), peptic ulcers, esophagitis, s/p AICD placement (pacemaker portion turned off), CHF, prolonged QT interval, osteopenia, CAD, Hx of cardiac arrest (2022), hepatic steatosis, lipoma (l. upper arm, scheduled for surgery on Jan 05), depression, LBBB, HTN, HLD, anxiety, GERD, hypothyroidism, presenting today for severe epigastric pain (8/10) of about 3-4 hours. Patient also endorses N/V, w/ 4 episodes of vomiting, the last one being pink- tinged. Patient feels like her BM's have been more dense the last 4 days, but notes no other changes of BM's. Patient also endorses a sensation of early fullness when eating. Patient denies any CP or palpitations, denies any dyspnea/cough/wheezing, denies any urinary frequency/urgency, denies any fevers, but does endorse increased fatigue over the last week. Patient notes she typically eats marijuana gummies to help her sleep at night, so was wanting a substitute if possible Allergies Allergy/AdvReac Type Severity Reaction Status Date / Time morphine Allergy Severe Hives Verified 12/31/24 19:42 dexamethasone Allergy Intermediate Hives Verified 12/31/24 19:42 [From Maxitrol (neomycin sulf)] neomycin Allergy Intermediate Hives Verified 12/31/24 19:42 [From Maxitrol (neomycin sulf)] polymyxin B Allergy Intermediate Hives Verified 12/31/24 19:42 [From Maxitrol (neomycin sulf)] piperacillin [From Zosyn] AdvReac Severe prolonged Verified 12/31/24 19:42 QT interval tazobactam [From Zosyn] AdvReac Severe prolonged Verified 12/31/24 19:42 QT interval ekg pads AdvReac Mild contact Uncoded 12/31/24 19:42 dermatitis Home Medications Medication Instructions Recorded Confirmed Type multivitamin 1 tab PO QAM 01/01/23 12/31/24 History calcium 600 mg (as carbonate)-vit 1 tab PO HS 04/30/23 12/31/24 History D3 20 mcg (800 unit) chewable tablet (Caltrate plus D) biotin 5 mg capsule 5 mg PO UD 03/30/24 12/31/24 History Medical Marijuana 1 gummy PO HS sleep 05/11/24 12/31/24 History mecobalamin (vitamin B12) 5,000 5,000 mcg PO Q7D 08/07/24 12/31/24 History mcg chewable tablet empagliflozin 10 mg tablet 10 mg PO HS #90 tabs 08/20/24 12/31/24 Rx (Jardiance) spironolactone 25 mg tablet 25 mg PO HS #90 tabs 08/20/24 12/31/24 Rx (Aldactone) phenazopyridine 100 mg tablet 100 mg PO TID PRN pain 6 doses #6 10/29/24 12/31/24 Rx (Pyridium) tabs furosemide 20 mg tablet 20 mg PO DAILY PRN weight gain, 11/05/24 12/31/24 Rx edema, SOB. #120 tabs oxycodone-acetaminophen 5 mg-325 1 tab PO Q4H PRN pain #7 tabs 12/15/24 12/31/24 Rx mg tablet (Endocet) sacubitril 97 mg-valsartan 103 mg 0.5 tab PO BID #180 tabs 12/16/24 12/31/24 Rx tablet (Entresto) pantoprazole 40 mg tablet,delayed 40 mg PO BID 90 days #180 tabs 12/24/24 12/31/24 Rx release levothyroxine 25 mcg tablet 25 mcg PO DAILYBB 12/25/24 12/31/24 History Past Med/Surg History Problem List (Updated 12/31/24 @ 23:41 by Valente Mora, ) Abdominal pain (Acute) Intussusception of small bowel Soft tissue mass Lipoma Palpitation Gastric erythema AICD (automatic cardioverter/defibrillator) present PUD (peptic ulcer disease) Esophagitis E-coli UTI Dysuria Medical marijuana use Sacral neurostimulator in situ Fracture of left distal radius (Acute ~03/10/24) Acute nondisplaced transverse fracture within the distal metaphysis of the left radius. S/P trigger finger release Trigger finger of all digits of right hand Trigger thumb, right thumb Prolonged QT interval Nonischemic cardiomyopathy Chronic systolic (congestive) heart failure Osteopenia after menopause CAD (coronary artery disease) 1. Mild to moderate nonobstructive coronary artery disease -30-40% focal mid LAD stenosis 30% proximal, mid RCA. 40% focal proximal RPDA History of sudden cardiac arrest September 2022 -> was inpatient at [facility] for a GI Bleed and then was transferred via life flight to [facility]. Torsades morphology prior to vfib. EP following. Avoid QT prolonging medications. Has ICD per [facility] clinic Hepatic steatosis Depression Overactive bladder History of Dianna-en-Y gastric bypass (~08/04/13) History of peptic ulcer disease Pulmonary nodule Urge incontinence of urine Cardiomyopathy LBBB (left bundle branch block) HLD (hyperlipidemia) HTN (hypertension) with goal to be determined Anxiety GERD (gastroesophageal reflux disease) Hypothyroidism Medical History Esophagitis Reason for procedure 09/03/24 Hx: UTI (urinary tract infection) EMR 06/09/24 - pt denies any issues at this time History of trigger finger Right Thumb and Right Index Finger - 02/05/24 Chest pain hx - pt denies at this time "They said it was esophagitis" Heart failure with improved ejection fraction (HFimpEF) ICD (implantable cardioverter-defibrillator) in place placed 10/16/22 in [facility] d/t cardiac arrest in September 2022. (medtronic device) Following with [facility] Pacemaker placed at [facility] on 10/16/22 d/t cardiac arrest (medtronic device); ICD/pacemaker in place "but pacemaker is turned off currently" Anastomotic ulcer Presence of combination internal cardiac defibrillator (ICD) and pacemaker (10/16/22) placed at [facility] on 10/16/22 d/t cardiac arrest (medtronic device) Anxiety History of shingles (12/2022) left thigh erythematous rash with shingles suspicion per [facility] discharge summary-completed valacyclovir Trigger finger of all digits of right hand Pulmonary nodule Osteopenia after menopause LBBB (left bundle branch block) HLD (hyperlipidemia) hx HTN (hypertension) hx Hx-sudden cardiac arrest (09/2022) September 2022 -> was inpatient at [facility] for a GI Bleed and then was transferred via life flight to [facility]. Torsades morphology prior to vfib. EP following. Avoid QT prolonging medications. Has ICD Hx of peptic ulcer Hepatic steatosis GERD (gastroesophageal reflux disease) Depression Chronic systolic (congestive) heart failure echo 12/2023, per pt. "i'm up to 60%"-- follows with Dr. Mcpherson CAD (coronary artery disease) 1. Mild to moderate nonobstructive coronary artery disease -30-40% focal mid LAD stenosis 30% proximal, mid RCA. 40% focal proximal RPDA History of pneumonia aspiration: 09/25 sputum cx positive for Klebsiella s/p 7 days Zosyn/Augmentin and meropenem Wound of right leg (01/19/24) inside of right thigh, red, has pustules, seen in emergency clinic at [facility] on 01/19/24, started on doxycycline x 10 days, states it is feeling better History of seizure 09/25 while in a coma at [facility] after having the cardiac arrest. no problems since. no medications. believed it was related to the blood loss with her GI Bleed or the cardiac arrest. "only one ever" Nonischemic cardiomyopathy History of COVID-19 (08/2022) 08/2022--mild symptoms, no symptoms now Pulmonary hypertension History of blood transfusion multiple 09/2022 History of coma while inpatient at [facility] in September 2022. History of GI bleed bleeding ulcer in September 2022, treated inpatient [facility], egd with biopsy. Gram-negative pneumonia hx Surgical History S/P cardiac pacemaker procedure (10/16/22) placed at [facility] on 10/16/22 d/t cardiac arrest (medtronic device) History of Dianna-en-Y gastric bypass (2013) Hx of bilateral cataract extraction (09/2023) History of bladder surgery Sacral Neuromodulator Placement 02/2023 (Advised to bring remote) History of surgery (01/2023) percutaneous nerve evaluation History of cardiac cath (07/2022) [facility] 07/2022 with no stents, no [place].- follows with Dr. Mcpherson History of esophagogastroduodenoscopy (EGD) History of colonoscopy History of cholecystectomy S/P bladder repair bladder sling S/P cervical spinal fusion 2 seperate surgeries first done C3/C4 and the last fusion was C5/C6. ROM is "pretty good". slight difficulty looking upward. H/O: hysterectomy HERMINIO with BSO Status post right knee replacement TKA Family History Father Lung cancer Hypertension Other Diabetes No family history of adverse response to anesthesia Denies family history of Ovarian cancer Breast cancer Colorectal cancer Social History (Reviewed 10/29/24 @ 11:04 by LINDY Pérez Smoking Status: Never smoker Tobacco Type: Cigarettes Age Started Using Tobacco: 2; Age Quit Using Tobacco: 37; packs per day: 0.5; Cigarettes Per Day: 1/2 PPD; Second Hand Exposure: No; Do You Dip or Chew Tobacco: No; Hx Alcohol Use: Yes Alcohol type: wine Alcohol type Comment: 1 glass 4-5x/week with dinner Hx Substance Use: Yes Last Used Substance: Unknown Last Used Substance Other:: every night for sleep Substance Use Type Other:: Medical Marijuana - Edibles HS PRN Preferred Language: Czech Communication Ability: Effective Hearing Ability: Normal 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 Beliefs That Will Affect Care: None marital status: / Current Living Situation: Family current occupational status: retired current occupation: retired Feels Safe at Home: Yes Childhood Exposure to Second-Hand Smoke: No Diet: regular caffeine: Yes Physical Activity Frequency: Daily Seatbelt Use: always Assistive Devices: Denture - Upper and Glasses Review of Systems Review of Systems: All systems reviewed & are unremarkable except as noted in HPI & below Physical Exam Constitutional: WD/WN, vitals as above Respiratory: normal respiratory effort, lungs clear to auscultation Cardiovascular: Rate/Rhythm: regular rate and regular rhythm Heart Sounds: + murmur (heard at [place] border) Extremities: no calf tenderness and no pedal edema Gastrointestinal (Abdomen): Percussion/Palpation: + abdomen tender (epigastric tenderness, 8/10) and abdomen soft Psychiatric: A+Ox3, euthymic affect Results & Data Results & Data Vital Signs (Past 12 Hours) Vital Signs Temp Pulse Pulse Resp BP BP Pulse Ox 12/31/24 21:00 78 18 132/47 L 97 12/31/24 19:00 67 18 122/71 97 12/31/24 18:57 80 18 94 12/31/24 18:35 73 12/31/24 17:59 36.9 C 80 16 117/68 94 O2 Del Method 12/31/24 21:00 Room Air 12/31/24 19:00 Room Air 12/31/24 18:57 Room Air 12/31/24 18:35 12/31/24 17:59 Room Air Diagnostic Findings Abdomen/Pelvis CT 12/31/24 18:39 EXAMINATION: Abdomen and pelvis CT with CLINICAL HISTORY: Upper abdominal pain. No clinical or surgical history supplied PRIORS: 09/15/2022 TECHNIQUE: Contiguous axial images were obtained through the abdomen and pelvis with the use of intravenous contrast. Sagittal and coronal reformations are supplied. FINDINGS: Lung bases unremarkable. Postsurgical change of the stomach present, with pouch and remnant. Pouch is distended with large amount of fluid in semisolid material. A diverticulum is present, image 36, series 300 measuring 1.4 cm, image 36, series 300. The remnant is under distended with prominent rugal folds, not further characterized. Liquid present in the distal esophagus at the edge of the [id number]. Small bowel anastomosis noted in the left lower quadrant, appearing in the interval with circumferential bowel wall thickening surrounding the anastomotic suture, image 197, series 3. A small bowel to small bowel intussusception, image 183, series 4 is present. No surrounding extraluminal gas,inflammatory change or fluid. A moderate amount of formed stool present in the colon. No bowel obstruction. No free fluid or extraluminal gas urinary bladder distends normally. Kidneys are symmetric. Moderate atherosclerotic disease of the aorta is noted. Pain pump device in the supragluteal soft tissues. IMPRESSION: 1. Small bowel anastomosis in the left lower quadrant with short segment of telescoping bowel/intussusception with no surrounding edema or extraluminal gas. Surgical consultation is suggested in the setting of abdominal pain. No priors are available to compare at this anastomosis. 2. No bowel obstruction, pneumatosis or free fluid in the abdomen. ACT 112: Positive. There are findings on this examination that require communication between the performing entity and the patient following Patient Test Result Information Act ([place] ACT 112) guidelines. Electronically signed by Beatris Peralta 12-31-2024 7:30 PM Supervising Physician Co-Signing Physician Notes Attending addendum: I have physically seen this patient, have supervised the medical residents activities, and agree with the H&P unless as otherwise noted. Assessment and Plan: Small bowel intussusception/severe epigastric pain- History of Dianna-en-Y gastric bypass/PUD CT abdomen and pelvis shows small bowel and anastomosis in the left lower quadrant with short segment of telescoping bowel/intussusception with no surrounding edema or extraluminal gas Serial CBC with differential and BMP N.p.o. Acetaminophen 1 g IV every 8 hours as needed for mild pain or fever Dilaudid 0.5 mg IV every 4 hours as needed moderate to severe pain Pantoprazole 40 mg IV twice daily Status post 1 L normal saline bolus in the ED LR at 80 mL/h General Surgery consulted and saw the patient in the ED Hypertension/CHF- Hold Entresto, spironolactone, and furosemide Systolic blood pressures in the low normal range at this time Hydralazine 10 mg IV every 6 hours as needed systolic blood pressure greater than 180 GERD- Changing pantoprazole from 40 mg p.o. twice daily to IV twice daily as noted
[2024-12-31] MEDS: LACTATED RINGER'S 1,000 ML IV SCH (23:29)
[2024-12-31] MEDS: diphenhydrAMINE 50 MG/ML VIAL IV STA (23:29)
--- NOTE | 2025-01-01 00:51 | Billing Data ---
Date of Service January 01, 2025 Coding Level of Care Code 25105 INT INP/OBS CARE
[2025-01-01] MEDS: HYDROmorphone INJ 0.5 MG/0.5 ML SYR IV PRN (01:30)
[2025-01-01] MEDS: PANTOprazole 40 MG/10 ML SYR IV SCH (01:30)
[2025-01-01] MEDS: diphenhydrAMINE 50 MG/ML VIAL IV STA (01:37)
[2025-01-01 07:16] LABS: Hematocrit (blood only) 35.9 % (37.0-47.0); Hemoglobin 12.0 g/dl (12.0-16.0); Mean Corpuscular Hemoglobin 31.3 pg (25.0-34.0); Mean Corpuscular Volume 93.7 fL (80.0-100.0); Platelet Count 210 K/uL (130-400); RDW Standard Deviation 41.6 fL (36.4-46.3); Red Blood Count 3.83 M/uL (4.20-5.40); White Blood Count 5.10 K/ul (4.8-10.8)
[2025-01-01 07:34] VITALS: BP 106/64; PULSE 71; RESP 20; TEMP 97.5; O2SAT 97
[2025-01-01 07:34] LABS: Anion Gap 4.0 (3-11); Blood Urea Nitrogen 11.0 mg/dl (6-23); Calcium 8.4 mg/dl (8.6-10.3); Carbon Dioxide 28.0 mmol/L (21-32); Chloride 108.0 mmol/L (98-107); Creatinine Clr Calc Pharmacy 58.2 ml/min; Potassium 3.9 mmol/L (3.5-5.1); Sodium 140.0 mmol/L (136-145)
[2025-01-01] MEDS: DICLOFENAC SOD 1% GEL 100 GM TUBE EXT SCH (08:00)
--- NOTE | 2025-01-01 08:03 | Hospitalist Progress Note ---
Date of Service January 01, 2025 Assessment & Plan Admission and Anticipated Discharge Date Admission Date: December 31, 2024 Results & Data Results & Data Vital Signs (Past 12 Hours) Vital Signs Temp Pulse Pulse Pulse Resp BP BP 01/01/25 07:31 36.4 C L 71 20 106/64 01/01/25 01:10 36.5 C 81 18 112/72 01/01/25 00:55 62 18 104/70 01/01/25 00:53 36.5 C 81 18 112/72 12/31/24 23:00 60 18 12/31/24 22:45 62 17 87/47 L 12/31/24 21:30 69 22 120/53 L 12/31/24 21:00 78 18 BP Pulse Ox O2 Del Method 01/01/25 07:31 97 Room Air 01/01/25 01:10 100 Room Air 01/01/25 00:55 98 Room Air 01/01/25 00:53 100 Room Air 12/31/24 23:00 105/76 97 Room Air 12/31/24 22:45 93 12/31/24 21:30 95 12/31/24 21:00 132/47 L 97 Room Air PG Care Time/CCT Total # of Minutes Spent Total Time Spent with Patient: Total time spent is greater than 50% in coordination of care (as documented) at patient's floor/unit and/or counseling patient: Coding
[2025-01-01] MEDS: ACETAMINOPHEN 1,000 MG/100 ML VIAL IV SCH (10:13)
--- NOTE | 2025-01-01 20:11 | Discharge Summary ---
Discharge Summary Date of Service January 01, 2025 Principal Dx & Hospital Course #1 = Principal Diagnosis (1) Intussusception of small bowel: Plan Ms. Plaza is a 74-year-old female whose active medical conditions include peptic ulcer disease status post Dianna-en-Y gastric bypass in 2013 at external hospital facility, chronic esophagitis in the setting of gastroesophageal reflux disease, heart failure with preserved ejection fraction with AICD (without pacemaker function) among other chronic medical conditions who was admitted to [facility] on 12/31 due to intussusception of the small bowel after the patient declined transfer to a tertiary care facility for surgical evaluation. With regard to the patient's presenting intussusception, this did spontaneously resolve, and she is at this time without any recurrence of her symptomatology for greater than 12 hours. It was discussed in great length that this can recur without any warning. The patient is understanding of this but would not like to pursue further diagnostic testing at this time. She is interested in referral at discharge to a surgical service through [facility], a tertiary care center where the patient will be able to obtain adequate surgical intervention if necessary. This was provided. The patient is anticipated to undergo elective left upper extremity lipoma excision at an outpatient surgical center on 01/05. Based on review the patient's laboratory assessment during his hospitalization, cardiac assessment, and overall stability after resolution of her intussusception, this does not preclude her from surgical intervention. She is currently medically optimized to undergo this procedure pending further recommendations from her surgeons office of which I do not have access to. Admission HPI Per Admitting Provider Patient is a 74 yo F w/ a PMHx of prior Dianna-en-Y gastric bypass (2013), peptic ulcers, esophagitis, s/p AICD placement (pacemaker portion turned off), CHF, prolonged QT interval, osteopenia, CAD, Hx of cardiac arrest (2022), hepatic steatosis, lipoma (l. upper arm, scheduled for surgery on Jan 05), depression, LBBB, HTN, HLD, anxiety, GERD, hypothyroidism, presenting today for severe epigastric pain (8/10) of about 3-4 hours. Patient also endorses N/V, w/ 4 episodes of vomiting, the last one being pink- tinged. Patient feels like her BM's have been more dense the last 4 days, but notes no other changes of BM's. Patient also endorses a sensation of early fullness when eating. Patient denies any CP or palpitations, denies any dyspnea/cough/wheezing, denies any urinary frequency/urgency, denies any fevers, but does endorse increased fatigue over the last week. Patient notes she typically eats marijuana gummies to help her sleep at night, so was wanting a substitute if possible Discharge Exam General: Adult female in no acute distress Vital Signs: Reviewed HEENT: Pupils equally round reactive to light; extraocular motions intact; moist mucous membranes Pulmonary: Symmetric chest wall excursion without restriction Cardiovascular: Bilateral radial and posterior tibial pulse 2+, regular rhythm Gastrointestinal: Soft, nontender; normal bowel sounds throughout all 4 quadrants with appropriate frequency and pitch Skin: Approximately 4 cm x 4 cm x 3 cm dermal mass present in the lateral portion of the left arm, nontender Discharge Plan Discharge Items Patient Disposition: Home - Self-Care Reason For Visit: EPIGASTRIC PAIN Discharge Diagnosis: Intussusception, self-resolved Condition on Discharge: Fair Activity: Per Instructions section Non-emergency contact: Primary Care Provider Call non-emergency contact if: you have any medication questions and your symptoms worsen Follow-up/Referrals: Bryon Eller M.D. [Outside Practitioners] - (Previous RNY bypass, recently admitted to this center for self-resolving intussusception; declined transfer at the time of presentation; looking to establish care) Valeria Shaw MD [Primary Care Provider] - Diet: Low Fat and Low Sodium (2gm) Fluids: 1800ml (7 cups) Addtl Attending Provider Instructions: You were admitted to [facility] for intussusception which self resolved. Imaging obtained in the emergency department revealed intussusception that was closely related to the anastomotic site of your previous Dianna-en-Y gastric bypass; it was recommended that you be transferred to a tertiary care center for possible emergent surgical intervention however you were admitted here for observation and close monitoring. This did self resolve. However, as we discussed, it is recommended that you establish with a surgical group at a tertiary care facility for discussion of future plan of care. Referrals been provided to the [facility] general surgery, we recommend that you follow-up with this group shortly after your hospital discharge. You would also requested information for the [facility] office of aging, in order to assist with the care you provide your mother at home. They can be reached by phone at [phone]. Their physical address is in [place], [place]. If your symptoms recur, or if you begin develop similar symptoms without similar severity in association with significant bloody stools, inability tolerate oral intake, projectile emesis, bloody emesis, it is recommended that you present back to this emergency department for reevaluation Thank you for choosing [facility] as your healthcare provider. Pending Studies at Discharge: No Stand-Alone Forms: My [facility] Medications and DC Order Prescriptions: Continued spironolactone [Aldactone] 25 mg tablet 25 mg PO HS Qty: 90 3RF Jardiance 10 mg tablet 10 mg PO HS Qty: 90 3RF Hold Instructions: UTI symptoms Entresto 97-103 mg tablet 0.5 tab PO BID Qty: 180 3RF pantoprazole 40 mg tablet,delayed release (DR/EC) 40 mg PO BID 90 Days Qty: 180 3RF Caltrate 600 plus D 600 mg-20 mcg (800 unit) tablet,chewable 1 tab PO HS Rx Instructions: ON HOLD FOR PROCEDURE ON 01/05/25 mecobalamin (vitamin B12) 5,000 mcg tablet,chewable 5,000 mcg PO Q7D Rx Instructions: 5,000 mcg orally weekly; ON HOLD FOR PROCEDURE ON 01/05/25 Medical Marijuana 1 gummy PO HS Rx Instructions: use as directed; furosemide 20 mg tablet 20 mg PO DAILY PRN (Reason: weight gain, edema, SOB.) Qty: 120 3RF Rx Instructions: May increase to 40 mg PRN phenazopyridine [Pyridium] 100 mg tablet 100 mg PO TID PRN (Reason: pain) Qty: 6 0RF oxycodone-acetaminophen [Endocet] 5-325 mg tablet 1 tab PO Q4H PRN (Reason: pain) Qty: 7 0RF Rx Instructions: initial therapy Dr. Tam [id number] multivitamin Tablet 1 tab PO QAM Rx Instructions: ON HOLD FOR PROCEDURE ON 01/05/25 biotin 5 mg capsule 5 mg PO UD Rx Instructions: 5 mg orally 2x weekly; ON HOLD FOR PROCEDURE ON 01/05/25 levothyroxine 25 mcg tablet 25 mcg PO DAILYBB Discharge Orders: Discharge Order (Routine); Ordered 01/01/25 Ordered By: Danny Gooden Admission Data Admit Date/Time: 12/31/24 23:17 Attending Provider: Danny Gooden Admit Provider: Frantz Weiner Primary Care Provider: Valeria Shaw Other Providers: Franc Godwin; Frantz Weiner Other Interventions: Discharge Summary Assessment (RN) Last Done: 01/01/25 13:46 Hospital Stay Data Consultations 12/31/24 19:44 Consult General Surgery Routine 12/31/24 20:53 ED Decision to Admit Stat Diagnostic Imagining Performed 12/31/24 18:39 CT Abd and Pelvis [CT abd pelvis IV con only] Stat Pending Results Patient Have Any Pending Studies at Discharge: No Discharge Instructions Given to Patient (Per Discharging Provider) You were admitted to [facility] for intussusception which self resolved. Imaging obtained in the emergency department revealed intussusception that was closely related to the anastomotic site of your previous Dianna-en-Y gastric bypass; it was recommended that you be transferred to a tertiary care center for possible emergent surgical intervention however you were admitted here for observation and close monitoring. This did self resolve. However, as we discussed, it is recommended that you establish with a surgical group at a tertiary care facility for discussion of future plan of care. Referrals been provided to the [facility] general surgery, we recommend that you follow-up with this group shortly after your hospital discharge. You would also requested information for the [facility] office of aging, in order to assist with the care you provide your mother at home. They can be reached by phone at [phone]. Their physical address is in [place], [place]. If your symptoms recur, or if you begin develop similar symptoms without similar severity in association with significant bloody stools, inability tolerate oral intake, projectile emesis, bloody emesis, it is recommended that you present back to this emergency department for reevaluation Thank you for choosing [facility] as your healthcare provider. Total Time Total Time Spent Total Time Spent (In Minutes): I personally spent 85 minutes in today's discharge including review of the patient's chart including vital signs, laboratory assessment, imaging studies, EKG, physical exam, coordination of care with the patient at bedside, summary and discussion of the risks of delayed surgical evaluation and the life- threatening nature of an unmanaged intussusception, and coordination of outpatient follow-up with an appropriate general surgery service. Coding Level of Care Code 35429 INP/OBS DISCH >30 MIN Diagnoses Intussusception of small bowel K56.1
--- NOTE | 2025-01-01 22:50 | Electrocardiogram Report ---
Test Reason : Blood Pressure : */* mmHG Vent. Rate : 83 BPM Atrial Rate : 83 BPM P-R Int : 146 ms QRS Dur : 154 ms QT Int : 434 ms P-R-T Axes : 55 -22 114 degrees QTcB Int : 509 ms Sinus rhythm with sinus arrhythmia with occasional Premature ventricular complexes Left bundle branch block Abnormal ECG When compared with ECG of 03-Jun-2024 18:08, Sinus rhythm has replaced Electronic ventricular pacemaker Confirmed by Jagdish Prado ([id number]) on 01/01/2025 10:50:17 PM Referred By: REFERRED SELF Confirmed By: Jagdish Prado
== END 2025-01-01 14:27 | disposition home or self-care (01) | DRG 390 ==
LOC: SUATTDRO → ED 17:56 → 3N 23:17

== ENCOUNTER 2025-05-01 10:49 | Inpatient (IN) ==
[2025-05-01] MEDS: OPTIRAY 320 125ml IV ONE (11:23)
--- NOTE | 2025-05-01 11:26 | Emergency Department Note ---
History of Present Illness General Chief complaint: Stroke Alert Stated complaint: DIZZY, WEAK, ON AND OFF CHEST PAIN, HAS PACEMAKER Time Seen by Provider: 05/01/25 11:19 Source: patient Mode of arrival: ambulatory Limitations: physical limitation History of Present Illness Maximum Pain Intensity: 6 Patient is a 74-year-old female with history of intussusception, PUD, esophagitis, nonischemic cardiomyopathy status post AICD placement, CAD, prior Dianna-en-Y, anxiety, hypothyroidism who presents for dizziness and weakness. Started around 3 AM. She got up to go to the bathroom and felt like her legs were "like spaghetti". She was unable to stand on her own. She also felt dizzy and like the room was spinning. She does report a mild headache. No similar symptoms in the past. She does yesterday she was very tired and felt nauseous starting yesterday evening. Does report some mild lower chest discomfort. Denies any abdominal pain or vomiting. No vision loss, double vision, speech change, numbness or weakness to her face or extremities. Denies any sick contacts at home. Home Medications Medication Instructions Recorded Confirmed Type multivitamin 1 tab PO QAM 01/01/23 04/05/25 History calcium 600 mg (as carbonate)-vit 1 tab PO HS 04/30/23 04/05/25 History D3 20 mcg (800 unit) chewable tablet (Caltrate plus D) biotin 5 mg capsule 5 mg PO UD 03/30/24 04/05/25 History Medical Marijuana 1 gummy PO HS sleep 05/11/24 04/05/25 History mecobalamin (vitamin B12) 5,000 5,000 mcg PO Q7D 08/07/24 04/05/25 History mcg chewable tablet empagliflozin 10 mg tablet 10 mg PO HS #90 tabs 08/20/24 04/05/25 Rx (Jardiance) phenazopyridine 100 mg tablet 100 mg PO TID PRN pain 6 doses #6 10/29/24 04/05/25 Rx (Pyridium) tabs furosemide 20 mg tablet 20 mg PO DAILY PRN weight gain, 11/05/24 04/05/25 Rx edema, SOB. #120 tabs oxycodone-acetaminophen 5 mg-325 1 tab PO Q4H PRN pain #7 tabs 12/15/24 04/05/25 Rx mg tablet (Endocet) pantoprazole 40 mg tablet,delayed 40 mg PO BID 90 days #180 tabs 12/24/24 04/05/25 Rx release Entresto 49 mg-51 mg tablet 1 tab PO BID #180 tabs 01/06/25 04/05/25 Rx (sacubitril-valsartan) spironolactone 25 mg tablet 12.5 mg (1/2 x 25 mg) PO HS #90 04/05/25 04/05/25 Rx (Aldactone) tabs levothyroxine 25 mcg tablet 25 mcg PO DAILYBB #90 tabs 04/06/25 Rx Allergies Allergy/AdvReac Type Severity Reaction Status Date / Time morphine Allergy Severe Hives Verified 04/05/25 08:06 dexamethasone Allergy Intermediate Hives Verified 04/05/25 08:06 [From Maxitrol (neomycin sulf)] neomycin Allergy Intermediate Hives Verified 04/05/25 08:06 [From Maxitrol (neomycin sulf)] polymyxin B Allergy Intermediate Hives Verified 04/05/25 08:06 [From Maxitrol (neomycin sulf)] piperacillin [From Zosyn] AdvReac Severe prolonged Verified 04/05/25 08:06 QT interval tazobactam [From Zosyn] AdvReac Severe prolonged Verified 04/05/25 08:06 QT interval ekg pads AdvReac Mild contact Uncoded 04/05/25 08:06 dermatitis Past Med/Surg History Problem List (Updated 05/01/25 @ 13:57 by Francisco Gurrola MD) Non-ST elevation [place] (NSTEMI) (Acute) Vertigo (Acute) Intussusception of small bowel Soft tissue mass Lipoma Palpitation Gastric erythema AICD (automatic cardioverter/defibrillator) present PUD (peptic ulcer disease) Esophagitis Medical marijuana use Sacral neurostimulator in situ Fracture of left distal radius (Acute ~03/10/24) Acute nondisplaced transverse fracture within the distal metaphysis of the left radius. S/P trigger finger release Trigger finger of all digits of right hand Trigger thumb, right thumb Prolonged QT interval Nonischemic cardiomyopathy Chronic systolic (congestive) heart failure Osteopenia after menopause CAD (coronary artery disease) 1. Mild to moderate nonobstructive coronary artery disease -30-40% focal mid LAD stenosis 30% proximal, mid RCA. 40% focal proximal RPDA Hepatic steatosis Depression Overactive bladder History of Dianna-en-Y gastric bypass (~08/04/13) History of peptic ulcer disease Pulmonary nodule Urge incontinence of urine Cardiomyopathy LBBB (left bundle branch block) HLD (hyperlipidemia) HTN (hypertension) with goal to be determined Anxiety GERD (gastroesophageal reflux disease) Hypothyroidism Medical History History of sudden cardiac arrest Esophagitis Hx: UTI (urinary tract infection) History of trigger finger Chest pain Heart failure with improved ejection fraction (HFimpEF) ICD (implantable cardioverter-defibrillator) in place Pacemaker Anastomotic ulcer Presence of combination internal cardiac defibrillator (ICD) and pacemaker (10/16/22) Anxiety History of shingles (12/2022) Trigger finger of all digits of right hand Pulmonary nodule Osteopenia after menopause LBBB (left bundle branch block) HLD (hyperlipidemia) HTN (hypertension) Hx-sudden cardiac arrest (09/2022) Hx of peptic ulcer Hepatic steatosis GERD (gastroesophageal reflux disease) Depression Chronic systolic (congestive) heart failure CAD (coronary artery disease) History of pneumonia Wound of right leg (01/19/24) History of seizure Nonischemic cardiomyopathy History of COVID-19 (08/2022) Pulmonary hypertension History of blood transfusion History of coma History of GI bleed Gram-negative pneumonia Surgical History S/P cardiac pacemaker procedure (10/16/22) History of Dianna-en-Y gastric bypass (2013) Hx of bilateral cataract extraction (09/2023) History of bladder surgery History of surgery (01/2023) History of cardiac cath (07/2022) History of esophagogastroduodenoscopy (EGD) History of colonoscopy History of cholecystectomy S/P bladder repair S/P cervical spinal fusion H/O: hysterectomy Status post right knee replacement Family History Father Lung cancer Hypertension Other Diabetes No family history of adverse response to anesthesia Denies family history of Ovarian cancer Breast cancer Colorectal cancer Social History Smoking Status: Never smoker Tobacco Type: Cigarettes Age Started Using Tobacco: 2; Age Quit Using Tobacco: 37; packs per day: 0.5; Cigarettes Per Day: 1/2 Pack Per Day.; Second Hand Exposure: No; Do You Dip or Chew Tobacco: No; Hx Alcohol Use: Yes Alcohol type: wine Alcohol type Comment: 1 glass 4-5x/week with dinner Hx Substance Use: Yes Last Used Substance: Unknown Last Used Substance Other:: every night for sleep Substance Use Type Other:: Medical Marijuana. 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 Physical Exam Vital Signs Vital Signs - 24 hr 05/01/25 11:03 05/01/25 11:31 05/01/25 11:36 Temperature 36.4 C L Temperature Source Temporal Artery Scan Pulse Rate 69 Pulse Rate [Right Finger] Pulse Rate from SpO2 Sensor 69 Pulse Rhythm [Right Finger] Pulse Strength [Right Finger] Respiratory Rate 20 24 Respiratory Effort / Characteristics Non-Labored Spontaneous Respiratory Depth Normal Respiratory Pattern Regular Blood Pressure 104/61 Blood Pressure [Right Arm] Blood Pressure Mean 67 Blood Pressure Mean [Right Arm] Blood Pressure Position [Right Arm] Pulse Oximetry 96 Oxygen Delivery Method Room Air Sepsis Recent Fever Within 48 Hours No Sepsis New/Unexplained Change in Mental Status N/A Sepsis Action Taken by Nursing No Action Required 05/01/25 11:42 05/01/25 11:45 05/01/25 11:57 Temperature Temperature Source Pulse Rate 67 67 71 Pulse Rate [Right Finger] Pulse Rate from SpO2 Sensor 67 72 Pulse Rhythm [Right Finger] Pulse Strength [Right Finger] Respiratory Rate 15 12 Respiratory Effort / Characteristics Respiratory Depth Respiratory Pattern Blood Pressure 89/65 L Blood Pressure [Right Arm] Blood Pressure Mean 73 Blood Pressure Mean [Right Arm] Blood Pressure Position [Right Arm] Pulse Oximetry 96 98 Oxygen Delivery Method Room Air Room Air Sepsis Recent Fever Within 48 Hours Sepsis New/Unexplained Change in Mental Status Sepsis Action Taken by Nursing 05/01/25 11:58 05/01/25 12:00 05/01/25 12:15 Temperature Temperature Source Pulse Rate 70 67 Pulse Rate [Right Finger] Pulse Rate from SpO2 Sensor 70 67 Pulse Rhythm [Right Finger] Pulse Strength [Right Finger] Respiratory Rate 14 19 Respiratory Effort / Characteristics Respiratory Depth Respiratory Pattern Blood Pressure 90/57 L 88/68 L 94/58 L Blood Pressure [Right Arm] Blood Pressure Mean 61 74 70 Blood Pressure Mean [Right Arm] Blood Pressure Position [Right Arm] Pulse Oximetry 95 95 Oxygen Delivery Method Room Air Room Air Sepsis Recent Fever Within 48 Hours Sepsis New/Unexplained Change in Mental Status Sepsis Action Taken by Nursing 05/01/25 12:15 05/01/25 12:21 05/01/25 12:30 Temperature Temperature Source Pulse Rate 67 68 Pulse Rate [Right Finger] Pulse Rate from SpO2 Sensor 67 68 Pulse Rhythm [Right Finger] Pulse Strength [Right Finger] Respiratory Rate 14 20 Respiratory Effort / Characteristics Respiratory Depth Respiratory Pattern Blood Pressure 94/58 L 92/50 L Blood Pressure [Right Arm] Blood Pressure Mean 64 64 Blood Pressure Mean [Right Arm] Blood Pressure Position [Right Arm] Pulse Oximetry 97 99 Oxygen Delivery Method Room Air Room Air Sepsis Recent Fever Within 48 Hours Sepsis New/Unexplained Change in Mental Status Sepsis Action Taken by Nursing 05/01/25 12:45 05/01/25 12:52 05/01/25 13:00 Temperature Temperature Source Pulse Rate 67 71 Pulse Rate [Right Finger] Pulse Rate from SpO2 Sensor 67 71 Pulse Rhythm [Right Finger] Pulse Strength [Right Finger] Respiratory Rate 26 H 18 Respiratory Effort / Characteristics Respiratory Depth Respiratory Pattern Blood Pressure 94/49 L 92/54 L 100/52 L Blood Pressure [Right Arm] Blood Pressure Mean 64 61 68 Blood Pressure Mean [Right Arm] Blood Pressure Position [Right Arm] Pulse Oximetry 100 99 Oxygen Delivery Method Room Air Room Air Sepsis Recent Fever Within 48 Hours Sepsis New/Unexplained Change in Mental Status Sepsis Action Taken by Nursing 05/01/25 13:50 Temperature Temperature Source Pulse Rate Pulse Rate [Right Finger] 69 Pulse Rate from SpO2 Sensor Pulse Rhythm [Right Finger] Regular Pulse Strength [Right Finger] Normal Respiratory Rate 15 Respiratory Effort / Characteristics Non-Labored Respiratory Depth Normal Respiratory Pattern Regular Blood Pressure Blood Pressure [Right Arm] 93/45 L Blood Pressure Mean Blood Pressure Mean [Right Arm] 61 Blood Pressure Position [Right Arm] Lying Pulse Oximetry 95 Oxygen Delivery Method Room Air Sepsis Recent Fever Within 48 Hours Sepsis New/Unexplained Change in Mental Status Sepsis Action Taken by Nursing See below Constitutional WD/WN, vitals as above Eyes PERRL, conjunctivae normal, anicteric sclerae ENMT external ear and nose normal, oropharynx normal Respiratory normal respiratory effort, lungs clear to auscultation Cardiovascular RRR, no murmur, no edema Gastrointestinal (Abdomen) normal bowel sounds, soft, nontender, no hepatosplenomegaly Neurologic CN's II-XI intact bilaterally and awake; no focal motor deficit Motor/Sensory: no sensory deficit Coordination: normal [id number] test and normal [id number] test NIHSS of 0, negative test of skew, no vertical or bidirectional nystagmus Course Administered Medications Heparin Sodium/Dextrose (Heparin 41045 Unit/500 Ml D5w) 25,000 units in 500 mls @ 20 mls/hr IV .Q24H ELISA; Protocol Stop: 05/31/25 12:59 Last Admin: 05/01/25 12:42 Dose: 1,000 units/hr, 20 mls/hr Documented By: SALOMON Co-signed By: MALIKA Discontinued Medications Aspirin (Aspirin Chew 324 Mg) 324 mg PO NOW STA Stop: 05/01/25 12:31 Last Admin: 05/01/25 12:36 Dose: 324 mg Documented By: SALOMON Heparin Sodium (Porcine) (Heparin Sod (Porcine) 1000 Unit/Ml) 1 units IV NOW ONE Stop: 05/01/25 12:47 Last Admin: 05/01/25 12:42 Dose: 4,000 units Documented By: SALOMON Co-signed By: MALIKA Heparin Sodium/Dextrose (Heparin Iv Adult Wt-Based Standard W/ Initial Bolus Protocol) 1 each IV NOW STA; Protocol Stop: 05/01/25 12:31 Last Admin: 05/01/25 12:49 Dose: 1 each Documented By: SALOMON Sodium Chloride (Nss) 1,000 mls @ 999 mls/hr IV .Q1H1M ONE Stop: 05/01/25 13:00 Last Infusion: 05/01/25 13:08 Dose: Infused Documented By: Admin: 05/01/25 12:14 Dose: 999 mls/hr Documented By: SALOMON Ioversol (Optiray 320 125ml) 120 ml IV ONCE ONE Stop: 05/01/25 11:24 Last Admin: 05/01/25 11:23 Dose: 120 ml Documented By: SRAVANI Ondansetron HCl (Ondansetron Inj 2 Mg/Ml 2 Ml Vial) 4 mg IV NOW STA Stop: 05/01/25 11:21 Last Admin: 05/01/25 11:43 Dose: 4 mg Documented By: SALOMON Medical Decision Making Differential Diagnosis DDx includes but not limited to: CVA, TIA, intracranial hemorrhage, BPPV, labyrinthitis, NSTEMI, viral URI, sepsis, metabolic abnormality, ACS Medical Records Attestation: I reviewed the patient's medical records. Home Medications Current Medication List: was personally reviewed by me Laboratory Data Attestation: I reviewed the patient's lab results. 05/01/25 11:14 05/01/25 11:14 Lab Results 05/01/25 05/01/25 05/01/25 Range/Units 11:14 11:18 11:33 WBC 12.76 H (4.8-10.8) K/ul RBC 5.07 (4.20-5.40) M/uL Hgb 16.0 (12.0-16.0) g/dL Hct 45.7 (37.0-47.0) % MCV 90.1 (80.0-100.0) fL MCH 31.6 (25.0-34.0) pg MCHC 35.0 (32.0-36.0) g/dL RDW Std Deviation 43.8 (36.4-46.3) fL RDW Coeff of Delfino 13.3 (11.5-14.5) % Plt Count 289 (130-400) K/uL MPV 9.9 (9.4-12.4) fL Immature Gran % (Auto) 0.2 % Neut % (Auto) 69.0 % Lymph % (Auto) 23.4 % Beadle % (Auto) 6.2 % Eos % (Auto) 0.5 % Baso % (Auto) 0.7 % Neut # (Auto) 8.81 H (1.40-6.50) K/uL Lymph # (Auto) 2.98 (1.20-3.40) K/uL Beadle # (Auto) 0.79 H (0.11-0.59) K/uL Eos # (Auto) 0.06 (0.00-0.50) K/uL Baso # (Auto) 0.09 (0.00-0.20) K/uL Immature Gran # (Auto) 0.03 (0.01-0.20) K/uL PT 10.7 (9.0-12.0) Seconds INR 1.0 (0.9-1.1) APTT 25 (21-31) Seconds PTT Ratio 0.9 Sodium 139 (136-145) mmol/L Potassium 4.0 (3.5-5.1) mmol/L Chloride 105 (98-107) mmol/L Carbon Dioxide 23 (21-32) mmol/L Anion Gap 11 (3-11) BUN 14 (6-23) mg/dl Creatinine 0.69 (0.6-1.2) mg/dl Est Cr Clr Drug Dosing 61.0 ml/min eGFR 92.15 BUN/Creatinine Ratio 20.3 H (10-20) Glucose 131 H (70-99(Fasting)) mg/dl POC Glucose 121 H (70-99) mg/dl Lactate 1.5 (0.4-2.0) mmol/L Calcium 9.5 (8.6-10.3) mg/dl Magnesium 2.1 (1.7-2.4) mg/dl Total Bilirubin 1.1 H (0.2-1.0) mg/dl AST 18 (13-39) U/L ALT 13 (7-52) U/L Alkaline Phosphatase 76 (34-104) U/L Troponin I High Sens 581.2 H* (0-14) pg/ml Total Protein 7.0 (6.0-8.3) gm/dl Albumin 4.3 (3.4-5.0) gm/dl Globulin 2.7 (2.5-4.0) gm/dl Albumin/Globulin Ratio 1.6 (0.9-2) Adenovirus (PCR) (NotDetected) Anaplasma Smear See Comment Babesia Smear See Comment B. pertussis DNA (PCR) (NotDetected) B.parapertussis DNA PCR (NotDetected) Lyme Disease Screen Negative (Negative) C. pneumoniae DNA (PCR) (NotDetected) Coronavirus OC43 (PCR) (NotDetected) Coronavirus HKU1 (PCR) (NotDetected) Coronavirus 229E (PCR) (NotDetected) SARS-CoV-2 (PCR) (NotDetected) Coronavirus NL63 (PCR) (NotDetected) Human Metapneumovir PCR (NotDetected) Influenza Type A (PCR) (NotDetected) Influenza Type B (PCR) (NotDetected) M. pneumoniae (PCR) (NotDetected) Parainfluenza 1 (PCR) (NotDetected) Parainfluenza 2 (PCR) (NotDetected) Parainfluenza 3 (PCR) (NotDetected) Parainfluenza 4 (PCR) (NotDetected) RSV (PCR) (NotDetected) Entero/Rhino (PCR) (NotDetected) Blood Type Antibody Screen 05/01/25 05/01/25 05/01/25 Range/Units 11:42 12:05 12:16 WBC (4.8-10.8) K/ul RBC (4.20-5.40) M/uL Hgb (12.0-16.0) g/dL Hct (37.0-47.0) % MCV (80.0-100.0) fL MCH (25.0-34.0) pg MCHC (32.0-36.0) g/dL RDW Std Deviation (36.4-46.3) fL RDW Coeff of Delfino (11.5-14.5) % Plt Count (130-400) K/uL MPV (9.4-12.4) fL Immature Gran % (Auto) % Neut % (Auto) % Lymph % (Auto) % Beadle % (Auto) % Eos % (Auto) % Baso % (Auto) % Neut # (Auto) (1.40-6.50) K/uL Lymph # (Auto) (1.20-3.40) K/uL Beadle # (Auto) (0.11-0.59) K/uL Eos # (Auto) (0.00-0.50) K/uL Baso # (Auto) (0.00-0.20) K/uL Immature Gran # (Auto) (0.01-0.20) K/uL PT (9.0-12.0) Seconds INR (0.9-1.1) APTT (21-31) Seconds PTT Ratio Sodium (136-145) mmol/L Potassium (3.5-5.1) mmol/L Chloride (98-107) mmol/L Carbon Dioxide (21-32) mmol/L Anion Gap (3-11) BUN (6-23) mg/dl Creatinine (0.6-1.2) mg/dl Est Cr Clr Drug Dosing ml/min eGFR BUN/Creatinine Ratio (10-20) Glucose (70-99(Fasting)) mg/dl POC Glucose (70-99) mg/dl Lactate (0.4-2.0) mmol/L Calcium (8.6-10.3) mg/dl Magnesium (1.7-2.4) mg/dl Total Bilirubin (0.2-1.0) mg/dl AST (13-39) U/L ALT (7-52) U/L Alkaline Phosphatase (34-104) U/L Troponin I High Sens (0-14) pg/ml Total Protein (6.0-8.3) gm/dl Albumin (3.4-5.0) gm/dl Globulin (2.5-4.0) gm/dl Albumin/Globulin Ratio (0.9-2) Adenovirus (PCR) Not Detected (NotDetected) Anaplasma Smear Babesia Smear B. pertussis DNA (PCR) Not Detected (NotDetected) B.parapertussis DNA PCR Not Detected (NotDetected) Lyme Disease Screen (Negative) C. pneumoniae DNA (PCR) Not Detected (NotDetected) Coronavirus OC43 (PCR) Not Detected (NotDetected) Coronavirus HKU1 (PCR) Not Detected (NotDetected) Coronavirus 229E (PCR) Not Detected (NotDetected) SARS-CoV-2 (PCR) Not Detected (NotDetected) Coronavirus NL63 (PCR) Not Detected (NotDetected) Human Metapneumovir PCR Not Detected (NotDetected) Influenza Type A (PCR) Not Detected (NotDetected) Influenza Type B (PCR) Not Detected (NotDetected) M. pneumoniae (PCR) Not Detected (NotDetected) Parainfluenza 1 (PCR) Not Detected (NotDetected) Parainfluenza 2 (PCR) Not Detected (NotDetected) Parainfluenza 3 (PCR) Not Detected (NotDetected) Parainfluenza 4 (PCR) Not Detected (NotDetected) RSV (PCR) Not Detected (NotDetected) Entero/Rhino (PCR) Not Detected (NotDetected) Blood Type Cancelled O Negative Antibody Screen Cancelled POSITIVE A Imaging Data Radiologist's Impression: Chest X-Ray 05/01/25 11:20 XR chest 1V portable CLINICAL HISTORY: neuro deficit, acute stroke suspected COMPARISON STUDY: 06/03/2024 FINDINGS: Stable pacemaker/ICD. Heart size and pulmonary vasculature are normal. No consolidation or pleural effusion. No pneumothorax. IMPRESSION: No acute findings. ACT 112: Negative or not required by law. Electronically signed by: Jorje Lion M.D. 05/01/2025 12:[address] 05/01/25 11:20 CT head/brain wo con CLINICAL HISTORY: neuro deficit, acute stroke suspected. TECHNIQUE: Multiple axial CT images of the head were obtained without contrast. A dose lowering technique was utilized adhering to the principles of ALARA. COMPARISON: None FINDINGS: No intracranial hemorrhage seen. No mass effect, midline shift, or hydrocephalus. Visualized paranasal sinuses are clear. No skull fracture seen. IMPRESSION: No acute findings. ACT 112: Negative or not required by law. The above report was generated using voice recognition software. It may contain grammatical, syntax or spelling errors. Electronically signed by: Jorje Lion M.D. 05/01/2025 11:41 AM Head CTA 05/01/25 11:20 CT angio neck with con, CT angio head w con CLINICAL HISTORY: neuro deficit, acute stroke suspected. TECHNIQUE: Following the IV administration of 120 of Optiray, CT angiogram of the neck and brain was performed from the aortic arch to the skull apex. Images are reviewed in the axial, sagittal, and coronal planes. 3-D MIPS images are created and assessed. IV contrast was administered without complication. All measurements were calculated based on NASCET criteria. A dose lowering technique was utilized adhering to the principles of ALARA. CT DOSE: 955.22 mGy.cm COMPARISON STUDY: None FINDINGS: Bilateral common and internal carotid vertebral arteries show no significant narrowing or occlusion. Basilar artery is widely patent. Anterior, middle, and posterior cerebral arteries are patent bilaterally. Cerebral venous sinuses opacify normally. No intracranial aneurysm seen. IMPRESSION: No significant arterial narrowing or occlusion seen at the neck or brain. ACT 112: Negative or not required by law. The above report was generated using voice recognition software. It may contain grammatical, syntax or spelling errors. Electronically signed by: Jorje Lion M.D. 05/01/2025 12:00 PM Neck CTA 05/01/25 11:20 CT angio neck with con, CT angio head w con CLINICAL HISTORY: neuro deficit, acute stroke suspected. TECHNIQUE: Following the IV administration of 120 of Optiray, CT angiogram of the neck and brain was performed from the aortic arch to the skull apex. Images are reviewed in the axial, sagittal, and coronal planes. 3-D MIPS images are created and assessed. IV contrast was administered without complication. All measurements were calculated based on NASCET criteria. A dose lowering technique was utilized adhering to the principles of ALARA. CT DOSE: 955.22 mGy.cm COMPARISON STUDY: None FINDINGS: Bilateral common and internal carotid vertebral arteries show no significant narrowing or occlusion. Basilar artery is widely patent. Anterior, middle, and posterior cerebral arteries are patent bilaterally. Cerebral venous sinuses opacify normally. No intracranial aneurysm seen. IMPRESSION: No significant arterial narrowing or occlusion seen at the neck or brain. ACT 112: Negative or not required by law. The above report was generated using voice recognition software. It may contain grammatical, syntax or spelling errors. Electronically signed by: Jorje Lion M.D. 05/01/2025 12:00 PM ECG Data Attestation: I personally reviewed and interpreted this ECG as follows: Indication: + chest pain Rate (beats per minute): 78 Rhythm: + normal sinus ECG Intervals/blocks: + Left bundle branch block, + Prolonged QT and + Normal UT ECG [place]: + Left axis deviation ECG ST segments: + Normal ST segments ECG Findings: + PVCs Comparison ECG Date: from (12/31/2024) Change: the following changes noted (QTc more prolonged ) MDM Narrative Patient is a 74-year-old female presents with dizziness and lower extremity weakness and pain that started around 3 AM. Initially she was brought back to a for stroke eval. Outside of the window for thrombolytics. No focal neurologic deficits or evidence of LVO on CTA of the head and neck. Dizziness description was consistent with vertigo. She was given IV fluids and antiemetics as well as meclizine while workup was continued. She was also noted to have a troponin level 581. She did report some mild chest discomfort that resolved while here in the ED. No ischemic changes noted on EKG. Pacemaker interrogation was performed and nonconcerning for any events. Aspirin and heparin protocol was initiated here in the ED for NSTEMI. On reevaluation patient remains chest pain-free. Will admit for management of vertigo and NSTEMI. Authorized and Performed by: Dr. Gurrola Total critical care time: Approximately 35 CC diagnosis: NSTEMI/ dizziness Due to a high probability of clinically significant, life threatening deterioration, the patient required my highest level of preparedness to intervene emergently and I personally spent this critical care time directly and personally managing the patient. This critical care time included obtaining a history; examining the patient; pulse oximetry; ordering and review of studies; arranging urgent treatment with development of a management plan; evaluation of patient's response to treatment; frequent reassessment; and, discussions with other providers. This critical care time was performed to assess and manage the high probability of imminent, life-threatening deterioration that could result in multi-organ failure. It was exclusive of separately billable procedures and treating other patients and teaching time. Please see MDM section and the rest of the note for further information on patient assessment and treatment. Impression & Plan Vertigo, Non-ST elevation NJ (NSTEMI) Discharge Plan Visit Data Chief Complaint: Stroke Alert Stated Complaint: DIZZY, WEAK, ON AND OFF CHEST PAIN, HAS PACEMAKER ED Provider: Fracnisco Gurrola Discharge Problem: Vertigo, Non-ST elevation NJ (NSTEMI) Patient Disposition: Admitted As Inpatient Condition: Good Forms Stand Alone Forms: My [facility] [employer] Prescriptions Prescriptions: No Action Jardiance 10 mg tablet 10 mg PO HS Qty: 90 3RF Hold Instructions: UTI symptoms pantoprazole 40 mg tablet,delayed release (DR/EC) 40 mg PO BID 90 Days Qty: 180 3RF sacubitril-valsartan [Entresto] 49-51 mg tablet 1 tab PO BID Qty: 180 3RF levothyroxine 25 mcg tablet 25 mcg PO DAILYBB Qty: 90 3RF Caltrate 600 plus D 600 mg-20 mcg (800 unit) tablet,chewable 1 tab PO HS Rx Instructions: ON HOLD FOR PROCEDURE ON 01/05/25 mecobalamin (vitamin B12) 5,000 mcg tablet,chewable 5,000 mcg PO Q7D Rx Instructions: 5,000 mcg orally weekly; ON HOLD FOR PROCEDURE ON 01/05/25 Medical Marijuana 1 gummy PO HS Rx Instructions: use as directed; spironolactone [Aldactone] 25 mg tablet 12.5 mg PO HS Qty: 90 3RF furosemide 20 mg tablet 20 mg PO DAILY PRN (Reason: weight gain, edema, SOB.) Qty: 120 3RF Rx Instructions: May increase to 40 mg PRN phenazopyridine [Pyridium] 100 mg tablet 100 mg PO TID PRN (Reason: pain) Qty: 6 0RF oxycodone-acetaminophen [Endocet] 5-325 mg tablet 1 tab PO Q4H PRN (Reason: pain) Qty: 7 0RF Rx Instructions: initial therapy Dr. Tam [id number] multivitamin Tablet 1 tab PO QAM Rx Instructions: ON HOLD FOR PROCEDURE ON 01/05/25 biotin 5 mg capsule 5 mg PO UD Rx Instructions: 5 mg orally 2x weekly; ON HOLD FOR PROCEDURE ON 01/05/25 Referrals Referrals: Valeria Shaw MD [Primary Care Provider] -
[2025-05-01 11:39] LABS: Hematocrit (blood only) 45.7 % (37.0-47.0); Hemoglobin 16.0 g/dL (12.0-16.0); Immature Granulocytes # (auto) 0.03 K/uL (0.01-0.20); Immature Granulocytes % (auto) 0.2 %; Mean Corpuscular Hemoglobin 31.6 pg (25.0-34.0); Mean Corpuscular Volume 90.1 fL (80.0-100.0); Platelet Count 289 K/uL (130-400); RDW Standard Deviation 43.8 fL (36.4-46.3); Red Blood Count 5.07 M/uL (4.20-5.40); White Blood Count 12.76 K/ul (4.8-10.8)
--- NOTE | 2025-05-01 11:42 | CT Scan Report ---
CT head/brain wo con CLINICAL HISTORY: neuro deficit, acute stroke suspected. TECHNIQUE: Multiple axial CT images of the head were obtained without contrast. A dose lowering tech nique was utilized adhering to the principles of ALARA. COMPARISON: None FINDINGS: No intracranial hemorrhage seen. No mass effect, midline shift, or hydrocephalus. Visualize d paranasal sinuses are clear. No skull fracture seen. IMPRESSION: No acute findings. ACT 112: Negative or not required by law. The above report was generated using voice recognition software. It may contain grammatical, syntax o r spelling errors. Electronically signed by: Jorje Lion M.D. 05/01/2025 11:41 AM
[2025-05-01] MEDS: ONDANSETRON INJ 2 MG/ML 2 ML VIAL IV STA (11:43)
[2025-05-01 11:47] LABS: Alanine Aminotransferase 13.0 U/L (7-52); Albumin Globulin Ratio 1.6 (0.9-2); Albumin Level 4.3 gm/dl (3.4-5.0); Alkaline Phosphatase 76.0 U/L (34-104); Anion Gap 11.0 (3-11); Bilirubin,Total 1.1 mg/dl (0.2-1.0); Blood Urea Nitrogen 14.0 mg/dl (6-23); Calcium 9.5 mg/dl (8.6-10.3); Carbon Dioxide 23.0 mmol/L (21-32); Chloride 105.0 mmol/L (98-107); Creatinine Clr Calc Pharmacy 61.0 ml/min; Globulin 2.7 gm/dl (2.5-4.0); Glucose 131.0 mg/dl (70-99(Fasting)); Magnesium 2.1 mg/dl (1.7-2.4); Potassium 4.0 mmol/L (3.5-5.1); Sodium 139.0 mmol/L (136-145); Total Protein 7.0 gm/dl (6.0-8.3)
[2025-05-01 11:54] LABS: INR 1.0 (0.9-1.1); Partial Thromboplastin Time 25 Seconds (21-31); Prothrombin Time 10.7 Seconds (9.0-12.0)
--- NOTE | 2025-05-01 12:01 | CT Scan Report ---
CT angio neck with con, CT angio head w con CLINICAL HISTORY: neuro deficit, acute stroke suspected. TECHNIQUE: Following the IV administration of 120 of Optiray, CT angiogram of the neck and brain was performed from the aortic arch to the skull apex. Images are reviewed in the axial, sagittal, and cor onal planes. 3-D MIPS images are created and assessed. IV contrast was administered without complicat ion. All measurements were calculated based on NASCET criteria. A dose lowering technique was utiliz ed adhering to the principles of ALARA. CT DOSE: 955.22 mGy.cm COMPARISON STUDY: None FINDINGS: Bilateral common and internal carotid vertebral arteries show no significant narrowing or o cclusion. Basilar artery is widely patent. Anterior, middle, and posterior cerebral arteries are trujillo nt bilaterally. Cerebral venous sinuses opacify normally. No intracranial aneurysm seen. IMPRESSION: No significant arterial narrowing or occlusion seen at the neck or brain. ACT 112: Negative or not required by law. The above report was generated using voice recognition software. It may contain grammatical, syntax o r spelling errors. Electronically signed by: Jorje Lion M.D. 05/01/2025 12:00 PM
--- NOTE | 2025-05-01 12:02 | XRay Report ---
XR chest 1V portable CLINICAL HISTORY: neuro deficit, acute stroke suspected COMPARISON STUDY: 06/03/2024 FINDINGS: Stable pacemaker/ICD. Heart size and pulmonary vasculature are normal. No consolidation or pleural effusion. No pneumothorax. IMPRESSION: No acute findings. ACT 112: Negative or not required by law. Electronically signed by: Jorje Lion M.D. 05/01/2025 12:01 PM
[2025-05-01] MEDS: SODIUM CHLORIDE 0.9% 1,000 ML IV ONE (12:14)
[2025-05-01] MEDS: ASPIRIN CHEW 324 MG PO STA (12:36)
[2025-05-01] MEDS: HEPARIN 25000 UNIT/500 ML D5W 25,000 UNITS/500 ML BAG IV SCH (12:42)
[2025-05-01] MEDS: HEPARIN SOD (PORCINE) 1000 UNIT/ML IV ONE (12:42)
[2025-05-01] MEDS: Heparin IV Adult Wt-Based Standard w/ INITIAL Bolus Protocol IV STA (12:49)
[2025-05-01 13:05] LABS: Chlamydia pneumoniae PCR Not Detected (NotDetected); Coronavirus 229E PCR Not Detected (NotDetected); Coronavirus CoV-2 (COVID19)PCR Not Detected (NotDetected); Coronavirus HKU1 PCR Not Detected (NotDetected); Coronavirus NL63 PCR Not Detected (NotDetected); Coronavirus OC43PCR Not Detected (NotDetected); Human Metapneumovirus PCR Not Detected (NotDetected); Parainfluenza Virus 1 PCR Not Detected (NotDetected); Parainfluenza Virus 2 PCR Not Detected (NotDetected); Parainfluenza Virus 3 PCR Not Detected (NotDetected); Parainfluenza Virus 4 PCR Not Detected (NotDetected); Respiratory Syncytial VirusPCR Not Detected (NotDetected); Rhinovirus/Enterovirus PCR Not Detected (NotDetected)
[2025-05-01] MEDS ORDERED: PHENAZOPYRIDINE HCL 100 MG TAB PO PRN (13:41)
[2025-05-01] MEDS ORDERED: ONDANSETRON INJ 2 MG/ML 2 ML VIAL IV PRN (13:43)
[2025-05-01] MEDS: MECLIZINE HCL 25 MG TAB PO STA (13:54)
[2025-05-01] MEDS ORDERED: MECLIZINE 12.5 MG TAB PO PRN (14:32)
--- NOTE | 2025-05-01 14:52 | History & Physical Report ---
Date of Service May 01, 2025 Assessment & Plan (1) Non-ST elevation OK (NSTEMI): Plan: -nonischemic cardiomyopathy status post AICD placement, CAD -troponin of >600 -heparin drip started in ER -asa, lipitor -entresto, jardiance, ,lasix -echo -cardiology consulted (2) Vertigo: Plan: -CT/CTA negative -asa, statin -echo -MRI pending ICD and bladder stimulator clearance -meclizine PRN -PT/OT (3) Hypothyroidism (acquired): Plan: -levothyroxine (4) PUD (peptic ulcer disease): Plan: -protonix History of Present Illness Chief Complaint: dizziness, generalized weakness Primary Care Provider: Valeria Shaw MD Pt is a 74 y/o female with pmh nonischemic cardiomyopathy status post AICD placement, CAD, prior Dianna-en-Y, anxiety, hypothyroidism, PUD who presents with dizziness and generalized weakness that started at 3am this am. Pt states she felt like the room was spinning and her legs felt weak and unsteady. She denies any other focal neurological deficits or chest ohara. In the ER she was evaluated as a stroke. CT/CTA of brain/neck were without any acute pathology. Her labs did show troponin of >500 with repeat >600. Her EKG showed no ST-T changes. She was started on heparin drip and will be admitted for further work up of possible NSTEMI, along with vertigo. Allergies Allergy/AdvReac Type Severity Reaction Status Date / Time morphine Allergy Severe Hives Verified 05/01/25 15:03 dexamethasone Allergy Intermediate Hives Verified 05/01/25 15:03 [From Maxitrol (neomycin sulf)] neomycin Allergy Intermediate Hives Verified 05/01/25 15:03 [From Maxitrol (neomycin sulf)] polymyxin B Allergy Intermediate Hives Verified 05/01/25 15:03 [From Maxitrol (neomycin sulf)] piperacillin [From Zosyn] AdvReac Severe prolonged Verified 05/01/25 15:03 QT interval tazobactam [From Zosyn] AdvReac Severe prolonged Verified 05/01/25 15:03 QT interval ekg pads AdvReac Mild contact Uncoded 05/01/25 15:03 dermatitis Home Medications Medication Instructions Recorded Confirmed Type multivitamin 1 tab PO QAM 01/01/23 05/01/25 History calcium 600 mg (as carbonate)-vit 1 tab PO HS 04/30/23 05/01/25 History D3 20 mcg (800 unit) chewable tablet (Caltrate plus D) biotin 5 mg capsule 5 mg PO UD 03/30/24 05/01/25 History Medical Marijuana 1 gummy PO HS sleep 05/11/24 05/01/25 History mecobalamin (vitamin B12) 5,000 5,000 mcg PO Q7D 08/07/24 05/01/25 History mcg chewable tablet empagliflozin 10 mg tablet 10 mg PO HS #90 tabs 08/20/24 05/01/25 Rx (Jardiance) phenazopyridine 100 mg tablet 100 mg PO TID PRN pain 6 doses #6 10/29/24 05/01/25 Rx (Pyridium) tabs furosemide 20 mg tablet 20 mg PO DAILY PRN weight gain, 11/05/24 05/01/25 Rx edema, SOB. #120 tabs oxycodone-acetaminophen 5 mg-325 1 tab PO Q4H PRN pain #7 tabs 12/15/24 05/01/25 Rx mg tablet (Endocet) pantoprazole 40 mg tablet,delayed 40 mg PO BID 90 days #180 tabs 12/24/24 05/01/25 Rx release Entresto 49 mg-51 mg tablet 1 tab PO BID #180 tabs 01/06/25 05/01/25 Rx (sacubitril-valsartan) spironolactone 25 mg tablet 12.5 mg (1/2 x 25 mg) PO HS #90 04/05/25 05/01/25 Rx (Aldactone) tabs levothyroxine 25 mcg tablet 25 mcg PO DAILYBB #90 tabs 04/06/25 05/01/25 Rx Past Med/Surg History Problem List (Updated 05/01/25 @ 14:59 by Daniel Ngo MD) Hypothyroidism (acquired) Non-ST elevation OK (NSTEMI) (Acute) Vertigo (Acute) Intussusception of small bowel Soft tissue mass Lipoma Palpitation Gastric erythema AICD (automatic cardioverter/defibrillator) present PUD (peptic ulcer disease) Esophagitis Medical marijuana use Sacral neurostimulator in situ Fracture of left distal radius (Acute ~03/10/24) Acute nondisplaced transverse fracture within the distal metaphysis of the left radius. S/P trigger finger release Trigger finger of all digits of right hand Trigger thumb, right thumb Prolonged QT interval Nonischemic cardiomyopathy Chronic systolic (congestive) heart failure Osteopenia after menopause CAD (coronary artery disease) 1. Mild to moderate nonobstructive coronary artery disease -30-40% focal mid LAD stenosis 30% proximal, mid RCA. 40% focal proximal RPDA Hepatic steatosis Depression Overactive bladder History of Dianna-en-Y gastric bypass (~08/04/13) History of peptic ulcer disease Pulmonary nodule Urge incontinence of urine Cardiomyopathy LBBB (left bundle branch block) HLD (hyperlipidemia) HTN (hypertension) with goal to be determined Anxiety GERD (gastroesophageal reflux disease) Hypothyroidism Medical History History of sudden cardiac arrest Esophagitis Hx: UTI (urinary tract infection) History of trigger finger Chest pain Heart failure with improved ejection fraction (HFimpEF) ICD (implantable cardioverter-defibrillator) in place Pacemaker Anastomotic ulcer Presence of combination internal cardiac defibrillator (ICD) and pacemaker (10/16/22) Anxiety History of shingles (12/2022) Trigger finger of all digits of right hand Pulmonary nodule Osteopenia after menopause LBBB (left bundle branch block) HLD (hyperlipidemia) HTN (hypertension) Hx-sudden cardiac arrest (09/2022) Hx of peptic ulcer Hepatic steatosis GERD (gastroesophageal reflux disease) Depression Chronic systolic (congestive) heart failure CAD (coronary artery disease) History of pneumonia Wound of right leg (01/19/24) History of seizure Nonischemic cardiomyopathy History of COVID-19 (08/2022) Pulmonary hypertension History of blood transfusion History of coma History of GI bleed Gram-negative pneumonia Surgical History S/P cardiac pacemaker procedure (10/16/22) History of Dianna-en-Y gastric bypass (2013) Hx of bilateral cataract extraction (09/2023) History of bladder surgery History of surgery (01/2023) History of cardiac cath (07/2022) History of esophagogastroduodenoscopy (EGD) History of colonoscopy History of cholecystectomy S/P bladder repair S/P cervical spinal fusion H/O: hysterectomy Status post right knee replacement Family History Father Lung cancer Hypertension Other Diabetes No family history of adverse response to anesthesia Denies family history of Ovarian cancer Breast cancer Colorectal cancer Social History Smoking Status: Never smoker Tobacco Type: Cigarettes Age Started Using Tobacco: 2; Age Quit Using Tobacco: 37; packs per day: 0.5; Cigarettes Per Day: 1/2 Pack Per Day.; Second Hand Exposure: No; Do You Dip or Chew Tobacco: No; Hx Alcohol Use: Yes Alcohol type: wine Alcohol type Comment: 1 glass 4-5x/week with dinner Hx Substance Use: Yes Last Used Substance: Unknown Last Used Substance Other:: every night for sleep Substance Use Type Other:: Medical Marijuana. Preferred Language: P[place]in[place] Communication Ability: Effective Hearing Ability: Normal Hoisting Engine Operator Required: No Beliefs That Will Affect Care: None marital status: / Current Living Situation: Family current occupational status: retired current occupation: retired Feels Safe at Home: Yes Childhood Exposure to Second-Hand Smoke: No Diet: regular caffeine: Yes Physical Activity Frequency: Daily Seatbelt Use: always Assistive Devices: None Review of Systems Review of Systems: CONST: Negative for fever, body aches and chills. HENT: Negative for neck pain/stiffness, headache, congestion, sore throat, sw elling. EYES: Negative for discharge/pain or vision changes. RESP: Negative for cough/hemoptysis and shortness of breath. CV: Negative chest pain, difficulty breathing, palpitations. ABD: Negative pain, nausea, vomiting. : Negative increase frequency, dysuria, blood in urine or stool. MUSC: Negative for muscle aches, edema. SKIN: Negative rash, lesions/sores. NEURO: + dizziness, weakness. Physical Exam Physical Exam: GENERAL APPEARANCE NAD, activity normal for age, well developed/ well nourished, no cyanosis, pallor, or diaphoresis. EYES lids/conjunctiva normal. EARS/NOSE/THROAT Mucous membranes moist, nares normal, lips/teeth normal uvula midline without oral pharyngeal erythema, exudate or swelling TMs normal bilaterally. No lymphangitis/lymphedema. HEAD/NECK normocephalic atraumatic, no facial trauma, neck is supple. RESPIRATORY respiratory effort normal, speaks in full sentences, no tripod position, no accessory muscle use. Lungs clear to auscultation without rhonchi, wheezes, rales CARDIAC Regular rate and rhythm, no edema. ABDOMINAL Soft, ND/NT. No evidence of fluid wave. No pulsatile masses on exam, rebound tenderness, Liriano sign or pain over Mcburney's point. MUSCLES/EXTREMITIES No abnormal range of motion, no swelling. SKIN Warm, pink and dry. No rashes, dermatoses, petechiae or lesions. NEUROLOGICAL Speech is clear and appropriate. Normal level of consciousness. Gait and coordination are normal. 5/5 strength in all extremities. PSYCH Normal mood and affect. Judgement/competence is appropriate Results & Data Results & Data Vital Signs (Past 12 Hours) Vital Signs Temp Pulse Pulse Resp BP BP Pulse Ox 05/01/25 13:50 69 15 93/45 L 95 05/01/25 13:00 71 18 100/52 L 99 05/01/25 12:52 92/54 L 05/01/25 12:45 67 26 H 94/49 L 100 05/01/25 12:30 68 20 92/50 L 99 05/01/25 12:21 67 14 97 05/01/25 12:15 94/58 L 05/01/25 12:15 67 19 94/58 L 95 05/01/25 12:00 70 14 88/68 L 95 05/01/25 11:58 90/57 L 05/01/25 11:57 71 12 98 05/01/25 11:45 67 15 89/65 L 96 05/01/25 11:42 67 05/01/25 11:36 69 24 96 05/01/25 11:31 104/61 05/01/25 11:03 36.4 C L 20 O2 Del Method 05/01/25 13:50 Room Air 05/01/25 13:00 Room Air 05/01/25 12:52 05/01/25 12:45 Room Air 05/01/25 12:30 Room Air 05/01/25 12:21 Room Air 05/01/25 12:15 05/01/25 12:15 Room Air 05/01/25 12:00 Room Air 05/01/25 11:58 05/01/25 11:57 Room Air 05/01/25 11:45 Room Air 05/01/25 11:42 05/01/25 11:36 Room Air 05/01/25 11:31 05/01/25 11:03 PG Care Time/CCT Total # of Minutes Spent Total Time Spent with Patient: Total time spent is greater than 50% in coordination of care (as documented) at patient's floor/unit and/or counseling patient: Coding Level of Care Code 21409 INT INP/OBS CARE 2/55MIN Diagnoses Non-ST elevation OK (NSTEMI) I21.4 Vertigo R42 Hypothyroidism (acquired) E03.9 PUD (peptic ulcer disease) K27.9
[2025-05-01] MEDS: SPIRONOLACTONE 12.5 MG TAB PO SCH (16:26)
[2025-05-01 19:40] LABS: ANTI-Xa, UFH(UnfractionatedHep 0.91 IU/ml (0.3-0.7)
[2025-05-01] MEDS: CALCIUM 600MG + VIT D 400 IU TAB PO SCH (21:24)
[2025-05-01] MEDS: EMPAGLIFLOZIN 10 MG TAB PO SCH (21:25)
[2025-05-01] MEDS: VALSARTAN/SACUBITRIL 51/49 MG TAB PO SCH (21:25)
[2025-05-01] MEDS: LACTATED RINGER'S 500 ML IV ONE (23:05)
[2025-05-02] MEDS ORDERED: MELATONIN 3 MG TAB PO PRN (01:19)
--- NOTE | 2025-05-02 01:30 | Communication Note ---
Date of Service: May 02, 2025 Notified via [employer] regarding asymptomatic hypotension on 2 separate occasions. Pt had been borderline hypotensive throughout stay, remains asymptomatic. Significant cardiac history to include CHF, nonischemic cardiomyopathy, CAD, HTN, sudden cardiac arrest, prolonged QT, and ICD in place. Initially provided pt with 500 mL bolus of LR. Responded to volume, then with progressive decrease of BP again, specifically with sleep. She is asymptomatic during low BP readings. Personally came to bedside around 0115 to meet the patient, she was alert and oriented once awoken. She reports having low blood pressure at baseline. Asking for something to help her sleep, usually takes marijuana gummies at home. She was informed she cannot have these in the hospital. Suggested utilizing melatonin once her BP is more within range. She continues to experience vertigo, mild posterior headache. MRI unable to be completed at time of admission until 05/03/2025. No new symptoms since admission. Cardiac exam WNL, Lungs CTA throughout, abdomen soft and nontender, alert to place and person. No neuro deficits appreciated. At this time, her BP continues to range between 80s-100s, MAP continues to remain > 60. Pending BNP. H/o GI bleed September 2022, ulcer. H/H went from 16-> 13.8 and in setting of hypotension, will start pantoprazole IV BID. Albumin WNL at this time. Will continue to provide gentle IVF bolus for hypotension as needed. Held AM Entresto. Echo scheduled for AM. Nursing continues to stay in communication regarding patient's condition and ongoing orders. Attending provider notified. Will continue to monitor and adjust orders as necessary.
[2025-05-02 02:08] LABS: Hematocrit (blood only) 40.5 % (37.0-47.0); Hemoglobin 13.8 g/dL (12.0-16.0)
[2025-05-02] MEDS: PANTOprazole 40 MG/10 ML SYR IV SCH (02:44)
[2025-05-02 03:18] LABS: Hematocrit (blood only) 40.5 % (37.0-47.0); Hemoglobin 13.8 g/dL (12.0-16.0); Immature Granulocytes # (auto) 0.02 K/uL (0.01-0.20); Immature Granulocytes % (auto) 0.3 %; Mean Corpuscular Hemoglobin 31.0 pg (25.0-34.0); Mean Corpuscular Volume 91.0 fL (80.0-100.0); Platelet Count 215 K/uL (130-400); RDW Standard Deviation 45.5 fL (36.4-46.3); Red Blood Count 4.45 M/uL (4.20-5.40); White Blood Count 6.92 K/ul (4.8-10.8)
[2025-05-02 03:35] LABS: Anion Gap 9.0 (3-11); Blood Urea Nitrogen 15.0 mg/dl (6-23); Calcium 8.0 mg/dl (8.6-10.3); Carbon Dioxide 22.0 mmol/L (21-32); Chloride 107.0 mmol/L (98-107); Creatinine Clr Calc Pharmacy 64.7 ml/min; Glucose 89.0 mg/dl (70-99(Fasting)); Potassium 4.1 mmol/L (3.5-5.1); Sodium 138.0 mmol/L (136-145)
[2025-05-02 03:47] LABS: ANTI-Xa, UFH(UnfractionatedHep 0.29 IU/ml (0.3-0.7)
[2025-05-02] MEDS: ACETAMINOPHEN 325 MG TAB PO PRN (05:29)
[2025-05-02] MEDS: LEVOTHYROXINE SODIUM 25 MCG TABLET PO SCH (06:39)
[2025-05-02] MEDS: MULTIVITAMIN TAB PO SCH (08:41)
[2025-05-02] MEDS: ASPIRIN 81 MG ECTAB PO SCH (08:41)
--- NOTE | 2025-05-02 09:30 | Hospitalist Progress Note ---
Date of Service May 02, 2025 Assessment & Plan (1) Non-ST elevation CO (NSTEMI): Plan: -nonischemic cardiomyopathy status post AICD placement, CAD -troponin of >600, trending downward to 321 this am -heparin drip started in ER -asa, lipitor -entresto, jardiance, ,lasix -echo -cardiology consult pending (2) Vertigo: Plan: -CT/CTA negative -asa, statin -echo -MRI pending ICD and bladder stimulator clearance -meclizine PRN -PT/OT (3) Hypothyroidism (acquired): Plan: -levothyroxine (4) PUD (peptic ulcer disease): Plan: -protonix Admission and Anticipated Discharge Date Admission Date: May 01, 2025 Subjective Patient feeling comfortably this morning. No complaints. Review of Systems Review of Systems: CONST: Negative for fever, body aches and chills. HENT: Negative for neck pain/stiffness, headache, congestion, sore throat, swelling. EYES: Negative for discharge/pain or vision changes. RESP: Negative for cough/hemoptysis and shortness of breath. CV: Negative chest pain, difficulty breathing, palpitations. ABD: Negative pain, nausea, vomiting. : Negative increase frequency, dysuria, blood in urine or stool. MUSC: Negative for muscle aches, edema. SKIN: Negative rash, lesions/sores. NEURO: + dizziness, weakness. Physical Exam Physical Exam: GENERAL APPEARANCE NAD, activity normal for age, well developed/ well nourished, no cyanosis, pallor, or diaphoresis. EYES lids/conjunctiva normal. EARS/NOSE/THROAT Mucous membranes moist, nares normal, lips/teeth normal uvula midline without oral pharyngeal erythema, exudate or swelling TMs normal bilaterally. No lymphangitis/lymphedema. HEAD/NECK normocephalic atraumatic, no facial trauma, neck is supple. RESPIRATORY respiratory effort normal, speaks in full sentences, no tripod position, no accessory muscle use. Lungs clear to auscultation without rhonchi, wheezes, rales CARDIAC Regular rate and rhythm, no edema. ABDOMINAL Soft, ND/NT. No evidence of fluid wave. No pulsatile masses on exam, rebound tenderness, Liriano sign or pain over Mcburney's point. MUSCLES/EXTREMITIES No abnormal range of motion, no swelling. SKIN Warm, pink and dry. No rashes, dermatoses, petechiae or lesions. NEUROLOGICAL Speech is clear and appropriate. Normal level of consciousness. Gait and coordination are normal. 5/5 strength in all extremities. PSYCH Normal mood and affect. Judgement/competence is appropriate Results & Data Results & Data Vital Signs (Past 12 Hours) Vital Signs Temp Pulse Pulse Resp BP BP Pulse Ox 05/02/25 07:31 84 05/02/25 06:00 67 12 87/53 L 97 05/02/25 05:30 72 25 H 88/49 L 97 05/02/25 05:15 64 16 100 05/02/25 04:30 69 16 82/39 L 96 05/02/25 04:00 71 15 78/39 L 97 05/02/25 03:30 67 14 79/44 L 90 05/02/25 03:00 64 13 84/46 L 95 05/02/25 02:30 71 10 L 80/39 L 95 05/02/25 02:00 73 17 84/41 L 95 05/02/25 01:36 69 21 83/43 L 95 05/02/25 01:33 69 20 79/46 L 93 05/02/25 01:30 73 20 72/42 L 95 05/02/25 01:01 83/43 L 05/02/25 01:00 70 15 77/42 L 94 05/02/25 00:30 71 14 97/53 L 93 05/02/25 00:00 72 13 89/58 L 93 05/01/25 23:55 75 20 89/49 L 97 05/01/25 23:55 36.9 C 73 15 89/49 L 94 05/01/25 23:30 67 13 92/51 L 96 05/01/25 23:00 68 12 87/53 L 93 05/01/25 22:37 70 05/01/25 22:28 70 13 84/53 L 99 O2 Del Method 05/02/25 07:31 05/02/25 06:00 05/02/25 05:30 05/02/25 05:15 05/02/25 04:30 05/02/25 04:00 05/02/25 03:30 05/02/25 03:00 05/02/25 02:30 05/02/25 02:00 05/02/25 01:36 05/02/25 01:33 05/02/25 01:30 05/02/25 01:01 05/02/25 01:00 05/02/25 00:30 05/02/25 00:00 05/01/25 23:55 05/01/25 23:55 Room Air 05/01/25 23:30 05/01/25 23:00 Room Air 05/01/25 22:37 05/01/25 22:28 Nasal Cannula PG Care Time/CCT Total # of Minutes Spent Total Time Spent with Patient: Total time spent is greater than 50% in coordination of care (as documented) at patient's floor/unit and/or counseling patient: Coding Level of Care Code 20911 SUB INP/OBS CARE 2/35MIN Diagnoses Non-ST elevation CO (NSTEMI) I21.4 Vertigo R42 Hypothyroidism (acquired) E03.9 PUD (peptic ulcer disease) K27.9
[2025-05-02 10:30] LABS: ANTI-Xa, UFH(UnfractionatedHep 0.33 IU/ml (0.3-0.7)
[2025-05-02 16:34] LABS: ANTI-Xa, UFH(UnfractionatedHep 0.30 IU/ml (0.3-0.7)
--- NOTE | 2025-05-02 21:00 | Electrocardiogram Report ---
Test Reason : Blood Pressure : */* mmHG Vent. Rate : 78 BPM Atrial Rate : 78 BPM P-R Int : 152 ms QRS Dur : 164 ms QT Int : 478 ms P-R-T Axes : 56 -54 82 degrees QTcB Int : 544 ms Sinus rhythm with occasional Premature ventricular complexes Left bundle branch block Abnormal ECG When compared with ECG of 31-Dec-2024 18:19, QRS axis Shifted left T wave inversion now evident in Anterior leads Atrial pacing no longer present Confirmed by Alpa Rhodes (Xavi) on 05/02/2025 8:59:55 PM Referred By: REFERRED SELF Confirmed By: Alpa Rhodes
[2025-05-02] MEDS: MELATONIN 3 MG TAB PO PRN (21:55)
--- NOTE | 2025-05-02 23:49 | Cardiology Consultation ---
Date of Consultation May 02, 2025 Assessment & Plan (1) Non-ST elevation [place] (NSTEMI): (2) Nonischemic cardiomyopathy: (3) Acute HFrEF (heart failure with reduced ejection fraction): (4) CAD (coronary artery disease): (5) AICD (automatic cardioverter/defibrillator) present: Pacemaker with ICD; disabled LV lead Plan Interestingly she has this new wall motion abnormality on her echo and a previously completely normal echo without wall motion abnormality from back in November. The etiology of this is not clear. The cardiac enzymes could be related to heart failure and the new LV dysfunction, However also raises the possibility of development of new CAD. Her last cath was sometime ago. Obviously she has had problems with her LV lead biventricular pacemaker and this has been disabled. Unfortunately will have to treat her medically for the LV dysfunction. Dr. Mcpherson has been following with her for quite some time and I will defer judgment on further evaluation and treatment to him whether he just wants to adjust medications or consider doing catheterization on her.Currently she is on Jardiance as well as Aldactone but I do not see that she is on beta- honorio or MADELYN ARB and these may want to be considered. I will ask Dr. Mcpherson to follow-up Saturday morning. History of Present Illness Reason for Consultation: Abnormal cardiac enzymes Attending Physician: Daniel Ngo MD History of Present Illness Ms. Plaza is a very nice 74-year-old woman who usually follows with Dr. Mcpherson. She presented to the emergency room with increased shortness of breath as well as fatigue. According to the last notes from Dr. Mcpherson from February: she has a hx of hypertension, hypercholesterolemia, LBBB, chronic systolic CHF, nonischemic cardiomyopathy (30-35%, December 2022; 60 to 65% December 2023, May 2024), and for management of her device (BiV ICD, VT/VFib arrest, prolonged QT interval, July 2022, [facility]; diaphragmatic stimulation, coronary sinus lead deactivated, February 2025). Since her last visit, patient has done well. She is active on a daily basis caring for her home and property. She has not experienced any exertional chest pain or limiting dyspnea. She further denies syncope, presyncope, PND, orthopnea, palpitations, lower extremity edema, and claudication. She does follow daily weights at home and notes a "dry" weight of 131 pounds and a "trigger" weight of 134 pounds. She typically takes spironolactone 25 mg daily and Lasix 20 Mg every other day. She takes an additional dose of Lasix if necessary for weight gain. She plans to titrate her Lasix to as needed only. She does follow blood pressures routinely at home and carries a diary with her today. Her ranges 100-120/55-65. An echocardiogram performed in November 2024 noted normal left ventricular systolic function with an ejection fraction of 60 to 65%. There is mild LVH along with mild mitral digitation. Compared to the study performed in May 2024, no significant change. Results personally reviewed and discussed in detail. Her EKG shows normal sinus rhythm with a left bundle branch block pattern. The echo done in the emergency room now shows severe LV dysfunction with an anteroapical anteroseptal area of akinesis. On the echo there appears to be a breakpoint at the proximal septum which may be a new wall motion abnormality and not specifically related to her left bundle branch block. As noted above her LV lead was disabled this fall due to diaphragmatic stimulation. Allergies Allergy/AdvReac Type Severity Reaction Status Date / Time morphine Allergy Severe Hives Verified 05/01/25 15:03 dexamethasone Allergy Intermediate Hives Verified 05/01/25 15:03 [From Maxitrol (neomycin sulf)] neomycin Allergy Intermediate Hives Verified 05/01/25 15:03 [From Maxitrol (neomycin sulf)] polymyxin B Allergy Intermediate Hives Verified 05/01/25 15:03 [From Maxitrol (neomycin sulf)] piperacillin [From Zosyn] AdvReac Severe prolonged Verified 05/01/25 15:03 QT interval tazobactam [From Zosyn] AdvReac Severe prolonged Verified 05/01/25 15:03 QT interval ekg pads AdvReac Mild contact Uncoded 05/01/25 15:03 dermatitis Home Medications Medication Instructions Recorded Confirmed Type multivitamin 1 tab PO QAM 01/01/23 05/01/25 History calcium 600 mg (as carbonate)-vit 1 tab PO HS 04/30/23 05/01/25 History D3 20 mcg (800 unit) chewable tablet (Caltrate plus D) biotin 5 mg capsule 5 mg PO UD 03/30/24 05/01/25 History Medical Marijuana 1 gummy PO HS sleep 05/11/24 05/01/25 History mecobalamin (vitamin B12) 5,000 5,000 mcg PO Q7D 08/07/24 05/01/25 History mcg chewable tablet empagliflozin 10 mg tablet 10 mg PO HS #90 tabs 08/20/24 05/01/25 Rx (Jardiance) phenazopyridine 100 mg tablet 100 mg PO TID PRN pain 6 doses #6 10/29/24 05/01/25 Rx (Pyridium) tabs furosemide 20 mg tablet 20 mg PO DAILY PRN weight gain, 11/05/24 05/01/25 Rx edema, SOB. #120 tabs oxycodone-acetaminophen 5 mg-325 1 tab PO Q4H PRN pain #7 tabs 12/15/24 05/01/25 Rx mg tablet (Endocet) pantoprazole 40 mg tablet,delayed 40 mg PO BID 90 days #180 tabs 12/24/24 05/01/25 Rx release Entresto 49 mg-51 mg tablet 1 tab PO BID #180 tabs 01/06/25 05/01/25 Rx (sacubitril-valsartan) spironolactone 25 mg tablet 12.5 mg (1/2 x 25 mg) PO HS #90 04/05/25 05/01/25 Rx (Aldactone) tabs levothyroxine 25 mcg tablet 25 mcg PO DAILYBB #90 tabs 04/06/25 05/01/25 Rx Patient History Medical History (Updated 05/03/25 @ 08:00 by Alpa Rhodes DO) Nonischemic cardiomyopathy History of sudden cardiac arrest September 2022 -> was inpatient at [facility] for a GI Bleed and then was transferred via life flight to [facility]. Torsades morphology prior to vfib. EP following. Avoid QT prolonging medications. Has ICD per MD HR clinic Esophagitis Reason for procedure 09/03/24 Hx: UTI (urinary tract infection) EMR 06/09/24 - pt denies any issues at this time History of trigger finger Right Thumb and Right Index Finger - 02/05/24 Chest pain hx - pt denies at this time "They said it was esophagitis" Heart failure with improved ejection fraction (HFimpEF) ICD (implantable cardioverter-defibrillator) in place placed 10/16/22 in [facility] d/t cardiac arrest in September 2022. (medtronic device) Following with [facility] and MD cardiology Pacemaker placed at [facility] on 10/16/22 d/t cardiac arrest (medtronic device); ICD/pacemaker in place "but pacemaker is turned off currently" Anastomotic ulcer Presence of combination internal cardiac defibrillator (ICD) and pacemaker (10/16/22) placed at [facility] on 10/16/22 d/t cardiac arrest (medtronic device) Anxiety History of shingles (12/2022) left thigh erythematous rash with shingles suspicion per [facility] discharge summary-completed valacyclovir Trigger finger of all digits of right hand Pulmonary nodule Osteopenia after menopause LBBB (left bundle branch block) HLD (hyperlipidemia) hx HTN (hypertension) hx Hx-sudden cardiac arrest (09/2022) September 2022 -> was inpatient at [facility] for a GI Bleed and then was transferred via life flight to [facility]. Torsades morphology prior to vfib. EP following. Avoid QT prolonging medications. Has ICD Hx of peptic ulcer Hepatic steatosis GERD (gastroesophageal reflux disease) Depression Chronic systolic (congestive) heart failure echo 12/2023, per pt. "i'm up to 60%"-- follows with Dr. Mcpherson CAD (coronary artery disease) 1. Mild to moderate nonobstructive coronary artery disease -30-40% focal mid LAD stenosis 30% proximal, mid RCA. 40% focal proximal RPDA History of pneumonia aspiration: 09/25 sputum cx positive for Klebsiella s/p 7 days Zosyn/Augmentin and meropenem Wound of right leg (01/19/24) inside of right thigh, red, has pustules, seen in emergency clinic at [facility] on 01/19/24, started on doxycycline x 10 days, states it is feeling better History of seizure 09/25 while in a coma at [facility] after having the cardiac arrest. no problems since. no medications. believed it was related to the blood loss with her GI Bleed or the cardiac arrest. "only one ever" Nonischemic cardiomyopathy History of COVID-19 (08/2022) 08/2022--mild symptoms, no symptoms now Pulmonary hypertension History of blood transfusion multiple 09/2022 History of coma while inpatient at [facility] in September 2022. History of GI bleed bleeding ulcer in September 2022, treated inpatient [facility], egd with biopsy. Gram-negative pneumonia hx Surgical History S/P cardiac pacemaker procedure (10/16/22) placed at [facility] on 10/16/22 d/t cardiac arrest (medtronic device) History of Dianna-en-Y gastric bypass (2013) Hx of bilateral cataract extraction (09/2023) History of bladder surgery Sacral Neuromodulator Placement 02/2023 (Advised to bring remote) History of surgery (01/2023) percutaneous nerve evaluation History of cardiac cath (07/2022) [facility] 07/2022 with no stents, no WA.- follows with Dr. Mcpherson History of esophagogastroduodenoscopy (EGD) History of colonoscopy History of cholecystectomy S/P bladder repair bladder sling S/P cervical spinal fusion 2 seperate surgeries first done C3/C4 and the last fusion was C5/C6. ROM is "pretty good". slight difficulty looking upward. H/O: hysterectomy HERMINIO with BSO Status post right knee replacement TKA Family History Father Lung cancer Hypertension Other Diabetes No family history of adverse response to anesthesia Denies family history of Ovarian cancer Breast cancer Colorectal cancer Social History Smoking Status: Never smoker Tobacco Type: Cigarettes Age Started Using Tobacco: 2; Age Quit Using Tobacco: 37; packs per day: 0.5; Cigarettes Per Day: 1/2 Pack Per Day.; Second Hand Exposure: No; Do You Dip or Chew Tobacco: No; Hx Alcohol Use: Yes Alcohol type: wine Alcohol type Comment: 1 glass 4-5x/week with dinner Hx Substance Use: No Preferred Language: Setswana Communication Ability: Effective Hearing Ability: Normal Corset Maker Required: No Beliefs That Will Affect Care: None marital status: / Current Living Situation: Family current occupational status: retired current occupation: retired Feels Safe at Home: Yes Childhood Exposure to Second-Hand Smoke: No Diet: regular caffeine: Yes Physical Activity Frequency: Daily Seatbelt Use: always Assistive Devices: Denture - Upper and Glasses Review of Systems Review of Systems: All systems reviewed & are unremarkable except as noted in HPI & below Physical Exam Physical Exam: Awake alert oriented in no distress. She is lying flat in bed with no shortness of breath or orthopnea Respiratory: normal respiratory effort, lungs clear to auscultation Cardiovascular: PMI appears displaced there is a summation gallop Results & Data Vital Signs (Past 12 Hours) Vital Signs Temp Pulse Pulse Resp BP Pulse Ox O2 Del Method 05/02/25 22:34 Room Air 05/02/25 20:01 36.9 C 83 20 93/59 L 94 Room Air 05/02/25 15:33 67 05/02/25 15:16 Room Air 05/02/25 13:30 36.7 C 20 87/56 L 96 Room Air Laboratory Results Abnormal lab results 05/02/25 05/02/25 Range/Units 01:36 02:56 Heparin Anti-Xa, Unfract 0.29 L (0.3-0.7) IU/ml BUN/Creatinine Ratio 23.1 H (10-20) Calcium 8.0 L (8.6-10.3) mg/dl B-Natriuretic Peptide 846 H (0-100) pg/ml (4) CAD (coronary artery disease) Coronary Disease-Associated Artery/Lesion type: ho-chunk artery [place] vs. transplanted heart: ho-chunk heart Associated angina: without angina Qualified Code(s): I25.10 - Atherosclerotic heart disease of ho-chunk coronary artery without angina pectoris
[2025-05-03 07:10] LABS: ANTI-Xa, UFH(UnfractionatedHep 0.34 IU/ml (0.3-0.7)
[2025-05-03 08:28] VITALS: TEMP 98.4
[2025-05-03 12:22] VITALS: BP 108/65; RESP 18; O2SAT 98
--- NOTE | 2025-05-03 12:58 | Cardiology Progress Note ---
Date of Service May 03, 2025 Assessment & Plan (1) Chronic systolic (congestive) heart failure: Plan: -Well compensated at this time. -Would discontinue heparin drip. -Continue spironolactone, Lasix, and Jardiance. -Entresto currently on hold due to hypotension. -Was not tolerant to beta-blockers previously. -Stable for hospital discharge realizing her at home situation. -Continue daily weights and sliding scale diuretics. -Will arrange close outpatient follow-up. (2) Nonischemic cardiomyopathy: Plan: -Nonobstructive CAD by cath, December 2022. -LVEF back in May was normal at 60 to 65%. -Etiology of recent decline in LVEF uncertain. (3) Presence of combination internal cardiac defibrillator (ICD) and pacemaker: Plan: -Normal function on interrogation, April 26, 2025. Admission and Anticipated Discharge Date Admission Date: May 01, 2025 Subjective The patient is resting comfortably in bed without complaints of chest pain or dyspnea. She is very anxious for hospital discharge as she needs to care for her 95-year-old, demented mother who is at home alone. Physical Exam Physical Exam: In general this is a mildly obese white female no acute distress. HEENT exam is negative. Neck is supple with full carotid upstrokes. No carotid bruits. No JVD. Cardiovascular exam reveals a regular rhythm with distant heart sounds. No obvious murmurs. Lungs note bibasilar rales. Abdomen is obese without bruits. Extremities reveal intact radial artery pulses bilaterally. There is no peripheral edema. Results & Data Vital Signs (Past 12 Hours) Vital Signs Temp Pulse Pulse Resp BP Pulse Ox O2 Del Method 05/03/25 12:21 36.9 C 80 18 108/65 98 Room Air 05/03/25 08:24 36.9 C 74 16 97/62 L 95 Room Air 05/03/25 06:45 74 05/03/25 04:03 36.7 C 70 18 93/57 L 95 Room Air Diagnostic Findings manager of learning notes occasional PVCs. PG Care Time/CCT Total # of Minutes Spent Total Time Spent with Patient: Total time spent is greater than 50% in coordination of care (as documented) at patient's floor/unit and/or counseling patient: Coding Level of Care Code 50321 SUB INP/OBS CARE 3/50MIN Diagnoses Chronic systolic (congestive) heart failure I50.22 Nonischemic cardiomyopathy I42.8 Presence of combination internal cardiac defibrillator (ICD) and pacemaker Z95.810
[2025-05-03 14:20] VITALS: PULSE 75
--- NOTE | 2025-05-03 14:42 | Discharge Summary ---
Discharge Summary Date of Service May 03, 2025 Principal Dx & Hospital Course #1 = Principal Diagnosis (1) Nonischemic cardiomyopathy: Patient was seen by cardiology Patient's own can top setter Dr. Mcpherson saw the patient today EF has dropped to 20% She has an AICD in place Patient denies any chest pain or shortness of breath I spoke with patient's can top setter Dr. Mcpherson: He has recommended stopping heparin and patient can be discharged home on spironolactone and Jardiance and Lasix as needed for weight gain. Patient in the past has not tolerated beta- honorio. He is recommending holding Entresto for now due to low blood pressure and to follow-up outpatient with cardiology Patient is aware of all cardiology recommendations She will follow-up with cardiology as outpatient (2) Hypothyroidism (acquired): Continue home dose of levothyroxine (3) AICD (automatic cardioverter/defibrillator) present: As above under cardiomyopathy (4) PUD (peptic ulcer disease): Continue home dose of PPI (5) CAD (coronary artery disease): Plan Patient seen and examined. She is ambulating without any issues. She denies any headache, dizziness, lightheadedness, chest pain or shortness of breath She is tolerating oral diet without issues She has been cleared by cardiology for discharge Have gone over the discharge care plan, medications and follow-up with the patient in great detail and answered all her questions This discharge took greater than 30 minutes to coordinate Admission HPI Per Admitting Provider Pt is a 74 y/o female with pmh nonischemic cardiomyopathy status post AICD placement, CAD, prior Dianna-en-Y, anxiety, hypothyroidism, PUD who presents with dizziness and generalized weakness that started at 3am this am. Pt states she felt like the room was spinning and her legs felt weak and unsteady. She denies any other focal neurological deficits or chest ohara. In the ER she was evaluated as a stroke. CT/CTA of brain/neck were without any acute pathology. Her labs did show troponin of >500 with repeat >600. Her EKG showed no ST-T changes. Discharge Exam General: No acute distress Psych: Awake and alert HEENT: Anicteric sclera, moist oral mucosa CVS: Regular rate and rhythm Lungs: Bilateral air entry, no wheezing noted Abdomen: Soft, nontender, no rebound, no guarding Ext: No lower extremity edema, no calf tenderness Neuro: No focal motor deficits noted Discharge Plan Discharge Items Patient Disposition: Home - Self-Care Reason For Visit: DIZZINESS, WEAKNESS Discharge Diagnosis: Chronic systolic congestive heart failure/nonischemic cardiomyopathy Hypothyroidism Condition on Discharge: Good Activity: Resume your previous activity Non-emergency contact: Primary Care Provider and Consumer Services Advisor Call non-emergency contact if: you have any medication questions, your symptoms worsen and your temperature is above 101 Follow-up/Referrals: Spencer Mcpherson MD [Physician] - Valeria Shaw MD [Primary Care Provider] - Diet: Heart Healthy Addtl Attending Provider Instructions: DISCHARGE INSTRUCTION TO PATIENT/FAMILY: Follow-up with your primary care provider within 1 week regarding: Posthospital discharge, medication review, medication refills and follow-up on all your medical problems Please take all your discharge medications, discharge information and discharge instructions to all your doctors appointments. Avoid all NSAIDs including ibuprofen, Motrin, Advil, Aleve, naproxen, meloxicam, Toradol, diclofenac Please follow-up with your outpatient can top setter Dr. Mcpherson regarding heart failure. Dr. Mcpherson has recommended holding Entresto for now given low blood pressure. Please follow-up with him regarding resuming Entresto Please weigh yourself daily every morning at the same time on the same scale and take all your daily weights to your outpatient appointments can top setter Please follow-up with your primary care provider regarding pending test results of tickborne illness panel which was sent on admission Pending Studies at Discharge: Yes Studies:: Tickborne illness panel sent on admission: Results pending Stand-Alone Forms: My [employer], Smoking Cessation Medications and DC Order Prescriptions: Continued Jardiance 10 mg tablet 10 mg PO HS Qty: 90 3RF Hold Instructions: UTI symptoms pantoprazole 40 mg tablet,delayed release (DR/EC) 40 mg PO BID 90 Days Qty: 180 3RF levothyroxine 25 mcg tablet 25 mcg PO DAILYBB Qty: 90 3RF Caltrate 600 plus D 600 mg-20 mcg (800 unit) tablet,chewable 1 tab PO HS mecobalamin (vitamin B12) 5,000 mcg tablet,chewable 5,000 mcg PO Q7D Rx Instructions: 5,000 mcg orally weekly; Medical Marijuana 1 gummy PO HS Rx Instructions: use as directed; spironolactone [Aldactone] 25 mg tablet 12.5 mg PO HS Qty: 90 3RF Rx Instructions: PER PT "HAVEN'T HAD FOR ABOUT 2 WEEKS, EVERY TIME I TRY TO SPLIT IT, IT JUST CRUMBLES". furosemide 20 mg tablet 20 mg PO DAILY PRN (Reason: weight gain, edema, SOB.) Qty: 120 3RF Rx Instructions: May increase to 40 mg PRN phenazopyridine [Pyridium] 100 mg tablet 100 mg PO TID PRN (Reason: pain) Qty: 6 0RF oxycodone-acetaminophen [Endocet] 5-325 mg tablet 1 tab PO Q4H PRN (Reason: pain) Qty: 7 0RF Rx Instructions: initial therapy Dr. Tam [id number] multivitamin Tablet 1 tab PO QAM biotin 5 mg capsule 5 mg PO UD Rx Instructions: 5 mg orally 2x weekly; Held sacubitril-valsartan [Entresto] 49-51 mg tablet 1 tab PO BID Qty: 180 3RF Hold Instructions: Resume on 05/10/25. Please follow-up with your can top setter Dr. Mcpherson regarding resuming Entresto based on your blood pressure readings. Discharge Orders: Discharge Order (Routine); Ordered 05/03/25 Ordered By: Isauro Mathis Admission Data Admit Date/Time: 05/01/25 13:43 Attending Provider: Isauro Mathis Admit Provider: Daniel Ngo Primary Care Provider: Valeria Shaw Other Providers: Daniel Ngo; Alpa Rhodes Hospital Stay Data Consultations 05/01/25 14:26 ED Decision to Admit Stat 05/01/25 15:04 Consult Cardiology Routine Diagnostic Imagining Performed 05/01/25 11:20 CT angio head w con Stat CT angio neck with con Stat CT head/brain wo con Stat Pending Results Patient Have Any Pending Studies at Discharge: Yes Discharge Instructions Given to Patient (Per Discharging Provider) DISCHARGE INSTRUCTION TO PATIENT/FAMILY: Follow-up with your primary care provider within 1 week regarding: Posthospital discharge, medication review, medication refills and follow-up on all your medical problems Please take all your discharge medications, discharge information and discharge instructions to all your doctors appointments. Avoid all NSAIDs including ibuprofen, Motrin, Advil, Aleve, naproxen, meloxicam, Toradol, diclofenac Please follow-up with your outpatient can top setter Dr. Mcpherson regarding heart failure. Dr. Mcpherson has recommended holding Entresto for now given low blood pressure. Please follow-up with him regarding resuming Entresto Please weigh yourself daily every morning at the same time on the same scale and take all your daily weights to your outpatient appointments can top setter Please follow-up with your primary care provider regarding pending test results of tickborne illness panel which was sent on admission Total Time Total Time Spent Total Time Spent (In Minutes): 40 minutes Coding Level of Care Code 05876 INP/OBS DISCH >30 MIN Diagnoses Nonischemic cardiomyopathy I42.8 Hypothyroidism (acquired) E03.9 AICD (automatic cardioverter/defibrillator) present Z95.810 PUD (peptic ulcer disease) K27.9 Coronary artery disease involving picayune coronary artery of pic[place]une heart without angina pectoris I25.10 Coronary Disease-Associated Artery/Lesion type: picayune artery [place] vs. transplanted heart: picayune heart Associated angina: without angina
== END 2025-05-03 15:15 | disposition home or self-care (01) | DRG 315 ==
LOC: ED 10:49 → SUATTDRO 13:43 → EDINP 13:43 → 2N 15:05